=== PATIENT | male | born 1960 | race Caucasian/White ===

== ENCOUNTER → 2017-12-09 | Outpatient (CLI) | payer OTHER ==
--- NOTE | 2017-12-10 00:30 | MR ---
EXAMINATION TYPE: MR brain wo/w con DATE OF EXAM: 12/09/2017 COMPARISON: HISTORY: Hx lung Cancer, Headache TECHNIQUE: Multiplanar, multisequence images of the brain and brainstem is performed without and with IV contras t, utilizing 6.5 mL intravenous Gadavist . FINDINGS: Ventricles of normal size. There is no mass effect nor midline shift. There is no sign of intracrania l hemorrhage. Quintanilla-white matter structures have fairly normal signal pattern. There is no evidence of cerebral edema. There is a 3 mm focus of increased signal at the quintanilla-white matter junction right pa rietal lobe. There is no evidence of cortical infarct. Brainstem appears intact. Corpus callosum appe ars normal. Sella turcica appears normal. I see no pathologic enhancement. IMPRESSION: Isolated small focus of increased signal in the white matter right parietal lobe of doubt ful significance. Otherwise negative exam. No evidence of metastatic disease.
== END ==
LOC: RADMRIMAIN 16:22
PROVIDERS: ATTEND Internal Medicine Hematology & Oncology
DX: R51 Headache (principal); C34.11 Malignant neoplasm of upper lobe, right bronchus or lung
CPT/HCPCS: 70553; A9585

== ENCOUNTER → 2017-12-11 | Outpatient (CLI) | payer OTHER ==
--- NOTE | 2017-12-12 22:30 | PE ---
EXAMINATION TYPE: PET CT fusion skull to thigh DATE OF EXAM: 12/11/2017 CLINICAL HISTORY: 57-year-old male initial staging right lung cancer diagnosed in October 2017. TECHNIQUE: Following the intravenous administration of 11.8 mCi of F-18 FDG, whole body images are performed from the skull base to the midthigh. Images are reviewed on the computer in the coronal, a xial, and sagittal planes. Reconstructed rotating images are created on independent workstation and reviewed on the computer. A localization and attenuation correction CT is performed in conjunction with the PET scan. Glucose level: 85 mg/dL CTDI: 2.56 mGy DLP: 257.96 mGy-cm Injection site: Right antecubital fossa. COMPARISON: Correlation radiograph 12/01/2017 FINDINGS: PET: Numerous nonenlarged right supraclavicular and right axillary lymph node show mild FDG uptake, max LÓPEZ V 2.8. This could be secondary to ipsilateral FDG injection and reactive changes. No obvious enlarged lymph nodes are identified in these regions. In the mediastinum, there is mild uptake: Right paratracheal lymph node, max SUV 2.2, left tracheobronchial angle lymph node, max SUV 2.8, subcarinal lymph node, max SUV 3.2. The largest of these measure 1.3 cm. A surgical clip in the anterior right apex with a staple line from prior surgery but with extensive b ulky, heterogeneous soft tissue located throughout the right hemithorax spanning up to 22.5 cm cranio caudal and 10.1 cm wide. The hypermetabolism is very heterogeneous with variable intense uptake rangi ng from 5.1 to 8.3. Moderate to large underlying effusion particularly relegated to the right base. Background of bullous emphysema. There are scattered pulmonary nodules on the left. Approximately 8 p ulmonary nodules are present, many of which measure 4 or 5 mm but the largest at the base measuring f rom 7 mm up to 10 mm. Max SUV 0.8; nodules are likely too small for adequate PET characterization. Thickening of the right adrenal gland with asymmetric mild increased uptake, max SUV 2.1. This may re late to adrenal hyperplasia but should be reassessed at follow-up. Redundant sigmoid colon but with long segment patchy moderate and borderline intense uptake, max SUV 5.1 spanning 17 cm involving the mid to distal sigmoid colon. ATTENUATION CORRECTION CT: Visualized paranasal sinuses and mastoid air cells appear clear. Slight leftward nasal septal deviati on. Heart normal size without pericardial effusion. Aorta normal caliber with conventional arch also bran bhavya anatomy. Extensive pulmonary findings described above. There is cut off of all of the right-beverly ed lobar bronchi. Approximately five 4 mm and smaller nonobstructive calculi in the right kidney. Gallbladder is hydrop ic at 4.9 cm wide without surrounding inflammation, likely due to fasting state. There is a Ford- type ventral abdominal wall hernia along the midline involving transverse colon. No mesenteric or re troperitoneal lymphadenopathy identified. No dilated small bowel, free fluid, or free air. Circumferential bladder wall thickening. Prostate gland is enlarged measuring 4.7 cm wide with centra l calcifications. Lobulated mass from the prostate gland impressing on the posterior bladder base, li carlos BPH. Mild pelvic free fluid. Bones: Degenerative changes of the hips, right SI joint, lower lumbar spine, and cervical spondylosis . IMPRESSION: 1. Some surgical material at the right apex but with extensive heterogeneous, hypermetabolic mass inv olving the right lung spanning up to 22.5 cm craniocaudal and 10.1 cm wide extending from the apex to the base. There is an underlying moderate effusion at the right base. The mass cuts off all of the r ight-sided lobar bronchi. 2. Mildly enlarged mediastinal lymph nodes measuring up to 1.3 cm show only mild or borderline modera te uptake, max SUV 3.2. These may be reactive rather than metastatic. 3. Additionally, numerous small right supraclavicular and right axillary lymph nodes show mild uptake , max SUV 2.8. Again, these may be reactive especially given the ipsilateral, right sided FDG injecti on. 4. Approximately 8 left-sided pulmonary nodules measuring up to 1 cm show no significant FDG uptake. Many are too small for adequate PET characterization. These are nonspecific but metastatic disease i s not excluded at this time. 5. Asymmetric thickening and mild hypermetabolism of the right adrenal gland, max SUV 2.1. This may r elate to adrenal hyperplasia. All of these above-mentioned questionable findings should be reassessed at follow-up. 5. Patchy long segment moderate and intense uptake involving the mid to distal sigmoid colon spanning 17 cm. Given the long segment involvement, colon cancer is considered less likely. Colitis is possib le. Correlate with patient's symptoms and direct visualization when possible. 6. Incidental: Bullous emphysema, hydropic gallbladder likely due to fasting state, and BPH. Circumfe rential bladder wall thickening could represent cystitis or bladder wall hypertrophy.
== END | disposition home or self-care (01) ==
LOC: RADPETMAIN 10:07
PROVIDERS: ATTEND Internal Medicine Critical Care Medicine
DX: J43.9 Emphysema, unspecified (principal); E27.8 Other specified disorders of adrenal gland; C34.11 Malignant neoplasm of upper lobe, right bronchus or lung
CPT/HCPCS: 78815; A9552

== ENCOUNTER → 2018-01-03 | Outpatient (CLI) | payer OTHER ==
--- NOTE | 2018-01-03 18:01 | US ---
EXAMINATION TYPE: US venous doppler duplex LE DATE OF EXAM: 01/03/2018 5:09 PM COMPARISON: NONE CLINICAL HISTORY: M79.661, M79.662, R22.41, R22.42. No redness or leg swelling. Bilateral leg pain. Bilateral feet swelling. No hx of blood clots. No blood thinners. On Chemo- lung ca. SIDE PERFORMED: Bilateral TECHNIQUE: The lower extremity deep venous system is examined utilizing real time linear array sonog geovanna with graded compression, doppler sonography and color-flow sonography. VESSELS IMAGED: External Iliac Vein (EIV) Common Femoral Vein Deep Femoral Vein Greater Saphenous Vein * Femoral Vein Popliteal Vein Small Saphenous Vein * Proximal Calf Veins (* superficial vessels) There is normal flow, compressibility, vascular waveforms Right Leg: Negative for DVT. Prominent lymph nodes seen in groin. Left Leg: Negative for DVT. Prominent lymph nodes seen in groin. IMPRESSION: No evident deep venous thrombosis at or above the knees bilaterally.
== END | disposition home or self-care (01) ==
LOC: RADUSWWP 16:34
PROVIDERS: ATTEND Internal Medicine Hematology & Oncology
DX: M79.662 Pain in left lower leg (principal); M79.661 Pain in right lower leg; R22.42 Localized swelling, mass and lump, left lower limb; R22.41 Localized swelling, mass and lump, right lower limb; R06.4 Hyperventilation
CPT/HCPCS: 93970

== ENCOUNTER 2018-01-13 10:46 | Emergency (ER) | payer OTHER ==
--- NOTE | 2018-01-13 11:56 | ED ---
Extremity Problem HPI - General Chief complaint: Extremity Problem,Nontraumatic Stated complaint: BOTH ANKLES SWELLING Time Seen by Provider: 01/13/18 11:25 Source: patient, RN notes reviewed, old records reviewed Mode of arrival: wheelchair Limitations: no limitations - History of Present Illness Initial comments: This is a 57-year-old male the ER for evaluation patient presents today for evaluation regards to bilateral lower extremity edema. History of lung cancer, patient is had increasing lower extremity swelling for quite some time progressively worsening with increasing pain. Patient's legs are so painful it hurts even walk. Patient has no medication he takes for swelling, denies shortness of breath worse than normal MD Complaint: extremity pain, extremity swelling -: week(s) Location: left, right, lower extremity, bilateral lower extremity History of Same: Yes -: Yes myalgia, Yes arthralgia Radiation: none Severity scale (1-10): 8 Quality: aching Consistency: constant Improves with: nothing Worsens with: nothing Associated Symptoms: denies other symptoms - Related Data Home Medications Medication Instructions Recorded Confirmed Folic Acid 1 mg PO DAILY 01/05/18 01/13/18 Prochlorperazine [Compazine] 10 mg PO DAILY PRN 01/05/18 01/13/18 Ipratropium-Albuterol Nebulize 3 ml INHALATION RT-Q6H 01/13/18 01/13/18 [Duoneb 0.5 mg-3 mg/3 ml Soln] oxyCODONE ER [OxyCONTIN] 15 mg PO Q12HR PRN 01/13/18 01/13/18 oxyCODONE HCL 15 mg PO Q8H PRN 01/13/18 01/13/18 Allergies Allergy/AdvReac Type Severity Reaction Status Date / Time ibuprofen [From Motrin] AdvReac Unknown Verified 01/13/18 12:02 Review of Systems ROS Statement: Those systems with pertinent positive or pertinent negative responses have been documented in the HPI. ROS Other: All systems not noted in ROS Statement are negative. Past Medical History Past Medical History: Cancer, COPD Additional Past Medical History / Comment(s): SMALL CELL LUNG CANCER. HOME OXYGEN 3LNC. History of Any Multi-Drug Resistant Organisms: None Reported Additional Past Surgical History / Comment(s): 5 COLLAPSED LUNG PROBLEMS-BLEBS. LUNG SURGERIES. STOMACH SURGERY D/T [facility].-"PATCH ON STOMACH". Past Anesthesia/Blood Transfusion Reactions: No Reported Reaction Past Psychological History: No Psychological Hx Reported Smoking Status: Former smoker Past Alcohol Use History: None Reported Past Drug Use History: None Reported General Exam Limitations: no limitations General appearance: alert, in no apparent distress Head exam: Present: atraumatic, normocephalic, normal inspection Eye exam: Present: normal appearance, PERRL, EOMI. Absent: scleral icterus, conjunctival injection, periorbital swelling ENT exam: Present: normal exam, mucous membranes moist Neck exam: Present: normal inspection. Absent: tenderness, meningismus, lymphadenopathy Respiratory exam: Present: normal lung sounds bilaterally. Absent: respiratory distress, wheezes, rales, rhonchi, stridor Cardiovascular Exam: Present: regular rate, normal rhythm, normal heart sounds. Absent: systolic murmur, diastolic murmur, rubs, gallop, clicks GI/Abdominal exam: Present: soft, normal bowel sounds. Absent: distended, tenderness, guarding, rebound, rigid Extremities exam: Present: normal inspection, full ROM, normal capillary refill , other (Bilateral lower extremity edema). Absent: tenderness, pedal edema, joint swelling, calf tenderness Back exam: Present: normal inspection Neurological exam: Present: alert, oriented X3, CN II-XII intact Psychiatric exam: Present: normal affect, normal mood Skin exam: Present: warm, dry, intact, normal color. Absent: rash Course Vital Signs 01/13/18 01/13/18 01/13/18 11:08 11:39 12:00 Temperature 98.7 F Pulse Rate 102 H Respiratory 20 Rate Blood Pressure 93/58 O2 Sat by Pulse 95 95 97 Oximetry 01/13/18 13:00 Temperature Pulse Rate 86 Respiratory 20 Rate Blood Pressure 99/61 O2 Sat by Pulse 95 Oximetry - Reevaluation(s) Reevaluation #1: 01/13/18 13:34 Medical record is reviewed Reevaluation #2: 01/13/18 13:34 Patient given medication here in the ER Medical Decision Making - Lab Data Result diagrams: 01/13/18 12:54 Lab Results 01/13/18 01/13/18 Range/Units 12:54 12:54 Sodium 134 L (137-145) mmol/L Potassium 3.9 (3.5-5.1) mmol/L Chloride 99 (98-107) mmol/L Carbon Dioxide 28 (22-30) mmol/L Anion Gap 7 mmol/L BUN 13 (9-20) mg/dL Creatinine 0.49 L (0.66-1.25) mg/dL Est GFR (CKD-EPI)AfAm >90 (>60 ml/min/1.73 sqM) Est GFR (CKD-EPI)NonAf >90 (>60 ml/min/1.73 sqM) Glucose 94 (74-99) mg/dL Calcium 8.1 L (8.4-10.2) mg/dL Phosphorus 3.5 (2.5-4.5) mg/dL Magnesium 1.5 L (1.6-2.3) mg/dL Total Bilirubin 0.3 (0.2-1.3) mg/dL AST 36 (17-59) U/L ALT 32 (21-72) U/L Alkaline Phosphatase 91 (38-126) U/L Total Creatine Kinase <20 L (55-170) U/L Total Protein 5.4 L (6.3-8.2) g/dL Albumin 2.3 L (3.5-5.0) g/dL - EKG Data -: EKG Interpreted by Me (EKG shows sinus rhythm rate of 90, KS 128, QRS 88, QTc 452) Disposition Clinical Impression: Bilateral lower extremity edema Disposition: HOME SELF-CARE Condition: Good Instructions: Leg Edema (ED) Is patient prescribed a controlled substance at d/c from ED?: No Referrals: Bryce Basilio MD [Primary Care Provider] - 1-2 days
[2018-01-13] MEDS ORDERED: FUROSEMIDE 10 MG/ML 4 ML VIAL IV STA (12:28)
[2018-01-13 13:12] LABS: Basophils % (A) 0 %; Eosinophils % (A) 1 %; HCT 27.1 % (39.0-53.0); HGB 8.5 gm/dL (13.0-17.5); Hypochromasia Slight; Lymphocytes # (A) 0.7 k/uL (1.0-4.8); Lymphocytes % (A) 19 %; MCH 29.7 pg (25.0-35.0); MCHC 31.2 g/dL (31.0-37.0); MCV 95.1 fL (80.0-100.0); Mean Platelet Volume 7.3; Monocytes # (A) 0.6 k/uL (0-1.0); Monocytes % (A) 15 %; Neutrophils # (A) 2.4 k/uL (1.3-7.7); Neutrophils % (A) 61 %; Platelet Count 581 k/uL (150-450); RBC 2.85 m/uL (4.30-5.90); RDW 15.7 % (11.5-15.5)
[2018-01-13 13:21] LABS: ALT 32 U/L (21-72); AST 36 U/L (17-59); Albumin 2.3 g/dL (3.5-5.0); Alkaline Phosphatase 91 U/L (38-126); Anion Gap 7 mmol/L; Blood Urea Nitrogen 13 mg/dL (9-20); Calcium 8.1 mg/dL (8.4-10.2); Carbon Dioxide 28 mmol/L (22-30); Chloride 99 mmol/L (98-107); Glucose 94 mg/dL (74-99); Magnesium 1.5 mg/dL (1.6-2.3); Phosphorus 3.5 mg/dL (2.5-4.5); Potassium 3.9 mmol/L (3.5-5.1); Sodium 134 mmol/L (137-145); Total Bilirubin 0.3 mg/dL (0.2-1.3); Total Protein 5.4 g/dL (6.3-8.2)
[2018-01-13 13:23] LABS: Creatine Kinase <20 U/L (55-170)
--- NOTE | 2018-01-13 13:29 | XR ---
EXAMINATION TYPE: XR chest 2V DATE OF EXAM: 01/13/2018 COMPARISON: PET/CT December 11, 2017. 2 view chest x-ray December 01, 2017. HISTORY: History of lung cancer presents with weakness. TECHNIQUE: Frontal and lateral views of the chest are obtained. FINDINGS: There is redemonstration of completely opacified right lung with suprahilar clip correspon ds to diffuse right lung malignancy on recent PET/CT. There is background chronic emphysematous yee e without suspicious new focal airspace opacity in the left lung. Right-sided volume loss with medias tinal shift is redemonstrated. Scattered nodules left lung on PET CT are less well seen on x-ray. The right side cardiac silhouette is silhouetted similar to prior. The osseous structures are intact. IMPRESSION: Diffuse right lung malignancy redemonstrated. Background chronic emphysematous change wit hout new acute infiltrate in the left lung. No significant change from recent studies.
[2018-01-13 13:36] LABS: Creatine Kinase MB 0.6 ng/mL (0.0-2.4); Troponin I <0.012 ng/mL (0.000-0.034)
[2018-01-13 14:05] LABS: Polychromasia Present
[2018-01-13 14:32] VITALS: BP 109/62; PULSE 75; RESP 16; TEMP 98.2
== END 2018-01-13 14:30 | disposition home or self-care (01) ==
LOC: EC 10:46
DX: R60.0 Localized edema (principal); J44.9 Chronic obstructive pulmonary disease, unspecified; Z85.118 Personal history of other malignant neoplasm of bronchus and lung; Z87.891 Personal history of nicotine dependence; Z79.899 Other long term (current) drug therapy; Z88.6 Allergy status to analgesic agent
CPT/HCPCS: 36415; 93005; 83880; 80053; 82550; 82553; 83735; 84100; 84484; 85025; 71046; 99284; 96374; J1940

== ENCOUNTER → 2018-02-17 | Outpatient (CLI) | payer OTHER ==
[2018-02-17 12:10] LABS: Blood Urea Nitrogen 11 mg/dL (9-20)
--- NOTE | 2018-02-17 14:39 | CT ---
EXAMINATION TYPE: CT chest w con DATE OF EXAM: 02/17/2018 COMPARISON: PET/CT 12/11/2017 HISTORY: 57-year-old male follow-up lung cancer TECHNIQUE: Contiguous axial scanning of the chest after the administration of 100 mL of Isovue M300. Coronal/sagittal reconstructions performed. CT DLP: 201.80mGycm. Automatic exposure control utilized for a dose reduction. FINDINGS: Heart normal size without pericardial effusion. Rightward cardia mediastinal shift suggests volume lo ss in the right hemithorax. Aorta normal caliber with conventional arch vessel branching anatomy. Scattered mediastinal lymph nodes are present measuring up to 6 mm. These lymph nodes are not enlarge d by size criteria and are smaller as compared to 12/11/2017 where they measured up to 1.3 cm. Surgical staple lines in the right apex and right upper lobe. There has been dramatic improvement in the right hemithorax but with persistent multifocal areas of consolidation and masslike opacities alma ecially in the right suprahilar region extending up to the apex. This area is poorly delineated and c annot be adequately measured. Masslike consolidation at the peripheral right base measuring up to 6.4 x 5.2 cm. Persistent moderate right basilar pleural effusion. Bullous emphysema. 6 mm peripheral left upper lobe nodule, axial image 24 is unchanged. Couple residual 3 mm pulmonary nodules peripheral left upper lobe, axial image 12 and 17 are smaller. 4 additional pulmonary nodules previously seen in the right lower lobe measuring up to 1 cm have enti rely resolved. Previously seen thickening of the right adrenal gland showing still have shown some partial improveme nt. Punctate a couple punctate 3 to 4 mm right renal calculi. Moderate to large stool burden partiall y seen. There seems to be rectus diastases. Bones: Crowding of the right-sided ribs suggesting volume loss. No osseous destructive process seen. IMPRESSION: 1. Dramatic improvement of the disease burden in the right hemithorax but with persistent opacities. Consolidation persists in the right suprahilar region extending up to the apex. Ongoing follow-up is recommended to distinguish residual disease from postinflammatory consolidation, scarring, and atelec tasis. 2. Masslike area of consolidation at the right base measures 6.4 x 5.2 cm and likely represents a sit e of neoplasm with partial/evolving treatment response. 3. Residual moderate right basilar pleural effusion. 4. Most of the left-sided pulmonary nodules have improved, the larger nodules measuring up to 1 cm at the left base have entirely resolved. 5. Some improvement in the previously seen right adrenal gland thickening.
== END | disposition home or self-care (01) ==
LOC: RADCTMAIN 11:24
PROVIDERS: ATTEND Internal Medicine Hematology & Oncology
DX: J90 Pleural effusion, not elsewhere classified (principal); R91.8 Other nonspecific abnormal finding of lung field; C34.11 Malignant neoplasm of upper lobe, right bronchus or lung
CPT/HCPCS: 82565; 84520; 71260; 36415; Q9967

== ENCOUNTER → 2018-05-04 | Outpatient (CLI) | payer OTHER ==
--- NOTE | 2018-05-04 13:03 | MR ---
EXAMINATION TYPE: MR brain wo/w con DATE OF EXAM: 05/04/2018 COMPARISON: 12/09/2017 HISTORY: Lung ca TECHNIQUE: Multiplanar, multisequence images of the brain and brainstem is performed without and with IV contras t, utilizing 6 mL intravenous Gadavist . FINDINGS: Diffusion weighted images demonstrate no evidence of a recent infarct or other diffusion ab normality. There is scattered areas of abnormal signal the white matter. No enhancement. Findings most likely in the basis of focal area of remote White microvascular ischemia. Trace amount of fluid signal surrounding the optic nerves bilaterally is nonspecific. No orbital flat tening. Craniocervical junction maintained. There is a partially empty sella turcica. Findings stable . IMPRESSION: 1. Mild generalized degenerative change with nonspecific white matter changes most likely in the basi s of remote microvascular ischemia. Hypertension, migraine headaches or demyelinating process not ent irely excluded. No enhancement. No intracranial enhancing mass or findings suggestive of metastases.
== END | disposition home or self-care (01) ==
LOC: RADMRIMAIN 11:33
PROVIDERS: ATTEND Internal Medicine Hematology & Oncology
DX: R90.89 Other abnormal findings on diagnostic imaging of central nervous system (principal); R55 Syncope and collapse; C34.11 Malignant neoplasm of upper lobe, right bronchus or lung
CPT/HCPCS: 70553; A9585

== ENCOUNTER → 2018-06-07 | Outpatient (CLI) | payer OTHER ==
[2018-06-07 11:04] LABS: Blood Urea Nitrogen 13 mg/dL (9-20)
--- NOTE | 2018-06-07 14:49 | CT ---
EXAMINATION TYPE: CT ChestAbdPelvis w con DATE OF EXAM: 06/07/2018 COMPARISON: 02/17/2018 CT chest and PET/CT dated 12/11/2017 HISTORY: Lung cancer CT DLP: 549.4 mGycm. Automated Exposure Control for Dose Reduction was Utilized. CONTRAST: CT scan of the thorax, abdomen and pelvis is performed with IV Contrast, patient injected with 100 mL of Isovue 300. FINDINGS: LUNGS: The previously seen left upper lobe nodule appears decreased in size and elongated. This now h as appearance of a scar on series 4 image 22 and 21. There is marked improvement in size of a right l ower lobe mass previously measuring 5.2 x 6.4 cm and currently measuring 3.8 x 4.4 cm. There are mult iple other smaller right-sided pulmonary nodules such as on series 4 image 32 and 23. On image 23 thi s nodule previously measured 1.5 cm and currently measures 8 mm. There is marked improvement in degre e of consolidation of the right middle lobe and right upper lobe. Some traction bronchiectasis remain s in the right upper lobe with surgical sutures noted in right hemithorax volume loss. Rightward medi astinal shift is seen as a result. Extensive underlying emphysematous changes are noted. No new pulmo nary nodule or mass. MEDIASTINUM: The previously seen right paratracheal lymph node measuring 6 mm in short axis on the pr ior now measures 4 mm in short axis. Right perihilar peribronchial soft tissue swelling is present. N o new discrete adenopathy. Few coronary calcifications are seen. No pericardial effusion. LIVER/GB: There is marked extrahepatic biliary ductal dilatation progressed from the prior of 018 now measuring up to 2.0 cm. This appears to smoothly taper near the ampulla of Vater. The gallbla dder is hydropic measuring 10.1 cm. Minimal intrahepatic biliary ductal dilatation has developed. The liver is enlarged extending past the right iliac crest. PANCREAS: No significant abnormality is seen. SPLEEN: No significant abnormality is seen. ADRENALS: Again there is very slight right adrenal gland thickening without discrete nodularity. Left adrenal gland is unremarkable. KIDNEYS: Multiple punctate nonobstructing right renal calculi are seen. No hydronephrosis or left-beverly ed nephrolithiasis. Kidneys enhance symmetrically. BOWEL: There is a large degree of fecal stasis throughout the entirety of the colon limiting evaluati on. There is marked gastrectasis and a ventral wide necked hernia defect. Gastrectasis impresses upon the pancreas. GENITAL ORGANS: Prostate gland is enlarged and heterogenous containing central zone calcifications an d impressing upon the urinary bladder. LYMPH NODES: No greater than 1cm abdominal or pelvic lymph nodes are appreciated. OSSEOUS STRUCTURES: Grade 1 anterolisthesis of L4 on L5 due to facet arthropathy and hypertrophy. No new suspicious osseous lesion is identified.. OTHER: There is diffuse mild anasarca. IMPRESSION: 1. Continued response to treatment. The primary mass has decreased from the largest dimension of 6.4 cm to a largest dimension of 4.5 cm in comparison to the prior of 02/17/2018. All of the metastatic p ulmonary nodules appear to have decreased in size. 2. Development of marked extrahepatic biliary ductal dilatation, hydropic size of the gallbladder, an d mild intrahepatic biliary ductal dilatation. Considerations are for distal biliary stricture, nonra diopaque choledocholithiasis, choledochal cyst, or less likely periampullary mass. No discrete pancre atic ductal dilatation. 3. Large burden of fecal stasis, small bowel prominence indicating ileus and gastrectasis. Overall in creased transit time of the bowel. 4. Resolving right pleural effusion, now small.
== END | disposition home or self-care (01) ==
LOC: RADCTMAIN 10:19
PROVIDERS: ATTEND Internal Medicine Hematology & Oncology
DX: Z03.89 Encounter for observation for other suspected diseases and conditions ruled out (principal); C78.00 Secondary malignant neoplasm of unspecified lung; K83.8 Other specified diseases of biliary tract; R19.5 Other fecal abnormalities; J90 Pleural effusion, not elsewhere classified; C34.11 Malignant neoplasm of upper lobe, right bronchus or lung
CPT/HCPCS: 82565; 84520; 71260; 74177; 36415; Q9967

== ENCOUNTER → 2018-06-15 | Outpatient (CLI) | payer OTHER ==
--- NOTE | 2018-06-15 16:54 | MR ---
EXAMINATION TYPE: MR MRCP DATE OF EXAM: 06/15/2018 COMPARISON: CT scan 06/07/2018 HISTORY: Dilated bile ducts. Lung cancer. Standard multiplanar, multisequence MRI departmental protocol Multiplanar, multisequence images of the abdomen were acquired. FINDINGS: Liver shows no focal defect. There is moderate dilation of the common bile duct that measur es up to 2.4 cm. There is mild dilation of intrahepatic bile ducts. There are small filling defects i n the gallbladder. Gallbladder is not significantly dilated. Gallbladder measures 2.4 cm in diameter. Kidneys have fairly normal size and contour. There is no hydronephrosis. The stomach appears normal. Spleen appears normal. There is no evidence of a pancreatic mass. Pancreatic duct appears normal. There are small multiple filling defects in the distal common bile duct. This is seen on the axial T2 images. There is right pleural effusion. There is no ascites. IMPRESSION: Moderate dilation of the biliary tree. There is multiple small filling defects in the distal common b ile duct consistent with choledocholithiasis. There is probably a stone obstructing the distal common bile duct at the sphincter. There is cholelithiasis with multiple similar sized stones in the dependent gallbladder. No significa nt dilation of the gallbladder. Normal pancreas. Small right pleural effusion.
== END | disposition home or self-care (01) ==
LOC: RADMRIMAIN 15:48
PROVIDERS: ATTEND Internal Medicine Gastroenterology
DX: K80.20 Calculus of gallbladder without cholecystitis without obstruction (principal); R74.8 Abnormal levels of other serum enzymes
CPT/HCPCS: 74181

== ENCOUNTER 2018-07-28 15:41 | Inpatient (IN) | payer OTHER ==
--- NOTE | 2018-07-28 16:31 | ED ---
General Adult HPI - General Chief complaint: Abdominal Pain Stated complaint: Acute Cholecystitis, stones in Bio duct Time Seen by Provider: 07/28/18 16:18 Source: patient, RN notes reviewed, old records reviewed (Reviewed labs and ultrasound from earlier this morning) Mode of arrival: wheelchair Limitations: no limitations - History of Present Illness Initial comments: Patient is a pleasant 58-year-old male presenting to the emergency department with concerns for gallbladder problems. has had some gallbladder issues over the past several months. Patient did have MRI with concern for stones. Patient has had worsening symptoms or past couple of days. Patient was sent for ultrasound and was advised to come to the emergency department by Dr. Monae. Patient does have known history of age for lung cancer. Patient is on maintenance chemotherapy at this time. Patient does have an appointment to see Dr. Dubon next week. Discomfort is mild at this time. Patient has some associated nausea. No fevers. - Related Data Home Medications Medication Instructions Recorded Confirmed Folic Acid 1 mg PO DAILY 01/05/18 01/13/18 Prochlorperazine [Compazine] 10 mg PO DAILY PRN 01/05/18 01/13/18 Ipratropium-Albuterol Nebulize 3 ml INHALATION RT-Q6H 01/13/18 01/13/18 [Duoneb 0.5 mg-3 mg/3 ml Soln] oxyCODONE ER [OxyCONTIN] 15 mg PO Q12HR PRN 01/13/18 01/13/18 oxyCODONE HCL [oxyCODONE HCL (IR)] 15 mg PO Q8H PRN 01/13/18 01/13/18 Previous Rx's Medication Instructions Recorded Furosemide [Lasix] 40 mg PO BID #10 tablet 01/13/18 Allergies Allergy/AdvReac Type Severity Reaction Status Date / Time ibuprofen [From Motrin] AdvReac Unknown Verified 07/28/18 15:48 Review of Systems ROS Statement: Those systems with pertinent positive or pertinent negative responses have been documented in the HPI. ROS Other: All systems not noted in ROS Statement are negative. Constitutional: Denies: fever Eyes: Denies: eye pain ENT: Denies: ear pain Respiratory: Denies: cough, dyspnea Cardiovascular: Denies: chest pain Endocrine: Denies: fatigue Gastrointestinal: Reports: abdominal pain, nausea Genitourinary: Denies: urgency Musculoskeletal: Denies: back pain Skin: Denies: rash Neurological: Denies: weakness Past Medical History Past Medical History: Cancer, COPD Additional Past Medical History / Comment(s): SMALL CELL LUNG CANCER. HOME OXYGEN 3LNC. History of Any Multi-Drug Resistant Organisms: None Reported Additional Past Surgical History / Comment(s): 5 COLLAPSED LUNG PROBLEMS-BLEBS. LUNG SURGERIES. STOMACH SURGERY D/T [facility].-"PATCH ON STOMACH". Past Anesthesia/Blood Transfusion Reactions: No Reported Reaction Past Psychological History: No Psychological Hx Reported Smoking Status: Current every day smoker Past Alcohol Use History: None Reported Past Drug Use History: None Reported General Exam Limitations: no limitations General appearance: alert, in no apparent distress Head exam: Present: atraumatic Eye exam: Present: normal appearance, PERRL, EOMI. Absent: scleral icterus ENT exam: Present: normal oropharynx Neck exam: Present: normal inspection Respiratory exam: Present: normal lung sounds bilaterally Cardiovascular Exam: Present: regular rate, normal rhythm Expanded Peripheral pulses: 2+: Radial (R), Radial (L), Posterior Tibialis (R), Posterior Tibialis (L), Dorsalis Pedis (R), Dorsalis Pedis (L) GI/Abdominal exam: Present: soft, tenderness (Mild tenderness right upper quadrant), hernia (Large ventral hernia that is soft and easily reducible with minimal tenderness. Patient states chronic). Absent: guarding, rebound, rigid Extremities exam: Present: normal inspection Neurological exam: Present: alert Psychiatric exam: Present: normal affect, normal mood Skin exam: Present: normal color Course Vital Signs 07/28/18 15:45 Temperature 98.0 F Pulse Rate 95 Respiratory 18 Rate Blood Pressure 101/69 O2 Sat by Pulse 96 Oximetry - Reevaluation(s) Reevaluation #1: 07/28/18 16:32 Case was discussed in detail with Dr. Smith, who will consult. He recommends medical admission with GI and oncology consult and IV antibiotics. Family was updated. 07/28/18 16:54 Case was also discussed with Dr. arellano, who will admit covering for Dr. Basilio. Patient and family again updated. EKG Findings - EKG Comments: EKG Findings:: Normal sinus rhythm 88. MI 118. QRS 100. QT 360. QTC 435. Left axis. Normal QRS. No acute ST change. Medical Decision Making - Lab Data Result diagrams: 07/28/18 16:20 07/28/18 16:20 Lab Results 07/28/18 07/28/18 07/28/18 Range/Units 16:20 16:20 16:20 WBC 5.3 (3.8-10.6) k/uL RBC 3.30 L (4.30-5.90) m/uL Hgb 10.9 L (13.0-17.5) gm/dL Hct 34.3 L (39.0-53.0) % MCV 103.8 H (80.0-100.0) fL MCH 32.9 (25.0-35.0) pg MCHC 31.7 (31.0-37.0) g/dL RDW 14.5 (11.5-15.5) % Plt Count 235 (150-450) k/uL Neutrophils % 56 % Lymphocytes % 32 % Monocytes % 8 % Eosinophils % 1 % Basophils % 0 % Neutrophils # 3.0 (1.3-7.7) k/uL Lymphocytes # 1.7 (1.0-4.8) k/uL Monocytes # 0.4 (0-1.0) k/uL Eosinophils # 0.1 (0-0.7) k/uL Basophils # 0.0 (0-0.2) k/uL Macrocytosis Slight PT (9.0-12.0) sec INR (<1.2) APTT (22.0-30.0) sec Sodium 139 (137-145) mmol/L Potassium 3.7 (3.5-5.1) mmol/L Chloride 101 (98-107) mmol/L Carbon Dioxide 32 H (22-30) mmol/L Anion Gap 6 mmol/L BUN 11 (9-20) mg/dL Creatinine 0.52 L (0.66-1.25) mg/dL Est GFR (CKD-EPI)AfAm >90 (>60 ml/min/1.73 sqM) Est GFR (CKD-EPI)NonAf >90 (>60 ml/min/1.73 sqM) Glucose 86 (74-99) mg/dL Plasma Lactic Acid Arron 0.9 (0.7-2.0) mmol/L Calcium 8.9 (8.4-10.2) mg/dL Total Bilirubin 0.5 (0.2-1.3) mg/dL AST 135 H (17-59) U/L ALT 264 H (21-72) U/L Alkaline Phosphatase 608 H (38-126) U/L Total Protein 6.4 (6.3-8.2) g/dL Albumin 3.2 L (3.5-5.0) g/dL 07/28/18 Range/Units 16:20 WBC (3.8-10.6) k/uL RBC (4.30-5.90) m/uL Hgb (13.0-17.5) gm/dL Hct (39.0-53.0) % MCV (80.0-100.0) fL MCH (25.0-35.0) pg MCHC (31.0-37.0) g/dL RDW (11.5-15.5) % Plt Count (150-450) k/uL Neutrophils % % Lymphocytes % % Monocytes % % Eosinophils % % Basophils % % Neutrophils # (1.3-7.7) k/uL Lymphocytes # (1.0-4.8) k/uL Monocytes # (0-1.0) k/uL Eosinophils # (0-0.7) k/uL Basophils # (0-0.2) k/uL Macrocytosis PT 9.6 (9.0-12.0) sec INR 0.9 (<1.2) APTT 23.5 (22.0-30.0) sec Sodium (137-145) mmol/L Potassium (3.5-5.1) mmol/L Chloride (98-107) mmol/L Carbon Dioxide (22-30) mmol/L Anion Gap mmol/L BUN (9-20) mg/dL Creatinine (0.66-1.25) mg/dL Est GFR (CKD-EPI)AfAm (>60 ml/min/1.73 sqM) Est GFR (CKD-EPI)NonAf (>60 ml/min/1.73 sqM) Glucose (74-99) mg/dL Plasma Lactic Acid Arron (0.7-2.0) mmol/L Calcium (8.4-10.2) mg/dL Total Bilirubin (0.2-1.3) mg/dL AST (17-59) U/L ALT (21-72) U/L Alkaline Phosphatase (38-126) U/L Total Protein (6.3-8.2) g/dL Albumin (3.5-5.0) g/dL - Radiology Data Radiology results: report reviewed Critical Care Time Critical Care Time: Yes Total Critical Care Time: 33 Disposition Clinical Impression: Cholecystitis, Choledocholithiasis Disposition: ADMITTED IP TO THIS HOSP Is patient prescribed a controlled substance at d/c from ED?: No Referrals: Bryce Basilio MD [Primary Care Provider] - 1-2 days Decision Time: 16:55
[2018-07-28] MEDS ORDERED: PIPERACILLIN-TAZOBACTAM 3.375 GM in SODIUM CHLORIDE 0.9% 100 ML IVPB STA (16:33)
[2018-07-28] MEDS ORDERED: SODIUM CHLORIDE 0.9% 500 ML 500 ML IV SCH (16:45)
[2018-07-28 16:47] LABS: Basophils % (A) 0 %; Eosinophils # (A) 0.1 k/uL (0-0.7); Eosinophils % (A) 1 %; HCT 34.3 % (39.0-53.0); HGB 10.9 gm/dL (13.0-17.5); Lymphocytes # (A) 1.7 k/uL (1.0-4.8); Lymphocytes % (A) 32 %; MCH 32.9 pg (25.0-35.0); MCHC 31.7 g/dL (31.0-37.0); MCV 103.8 fL (80.0-100.0); Macrocytosis Slight; Mean Platelet Volume 7.2; Monocytes # (A) 0.4 k/uL (0-1.0); Monocytes % (A) 8 %; Neutrophils % (A) 56 %; Platelet Count 235 k/uL (150-450); RDW 14.5 % (11.5-15.5); WBC 5.3 k/uL (3.8-10.6)
[2018-07-28 16:51] LABS: INR 0.9 (<1.2); Prothrombin Time 9.6 sec (9.0-12.0)
[2018-07-28 16:52] LABS: ALT 264 U/L (21-72); AST 135 U/L (17-59); African American GFR (CKD) >90 (>60 ml/min/1.73 sqM); Albumin 3.2 g/dL (3.5-5.0); Alkaline Phosphatase 608 U/L (38-126); Anion Gap 6 mmol/L; Blood Urea Nitrogen 11 mg/dL (9-20); Calcium 8.9 mg/dL (8.4-10.2); Carbon Dioxide 32 mmol/L (22-30); Chloride 101 mmol/L (98-107); Glucose 86 mg/dL (74-99); Partial Thromboplastin Time 23.5 sec (22.0-30.0); Potassium 3.7 mmol/L (3.5-5.1); Sodium 139 mmol/L (137-145); Total Bilirubin 0.5 mg/dL (0.2-1.3); Total Protein 6.4 g/dL (6.3-8.2)
[2018-07-28] MEDS ORDERED: NALOXONE 0.4 MG/ML 1 ML VIAL IV PRN (16:55)
[2018-07-28] MEDS ORDERED: HYDROmorphone 0.5 MG/0.5 ML SYRINGE IVP PRN (16:55)
[2018-07-28] MEDS ORDERED: ONDANSETRON 4 MG/2 ML VIAL IVP PRN (16:55)
[2018-07-28] MEDS: SODIUM CHLORIDE 0.9% 1,000 ML IV SCH (17:14)
[2018-07-28 17:20] LABS: Amylase 63 U/L (30-110); Lipase 96 U/L (23-300)
[2018-07-28] MEDS: HYDROmorphone 1 MG/ML 1 ML SYRINGE IVP PRN ×2 (18:16→23:09)
[2018-07-28] MEDS ORDERED: LACTULOSE 20 GM/30 ML CUP PO PRN (20:17)
[2018-07-28] MEDS ORDERED: PROCHLORPERAZINE 10 MG TAB PO PRN (20:17)
[2018-07-28] MEDS ORDERED: DICYCLOMINE 20 MG TAB PO PRN (20:17)
[2018-07-28] MEDS ORDERED: HYDROcodone/APAP 10-325MG 1 EACH TAB PO PRN (20:17)
[2018-07-28] MEDS ORDERED: ENOXAPARIN 40 MG/0.4 ML SYRINGE SQ SCH (20:30)
[2018-07-28] MEDS: MORPHINE SULFATE ER 60 MG TABLET PO SCH (22:09)
[2018-07-28] MEDS: SENNOSIDES-DOCUSATE SODIUM 1 EACH TAB PO SCH (22:10)
[2018-07-28] MEDS: PIPERACILLIN-TAZOBACTAM 3.375 GM in SODIUM CHLORIDE 0.9% 100 ML IVPB SCH (23:34)
[2018-07-29] MEDS: HYDROmorphone 1 MG/ML 1 ML SYRINGE IVP PRN ×6 (02:22→21:47)
[2018-07-29] MEDS: SODIUM CHLORIDE 0.9% 1,000 ML IV SCH ×2 (02:25→13:20)
[2018-07-29] MEDS: MEGESTROL 400 MG/10 ML CUP PO SCH (08:37)
[2018-07-29] MEDS: PIPERACILLIN-TAZOBACTAM 3.375 GM in SODIUM CHLORIDE 0.9% 100 ML IVPB SCH ×2 (08:37→16:34)
[2018-07-29] MEDS: FOLIC ACID 1 MG TAB PO SCH (08:38)
[2018-07-29] MEDS: MORPHINE SULFATE ER 30 MG TABLET PO SCH (08:38)
[2018-07-29] MEDS: SENNOSIDES-DOCUSATE SODIUM 1 EACH TAB PO SCH ×2 (08:38→20:00)
[2018-07-29] MEDS ORDERED: PANTOPRAZOLE 40 MG/10 ML VIAL IV SCH (09:00)
[2018-07-29] MEDS ORDERED: predniSONE 10 MG TAB PO SCH (09:00)
[2018-07-29 09:40] LABS: ALT 239 U/L (21-72); AST 126 U/L (17-59); African American GFR (CKD) >90 (>60 ml/min/1.73 sqM); Albumin 2.7 g/dL (3.5-5.0); Alkaline Phosphatase 536 U/L (38-126); Anion Gap 3 mmol/L; Blood Urea Nitrogen 9 mg/dL (9-20); Calcium 8.4 mg/dL (8.4-10.2); Carbon Dioxide 31 mmol/L (22-30); Chloride 105 mmol/L (98-107); Glucose 68 mg/dL (74-99); Sodium 139 mmol/L (137-145); Total Bilirubin 0.8 mg/dL (0.2-1.3); Total Protein 5.6 g/dL (6.3-8.2)
[2018-07-29 09:55] LABS: HCT 30.7 % (39.0-53.0); HGB 9.8 gm/dL (13.0-17.5); Hypochromasia Slight; MCH 33.4 pg (25.0-35.0); MCHC 31.8 g/dL (31.0-37.0); Macrocytosis Slight; Mean Platelet Volume 7.7; Platelet Count 204 k/uL (150-450); RBC 2.92 m/uL (4.30-5.90); RDW 14.1 % (11.5-15.5); WBC 3.4 k/uL (3.8-10.6)
--- NOTE | 2018-07-29 11:18 | P.GSCN ---
<Claudette Londono - Last Filed: 07/29/18 11:18> History of Present Illness Consult date: 07/29/18 Reason for Consult: Choledocholithiasis Requesting physician: Christofer Baker History of present illness: CHIEF COMPLAINT: Choledocholithiasis HISTORY OF PRESENT ILLNESS: 58-year-old male who presented to the hospital after having an outpatient ultrasound revealing large amount of biliary sludge with gallbladder wall thickening. Common bile duct is markedly dilated containing at least 2 mobile calculi. Findings are concerning for acute cholecystitis with choledocholithiasis. Patient reports history of right upper quadrant pain. Reports nausea. No emesis. PAST MEDICAL HISTORY: See list. PAST SURGICAL HISTORY: See list. SOCIAL HISTORY: No illicit drug use. REVIEW OF SYSTEMS: CONSTITUTIONAL: Denies fever or chills. HEENT: Denies blurred vision, vision changes, or eye pain. Denies hemoptysis CARDIOVASCULAR: Denies chest pain or pressure. RESPIRATORY: No shortness of breath. On Home oxygen therapy. GASTROINTESTINAL: Refer to HPI for pertinent findings HEMATOLOGIC: Denies bleeding disorders. GENITOURINARY: Denies any blood in urine. SKIN: Denies pruitis. Denies rash. PHYSICAL EXAM: VITAL SIGNS: Reviewed. GENERAL: Well-developed in no acute distress. HEENT: No sclera icterus. Extraocular movements grossly intact. Moist buccal mucosa. Head is atraumatic, normocephalic. ABDOMEN: Soft. Nondistended. Tenderness to right upper quadrant. NEUROLOGIC: Alert and oriented. Cranial nerves II through XII grossly intact. ASSESSMENT: 1. Abdominal pain 2. Acute cholecystitis with choledocholithiasis PLAN: GI services has been consulted and patient is scheduled for ERCP today. Patient will require laparoscopic cholecystectomy. Timing to be determined by patient clinical course, ERCP, and lab results. Repeat labs in AM. Nurse practitioner note has been reviewed by physician. Signing provider agrees with the documented findings, assessment, and plan of care. Past Medical History Past Medical History: Cancer, COPD Additional Past Medical History / Comment(s): SMALL CELL LUNG CANCER. HOME OXYGEN 3LNC., hernia History of Any Multi-Drug Resistant Organisms: None Reported Additional Past Surgical History / Comment(s): 5 COLLAPSED LUNG PROBLEMS-BLEBS. LUNG SURGERIES. STOMACH SURGERY D/T [facility].-"PATCH ON STOMACH". Past Anesthesia/Blood Transfusion Reactions: No Reported Reaction Past Psychological History: No Psychological Hx Reported Smoking Status: Current every day smoker Past Alcohol Use History: None Reported Additional Past Alcohol Use History / Comment(s): QUIT DECEMBER 2017. Past Drug Use History: None Reported - Past Family History Mother Family Medical History: COPD Medications and Allergies Home Medications Medication Instructions Recorded Confirmed Type Folic Acid 1 mg PO DAILY 01/05/18 07/28/18 History Prochlorperazine [Compazine] 10 mg PO DAILY PRN 01/05/18 07/28/18 History Dicyclomine HCl 20 mg PO QID PRN 07/28/18 07/28/18 History HYDROcodone/APAP 10-325MG [[place] 1 tab PO Q6HR PRN 07/28/18 07/28/18 History 10-325] Lactulose [Constulose] 20 gm PO Q12HR PRN 07/28/18 07/28/18 History Megestrol [Megace] 800 mg PO DAILY 07/28/18 07/28/18 History Morphine Sulfate [Morphine Sulfate 10 - 20 mg PO Q6H PRN 07/28/18 07/28/18 History Oral Soln Conc (20 MG/ML)] Morphine Sulfate [Ms Contin] 30 mg PO QAM 07/28/18 07/28/18 History Morphine Sulfate [Ms Contin] 60 mg PO HS 07/28/18 07/28/18 History Nystatin 100,000 Unit/ml Susp 5 ml PO QID 07/28/18 07/28/18 History [Mycostatin Oral Susp] Sennosides/Docusate Sodium [Dok 2 tab PO BID 07/28/18 07/28/18 History Plus Tablet] predniSONE 10 mg PO DAILY 07/28/18 07/28/18 History Allergies Allergy/AdvReac Type Severity Reaction Status Date / Time ibuprofen [From Motrin] AdvReac Unknown Verified 07/28/18 17:12 Surgical - Exam Vital Signs Temp Pulse Resp BP Pulse Ox 98.0 F 95 18 101/69 96 07/28/18 15:45 07/28/18 15:45 07/28/18 15:45 07/28/18 15:45 07/28/18 15:45 Results - Labs 07/29/18 08:29 07/29/18 08:29 Abnormal Lab Results - Last 24 Hours (Table) 07/28/18 07/28/18 07/29/18 Range/Units 16:20 16:20 08:29 WBC 3.4 L (3.8-10.6) k/uL RBC 3.30 L 2.92 L (4.30-5.90) m/uL Hgb 10.9 L 9.8 L (13.0-17.5) gm/dL Hct 34.3 L 30.7 L (39.0-53.0) % MCV 103.8 H 105.0 H (80.0-100.0) fL Carbon Dioxide 32 H (22-30) mmol/L Creatinine 0.52 L (0.66-1.25) mg/dL Glucose (74-99) mg/dL AST 135 H (17-59) U/L ALT 264 H (21-72) U/L Alkaline Phosphatase 608 H (38-126) U/L Total Protein (6.3-8.2) g/dL Albumin 3.2 L (3.5-5.0) g/dL 07/29/18 Range/Units 08:29 WBC (3.8-10.6) k/uL RBC (4.30-5.90) m/uL Hgb (13.0-17.5) gm/dL Hct (39.0-53.0) % MCV (80.0-100.0) fL Carbon Dioxide 31 H (22-30) mmol/L Creatinine (0.66-1.25) mg/dL Glucose 68 L (74-99) mg/dL AST 126 H (17-59) U/L ALT 239 H (21-72) U/L Alkaline Phosphatase 536 H (38-126) U/L Total Protein 5.6 L (6.3-8.2) g/dL Albumin 2.7 L (3.5-5.0) g/dL Diabetes panel 07/28/18 07/29/18 Range/Units 16:20 08:29 Sodium 139 139 (137-145) mmol/L Potassium 3.7 4.0 (3.5-5.1) mmol/L Chloride 101 105 (98-107) mmol/L Carbon Dioxide 32 H 31 H (22-30) mmol/L BUN 11 9 (9-20) mg/dL Creatinine 0.52 L 0.69 (0.66-1.25) mg/dL Glucose 86 68 L (74-99) mg/dL Calcium 8.9 8.4 (8.4-10.2) mg/dL AST 135 H 126 H (17-59) U/L ALT 264 H 239 H (21-72) U/L Alkaline Phosphatase 608 H 536 H (38-126) U/L Total Protein 6.4 5.6 L (6.3-8.2) g/dL Albumin 3.2 L 2.7 L (3.5-5.0) g/dL Calcium panel 07/28/18 07/29/18 Range/Units 16:20 08:29 Calcium 8.9 8.4 (8.4-10.2) mg/dL Albumin 3.2 L 2.7 L (3.5-5.0) g/dL Pituitary panel 07/28/18 07/29/18 Range/Units 16:20 08:29 Sodium 139 139 (137-145) mmol/L Potassium 3.7 4.0 (3.5-5.1) mmol/L Chloride 101 105 (98-107) mmol/L Carbon Dioxide 32 H 31 H (22-30) mmol/L BUN 11 9 (9-20) mg/dL Creatinine 0.52 L 0.69 (0.66-1.25) mg/dL Glucose 86 68 L (74-99) mg/dL Calcium 8.9 8.4 (8.4-10.2) mg/dL Adrenal panel 07/28/18 07/29/18 Range/Units 16:20 08:29 Sodium 139 139 (137-145) mmol/L Potassium 3.7 4.0 (3.5-5.1) mmol/L Chloride 101 105 (98-107) mmol/L Carbon Dioxide 32 H 31 H (22-30) mmol/L BUN 11 9 (9-20) mg/dL Creatinine 0.52 L 0.69 (0.66-1.25) mg/dL Glucose 86 68 L (74-99) mg/dL Calcium 8.9 8.4 (8.4-10.2) mg/dL Total Bilirubin 0.5 0.8 (0.2-1.3) mg/dL AST 135 H 126 H (17-59) U/L ALT 264 H 239 H (21-72) U/L Alkaline Phosphatase 608 H 536 H (38-126) U/L Total Protein 6.4 5.6 L (6.3-8.2) g/dL Albumin 3.2 L 2.7 L (3.5-5.0) g/dL <Michael Smith - Last Filed: 07/30/18 10:28> Surgical - Exam Vital Signs Temp Pulse Resp BP Pulse Ox 98.0 F 95 18 101/69 96 07/28/18 15:45 07/28/18 15:45 07/28/18 15:45 07/28/18 15:45 07/28/18 15:45 - Abdomen Patient has a large incisional hernia. Results - Labs 07/30/18 06:50 07/30/18 06:50 Abnormal Lab Results - Last 24 Hours (Table) 07/29/18 07/30/18 07/30/18 Range/Units 08:29 06:50 06:50 WBC 3.4 L (3.8-10.6) k/uL RBC 2.96 L (4.30-5.90) m/uL Hgb 9.7 L (13.0-17.5) gm/dL Hct 30.5 L (39.0-53.0) % MCV 103.0 H (80.0-100.0) fL Neutrophils # (Manual) 1.05 L (1.3-7.7) k/uL Lymphocytes # 0.8 L (1.0-4.8) k/uL Metamyelocytes # (Man) 0.03 H (0) k/uL Myelocytes # (Manual) 0.03 H (0) k/uL Creatinine 0.58 L (0.66-1.25) mg/dL Glucose 188 H (74-99) mg/dL ALT 176 H (21-72) U/L Alkaline Phosphatase 534 H (38-126) U/L Total Protein 5.8 L (6.3-8.2) g/dL Albumin 2.9 L (3.5-5.0) g/dL Microbiology - Last 24 Hours (Table) 07/28/18 16:51 Blood Culture - Preliminary Blood No Growth after 24 hours Diabetes panel 07/30/18 Range/Units 06:50 Sodium 137 (137-145) mmol/L Potassium 4.1 (3.5-5.1) mmol/L Chloride 105 (98-107) mmol/L Carbon Dioxide 26 (22-30) mmol/L BUN 14 (9-20) mg/dL Creatinine 0.58 L (0.66-1.25) mg/dL Glucose 188 H (74-99) mg/dL Calcium 8.4 (8.4-10.2) mg/dL AST 56 (17-59) U/L ALT 176 H (21-72) U/L Alkaline Phosphatase 534 H (38-126) U/L Total Protein 5.8 L (6.3-8.2) g/dL Albumin 2.9 L (3.5-5.0) g/dL Calcium panel 07/30/18 Range/Units 06:50 Calcium 8.4 (8.4-10.2) mg/dL Albumin 2.9 L (3.5-5.0) g/dL Pituitary panel 07/30/18 Range/Units 06:50 Sodium 137 (137-145) mmol/L Potassium 4.1 (3.5-5.1) mmol/L Chloride 105 (98-107) mmol/L Carbon Dioxide 26 (22-30) mmol/L BUN 14 (9-20) mg/dL Creatinine 0.58 L (0.66-1.25) mg/dL Glucose 188 H (74-99) mg/dL Calcium 8.4 (8.4-10.2) mg/dL Adrenal panel 07/30/18 Range/Units 06:50 Sodium 137 (137-145) mmol/L Potassium 4.1 (3.5-5.1) mmol/L Chloride 105 (98-107) mmol/L Carbon Dioxide 26 (22-30) mmol/L BUN 14 (9-20) mg/dL Creatinine 0.58 L (0.66-1.25) mg/dL Glucose 188 H (74-99) mg/dL Calcium 8.4 (8.4-10.2) mg/dL Total Bilirubin 0.3 (0.2-1.3) mg/dL AST 56 (17-59) U/L ALT 176 H (21-72) U/L Alkaline Phosphatase 534 H (38-126) U/L Total Protein 5.8 L (6.3-8.2) g/dL Albumin 2.9 L (3.5-5.0) g/dL
--- NOTE | 2018-07-29 11:28 | XR ---
EXAMINATION TYPE: XR chest 2V DATE OF EXAM: 07/29/2018 COMPARISON: 01/13/2018 x-ray and chest CT dated 06/07/2018 HISTORY: Procedure clearance TECHNIQUE: Frontal and lateral views of the chest are obtained. FINDINGS: There is improved aeration of the right hemithorax in comparison to the prior x-ray of with right apical and mediastinal sutures from prior right upper lobectomy and right hemithor ax subsequent volume loss with pleural scarring. Post treatment change and/or residual tumor are note d of the right suprahilar region. There is a small right pleural effusion and/or chronic pleural reac tion and right basilar atelectasis. There is compensatory hyperinflation of the left lung with flatte cristal of the diaphragm. Slight mediastinal shift towards the right is secondary to right hemithorax lo ss. No enlargement of the mediastinal contour. The known left upper lobe pulmonary nodule is not seen radiographically and better evaluated with CT IMPRESSION: Posttreatment change of the right upper lobe with small loculated right pleural effusion and scattered areas of atelectasis.
[2018-07-29] MEDS ORDERED: IPRATROPIUM-ALBUTEROL 3 ML NEB INHALATION PRN (11:43)
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
[2018-07-29 12:42] VITALS: BMI 17.1
--- NOTE | 2018-07-29 13:08 | P.CONS ---
History of Present Illness - Reason for Consult Consult date: 07/29/18 Elevated liver enzymes choledocholithiasis Requesting physician: Zev Kelley - Chief Complaint Elevated liver enzymes abdominal pain - History of Present Illness 58-year-old gentleman diagnosed with poorly differentiated metastatic adenocarcinoma lung November 2017 receiving chemotherapy Keytruda; last dose one week ago, severe chronic COPD stage III O2 dependent 3 L, cholelithiasis, active chronic nicotine cigarette dependency, perforated gastric ulcer with Navdeep pa tch 10 years ago, and chronic incisional ventral hernia. Patient has been experiencing abdominal pain intermittently in the upper abdomen with elevated liver enzymes since May 2017. He was seen in outpatient consultation 2 months ago for elevated liver enzymes with recommendation for MRCP. MRCP reported cholelithiasis and moderate dilatation of the biliary tree with multiple small filling defects in the distal common bile duct consistent with choledocholithiasis as well as a probable stone obstructing the distal common bile duct at the sphincter. He followed up in the outpatient setting with his MRCP findings and was told he was an increased risk for ERCP secondary to his underlying COPD disease O2 dependency and lung malignancy. Tertiary care referral was discussed. However patient is still experiencing persistent upper abdominal pain and recent transaminases still elevated and was advised by his oncology office to seek hospital evaluation. Denies changes in the color of his urine or stool. No documented fevers. LFTs in February 2018 were normal. LFTs in May 2018 total bilirubin 0.3. AST 155. ALT 231. AP 496. Presently total bilirubin is 0.8. AST 126. ALT 239. AP 536. Lipase 96. Amylase 63. Hemoglobin 9.8. White count 3.4. MCV 105. Platelet 204. INR 0.9. Admission ultrasound abdomen large amount of biliary sludge with gallbladder wall thickening. CBD dilated to 0.6 cm containing at least 2 mobile calculi consistent with choledocholithiasis. Mild intrahepatic biliary ductal dilatation likely on the basis of a marked extrahepatic biliary ductal dilatation obstruction. Underlying hepatic steatosis. Review of Systems Constitutional: Denies fever, chills, sweats, reports weight loss presently cachectic. HEENT: Negative for migraines, blurred vision or loss, earaches, drainage, tinnitus, oral mucosal lesions, dysphagia, or odynophagia. Cardiac: Negative for chest pain, arrhythmias, or palpitation. Respiratory: Chronic shortness of breath COPD O2 dependent Gastrointestinal: See HPI for pertinent findings. Genitourinary: Negative for hematuria, urgency, frequency, polyuria, dysuria, or penile discharge. Musculoskeletal: Negative for muscle aches, swelling, arthritis, and arthralgias. Neurologic: Negative for stroke or TIA. Endocrine: Negative for thyroid problems. Skin: Negative for rash or itching. Psychiatric: Negative history for depression and anxiety Past Medical History Past Medical History: Cancer, COPD Additional Past Medical History / Comment(s): Poorly differentiated adenocarcinoma of the lung with metastasis. HOME OXYGEN 3LNC., Incisional hernia, following gastric surgery for repair of perforated gastric ulcer History of Any Multi-Drug Resistant Organisms: None Reported Additional Past Surgical History / Comment(s): Previous history of right pn eumothorax status post apical bleb resection at age 16. Perforated gastric ulcer, status post surgical repair, and subsequent development of incisional hernia Past Anesthesia/Blood Transfusion Reactions: No Reported Reaction Past Psychological History: No Psychological Hx Reported Smoking Status: Current every day smoker Past Alcohol Use History: None Reported Additional Past Alcohol Use History / Comment(s): QUIT DECEMBER 2017. Past Drug Use History: None Reported - Past Family History Mother Family Medical History: COPD Medications and Allergies Home Medications Medication Instructions Recorded Confirmed Type Folic Acid 1 mg PO DAILY 01/05/18 07/28/18 History Prochlorperazine [Compazine] 10 mg PO DAILY PRN 01/05/18 07/28/18 History Dicyclomine HCl 20 mg PO QID PRN 07/28/18 07/28/18 History HYDROcodone/APAP 10-325MG [[place] 1 tab PO Q6HR PRN 07/28/18 07/28/18 History 10-325] Lactulose [Constulose] 20 gm PO Q12HR PRN 07/28/18 07/28/18 History Megestrol [Megace] 800 mg PO DAILY 07/28/18 07/28/18 History Morphine Sulfate [Morphine Sulfate 10 - 20 mg PO Q6H PRN 07/28/18 07/28/18 History Oral Soln Conc (20 MG/ML)] Morphine Sulfate [Ms Contin] 30 mg PO QAM 07/28/18 07/28/18 History Morphine Sulfate [Ms Contin] 60 mg PO HS 07/28/18 07/28/18 History Nystatin 100,000 Unit/ml Susp 5 ml PO QID 07/28/18 07/28/18 History [Mycostatin Oral Susp] Sennosides/Docusate Sodium [Dok 2 tab PO BID 07/28/18 07/28/18 History Plus Tablet] predniSONE 10 mg PO DAILY 07/28/18 07/28/18 History Allergies Allergy/AdvReac Type Severity Reaction Status Date / Time ibuprofen [From Motrin] AdvReac Unknown Verified 07/28/18 17:12 Physical Exam Vitals: Vital Signs Temp Pulse Pulse Pulse Resp BP BP 07/29/18 12:22 98.2 F 75 18 96/51 07/29/18 05:00 97.5 F L 77 18 101/65 07/28/18 21:18 98.1 F 99 20 109/74 07/28/18 17:41 98 F 87 16 113/76 07/28/18 17:20 98.6 F 84 16 111/77 07/28/18 15:45 98.0 F 95 18 101/69 Pulse Ox 07/29/18 12:22 98 07/29/18 05:00 99 07/28/18 21:18 97 07/28/18 17:41 99 07/28/18 17:20 99 07/28/18 15:45 96 Intake and Output 07/28/18 07/29/18 07/29/18 22:59 06:59 14:59 Intake Total 480 1060 Balance 480 1060 Intake: Intake, IV Titration 480 1060 Amount Piperacillin-Tazobactam 3 100 .375 gm In Sodium Chloride 0.9% 100 ml @ 25 mls/hr IVPB Q8HR [facility] Rx# :[id number] Sodium Chloride 0.9% 1, 480 960 000 ml @ 120 mls/hr IV . Q8H20M [facility] Rx#:[id number] Other: Voiding Method Toilet Toilet # Voids 3 3 Weight 58.967 kg 58.967 kg General appearance: The patient is alert, oriented, in no acute distress. Cachectic. HET: Head is normocephalic and atraumatic. Pupils are equal and reactive. Oropharynx is clear without lesions. Neck: Supple without lymphadenopathy. Trachea midline. Heart: S1 S2. Regular rate and rhythm. Lungs: Diminished bilaterally he says only. Abdomen: Reducible soft ventral hernia tenderness to the midepigastrium, nondistended with bowel sounds. No peritoneal signs. No palpable organomegaly or masses. Extremities: Normal skin color and turgor. No cyanosis, rash, ulceration, clubbing, or edema. Radial and pedal pulses are 2/4 bilaterally. Neurological: No focal deficits. Strength and sensation are grossly intact. Results CBC & Chem 7: 07/29/18 08:29 07/29/18 08:29 Labs: Abnormal Lab Results - Last 24 Hours (Table) 07/28/18 07/28/18 07/29/18 Range/Units 16:20 16:20 08:29 WBC 3.4 L (3.8-10.6) k/uL RBC 3.30 L 2.92 L (4.30-5.90) m/uL Hgb 10.9 L 9.8 L (13.0-17.5) gm/dL Hct 34.3 L 30.7 L (39.0-53.0) % MCV 103.8 H 105.0 H (80.0-100.0) fL Carbon Dioxide 32 H (22-30) mmol/L Creatinine 0.52 L (0.66-1.25) mg/dL Glucose (74-99) mg/dL AST 135 H (17-59) U/L ALT 264 H (21-72) U/L Alkaline Phosphatase 608 H (38-126) U/L Total Protein (6.3-8.2) g/dL Albumin 3.2 L (3.5-5.0) g/dL 07/29/18 Range/Units 08:29 WBC (3.8-10.6) k/uL RBC (4.30-5.90) m/uL Hgb (13.0-17.5) gm/dL Hct (39.0-53.0) % MCV (80.0-100.0) fL Carbon Dioxide 31 H (22-30) mmol/L Creatinine (0.66-1.25) mg/dL Glucose 68 L (74-99) mg/dL AST 126 H (17-59) U/L ALT 239 H (21-72) U/L Alkaline Phosphatase 536 H (38-126) U/L Total Protein 5.6 L (6.3-8.2) g/dL Albumin 2.7 L (3.5-5.0) g/dL US - abdomen: report reviewed (Dr. Mcallister) MRI - abdomen: report reviewed (Dr. Mcallister) Assessment and Plan (1) Abdominal pain Narrative/Plan: 58-year-old gentleman with metastatic lung cancer underlying stage III COPD O2 dependent admitted with abdominal pain persistent elevation of transaminases 2 months with multiple radiographic imaging consistent with choledocholithiasis possible underlying cholecystitis. Current Visit: Yes Status: Acute Code(s): R10.9 - UNSPECIFIED ABDOMINAL PAIN SNOMED Code(s): 40213421 (2) Choledocholithiasis Current Visit: Yes Status: Acute Code(s): K80.50 - CALCULUS OF BILE DUCT W/O CHOLANGITIS OR CHOLECYST W/O OBST SNOMED Code(s): 904641738 (3) Cholelithiasis Current Visit: Yes Status: Acute Code(s): K80.20 - CALCULUS OF GALLBLADDER W/O CHOLECYSTITIS W/O OBSTRUCTION SNOMED Code(s): 345449968 (4) Metastatic malignant neoplasm to lung Current Visit: Yes Status: Acute Code(s): C78.00 - SECONDARY MALIGNANT NEOPLASM OF UNSPECIFIED LUNG SNOMED Code(s): 79956535 (5) Stage 3 severe COPD by GOLD classification Current Visit: Yes Status: Acute Code(s): J44.9 - CHRONIC OBSTRUCTIVE PULMONARY DISEASE, UNSPECIFIED SNOMED Code(s): 082882690 (6) O2 dependent Current Visit: Yes Status: Acute Code(s): Z99.81 - DEPENDENCE ON SUPPLEMENTAL OXYGEN SNOMED Code(s): 582810642357 (7) Elevated liver enzymes Current Visit: Yes Status: Acute Code(s): R74.8 - ABNORMAL LEVELS OF OTHER SERUM ENZYMES SNOMED Code(s): 299504848 Plan: 1. Increased risk for ERCP anesthesia secondary to underlying COPD disease O2 dependency and lung malignancy. Pulmonology has cleared patient for ERCP recommendations appreciated. Patient understands sees an increased risk and wishes to proceed with ERCP today. If ERCP is unsuccessful patient will need to be referred to tertiary care center for further evaluation. General surgical consult. Nothing by mouth except medications. Continue with IV antibiotics. Preoperative indomethacin held secondary to ALLERGY to ibuprofen. CBC CMP daily monitoring. All questions were answered to patient and family's satisfaction at bedside. The supervisor motor vehicle assembly has discussed the risks, benefits and alternative therapies for the above-mentioned procedure and for both sedation/analgesia as well as necessary blood product administration, if indicated, as they pertain to this patient. The patient has indicated understanding and acceptance of the risks and procedures discussed. Thank you for this kind referral and the opportunity to participate in the care of your patient. This consultation was discussed with Dr. Mcallister. The impression and plan of care have been directed as dictated.
[2018-07-29] MEDS: methylPREDNISolone SOD SUCCI 125 MG/2 ML VIAL IV SCH ×2 (13:20→18:06)
[2018-07-29 14:28] LABS: Eosinophils # (M) 0.03 k/uL (0-0.7); Metamyelocytes # (M) 0.03 k/uL (0); Metamyelocytes % 1 %; Monocytes # (M) 0.58 k/uL (0-1.0); Myelocytes # (M) 0.03 k/uL (0); Myelocytes % 1 %; Neutrophils # (M) 1.05 k/uL (1.3-7.7); Neutrophils % (M) 31 %; Nucleated Red Blood Cells 0 /100 WBC (0-0); Total Cells Counted 200
[2018-07-29 14:29] LABS: Anisocytosis (M) Present; Poikilocytosis (M) Present; Stomatocytes Present
--- NOTE | 2018-07-29 14:51 | P.CONS ---
History of Present Illness - Reason for Consult Consult date: 07/29/18 Oncology care Requesting physician: Christofer Baker - Chief Complaint abd pain, choleycystitis - History of Present Illness Mr. Bonilla is a very pleasant male pt of Dr. Monae who presented with worsening cough and dyspnea, over 2-3 months period, suspicious CXR, CT chest 11/08/17 which revealed dense mass like consolidation in RUL, consolidation in RML, 3.9cm subcarinal node, small nodules in periphery of LLL, measured 2-5mm, enlarged right axillary nodes. 11/11/17 he underwent bronchoscopy, found to have extrinsic compression of RUL, transbronchial biopsy positive for non small cell lung carcinoma, IHC favoring adenocarcinoma. Molecular studies and PDL-1 could not be performed on tissue biopsy due to insufficient cells. 12/27/17 he started carboplatin/alimta/keytruda. 02/17/[address] chest revealed significant improvement in his disease. Completed 6 cycles of carboplatin/alimta/keytruda on 04/12/18. He is s/p 4 cycles of maintenance alimta and keytruda, last dose 07/22/18. There were concerns for choley process due to elevated LFTs, he had progressive symptoms of abd pain, had imaging showing dilated ducts, sent to ER. Admitted for ERCP, may need choleycystectomy. He is pending procedure, no pain, fever, nausea, he is handling his treatment very well-he looks so much better! 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 HOME OXYGEN 3LNC., Incisional hernia, following gastric surgery for repair of perforated gastric ulcer History of Any Multi-Drug Resistant Organisms: None Reported Additional Past Surgical History / Comment(s): Previous history of right pneumothorax status post apical bleb resection at age 16. Perforated gastric ulcer, status post surgical repair, and subsequent development of incisional hernia Past Anesthesia/Blood Transfusion Reactions: No Reported Reaction Past Psychological History: No Psychological Hx Reported Smoking Status: Current every day smoker Past Alcohol Use History: None Reported Additional Past Alcohol Use History / Comment(s): QUIT DECEMBER 2017. Past Drug Use History: None Reported - Past Family History Mother Family Medical History: COPD Medications and Allergies Home Medications Medication Instructions Recorded Confirmed Type Folic Acid 1 mg PO DAILY 01/05/18 07/28/18 History Prochlorperazine [Compazine] 10 mg PO DAILY PRN 01/05/18 07/28/18 History Dicyclomine HCl 20 mg PO QID PRN 07/28/18 07/28/18 History HYDROcodone/APAP 10-325MG [[place] 1 tab PO Q6HR PRN 07/28/18 07/28/18 History 10-325] Lactulose [Constulose] 20 gm PO Q12HR PRN 07/28/18 07/28/18 History Megestrol [Megace] 800 mg PO DAILY 07/28/18 07/28/18 History Morphine Sulfate [Morphine Sulfate 10 - 20 mg PO Q6H PRN 07/28/18 07/28/18 History Oral Soln Conc (20 MG/ML)] Morphine Sulfate [Ms Contin] 30 mg PO QAM 07/28/18 07/28/18 History Morphine Sulfate [Ms Contin] 60 mg PO HS 07/28/18 07/28/18 History Nystatin 100,000 Unit/ml Susp 5 ml PO QID 07/28/18 07/28/18 History [Mycostatin Oral Susp] Sennosides/Docusate Sodium [Dok 2 tab PO BID 07/28/18 07/28/18 History Plus Tablet] predniSONE 10 mg PO DAILY 07/28/18 07/28/18 History Allergies Allergy/AdvReac Type Severity Reaction Status Date / Time ibuprofen [From Motrin] AdvReac Unknown Verified 07/28/18 17:12 Physical Exam Vitals: Vital Signs Temp Pulse Pulse Pulse Resp BP BP 07/29/18 12:22 98.2 F 75 18 96/51 07/29/18 05:00 97.5 F L 77 18 101/65 07/28/18 21:18 98.1 F 99 20 109/74 07/28/18 17:41 98 F 87 16 113/76 07/28/18 17:20 98.6 F 84 16 111/77 07/28/18 15:45 98.0 F 95 18 101/69 Pulse Ox 07/29/18 12:22 98 07/29/18 05:00 99 07/28/18 21:18 97 06/06/19 17:41 99 07/28/18 17:20 99 07/28/18 15:45 96 Intake and Output 07/28/18 07/29/18 07/29/18 22:59 06:59 14:59 Intake Total 480 1060 Balance 480 1060 Intake: Intake, IV Titration 480 1060 Amount Piperacillin-Tazobactam 3 100 .375 gm In Sodium Chloride 0.9% 100 ml @ 25 mls/hr IVPB Q8HR [facility] Rx# :[id number] Sodium Chloride 0.9% 1, 480 960 000 ml @ 120 mls/hr IV . Q8H20M [facility] Rx#:[id number] Other: Voiding Method Toilet Toilet # Voids 3 3 Weight 58.967 kg 58.967 kg - Constitutional General appearance: cooperative, no acute distress, thin - EENT Eyes: anicteric sclerae, EOMI, poor dentition ENT: hearing grossly normal, normal oropharynx - Neck Neck: no lymphadenopathy - Respiratory Respiratory: bilateral: wheezing - Cardiovascular Rhythm: regular Heart sounds: normal: S1, S2 Abnormal Heart Sounds: no systolic murmur, no diastolic murmur, no rub, no S3 Gallop, no S4 Gallop, no click, no other leg Peripheral Edema: bilateral: None - Gastrointestinal General gastrointestinal: no absent bowel sounds, no decreased bowel sounds, no distended, no hepatomegaly, no hyperactive bowel sounds, normal bowel sounds, no organomegaly, no rigid, no scaphoid, soft, no splenomegaly, tenderness, no umbilical hernia, no ventral hernia - Neurologic Neurologic: CNII-XII intact - Musculoskeletal Musculoskeletal: strength equal bilaterally - Psychiatric Psychiatric: A&O x's 3, appropriate affect, intact judgment & insight Results CBC & Chem 7: 07/29/18 08:29 07/29/18 08:29 Labs: Abnormal Lab Results - Last 24 Hours (Table) 07/28/18 07/28/18 07/29/18 Range/Units 16:20 16:20 08:29 WBC 3.4 L (3.8-10.6) k/uL RBC 3.30 L 2.92 L (4.30-5.90) m/uL Hgb 10.9 L 9.8 L (13.0-17.5) gm/dL Hct 34.3 L 30.7 L (39.0-53.0) % MCV 103.8 H 105.0 H (80.0-100.0) fL Carbon Dioxide 32 H (22-30) mmol/L Creatinine 0.52 L (0.66-1.25) mg/dL Glucose (74-99) mg/dL AST 135 H (17-59) U/L ALT 264 H (21-72) U/L Alkaline Phosphatase 608 H (38-126) U/L Total Protein (6.3-8.2) g/dL Albumin 3.2 L (3.5-5.0) g/dL 07/29/18 Range/Units 08:29 WBC (3.8-10.6) k/uL RBC (4.30-5.90) m/uL Hgb (13.0-17.5) gm/dL Hct (39.0-53.0) % MCV (80.0-100.0) fL Carbon Dioxide 31 H (22-30) mmol/L Creatinine (0.66-1.25) mg/dL Glucose 68 L (74-99) mg/dL AST 126 H (17-59) U/L ALT 239 H (21-72) U/L Alkaline Phosphatase 536 H (38-126) U/L Total Protein 5.6 L (6.3-8.2) g/dL Albumin 2.7 L (3.5-5.0) g/dL Assessment and Plan (1) Cholecystitis Narrative/Plan: Defer to GI and Surgery. Pt had chemo 8 days ago, he is just at [facility]. His CBC is adequate at this time if needing procedure. Current Visit: Yes Status: Acute Priority: High Code(s): K81.9 - CHOLECYSTITIS, UNSPECIFIED SNOMED Code(s): 11922240 (2) Metastatic malignant neoplasm to lung Narrative/Plan: Pt disease is controlled on current regimen, he is tolerating well. Pt is experiencing a good QOL! He will cont on treatment as prescribed-not due for several weeks, will have f/u prior to resuming chemo to see what procedures/how healing going. Current Visit: Yes Status: Chronic Priority: Medium Code(s): C78.00 - SECONDARY MALIGNANT NEOPLASM OF UNSPECIFIED LUNG SNOMED Code(s): 02302428
[2018-07-29] MEDS: IPRATROPIUM-ALBUTEROL 3 ML NEB INHALATION SCH ×3 (16:10→22:05)
[2018-07-29] MEDS ORDERED: IV FLUID CONTINUATION 1,000 ML IV ONE (16:13)
[2018-07-29] MEDS ORDERED: GLYCOPYRROLATE 0.2 MG/ML 2 ML VIAL ONE (16:13)
[2018-07-29] MEDS ORDERED: PROPOFOL 10 MG/ML 20 ML VIAL IV ONE (16:13)
[2018-07-29] MEDS ORDERED: LIDOCAINE 1% INJ 10MG/ML (20 ML MDV) ONE (16:13)
[2018-07-29] MEDS ORDERED: IOPAMIDOL-300 50ML BTL INJ ONE (16:19)
--- NOTE | 2018-07-29 17:00 | HP ---
HISTORY AND PHYSICAL DATE OF ADMISSION: July 28, 2018 DATE OF SERVICE: July 29, 2018. PRESENT COMPLAINT: Weak and tired. HISTORY OF PRESENTING COMPLAINT: This is a 58-year-old patient who does follow with Dr. Bryce Basilio as his family doctor and Dr. Monae as his oncologist. The patient's chronic stable medical conditions include COPD, on home oxygen 3 L, incisional hernia. The patient has metastatic adenocarcinoma of the lung with a prior history of pneumothorax with right apical bleb resection at age of 16. The patient has also had surgery for peptic ulcer disease with resultant incisional hernia. The patient initially had a CT scan and found a mass in the right upper lobe. The patient subsequently had a bronchoscopy and found a endobronchial tumor. Biopsy showed adenocarcinoma of the lung, poorly differentiated with lymphatic and vascular invasion. Subsequently had a PET scan that showed a mass in the right lung and a moderate right-sided pleural effusion. The patient initially was given combination of carboplatin and Alimta and is currently on Keytruda. Subsequent CT scan did show some improvement. Also the patient has had a thermal injury from smoking and while on oxygen, injury to his nose and throat. Recent CT scan on June 07 showed the decrease in size to 4.5 from 6.4 cm. The decrease in metastatic pulmonary nodules. CT of the abdomen showed development of marked extrahepatic biliary duct dilatation, hydropic gallbladder. The patient has been having gallbladder problems for last few months and had MRCP on June 15, 2018, which showed multiple small filling defects in the distal common bile duct compatible with gallstones and also probably obstructing stone in the distal common bile duct in the sphincter. No surgical intervention was done. The patient now presented with worsening abdominal pain over the last few days. Ultrasound ordered by Dr. Monae showed large amount of biliary sludge, gallbladder wall thickening, common bile duct markedly dilated. At least two more bile calculi. There has been no fever and chills. The patient continues to lose weight. The patient remains quite a bit short of breath with wheezing, occasional cough. Plan is for patient to have a ERCP. REVIEW OF SYSTEMS: CONSTITUTIONAL: Tired, weight loss. HEENT: None. RESPIRATORY: As above. CARDIOVASCULAR: None. GASTROINTESTINAL: The patient has a bowel movement every about 4 days. GENITOURINARY: None. MUSCULOSKELETAL: Some pain in the joints. DERMATOLOGICAL, HEMATOLOGIC, LYMPHATIC: None. PSYCHIATRY: Anxious. NEUROLOGICAL none. PAST MEDICAL HISTORY: Advanced COPD, metastatic adenocarcinoma of the lungs, home oxygen on 3 L, incisional hernia following gastric surgery for repair of perforated gastric ulcer. PAST SURGICAL HISTORY: Right pneumothorax with apical bleb resection at age of 16, perforated gastric ulcer, status post surgical repair. SOCIAL HISTORY: Smoking for many years, down to half a pack a day. Lives with his son. No alcohol. Use to work with [employer]. FAMILY HISTORY: COPD. HOME MEDICATIONS: 1. Prednisone 10 mg a day. 2. Lactulose 20 grams p.o. q.12h p.r.n. 3. Morphine 10-20 mg q.6h p.r.n. 4. [place] 10 1 tablet q.6 p.r.n. 5. Compazine 10 mg daily p.r.n. 6. Mycostatin 5 mL p.o. q.i.d. 7. MS Contin 60 mg q.h.s. 8. MS Contin 30 mg p.o. daily. 9. Megace 800 mg p.o. daily. 10.Senna tablets 2 tablets b.i.d. 11.Folic acid 1 mg p.o. daily. 12.Bentyl 20 mg q.i.d. p.r.n. ALLERGIES: IBUPROFEN. PHYSICAL EXAMINATION: VITAL SIGNS: Vital signs on presentation: Temperature 98, pulse 95, respiratory 18, blood pressure 101/69, pulse 96% on 3 L. GENERAL APPEARANCE: Thin built, loss of muscle mass. BMI 17.2. Sitting up, tired. EYES: Pupils equal. Conjunctivae pale. HEENT: External appearance of nose and ears normal. Oral cavity normal. NECK: JVD not raised. Mass not palpable. RESPIRATORY: Effort increased. LUNGS: Diminished breath sounds. Prolonged expiration and wheezing. CARDIOVASCULAR: First and second sounds normal. No edema. ABDOMEN: Soft with incisional hernia. Bowels can be seen. No guarding or rigidity. Some right upper quadrant tenderness. Liver and spleen not palpable. PSYCHIATRY: Alert and oriented times three. Mood and affect a bit anxious-appearing. NEUROLOGICAL: Pupils equal. Cranial nerves grossly intact. Power and sensation grossly intact. INVESTIGATIONS: White count 3.4, hemoglobin 9.8, potassium 4.0, BUN 9, creatinine 0.69, AST 239, ALT 536, albumin 2.7. Amylase and lipase normal. Chest x-ray film, personally reviewed by me shows loss of volume on the right side of the underlying prominent pulmonary artery. Some scarring on the right side. Ultrasound of the gallbladder, large amount of biliary sludge with gallbladder wall thickening; common bile duct is markedly dilated. Containing at least 2 more bile calculi, nonobstructing renal calculi. ASSESSMENT: 1. Acute cholecystitis along with gallstones with dilated common bile duct with large amount of biliary sludge. 2. Nonobstructing right renal calculi. 3. Moderate protein-calorie malnutrition with decreased oral intake. 4. Metastatic adenocarcinoma of the lung and getting immunotherapy. 5. Normocytic anemia secondary to underlying malignancy. 6. Advanced chronic obstructive pulmonary disease from chronic smoking. 7. Chronic nicotine dependence. Patient is a cigarette smoker. 8. Incisional hernia, chronic with no obstruction. PLAN: Consultations made to General surgery, Dr. Galindo from Oncology, Dr. Lofton from Pulmonary. The patient is currently on DuoNeb, inhaled steroids, Bentyl, Perforomist, and an inhaler, IV Dilaudid, IV Solu-Medrol, home pain medications, IV Zosyn. Patient is will be going for an ERCP this afternoon. We will give patient a nicotine patch. Copy to Dr. Bryce Basilio. MMODL / IJN: [id number] /
--- NOTE | 2018-07-29 17:16 | P.PCN ---
Date of Procedure: 07/29/18 Procedure(s) Performed: Procedure: Attempted ERCP. Preoperative diagnosis: Abdominal pain and abnormal liver enzymes and abnormal MRI with possible common bile duct stones. Postoperative diagnosis: Exam could not be accomplished, as I was not able to pass the endoscope through the pylorus into the duodenum. The distal esophagus and stomach, otherwise, did not show any obvious abnormalities. Preparation and sedation: Was provided by anesthesia. Brief clinical history: The patient is a 58-year-old male who was diagnosed with poorly differentiated metastatic adenocarcinoma of the lung November 2017 receiving chemotherapy with last dose of keytruda one week prior, severe chronic COPD stage III O2 dependent 3 L, cholelithiasis, active chronic nicotine cigarette dependency, perforated gastric ulcer with Navdeep patch 10 years ago, and chronic incisional ventral hernia. Patient has been experiencing abdominal pain intermittently in the upper abdomen with elevated liver enzymes since May 2017. He was seen in outpatient consultation 2 months prior for elevated liver enzymes with recommendation for MRCP. MRCP reported cholelithiasis and moderate dilatation of the biliary tree with multiple small filling defects in the distal common bile duct consistent with choledocholithiasis as well as a probable stone obstructing the distal common bile duct at the sphincter. He followed up in the outpatient setting with his MRCP findings and was told he was an increased risk for ERCP secondary to his underlying COPD, O2 dependency and lung malignancy. Tertiary care referral was discussed. However patient is still experiencing persistent upper abdominal pain and recent transaminases still elevated and was advised by his oncology office to seek hospital evaluation. Denies changes in the color of his urine or stool. No documented fevers. LFTs in February 2018 were normal. LFTs in May 2018 showed total bilirubin 0.3, AST 155, ALT 231 and AP 496. Presently, total bilirubin is 0.8, AST 126, ALT 239 and AP 536. Lipase 96. Amylase 63. Hemoglobin 9.8. White count 3.4. MCV 105. Platelet 204. INR 0.9. Admission ultrasound abdomen large amount of biliary sludge with gallbladder wall thickening. CBD dilated to 0.6 cm containing at least 2 mobile calculi consistent with choledocholithiasis. Mild intrahepatic biliary ductal dilatation likely on the basis of a marked extrahepatic biliary ductal dilatation obstruction. Underlying hepatic steatosis. Other details are summarized in the history and physical and dictated consultation and progress notes. Procedure: With the patient on the supine position, and after informed consent and adequate sedation, I passed the Olympus video duodenoscope down the esophagus into the stomach. I spent a significant amount of time attempting to pass the endoscope into the duodenum. There was no obvious mechanical obstruction, however, despite various maneuvers, I was not able to pass the endoscope through the pylorus to bring the papilla into view. It was examined, there was no obvious abnormalities. Of his leak, no cholangiography or pancreatography was performed. The patient tolerated the procedure well. Plan: I summarize the findings to the patient and his family. Will allow regular diet as tolerated. Consider tertiary referral as outpatient depending on his course. Certainly, he can be transferred as inpatient if he manifests evidence of obstruction or cholangitis. We will continue to follow with interest.
[2018-07-29] MEDS: MORPHINE SULFATE ER 60 MG TABLET PO SCH (19:59)
[2018-07-29] MEDS: BUDESONIDE 1 MG/2 ML NEBU INHALATION SCH (22:04)
[2018-07-29] MEDS: FORMOTEROL FUMARATE 20 MCG/2 ML NEBU INHALATION SCH (22:05)
[2018-07-30] MEDS: PIPERACILLIN-TAZOBACTAM 3.375 GM in SODIUM CHLORIDE 0.9% 100 ML IVPB SCH ×2 (00:11→08:37)
[2018-07-30] MEDS: methylPREDNISolone SOD SUCCI 125 MG/2 ML VIAL IV SCH ×3 (00:12→14:33)
[2018-07-30] MEDS: HYDROmorphone 1 MG/ML 1 ML SYRINGE IVP PRN ×2 (00:42→03:46)
[2018-07-30] MEDS: SODIUM CHLORIDE 0.9% 1,000 ML IV SCH ×3 (01:43→14:33)
[2018-07-30 07:40] LABS: Basophils % (A) 0 %; Eosinophils % (A) 1 %; HCT 30.5 % (39.0-53.0); HGB 9.7 gm/dL (13.0-17.5); Lymphocytes # (A) 0.8 k/uL (1.0-4.8); Lymphocytes % (A) 22 %; MCH 32.8 pg (25.0-35.0); MCHC 31.8 g/dL (31.0-37.0); Macrocytosis Slight; Mean Platelet Volume 7.6; Monocytes # (A) 0.6 k/uL (0-1.0); Monocytes % (A) 16 %; Neutrophils % (A) 58 %; Platelet Count 220 k/uL (150-450); RBC 2.96 m/uL (4.30-5.90); RDW 14.5 % (11.5-15.5); WBC 3.4 k/uL (3.8-10.6)
[2018-07-30 07:50] LABS: ALT 176 U/L (21-72); AST 56 U/L (17-59); African American GFR (CKD) >90 (>60 ml/min/1.73 sqM); Albumin 2.9 g/dL (3.5-5.0); Alkaline Phosphatase 534 U/L (38-126); Anion Gap 6 mmol/L; Blood Urea Nitrogen 14 mg/dL (9-20); Calcium 8.4 mg/dL (8.4-10.2); Carbon Dioxide 26 mmol/L (22-30); Chloride 105 mmol/L (98-107); Glucose 188 mg/dL (74-99); Potassium 4.1 mmol/L (3.5-5.1); Sodium 137 mmol/L (137-145); Total Bilirubin 0.3 mg/dL (0.2-1.3); Total Protein 5.8 g/dL (6.3-8.2)
[2018-07-30] MEDS: BUDESONIDE 1 MG/2 ML NEBU INHALATION SCH (07:54)
[2018-07-30] MEDS: IPRATROPIUM-ALBUTEROL 3 ML NEB INHALATION SCH ×3 (07:55→15:53)
[2018-07-30] MEDS: FORMOTEROL FUMARATE 20 MCG/2 ML NEBU INHALATION SCH (07:55)
[2018-07-30] MEDS: SENNOSIDES-DOCUSATE SODIUM 1 EACH TAB PO SCH (08:36)
[2018-07-30] MEDS: MORPHINE SULFATE ER 30 MG TABLET PO SCH (08:36)
[2018-07-30] MEDS: FOLIC ACID 1 MG TAB PO SCH (08:37)
[2018-07-30] MEDS: MEGESTROL 400 MG/10 ML CUP PO SCH (08:37)
--- NOTE | 2018-07-30 08:48 | PN ---
PROGRESS NOTE DATE OF SERVICE: 07/30/2018 HISTORY: This is a patient who was initially seen for abdominal pain and acute cholecystitis with choledocholithiasis. The patient does have a history of COPD with mild exasperation and poorly differentiated metastatic adenocarcinoma of the lung, status post chemotherapy with carboplatin and Alimta and on immunotherapy with Keytruda. The patient has a history of chronic nicotine dependence. Cachexia, hernia and pneumothorax at age 16 secondary to apical bleb and subsequent apical bleb resection. His COPD is quite severe. His FEV1 is 35% of predicted, this puts him in Gold Stage 3/4 disease. He was not admitted for his COPD, though. The patient was seen by myself and my nurse practitioner yesterday. He seems to be resting comfortably. He is sleeping. He is on his right side. Nasal O2 in place. No particular complaints. Not demonstrating any respiratory distress whatsoever. PHYSICAL EXAMINATION: VITAL SIGNS: Current vital signs are reviewed. Temperature 98, heart rate 84, respiratory rate 22, blood pressure 101/57 mean 71 and 3 L saturation 98%. GENERAL: Appears in no acute distress. HEENT examination is grossly unremarkable. Nasal O2 in place. NECK: Supple. Full range of motion. No adenopathy or thyromegaly. CARDIOVASCULAR examination reveals regular rhythm and rate. S1, S2 normal. No S3, S4, or murmur. LUNGS: Diminished breath sounds throughout. A few scattered mild rhonchi. Some scattered wheezes noted. Breath sounds are not too bad today. No crackles. Breath sounds are equal bilaterally. ABDOMINAL examination is unremarkable. No masses or tenderness. EXTREMITIES are intact. No cyanosis, clubbing, or edema. SKIN without rash. NEUROLOGIC examination is brief but nonfocal. LABS: Reviewed. No labs from today as yet. From yesterday, white count 3.4, hemoglobin 9.8, hematocrit 30.7, platelet count normal. Sodium, potassium, chloride normal. CO2 31 anion gap 3. BUN and creatinine were 9 and 0.69. His AST was 126, ALT 239, his alkaline phosphatase is 536. Amylase and lipase were both normal. Microbiologic studies including blood cultures are negative. Medications are reviewed. ASSESSMENT: 1. Acute abdominal pain, related to acute cholecystitis and acute choledocholithiasis. 2. Chronic obstructive pulmonary disease, quite severe, with an FEV1 of 35% of predicted, mildly active. 3. Poorly differentiated metastatic adenocarcinoma of the lung, status post chemotherapy with carboplatin and Alimta and currently on immunotherapy with Keytruda. 4. Severe chronic obstructive pulmonary disease, stage III, FEV1 35% of predicted. 5. Chronic hypoxemic respiratory failure, requiring 24 hour a day oxygen. 6. Chronic and ongoing nicotine dependence and tobacco use. 7. Anorexia/cachexia syndrome. 8. Hernia of the abdominal wall. 9. History of pneumothorax at age 16, status post right apical bleb resection. 10.Medical noncompliance. PLAN: From pulmonary standpoint, the patient is doing reasonably well. He is on DuoNeb 4 times a day and p.r.n. He is also getting Pulmicort and Perforomist. In addition, he is getting Solu-Medrol 60 mg q.6 hours. Additional recommendations and suggestions are forthcoming. Gastroenterology is currently seeing the patient. No additional recommendations are made. We will continue to follow. Prognosis is guarded. MMODL / IJN: [id number] /
[2018-07-30] MEDS ORDERED: PANTOPRAZOLE 40 MG TABLET PO SCH (09:00)
--- NOTE | 2018-07-30 10:27 | P.PN ---
Progress Note - Text Progress Note Date: 07/30/18 The patient states he feels better today. He has had some minimal improvement in his liver function tests. He denies any significant abdominal pain. His ERCP was unsuccessful yesterday. On exam his vital signs are stable. His abdomen soft. Patient has a large ventral hernia. I discussed with patient that we may be able to perform a open cholecystectomy and common bile duct exploration and repair his incisional hernia. The patient will most likely be discharged home today. He'll follow-up the office next week.
[2018-07-30 11:39] VITALS: BP 105/64; PULSE 81; RESP 16; TEMP 97.5
--- NOTE | 2018-07-30 12:31 | P.PN ---
Subjective Progress Note Date: 07/30/18 Principal diagnosis: Abdominal pain, choledocholithiasis Patient seen lying in bed, denying any abdominal pain. He has tolerated his diet. Objective - Vital Signs Vital signs: Vital Signs Temp 97.5 F L 07/30/18 11:20 Pulse 81 07/30/18 11:20 Resp 16 07/30/18 11:20 BP 105/64 07/30/18 11:20 Pulse Ox 97 07/30/18 11:20 Intake & Output 07/29/18 07/30/18 07/30/18 18:59 06:59 18:59 Intake Total 1560 Balance 1560 Weight 58.967 kg Intake: IV 600 Intake, IV Titration 960 Amount Sodium Chloride 0.9% 1, 960 000 ml @ 120 mls/hr IV . Q8H20M [facility] Rx#:[id number] Other: Voiding Method Toilet Toilet # Voids 2 - Exam On physical examination, patient appears comfortable in no apparent distress. HEAD: Normocephalic, atraumatic. EYES: No scleral icterus. No conjunctival injection. MOUTH: No lesions, tongue midline. NECK: Trachea midline, no gross abnormalities. CHEST: Decreased air entry bilaterally. HEART: Regular rate and rhythm. ABDOMEN: Soft, large palpable ventral hernia, no pain with palpation. Bowel sounds are positive. No organomegaly. No guarding or rigidity. EXTREMITIES: No pedal edema. SKIN: No rashes, no jaundice. NEUROLOGIC: Alert and oriented x3. No focal deficits. - Labs CBC & Chem 7: 07/30/18 06:50 07/30/18 06:50 Labs: Abnormal Lab Results - Last 24 Hours (Table) 07/29/18 07/30/18 07/30/18 Range/Units 08:29 06:50 06:50 WBC 3.4 L (3.8-10.6) k/uL RBC 2.96 L (4.30-5.90) m/uL Hgb 9.7 L (13.0-17.5) gm/dL Hct 30.5 L (39.0-53.0) % MCV 103.0 H (80.0-100.0) fL Neutrophils # (Manual) 1.05 L (1.3-7.7) k/uL Lymphocytes # 0.8 L (1.0-4.8) k/uL Metamyelocytes # (Man) 0.03 H (0) k/uL Myelocytes # (Manual) 0.03 H (0) k/uL Creatinine 0.58 L (0.66-1.25) mg/dL Glucose 188 H (74-99) mg/dL ALT 176 H (21-72) U/L Alkaline Phosphatase 534 H (38-126) U/L Total Protein 5.8 L (6.3-8.2) g/dL Albumin 2.9 L (3.5-5.0) g/dL Microbiology - Last 24 Hours (Table) 07/28/18 16:51 Blood Culture - Preliminary Blood No Growth after 24 hours Assessment and Plan (1) Abdominal pain Narrative/Plan: 58-year-old male with metastatic lung cancer, stage III COPD with oxygen dependence who was admitted for abdominal pain and persistent elevation of his liver enzymes. Symptoms and abnormal labs have been present for approximately 2 months with multiple imaging modalities consistent with choledocholithiasis and possible underlying cholecystitis. The patient was brought for ERCP yesterday which was technically unsuccessful due to failure to intubate the duodenum. Currently patient is reporting improvement in his symptoms. Current Visit: Yes Status: Acute Code(s): R10.9 - UNSPECIFIED ABDOMINAL PAIN SNOMED Code(s): 34034163 (2) Choledocholithiasis Current Visit: Yes Status: Acute Code(s): K80.50 - CALCULUS OF BILE DUCT W/O CHOLANGITIS OR CHOLECYST W/O OBST SNOMED Code(s): 652629161 (3) Cholelithiasis Current Visit: Yes Status: Acute Code(s): K80.20 - CALCULUS OF GALLBLADDER W/O CHOLECYSTITIS W/O OBSTRUCTION SNOMED Code(s): 552165315 Plan: Okay for diet Continue to monitor symptoms and CBC CMP Patient will need to follow-up with tertiary referral center such as [facility] in the outpatient setting for scheduling of ERCP with the advanced endoscopy team Okay for discharge from gastroenterology standpoint Patient understands if any signs or symptoms of septicemia occur he should presented back to the hospital for further evaluation Thank you for allowing us to participate in the care of the patient, the GI service will stand by, please call us back with any questions or concerns
== END 2018-07-30 16:25 | disposition home or self-care (01) | DRG 445 ==
LOC: EC 15:41 → 3NMEDONC 16:55
PROVIDERS: ADMIT Hospitalist; ATTEND Hospitalist
PROC: 0DJ08ZZ Inspection of Upper Intestinal Tract, Via Natural or Artificial Opening Endoscopic (ICD-10-PCS; principal; 2018-07-29 07:30)
DX: K80.51 Calculus of bile duct without cholangitis or cholecystitis with obstruction (principal); E44.0 Moderate protein-calorie malnutrition; R64 Cachexia; C34.11 Malignant neoplasm of upper lobe, right bronchus or lung; Z68.1 Body mass index [BMI] 19.9 or less, adult; K82.1 Hydrops of gallbladder; C78.00 Secondary malignant neoplasm of unspecified lung; C77.3 Secondary and unspecified malignant neoplasm of axilla and upper limb lymph nodes; C77.0 Secondary and unspecified malignant neoplasm of lymph nodes of head, face and neck; C79.71 Secondary malignant neoplasm of right adrenal gland; J96.11 Chronic respiratory failure with hypoxia; J98.11 Atelectasis; J90 Pleural effusion, not elsewhere classified; J43.9 Emphysema, unspecified; K76.0 Fatty (change of) liver, not elsewhere classified; D63.0 Anemia in neoplastic disease; K43.2 Incisional hernia without obstruction or gangrene; N20.0 Calculus of kidney; F17.210 Nicotine dependence, cigarettes, uncomplicated; Z99.81 Dependence on supplemental oxygen; Z91.19 Patient's noncompliance with other medical treatment and regimen; Z79.818 Long term (current) use of other agents affecting estrogen receptors and estrogen levels; Z79.891 Long term (current) use of opiate analgesic; Z79.899 Other long term (current) drug therapy; Z92.21 Personal history of antineoplastic chemotherapy; Z87.11 Personal history of peptic ulcer disease; Z98.890 Other specified postprocedural states; Z88.8 Allergy status to other drugs, medicaments and biological substances; Z82.5 Family history of asthma and other chronic lower respiratory diseases
CPT/HCPCS: 36415; 43235; 71046; 80053; 82150; 83605; 83690; 85025; 85610; 85730; 87040; 93005; 94640; 99291

== ENCOUNTER → 2018-07-28 | Outpatient (CLI) | payer OTHER ==
--- NOTE | 2018-07-28 13:11 | US ---
EXAMINATION TYPE: US gallbladder DATE OF EXAM: 07/28/2018 COMPARISON: NONE CLINICAL HISTORY: R94.5 abnormal liver function. Patient has periods of RUQ pain and horrible nausea that last from several hours to 5 days he reports . EXAM MEASUREMENTS: Liver Length: 18.7 cm Gallbladder Wall: 0.5 cm CBD: * 2.6* cm Right Kidney: 11.8 x 4.2 x 5.1 cm Patient has large hernia expanding through his entire midline abdomen. Unable to scan midline. Patien t on oxygen. Pancreas: Obscured by bowel gas Liver: heterogeneous, enlarged, ductal dilation Gallbladder: thickened wall, sludge, stone Evidence for sonographic Scruggs's sign: no CBD: grossly dilated, at least 2 stones visualized within Right Kidney: inferior stone measuring 0.7 x 0.4 x 0.7cm IMPRESSION: 1. Large amount of biliary sludge with gallbladder wall thickening. Common bile duct is markedly dila cisco containing at least 2 mobile calculi. Findings are concerning for acute cholecystitis with choled ocholithiasis. Findings were relayed to Dr. Letha Shelley's certified medical biller, at 1308 on 07/28/[address] Henriquez. 2. Nonobstructing renal calculi. 3. Mild intrahepatic biliary ductal dilatation is likely on the basis of a marked extrahepatic biliar y ductal dilatation and obstruction. 4. Heterogenous hepatic echotexture most commonly related to underlying hepatic steatosis. Correlate with liver function tests.
== END | disposition home or self-care (01) ==
LOC: RADUSWWP 09:21
PROVIDERS: ATTEND Internal Medicine Hematology & Oncology
DX: K80.50 Calculus of bile duct without cholangitis or cholecystitis without obstruction (principal); R93.2 Abnormal findings on diagnostic imaging of liver and biliary tract; N20.0 Calculus of kidney; K83.8 Other specified diseases of biliary tract
CPT/HCPCS: 76705

== ENCOUNTER → 2018-10-31 | Outpatient (CLI) | payer OTHER ==
--- NOTE | 2018-10-31 13:17 | CT ---
EXAMINATION TYPE: CT ChestAbdPelvis w con DATE OF EXAM: 10/31/2018 COMPARISON: 06/07/2018 HISTORY: Follow up lung cancer per patient CT DLP: 548.6 mGycm CONTRAST: CT scan of the chest, abdomen and pelvis is performed with Oral Contrast and with IV Contrast, patien t injected with 100 mL of Isovue 300. CT Chest: LUNGS: Partial right-sided pneumonectomy change. Right upper lobe opacification persists with superim posed on moderate emphysematous change. Right basilar mass density persists and measures 4.4 x 1.8 cm versus 4.4 x 3.8 cm previously. Adjacent loculated effusion noted. Previously noted nodular density in the right lung remain unchanged including right upper lobe pleural-based measuring 9.8 mm image 28 as well as nodular density right upper lobe posteriorly measuring 8.5 mm image 24. Hyperinflation of the left lung with emphysematous changes noted as well. No left-sided lung masses or nodules seen. M ild traction bronchiectasis noted. MEDIASTINUM: Thoracic aorta is of normal caliber. The heart is not enlarged. No evidence for media stinal mass or adenopathy. Subcentimeter lymph nodes are redemonstrated. HILAR STRUCTURES: No evidence for mass. No hilar adenopathy is appreciated. OTHER: No significant abnormality. CONTRAST CT ABDOMEN AND PELVIS FINDINGS: LIVER/GB: No calcified gallstones. No space occupying hepatic lesion. Extrahepatic biliary ductal dilatation persists with catheter noted intraluminally. PANCREAS: No inflammation. No distinct mass. SPLEEN: No splenic enlargement. No lesion seen. ADRENALS: No nodule. No thickening. KIDNEYS/BLADDER: No hydronephrosis. Right-sided nephrolithiasis noted. No distinct renal mass. BOWEL: Normal appendix. Normal bowel caliber. No inflammation. GENITAL ORGANS: No gross abnormality. LYMPH NODES: No greater than 1cm abdominal or pelvic lymph nodes are appreciated. AORTA: No significant abnormality. OSSEOUS STRUCTURES: No significant abnormality is seen. OTHER: No significant additional abnormality is seen. IMPRESSION: 1. Prior mass at the right lung base that remains essentially unchanged in size relative to the prior study. Scattered pulmonary nodules are also stable. 2. Postoperative changes right lung with upper lobe emphysematous change and traction bronchiectasis. Hyperinflation left lung. 3. Persistent extrahepatic biliary duct dilatation with catheter noted to be in place.
== END | disposition home or self-care (01) ==
LOC: RADCTMAIN 10:53
PROVIDERS: ATTEND Internal Medicine Hematology & Oncology
DX: Z03.89 Encounter for observation for other suspected diseases and conditions ruled out (principal); R91.8 Other nonspecific abnormal finding of lung field; J43.9 Emphysema, unspecified; J47.9 Bronchiectasis, uncomplicated; K83.8 Other specified diseases of biliary tract; C34.11 Malignant neoplasm of upper lobe, right bronchus or lung
CPT/HCPCS: 71260; 74177; Q9967

== ENCOUNTER → 2019-01-17 | Outpatient (CLI) | payer OTHER ==
--- NOTE | 2019-01-17 10:23 | CT ---
EXAMINATION TYPE: CT ChestAbdPelvis w con DATE OF EXAM: 01/17/2019 COMPARISON: 10/31/2018 and 06/07/2018. 12/11/2017 HISTORY: 58-year-old male Lung cancer, obs for mets TECHNIQUE: Contiguous axial scanning of the chest, abdomen, and pelvis performed with IV Contrast, pa tient injected with 100 ml mL of Isovue 300. Delayed images through the kidneys were obtained. [place]ina l/sagittal reconstructions performed. CT DLP: 649.30 mGycm Automated exposure control for dose reduction was used. FINDINGS: CHEST: Heart normal size without pericardial effusion. There is rightward shift secondary to volume loss in the right thorax. Aorta normal caliber with conventional branching anatomy. Stable prominent but nonenlarged 9 mm left apical lymph node. No progressive lymphadenopathy as shawanda red to prior exam. Small right basilar pleural effusion shows further decrease in size from 11/10/2018. Adjacent irregula r spiculated band also shows decreasing size. Focal density in the right hilar region measures 2.7 x 1.4 cm versus 4.3 x 1.5 cm, previously. Irregular band of opacity extends from the hilum to the periphery of the right upper lobe were extens faith pleural-parenchymal thickening remains measuring up to 3.3 cm thick, relatively unchanged. Irregular bandlike opacity may be minimally increased, for example, axial image 24 measuring 2.2 x 1. 7 cm versus 1.8 x 1.2 cm, previously. Additionally, there is new focal airspace opacity posterior rig ht upper lobe, axial image 21. Subpleural nodule posterior right mid lung axial image 31 stable 9 mm. Background of moderate to advanced centrilobular emphysema. Left lung and pleural space remain clear. ABDOMEN: No focal liver lesion. Bile duct dilated at 1.3 cm versus 1.5 cm on 10/31/2018 and 1.8 cm on 06/07/2018. The previous biliary stent has been normal. No focal liver lesion seen. Gallbladder, adrenal glands, left kidney, spleen, atrophic pancreas show no gross abnormal body. 6 mm and 4 mm nonobstructive right renal calculi are noted. Rhys rectus diastases with anterior bulging laxity of the linea alba. Diastases measures up to 10.8 cm wide and 15.1 cm cranial caudal. Associated fat and colon containing umbilical hernia measures 6.3 cm wide, relatively similar to prior. There is large stool burden. No pericolonic inflammatory changes. No dilated small bowel, free fluid, or free air. No mesenteric or retroperitoneal lymphadenopathy. Moderate to severe atherosclerotic calcifications within the iliac arteries and mild within the abdom inal aorta. Pelvis: Bladder urine distended. Prostate gland measures 4.7 cm wide with central calcifications. Pelvic phle boliths. Median lobe hypertrophy impressing on to the bladder base a prominent left external iliac ch ain lymph node is stable at 9 mm there are no abnormal fluid collection in the pelvis. BONES: Degenerative changes at the hips and right SI joint. Facet arthropathy lower lumbar spine. No osseous destructive process. Grade 1, nearly grade 2 anterolisthesis at L4-L5 secondary to hypertrophic facet arthropathy. IMPRESSION: 1. RESIDUAL SMALL RIGHT EFFUSION CONTINUES TO DECREASE IN SIZE. THE ADJACENT SPICULATED BAND OF DENSI TY ALSO SHOWS FURTHER DECREASE IN SIZE. 2. RIGHT HILAR SOFT TISSUE DENSITY IS SMALLER (2.7 X 1.4 CM VERSUS 4.3 X 1.5 CM, PREVIOUSLY) . 3. EXTENSIVE PLEURAL PARENCHYMAL THICKENING PERIPHERY OF THE RIGHT UPPER LOBE IS SIMILAR AT 3.3 CM TH ICK. 4. A COUPLE AREAS OF INCREASING OPACITY IN THE RIGHT UPPER LOBE, AXIAL IMAGE 21 AND 24 SUSPECTED TO B E INFECTIOUS/INFLAMMATORY RATHER THAN NEOPLASTIC. QUERY ANY SYMPTOMS OF PNEUMONIA. CONTINUED FOLLOW-U P RECOMMENDED. 5. COPD WITH MODERATE TO ADVANCED EMPHYSEMA. 6. BILIARY STENT HAS BEEN REMOVED IN THE INTERVAL. THE BILE DUCT REMAINS DILATED AT 1.3 CM BUT IS GRA DUALLY DECREASING IN SIZE (1.5 CM AND 1.8 CM ON THE PATIENT'S PRIOR 2 EXAMS, RESPECTIVELY). 7. LARGE STOOL BURDEN. CORRELATE FOR CONSTIPATION. 8. RECTUS DIASTASES SPANNING 10.8 CM WIDE AND 15.1 CM CRANIOCAUDAL WITH ANTERIOR BULGING OF INTRA-ABD OMINAL CONTENTS.
== END | disposition home or self-care (01) ==
LOC: RADCTMAIN 07:39
PROVIDERS: ATTEND Internal Medicine Hematology & Oncology
DX: Z03.89 Encounter for observation for other suspected diseases and conditions ruled out (principal); C34.11 Malignant neoplasm of upper lobe, right bronchus or lung; J90 Pleural effusion, not elsewhere classified; J92.9 Pleural plaque without asbestos; J43.9 Emphysema, unspecified; K83.8 Other specified diseases of biliary tract; M62.08 Separation of muscle (nontraumatic), other site; K62.89 Other specified diseases of anus and rectum; M79.89 Other specified soft tissue disorders; Z96.89 Presence of other specified functional implants
CPT/HCPCS: 71260; 74177; Q9967

== ENCOUNTER 2019-04-04 07:40 | Inpatient (IN) | payer OTHER ==
[2019-04-04] MEDS ORDERED: IPRATROPIUM-ALBUTEROL 3 ML NEB INHALATION STA ×2 (07:53→10:21)
[2019-04-04] MEDS ORDERED: methylPREDNISolone SOD SUCCI 125 MG/2 ML VIAL IV STA (07:53)
[2019-04-04] MEDS ORDERED: ACETAMINOPHEN TAB 500 MG TAB PO STA (07:57)
--- NOTE | 2019-04-04 07:57 | ED ---
General Adult HPI - General Chief complaint: Shortness of Breath Stated complaint: Sob Time Seen by Provider: 04/04/19 07:41 Source: patient, EMS, RN notes reviewed Mode of arrival: EMS Limitations: no limitations - History of Present Illness Initial comments: Patient is a pleasant 58-year-old male presenting to the emergency Department with complaints of difficulty in breathing. Onset of symptoms was a couple of days ago, symptoms were much worse this morning. Patient has known history of lung cancer is currently on chemotherapy. Patient does have cough with occasional yellow sputum. No fevers. Patient does have some mild leg swelling however this is fairly chronic for him. No calf pain. Dyspnea is similar to previous COPD. Minimal rhinorrhea. No chest pain. - Related Data Home Medications Medication Instructions Recorded Confirmed Folic Acid 1 mg PO DAILY 01/05/18 04/04/19 Prochlorperazine [Compazine] 10 mg PO Q6H PRN 01/05/18 04/04/19 Dicyclomine HCl 20 mg PO QID PRN 07/28/18 04/04/19 HYDROcodone/APAP 10-325MG [[place] 1 tab PO Q4HR PRN 07/28/18 04/04/19 10-325] Lactulose [Constulose] 20 gm PO Q12HR PRN 07/28/18 04/04/19 Morphine Sulfate [Morphine Sulfate 10 - 20 mg PO Q6H PRN 07/28/18 04/04/19 Oral Soln Conc (20 MG/ML)] Morphine Sulfate [Ms Contin] 30 mg PO QAM 07/28/18 04/04/19 Morphine Sulfate [Ms Contin] 60 mg PO HS 07/28/18 04/04/19 Sennosides/Docusate Sodium [Dok 2 tab PO BID 07/28/18 04/04/19 Plus Tablet] predniSONE 10 mg PO DAILY 07/28/18 04/04/19 Ipratropium [place] [Atrovent Hfa] 2 puff INHALATION RT-QID 04/04/19 04/04/19 Ipratropium-Albuterol Nebulize 3 ml INHALATION RT-Q6H 04/04/19 04/04/19 [Duoneb 0.5 mg-3 mg/3 ml Soln] Previous Rx's Medication Instructions Recorded Albuterol Inhaler [Ventolin Hfa 1 - 2 puff INHALATION RT-Q6H PRN 07/30/18 Inhaler] #1 inhaler Allergies Allergy/AdvReac Type Severity Reaction Status Date / Time amoxicillin [From Augmentin] AdvReac Diarrhea Verified 04/04/19 09:34 clavulanic acid AdvReac Diarrhea Verified 04/04/19 09:34 [From Augmentin] ibuprofen [From Motrin] AdvReac Unknown Verified 04/04/19 09:34 Review of Systems ROS Statement: Those systems with pertinent positive or pertinent negative responses have been documented in the HPI. ROS Other: All systems not noted in ROS Statement are negative. 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 HOME OXYGEN 3LNC., Incisional hernia, following gastric surgery for repair of perforated gastric ulcer History of Any Multi-Drug Resistant Organisms: None Reported Additional Past Surgical History / Comment(s): Previous history of right p neumothorax status post apical bleb resection at age 16. Perforated gastric ulcer, status post surgical repair, and subsequent development of incisional hernia Past Anesthesia/Blood Transfusion Reactions: No Reported Reaction Past Psychological History: No Psychological Hx Reported Smoking Status: Current some day smoker Past Alcohol Use History: None Reported Past Drug Use History: None Reported - Past Family History Mother Family Medical History: COPD General Exam Limitations: no limitations General appearance: alert Head exam: Present: normocephalic Eye exam: Present: normal appearance, PERRL ENT exam: Present: normal oropharynx Neck exam: Present: normal inspection Respiratory exam: Present: respiratory distress, wheezes, decreased breath sounds Cardiovascular Exam: Present: tachycardia GI/Abdominal exam: Present: soft. Absent: tenderness Extremities exam: Present: pedal edema (+1 bilateral). Absent: calf tenderness Neurological exam: Present: alert Psychiatric exam: Present: normal affect, normal mood Skin exam: Present: normal color Course Vital Signs 04/04/19 04/04/19 04/04/19 07:45 08:11 08:21 Temperature 99.3 F Pulse Rate 123 H 112 H 116 H Respiratory 24 Rate Blood Pressure 115/73 O2 Sat by Pulse 99 Oximetry 04/04/19 04/04/19 08:55 09:09 Temperature Pulse Rate 100 Respiratory 24 24 Rate Blood Pressure 106/75 O2 Sat by Pulse 98 Oximetry - Reevaluation(s) Reevaluation #1: 04/04/19 10:23 Abnormal vital signs are attributed to COPD and patient does not meet sepsis criteria at this time. EKG Findings - EKG Comments: EKG Findings:: Sinus tachycardia 106. WI 122. QRS 90. QT 354. QTC 470. Superior axis. Incomplete right bundle-branch block. No acute ST change. Medical Decision Making - Medical Decision Making Case was discussed in detail with Dr. Kelley, who will admit covering for Dr. Basilio. Dr. Monae has been paged. Patient reevaluated and somewhat improved. Patient states he still feels short of breath. Lung sounds with slightly increased air exchange and decreased wheezing. Patient will be ordered repeat nebulization treatment. Pulse ox 95% on 3 L. - Lab Data Result diagrams: 04/04/19 08:10 04/04/19 08:10 Lab Results 04/04/19 04/04/19 04/04/19 Range/Units 08:10 08:10 08:10 WBC 8.9 (3.8-10.6) k/uL RBC 3.89 L (4.30-5.90) m/uL Hgb 12.5 L (13.0-17.5) gm/dL Hct 39.2 (39.0-53.0) % MCV 100.8 H (80.0-100.0) fL MCH 32.2 (25.0-35.0) pg MCHC 32.0 (31.0-37.0) g/dL RDW 12.7 (11.5-15.5) % Plt Count 215 (150-450) k/uL Neutrophils % 62 % Lymphocytes % 19 % Monocytes % 7 % Eosinophils % 9 % Basophils % 1 % Neutrophils # 5.5 (1.3-7.7) k/uL Lymphocytes # 1.7 (1.0-4.8) k/uL Monocytes # 0.7 (0-1.0) k/uL Eosinophils # 0.8 H (0-0.7) k/uL Basophils # 0.1 (0-0.2) k/uL PT (9.0-12.0) sec INR (<1.2) APTT (22.0-30.0) sec Sodium 139 (137-145) mmol/L Potassium 3.6 (3.5-5.1) mmol/L Chloride 106 (98-107) mmol/L Carbon Dioxide 27 (22-30) mmol/L Anion Gap 6 mmol/L BUN 10 (9-20) mg/dL Creatinine 0.55 L (0.66-1.25) mg/dL Est GFR (CKD-EPI)AfAm >90 (>60 ml/min/1.73 sqM) Est GFR (CKD-EPI)NonAf >90 (>60 ml/min/1.73 sqM) Glucose 110 H (74-99) mg/dL Plasma Lactic Acid Arron (0.7-2.0) mmol/L Calcium 8.7 (8.4-10.2) mg/dL Total Bilirubin 0.5 (0.2-1.3) mg/dL AST 20 (17-59) U/L ALT 13 (4-49) U/L Alkaline Phosphatase 87 (38-126) U/L NT-Pro-B Natriuret Pep pg/mL Total Protein 7.1 (6.3-8.2) g/dL Albumin 3.8 (3.5-5.0) g/dL Influenza Type A RNA Not Detected (Not Detectd) Influenza Type B (PCR) Not Detected (Not Detectd) 04/04/19 04/04/19 04/04/19 Range/Units 08:10 08:10 08:10 WBC (3.8-10.6) k/uL RBC (4.30-5.90) m/uL Hgb (13.0-17.5) gm/dL Hct (39.0-53.0) % MCV (80.0-100.0) fL MCH (25.0-35.0) pg MCHC (31.0-37.0) g/dL RDW (11.5-15.5) % Plt Count (150-450) k/uL Neutrophils % % Lymphocytes % % Monocytes % % Eosinophils % % Basophils % % Neutrophils # (1.3-7.7) k/uL Lymphocytes # (1.0-4.8) k/uL Monocytes # (0-1.0) k/uL Eosinophils # (0-0.7) k/uL Basophils # (0-0.2) k/uL PT 9.5 (9.0-12.0) sec INR 0.9 (<1.2) APTT 23.6 (22.0-30.0) sec Sodium (137-145) mmol/L Potassium (3.5-5.1) mmol/L Chloride (98-107) mmol/L Carbon Dioxide (22-30) mmol/L Anion Gap mmol/L BUN (9-20) mg/dL Creatinine (0.66-1.25) mg/dL Est GFR (CKD-EPI)AfAm (>60 ml/min/1.73 sqM) Est GFR (CKD-EPI)NonAf (>60 ml/min/1.73 sqM) Glucose (74-99) mg/dL Plasma Lactic Acid Arron 1.1 (0.7-2.0) mmol/L Calcium (8.4-10.2) mg/dL Total Bilirubin (0.2-1.3) mg/dL AST (17-59) U/L ALT (4-49) U/L Alkaline Phosphatase (38-126) U/L NT-Pro-B Natriuret Pep 45 pg/mL Total Protein (6.3-8.2) g/dL Albumin (3.5-5.0) g/dL Influenza Type A RNA (Not Detectd) Influenza Type B (PCR) (Not Detectd) - Radiology Data Radiology results: image reviewed (Chest x-ray does not reveal acute abnormality. Right apical pleural capping and postoperative changes.) Disposition Clinical Impression: Acute exacerbation of chronic obstructive pulmonary disease Disposition: ADMITTED IP TO THIS HOSP Is patient prescribed a controlled substance at d/c from ED?: No Referrals: Bryce Basilio MD [Primary Care Provider] - 1-2 days Decision Time: 10:15
[2019-04-04 08:23] LABS: Basophils # (A) 0.1 k/uL (0-0.2); Basophils % (A) 1 %; Eosinophils # (A) 0.8 k/uL (0-0.7); Eosinophils % (A) 9 %; HCT 39.2 % (39.0-53.0); HGB 12.5 gm/dL (13.0-17.5); Lymphocytes # (A) 1.7 k/uL (1.0-4.8); Lymphocytes % (A) 19 %; MCH 32.2 pg (25.0-35.0); MCV 100.8 fL (80.0-100.0); Mean Platelet Volume 7.6; Monocytes # (A) 0.7 k/uL (0-1.0); Monocytes % (A) 7 %; Neutrophils # (A) 5.5 k/uL (1.3-7.7); Neutrophils % (A) 62 %; Platelet Count 215 k/uL (150-450); RBC 3.89 m/uL (4.30-5.90); RDW 12.7 % (11.5-15.5); WBC 8.9 k/uL (3.8-10.6)
[2019-04-04 08:40] LABS: ALT 13 U/L (4-49); AST 20 U/L (17-59); African American GFR (CKD) >90 (>60 ml/min/1.73 sqM); Albumin 3.8 g/dL (3.5-5.0); Alkaline Phosphatase 87 U/L (38-126); Anion Gap 6 mmol/L; Blood Urea Nitrogen 10 mg/dL (9-20); Calcium 8.7 mg/dL (8.4-10.2); Carbon Dioxide 27 mmol/L (22-30); Chloride 106 mmol/L (98-107); Glucose 110 mg/dL (74-99); Non-African American GFR(CKD) >90 (>60 ml/min/1.73 sqM); Potassium 3.6 mmol/L (3.5-5.1); Sodium 139 mmol/L (137-145); Total Bilirubin 0.5 mg/dL (0.2-1.3); Total Protein 7.1 g/dL (6.3-8.2)
[2019-04-04 08:44] LABS: INR 0.9 (<1.2); Partial Thromboplastin Time 23.6 sec (22.0-30.0); Prothrombin Time 9.5 sec (9.0-12.0)
[2019-04-04] MEDS ORDERED: MORPHINE SULFATE 4 MG/ML SYRINGE IVP STA (09:07)
--- NOTE | 2019-04-04 09:14 | XR ---
EXAMINATION TYPE: XR chest 2V DATE OF EXAM: 04/04/2019 COMPARISON: 07/29/2018 HISTORY: Shortness of breath TECHNIQUE: Frontal and lateral views of the chest are obtained. FINDINGS: Scattered senescent parenchymal changes noted. Hyperinflation compatible with COPD. Right apical pleural capping with postoperative change noted. Retraction of the right hilum. Tenting of the right hemidiaphragm all unchanged. Heart size is stable. Mediastinal structures are stable and grossly unremarkable. No evidence for hilar prominence. Degenerative changes dorsal spine. IMPRESSION: 1. No evidence for acute pulmonary disease.
[2019-04-04] MEDS ORDERED: IPRATROPIUM-ALBUTEROL 3 ML NEB INHALATION PRN (10:21)
[2019-04-04] MEDS ORDERED: MORPHINE SULFATE 4 MG/ML SYRINGE IV STA (10:24)
--- NOTE | 2019-04-04 11:08 | CT ---
EXAMINATION TYPE: CT angio chest DATE OF EXAM: 04/04/2019 COMPARISON: CT chest, abdomen, and pelvis dated 01/13/2019 HISTORY: SOB CT DLP: 350.1 mGycm. Automated Exposure Control for Dose Reduction was Utilized. CONTRAST: CTA scan of the thorax is performed with IV Contrast, patient injected with 79 mL of Isovue 370, pulm onary embolism protocol. MIP Images are created on CT scanner and reviewed. FINDINGS: LUNGS: There is a stable loculated pleural effusion and soft tissue density along the right hilum and mediastinal border with surgical sutures also seen along the right hilum. There is narrowing of the right upper lobe subsegmental pulmonary arteries with downstream stenosis. Extensive background centrilobular and paraseptal emphysematous changes the lung. Left upper lobe damian id pulmonary nodule in image 21 measures 6 mm. Spiculated pleural-based nodule of the superior segmen t of the right lower lobe posteriorly on series 401 image 66 measures 1.0 x 0.9 cm. Cylindrical bronc hiectasis is seen on the right. Bandlike scarring at the right lung base contiguous with the pleural surface. Right hemithorax volume loss is similar to the prior with subsequent rightward mediastinal s hift. MEDIASTINUM: There is suboptimal enhancement of the pulmonary artery and its branches, there is no gr oss CT evidence for pulmonary embolism. There are no greater than 1 cm hilar or mediastinal lymph no [place]. No cardiomegaly or pericardial effusion is seen. There is circumferential narrowing of the bra chiocephalic artery and finally calcific atheromatous plaquing with estimated stenosis of approximate ly 50%. OTHER: Ventral diastases recti is again seen entering multiple loops of large bowel. Severe colonic f ecal stasis. There are stable posterior right upper and deformities, likely postthoracotomy change. M ild degenerative disc disease of the thoracic spine. Stable extrahepatic biliary ductal dilatation. P rior biliary stent. IMPRESSION: 1. No evidence of pulmonary bolus. Stenosis of the subsegmental right upper lobe distal pulmonary art eries from surrounding fibrosis and consolidation. 2. Similar evaluation of the right hemithorax with loculated pleural effusion, right perihilar circum ferential soft tissue density, extensive parenchymal thickening of the right upper lobe, cylindrical bronchiectasis that likely is posttreatment change, right hemithorax volume loss, and bilateral pulmo nary nodules that are stable from the recent exam of 01/17/2019.
[2019-04-04] MEDS ORDERED: HYDROcodone/APAP 10-325MG 1 EACH TAB PO PRN (12:05)
[2019-04-04] MEDS: IPRATROPIUM-ALBUTEROL 3 ML NEB INHALATION SCH ×3 (12:38→17:57)
[2019-04-04] MEDS: methylPREDNISolone SOD SUCCI 125 MG/2 ML VIAL IV SCH ×3 (15:29→23:08)
[2019-04-04] MEDS: HYDROcodone/APAP 10-325MG 1 EACH TAB PO PRN (15:40)
[2019-04-04] MEDS ORDERED: LACTULOSE 200 GM/300 ML (FROM 1/2 GAL JUG) PO PRN (16:06)
[2019-04-04] MEDS ORDERED: DICYCLOMINE 20 MG TAB PO PRN (16:06)
[2019-04-04] MEDS ORDERED: PROCHLORPERAZINE 10 MG TAB PO PRN (16:06)
[2019-04-04] MEDS: LEVOFLOXACIN 500 MG TAB PO SCH (16:11)
[2019-04-04] MEDS: NICOTINE 21MG/24HR PATCH TRANSDERM SCH (16:12)
--- NOTE | 2019-04-04 16:12 | P.CONS ---
History of Present Illness - Reason for Consult Consult date: 04/04/19 NSCLC Requesting physician: Christofer Baker - Chief Complaint DAVID - History of Present Illness Mr. Bonilla is very pleasant 58-year-old male patient to presented in October 2017 with a progressive cough, dyspnea, over previous 3 months, suspicious chest x-ray led to CT chest on 11/08/17 which revealed mass like consolidation in the right upper lobe, right middle lobe, 3.9 cm subcarinal node, small nodules in the periphery of the left lower lobe, enlarged right ax illary nodes. He had a bronchoscopy on 11/11/17, extrinsic compression of the right upper lobe, transbronchial biopsy positive for non-small cell lung carcinoma, IHC favoring adenocarcinoma. December 2017 he was started on carboplatin, Alimta, keytruda. Patient had treatment follow-up scans in Jan, showing significant improvement in his disease, he completed 6 cycles in March 2018. He went on maintenance Alimta/keytruda in April 2018. His treatment was delayed while he dealt with cholelithiasis, conservative management. Resumed treatment in June with 2 additional cycles, his LFTs i ncreased again, abdominal ultrasound revealed significant biliary sludge and cholecystitis, at [facility] he had ERCP and extraction of stones, placement of biliary stent, biopsies were negative for malignancy. Patient has not had treatment since that time. Follow-up scans in October and December 2018 showed no disease progression, He is due for follow-up scans 04/10, f/u Dr. Monae 04/17 at 1115. Patient states coming to the emergency Department due to progressive difficulty in breathing, severe cough, generalized weakness. He is not sure he had a fever, no current nausea, vomiting, abdominal pain or cramping, diarrhea, constipation, urinary symptoms, he complains of increased and generalized pain from coughing.When I saw patient in the ER he states that his breathing is bet ter since admission Review of Systems 14 point review of systems is negative except as stated in HPI Past Medical History Past Medical History: Cancer, COPD, Pneumonia Additional Past Medical History / Comment(s): 2018 R sided lung cancer tx with chemo/keytruda with last treatment about 6 months ago, home oxygen at 3L/[place] ATC, bilateral lower extremity/pedal edema, chronic chest pain, low back pain, incis ional hernia, bronchitis, 5 R sided pneumothorax when 16 yrs old d/t bleb-had surgery, past ruptured gastric ulcer with surgery. History of Any Multi-Drug Resistant Organisms: None Reported Additional Past Surgical History / Comment(s): Bronchoscopy, R apical bleb/resection, EGD, perforated gastric ulcer with surgical repair/patch. Past Anesthesia/Blood Transfusion Reactions: No Reported Reaction Smoking Status: Current some day smoker - Past Family History Mother Family Medical History: COPD Additional Family Medical History / Comment(s): Mother is Father Family Medical History: Eye Disorder Additional Family Medical History / Comment(s): Father was blind. He is . Medications and Allergies Home Medications Medication Instructions Recorded Confirmed Type Folic Acid 1 mg PO DAILY 01/05/18 04/04/19 History Prochlorperazine [Compazine] 10 mg PO Q6H PRN 01/05/18 04/04/19 History Dicyclomine HCl 20 mg PO QID PRN 07/28/18 04/04/19 History HYDROcodone/APAP 10-325MG [[place] 1 tab PO Q4HR PRN 07/28/18 04/04/19 History 10-325] Lactulose [Constulose] 20 gm PO Q12HR PRN 07/28/18 04/04/19 History Morphine Sulfate [Morphine Sulfate 10 - 20 mg PO Q6H PRN 07/28/18 04/04/19 Histo ry Oral Soln Conc (20 MG/ML)] Morphine Sulfate [Ms Contin] 30 mg PO QAM 07/28/18 04/04/19 History Morphine Sulfate [Ms Contin] 60 mg PO HS 07/28/18 04/04/19 History Sennosides/Docusate Sodium [Dok 2 tab PO BID 07/28/18 04/04/19 History Plus Tablet] predniSONE 10 mg PO DAILY 07/28/18 04/04/19 History Albuterol Inhaler [Ventolin Hfa 1 - 2 puff INHALATION RT-Q6H PRN 07/30/1804/04 Rx Inhaler] #1 inhaler Ipratropium [place] [Atrovent Hfa] 2 puff INHALATION RT-QID 04/04/19 04/04/19 History Ipratropium-Albuterol Nebulize 3 ml INHALATION RT-Q6H 04/04/19 04/04/19 History [Duoneb 0.5 mg-3 mg/3 ml Soln] Allergies Allergy/AdvReac Type Severity Reaction Status Date / Time amoxicillin [From Augmentin] AdvReac Diarrhea Verified 04/04/19 09:34 clavulanic acid AdvReac Diarrhea Verified 04/04/19 09:34 [From Augmentin] ibuprofen [From Motrin] AdvReac Unknown Verified 04/04/19 09:34 Physical Exam Vitals: Vital Signs Temp Pulse Pulse Resp BP BP Pulse Ox 04/04/19 14:31 98.0 F 97 20 107/58 97 04/04/19 13:09 98.6 F 91 20 95/60 98 04/04/19 12:46 108 H 04/04/19 12:36 95 04/04/19 11:46 92 22 98/67 97 04/04/19 10:29 106 H 24 104/66 98 04/04/19 09:09 100 24 106/75 98 04/04/19 08:55 24 04/04/19 08:21 116 H 04/04/19 08:11 112 H 04/04/19 07:45 99.3 F 123 H 24 115/73 99 Intake and Output 04/04/19 04/04/19 04/04/19 06:59 14:59 22:59 Intake Total 240 Balance 240 Intake: Oral 240 Other: # Voids 3 Weight 77.111 kg - Constitutional General appearance: average body habitus, cooperative, mild distress - EENT Eyes: anicteric sclerae, EOMI ENT: hearing grossly normal, normal oropharynx - Neck Neck: no lymphadenopathy - Respiratory Respiratory: bilateral: rales (L>R), rhonchi (L>R), wheezing (L>R) - Cardiovascular Rhythm: regular Heart sounds: normal: S1, S2 Abnormal Heart Sounds: no systolic murmur, no diastolic murmur, no rub, no S3 Gallop, no S4 Gallop, no click, no other - Gastrointestinal General gastrointestinal: no absent bowel sounds, no decreased bowel sounds, no distended, no hepatomegaly, no hyperactive bowel sounds, normal bowel sounds, no organomegaly, no rigid, no scaphoid, soft, no splenomegaly, no tenderness, no umbilical hernia, no ventral hernia - Neurologic Neurologic: CNII-XII intact - Musculoskeletal Musculoskeletal: strength equal bilaterally - Psychiatric Psychiatric: A&O x's 3, appropriate affect, intact judgment & insight Results CBC & Chem 7: 04/04/19 08:10 04/04/19 08:10 Labs: Abnormal Lab Results - Last 24 Hours (Table) 04/04/19 04/04/19 Range/Units 08:10 08:10 RBC 3.89 L (4.30-5.90) m/uL Hgb 12.5 L (13.0-17.5) gm/dL MCV 100.8 H (80.0-100.0) fL Eosinophils # 0.8 H (0-0.7) k/uL Creatinine 0.55 L (0.66-1.25) mg/dL Glucose 110 H (74-99) mg/dL Chest x-ray: report reviewed CT scan - chest: report reviewed Assessment and Plan (1) Acute exacerbation of chronic obstructive pulmonary disease Narrative/Plan: Patient is being treated for COPD exacerbation. Pulmonary consulted. Chest x-ray CTA reports reviewed. No pulmonary embolism, CT looks similar to the one in December, no evidence to suggest disease progression at this time. Current Visit: Yes Status: Acute Priority: High Code(s): J44.1 - CHRONIC OBSTRUCTIVE PULMONARY DISEASE W (ACUTE) EXACERBATION SNOMED Code(s): 630345574 (2) O2 dependent Current Visit: Yes Status: Chronic Priority: Medium Code(s): Z99.81 - DEPENDENCE ON SUPPLEMENTAL OXYGEN SNOMED Code(s): 628510857104 (3) Metastatic malignant neoplasm to lung Narrative/Plan: Patient is due for treatment follow-up imaging, scans are scheduled for the with follow-up with Dr. Monae. Will keep these appointments at this time. Current Visit: No Status: Chronic Priority: Medium Code(s): C78.00 - SECONDARY MALIGNANT NEOPLASM OF UNSPECIFIED LUNG SNOMED Code(s): 11071129
[2019-04-04 17:11] LABS: Glucose,Whole Blood 184 mg/dL (75-99)
[2019-04-04] MEDS: INSULIN ASPART (NovoLOG) 100 UNIT/ML VIAL SQ SCH ×2 (17:22→21:28)
[2019-04-04] MEDS: MORPHINE CONC SOLN 10mg/0.5mL ORAL SYRG PO PRN (17:27)
[2019-04-04] MEDS: BUDESONIDE 1 MG/2 ML NEBU INHALATION SCH (17:57)
[2019-04-04] MEDS: FORMOTEROL FUMARATE 20 MCG/2 ML NEBU INHALATION SCH (17:57)
[2019-04-04 20:03] LABS: Glucose,Whole Blood 136 mg/dL (75-99)
--- NOTE | 2019-04-04 20:30 | CONS ---
CONSULTATION PULMONARY/CRITICAL CARE CONSULTATION: DATE OF SERVICE: April 04, 2019. REASON FOR CONSULTATION: Shortness of breath. HISTORY OF PRESENT ILLNESS: This is a 58-year-old gentleman who apparently sees Dr. Bryce ball in [place]. He comes in with complaints of increasing and progressive shortness of breath. Apparently his symptoms have been present for a couple days and getting progressively more severe. In addition, the patient has a history of cough, wheezing, chest tightness, and phlegm production. He does have yellow phlegm. No fever or chills. No chest pain or chest discomfort. The patient states that he has had a diagnosis of lung cancer and has received chemotherapy, but is not getting any treatment at this time. He denies any nausea, vomiting, diarrhea. Denies any genitourinary complaints. No headache or head discomfort. No trauma. Again, no chest pain or chest discomfort. The patient is down in the emergency room in the hallway #4. The patient does look much older than his stated age. HOME MEDICATIONS: Include folic acid, Compazine, dicyclomine, [place], lactulose, morphine sulfate, MS Contin, Senna, prednisone albuterol and Atrovent updrafts, and albuterol inhaler. ALLERGIES: INCLUDE AMOXICILLIN, CLAVULANIC ACID, AND IBUPROFEN. . MEDICAL HISTORY: Reviewed. He apparently has a history of COPD from ongoing tobacco use and also carries with him a diagnosis of lung cancer. 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 He does require home oxygen and therefore has chronic hypoxemic respiratory failure. He also has a previous history of incisional hernia and repair of perforated gastric ulcer. Other history includes a right pneumothorax status post apical bleb resection at age 16, as I mentioned, perforated gastric ulcer with repair and development of a subsequent incisional hernia. SOCIAL HISTORY: Positive for ongoing tobacco use. Denies any alcohol or illicit or illicit drug use. FAMILY HISTORY: Positive for mother with COPD. REVIEW OF SYSTEMS: CONSTITUTIONAL weakness. NEUROLOGIC negative. HEENT negative. CARDIOVASCULAR negative. PULMONARY: Shortness of breath, chest tightness, wheezing, cough and yellow phlegm production. GI negative. negative. RHEUMATOLOGIC negative. IMMUNOLOGIC negative. ENDOCRINOLOGIC negative. DERMATOLOGIC negative. PHYSICAL EXAMINATION: Vital signs are reviewed. Temperature is 98.6. Heart rate 91, respiratory rate 20, blood pressure 95/60. Mean 71, 15 L non-rebreather mask saturations 98%. He appears much older than his stated age. He is tachypneic and dyspneic. HEENT: Examination is grossly unremarkable. Nasal O2 currently in place. NECK: Supple. Full range of motion. No adenopathy or thyromegaly. Neck veins are flat. CARDIOVASCULAR: Examination reveals regular rhythm and rate. Heart rate about 180 beats per minute. S1, S2 normal. No S3, S4. Heart sounds are distant. LUNGS: Reveal severely diminished breath sounds. He has significant inspiratory and expiratory wheezes and rhonchi. There is prolongation on forced maneuver. No crackles. Breath sounds equal bilaterally. ABDOMEN: Soft, bowel sounds are heard. EXTREMITIES are intact. No cyanosis, or clubbing. There is edema. SKIN: Without rash. NEUROLOGIC: Examination is brief but nonfocal. The patient had a chest x-ray which showed no evidence of acute pulmonary disease. There is some right apical pleural capping with postoperative changes noted. There is retraction of the right hilum and tenting of the right hemidiaphragm all unchanged. A CT angiogram of the chest shows no evidence of PE. There is subsegmental right upper lobe distal pulmonary artery stenosis. There is a loculated right-sided pleural effusion. Right perihilar circumferential soft tissue density. Extensive parenchymal thickening of the right upper lobe, cylindrical bronchiectasis and right hemithorax volume loss. There are also bilateral nodules that are stable from a CAT scan done December 2018. LABORATORY DATA: Includes a white count 8.9, hemoglobin 12.5, hematocrit 39.2, platelet count 215,000. PT/INR and PTT all normal. Sodium 139, potassium 3.6, chloride 106. CO2 27, anion gap is 6. BUN and creatinine were 10 and 0.55. Influenza studies are negative. 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 I also mentioned in my dictation at that time, the patient has an FEV1 that is 35% of predicted. Suggesting stage III almost stage IV COPD. Medications are reviewed. Currently he is on [place], updrafts with albuterol, both scheduled and p.r.n., Solu- Medrol 60 q.6h, morphine sulfate, prednisone and Senokot. ASSESSMENT: 1. Chronic obstructive pulmonary disease exacerbation in a patient with severe stage III/stage IV chronic obstructive pulmonary disease (FEV1 35% of predicted), complicated by purulent tracheobronchitis and without venkata pneumonia. 2. Chronic hypoxemic respiratory failure secondary to chronic obstructive pulmonary disease. 3. Poorly differentiated metastatic adenocarcinoma of the lung, status post carboplatin and Alimta and more recently immunotherapy with Keytruda. 4. Chronic and ongoing nicotine dependence. 5. Previous history of pneumothorax at age 16, status post apical bleb resection, right side. 6. Medical noncompliance. 7. Ongoing tobacco use with nicotine addiction. 8. Previous episode of acute cholecystitis and acute choledocholithiasis. 9. Lower extremity edema, may relate to underlying cor pulmonale and pulmonary hypertension. 10.Status post perforated gastric ulcer with surgical repair and subsequent incisional hernia. PLAN: The patient will be admitted to the hospital. We will make sure they that he is on short-acting beta agonist, short-acting muscarinic antagonist, long-acting beta agonist, inhaled corticosteroids, systemic corticosteroids and antibiotics orally and oxygen therapy. Additional recommendations and suggestions are forthcoming. Overall prognosis remains very guarded. We will continue to follow him closely. MMODL / IJN: [id number] /
[2019-04-04] MEDS: MORPHINE SULFATE ER 60 MG TABLET PO SCH (21:27)
[2019-04-04] MEDS: SENNOSIDES-DOCUSATE SODIUM 1 EACH TAB PO SCH (21:27)
--- NOTE | 2019-04-04 22:24 | P.HPIM ---
History of Present Illness H&P Date: 04/04/19 Chief Complaint: Short of breath History of presenting complaint: This is a very pleasant 58-year-old patient of Dr. Bryce Basilio. Chronic stable medical conditions include right kidney stones, incisional abdominal hernia, home oxygen 3 L, and adenocarcinoma of the right lung. Patient has received chemotherapy and immunotherapy the past. Being followed by Dr. England. Patient now presents with worsening short of breath at least for 2 days of cough with yellow phlegm. Some fever and chills. Patient hadn't had a bowel movement for close to 10 days and a large BMs yesterday. Appetite had gone down. Review of systems: GEN.: Tired EYES: None HEENT: None NECK: None RESPIRATORY: As above CARDIOVASCULAR: None GASTROINTESTINAL: None GENITOURINARY: None MUSCULOSKELETAL: Some joint pains LYMPHATICS: None HEMATOLOGICAL: None PSYCHIATRY: None NEUROLOGICAL: None Past medical history to include: Right kidney stones, adenocarcinoma of the lung undergoing chemoimmunotherapy, COPD, incisional abdominal hernia, home oxygen 3 L, ruptured gastric ulcer, pneumothoracic with removal lobe collapse, low back pain Social history: Drinks alcohol rarely, smoking about half a pack a day for over 40 years, Physical examination: VITAL SIGNS: 96.1, 99, 24, 155/91, 95% on 4 L GENERAL: [BMI 22.4, sitting up, tired. EYES: Pupils equal. Conjunctiva normal. HEENT: External appearance of nose and ears normal, oral cavity grossly normal. NECK: JVD not raised; masses not palpable. HEART: First and second heart sounds are normal; no edema. LUNGS: Respiratory rate increased, diminished breath sounds prolonged expiration, expiratory crackles. ABDOMEN: Soft, nontender, liver spleen not palpable, no masses palpable. PSYCH: Alert and oriented x3; mood and affect anxiousl. NEUROLOGICAL: Cranial nerves grossly intact; no facial asymmetry, power and sensation grossly intact. LYMPHATICS: No lymph nodes palpable in the axilla and neck INVESTIGATIONS, reviewed in the clinical context: White count 8.9 hemoglobin 12.5 platelets 215 potassium 3.6 creatinine 0.55 Chest x-ray film personally reviewed by me-right upper lobe infiltrates for consultation with elevation of the right diaphragm, EKG tracing personally reviewed by me-normal sinus rhythm Assessment: -Acute severe COPD exacerbation in a current smoker -Possible pneumonia suspect gram-negative organism -Right lung adenocarcinoma status post chemotherapy and immunotherapy -Chronic hypoxic respiratory failure on home oxygen 3 L -Incisional abdominal hernia -Right kidney stones -Chronic nicotine dependence patient cigarette smoker Plan: Patient be started on nebulized bronchodilators every 4 hours, long-acting beta agonist and Pulmicort inhalers twice a day, IV Solu-Medrol, Mucinex 1200 mg twice a day, oxygen support. Home medications resumed. Lovenox for DVT prophylaxis. Care was discussed with the patient question were answered. Smoke cessation counseling: This was done with the patient. Nicotine patch is being given. More than 3 minutes was spent for this Past Medical History Past Medical History: Cancer, COPD, Pneumonia Additional Past Medical History / Comment(s): 2018 R sided lung cancer tx with chemo/keytruda with last treatment about 6 months ago, home oxygen at 3L/[place] ATC, bilateral lower extremity/pedal edema, chronic chest pain, low back pain, incisional hernia, bronchitis, 5 R sided pneumothorax when 16 yrs old d/t bleb- had surgery, past ruptured gastric ulcer with surgery. History of Any Multi-Drug Resistant Organisms: None Reported Additional Past Surgical History / Comment(s): Bronchoscopy, R apical bleb/resection, EGD, perforated gastric ulcer with surgical repair/patch. Past Anesthesia/Blood Transfusion Reactions: No Reported Reaction Smoking Status: Current some day smoker - Past Family History Mother Family Medical History: COPD Additional Family Medical History / Comment(s): Mother is Father Family Medical History: Eye Disorder Additional Family Medical History / Comment(s): Father was blind. He is . Medications and Allergies Home Medications Medication Instructions Recorded Confirmed Type Folic Acid 1 mg PO DAILY 01/05/18 04/04/19 History Prochlorperazine [Compazine] 10 mg PO Q6H PRN 01/05/18 04/04/19 History Dicyclomine HCl 20 mg PO QID PRN 07/28/18 04/04/19 History HYDROcodone/APAP 10-325MG [[place] 1 tab PO Q4HR PRN 07/28/18 04/04/19 History 10-325] Lactulose [Constulose] 20 gm PO Q12HR PRN 07/28/18 04/04/19 History Morphine Sulfate [Morphine Sulfate 10 - 20 mg PO Q6H PRN 07/28/18 04/04/19 History Oral Soln Conc (20 MG/ML)] Morphine Sulfate [Ms Contin] 30 mg PO QAM 07/28/18 04/04/19 History Morphine Sulfate [Ms Contin] 60 mg PO HS 07/28/18 04/04/19 History Sennosides/Docusate Sodium [[place]ok 2 tab PO BID 07/28/18 04/04/19 History Plus Tablet] predniSONE 10 mg PO DAILY 07/28/18 04/04/19 History Albuterol Inhaler [Ventolin Hfa 1 - 2 puff INHALATION RT-Q6H PRN 07/30/18 04/04/19 Rx Inhaler] #1 inhaler Ipratropium [place] [Atrovent Hfa] 2 puff INHALATION RT-QID 04/04/19 04/04/19 History Ipratropium-Albuterol Nebulize 3 ml INHALATION RT-Q6H 04/04/19 04/04/19 History [Duoneb 0.5 mg-3 mg/3 ml Soln] Allergies Allergy/AdvReac Type Severity Reaction Status Date / Time amoxicillin [From Augmentin] AdvReac Diarrhea Verified 04/04/19 09:34 clavulanic acid AdvReac Diarrhea Verified 04/04/19 09:34 [From Augmentin] ibuprofen [From Motrin] AdvReac Unknown Verified 04/04/19 09:34 Physical Exam Vitals: Vital Signs Temp Pulse Pulse Resp BP BP Pulse Ox 04/04/19 21:00 96.1 F L 99 24 155/91 95 04/04/19 18:10 82 20 04/04/19 18:09 82 20 04/04/19 17:57 78 20 04/04/19 15:52 80 18 04/04/19 15:43 77 18 04/04/19 15:04 97 20 04/04/19 14:31 98.0 F 97 20 107/58 97 04/04/19 13:09 98.6 F 91 20 95/60 98 04/04/19 12:46 108 H 04/04/19 12:36 95 04/04/19 11:46 92 22 98/67 97 04/04/19 10:29 106 H 24 104/66 98 04/04/19 09:09 100 24 106/75 98 04/04/19 08:55 24 04/04/19 08:21 116 H 04/04/19 08:11 112 H 04/04/19 07:45 99.3 F 123 H 24 115/73 99 Intake and Output 04/04/19 04/04/19 04/04/19 06:59 14:59 22:59 Intake Total 240 Balance 240 Intake: Oral 240 Other: # Voids 3 Weight 77.111 kg Results CBC & Chem 7: 04/04/19 08:10 04/04/19 08:10 Labs: Abnormal Lab Results - Last 24 Hours (Table) 04/04/19 04/04/19 04/04/19 Range/Units 08:10 08:10 17:09 RBC 3.89 L (4.30-5.90) m/uL Hgb 12.5 L (13.0-17.5) gm/dL MCV 100.8 H (80.0-100.0) fL Eosinophils # 0.8 H (0-0.7) k/uL Creatinine 0.55 L (0.66-1.25) mg/dL Glucose 110 H (74-99) mg/dL POC Glucose (mg/dL) 184 H (75-99) mg/dL 04/04/19 Range/Units 20:01 RBC (4.30-5.90) m/uL Hgb (13.0-17.5) gm/dL MCV (80.0-100.0) fL Eosinophils # (0-0.7) k/uL Creatinine (0.66-1.25) mg/dL Glucose (74-99) mg/dL POC Glucose (mg/dL) 136 H (75-99) mg/dL Thrombosis Risk Factor Assmnt - Choose All That Apply Any of the Below Risk Factors Present?: Yes Each Factor Represents 1 point: Abnormal pulmonary function (COPD), Age 41-60 years, Swollen legs (current) Other Risk Factors: Yes Each Risk Factor Represents 2 Points: Malignancy Other congenital or acquired thrombophilia - If yes, enter type in comment: No Thrombosis Risk Factor Assessment Total Risk Factor Score: 5 Thrombosis Risk Factor Assessment Level: High Risk
[2019-04-04] MEDS: guaiFENesin 600 MG TABLET.ER PO SCH (23:08)
[2019-04-04] MEDS: ENOXAPARIN 40 MG/0.4 ML SYRINGE SQ SCH (23:08)
[2019-04-05] MEDS: IPRATROPIUM-ALBUTEROL 3 ML NEB INHALATION SCH ×7 (00:50→20:14)
[2019-04-05] MEDS: HYDROcodone/APAP 10-325MG 1 EACH TAB PO PRN ×5 (01:28→21:14)
[2019-04-05] MEDS: MORPHINE CONC SOLN 10mg/0.5mL ORAL SYRG PO PRN ×3 (05:13→14:52)
[2019-04-05] MEDS: methylPREDNISolone SOD SUCCI 125 MG/2 ML VIAL IV SCH ×3 (05:15→17:03)
[2019-04-05 07:07] LABS: Glucose,Whole Blood 179 mg/dL (75-99)
[2019-04-05] MEDS: INSULIN ASPART (NovoLOG) 100 UNIT/ML VIAL SQ SCH ×4 (07:52→21:14)
[2019-04-05] MEDS: guaiFENesin 600 MG TABLET.ER PO SCH ×2 (07:53→21:13)
[2019-04-05] MEDS: FOLIC ACID 1 MG TAB PO SCH (07:53)
[2019-04-05] MEDS: MORPHINE SULFATE ER 30 MG TABLET PO SCH (07:53)
[2019-04-05] MEDS: SENNOSIDES-DOCUSATE SODIUM 1 EACH TAB PO SCH ×2 (07:54→21:13)
[2019-04-05] MEDS: ENOXAPARIN 40 MG/0.4 ML SYRINGE SQ SCH (07:54)
[2019-04-05] MEDS: NICOTINE 21MG/24HR PATCH TRANSDERM SCH (07:54)
[2019-04-05] MEDS ORDERED: predniSONE 10 MG TAB PO SCH (09:00)
[2019-04-05] MEDS: BUDESONIDE 1 MG/2 ML NEBU INHALATION SCH ×2 (09:03→20:14)
[2019-04-05] MEDS: FORMOTEROL FUMARATE 20 MCG/2 ML NEBU INHALATION SCH ×2 (09:03→20:14)
[2019-04-05 11:04] LABS: Glucose,Whole Blood 153 mg/dL (75-99)
[2019-04-05] MEDS: LEVOFLOXACIN 500 MG TAB PO SCH (14:51)
--- NOTE | 2019-04-05 15:36 | P.PN ---
Subjective Progress Note Date: 04/05/19 Principal diagnosis: Shortness of breath, cough On 04/05/2019 patient seen in follow-up on general oncology floor. He is resting comfortably in bed, in no acute distress, states his breathing is sedated better, still dyspneic on bronchospastic, but improving. Pulse ox is 96% on 4 L, afebrile, hemodynamically patient is stable influenza screen was negative, no leukocytosis, no fever or chills. Blood cultures so far show no growth, he is on Levaquin for empiric antibiotic coverage, Objective - Vital Signs Vital signs: Vital Signs Temp 97.6 F 04/05/19 11:59 Pulse 95 04/05/19 12:33 Resp 20 04/05/19 12:33 BP 121/62 04/05/19 11:59 Pulse Ox 96 04/05/19 11:59 Intake & Output 04/04/19 04/05/19 04/05/19 18:59 06:59 18:59 Intake Total 240 590 Balance 240 590 Weight 77.111 kg Intake: Oral 240 590 Other: Voiding Method Toilet Toilet # Voids 3 2 3 - Exam GENERAL EXAM: Alert, very pleasant, 58-year-old white male on 4 L of oxygen with pulse ox of 96% comfortable in no apparent distress. HEAD: Normocephalic/atraumatic. EYES: Normal reaction of pupils, equal size. Conjunctiva pink, sclera white. NOSE: Clear with pink turbinates. THROAT: No erythema or exudates. NECK: No masses, no JVD, no thyroid enlargement, no adenopathy. CHEST: No chest wall deformity. Symmetrical expansion. LUNGS: Equal air entry with diffuse wheezes and rhonchi CVS: Regular rate and rhythm, normal S1 and S2, no gallops, no murmurs, no rubs ABDOMEN: Soft, nontender. No hepatosplenomegaly, normal bowel sounds, no guarding or rigidity. EXTREMITIES: No clubbing, no edema, no cyanosis, 2+ pulses and upper and lower extremities. MUSCULOSKELETAL: Muscle strength and tone normal. SPINE: No scoliosis or deformity SKIN: No rashes CENTRAL NERVOUS SYSTEM: Alert and oriented -3. No focal deficits, tone is normal in all 4 extremities. PSYCHIATRIC: Alert and oriented -3. Appropriate affect. Intact judgment and insight. - Labs CBC & Chem 7: 04/04/19 08:10 04/04/19 08:10 Labs: Abnormal Lab Results - Last 24 Hours (Table) 04/04/19 04/04/19 04/05/19 Range/Units 17:09 20:01 07:06 POC Glucose (mg/dL) 184 H 136 H 179 H (75-99) mg/dL 04/05/19 Range/Units 10:59 POC Glucose (mg/dL) 153 H (75-99) mg/dL Microbiology - Last 24 Hours (Table) 04/04/19 08:10 Blood Culture - Preliminary Blood No Growth after 24 hours Assessment and Plan Plan: Assessment: #1. Acute exacerbation of chronic obstructive pulmonary disease complicated by purulent tracheal bronchitis without evidence of venkata pneumonia #2. Stage 3/stage IV COPD with baseline FEV1 of 35% of predicted #3. 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 Chronic and ongoing nicotine dependence #5. Previous history of pneumothorax at age 16, status post apical bleb resection, and the right side #6. Medical noncompliance #7. Previous episode of acute cholecystitis and acute choledocholithiasis #8. Lower extremity edema, could relate to underlying cor pulmonale and pulmo nary hypertension #9. Status post perforated gastric ulcer with surgical repair and subsequent incisional hernia Plan: Continue IV steroids, continue same antibiotics, send a sputum culture, continue IV steroids, and inhaled corticosteroids, patient is improving, not quite back to baseline, we'll continue to follow I performed a history & physical examination of the patient and discussed their management with my nurse practitioner, Candy Sethi. I reviewed the nurse practitioner's note and agree with the documented findings and plan of care. Lung sounds are positive for diffuse wheezes. The findings and the impression was discussed with the patient. I attest to the documentation by the nurse practitioner. Time with Patient: Less than 30
[2019-04-05 16:50] LABS: Glucose,Whole Blood 133 mg/dL (75-99)
[2019-04-05 19:12] LABS: Hemoglobin A1C 5.3 % (4.0-6.0)
[2019-04-05] MEDS: MORPHINE SULFATE ER 60 MG TABLET PO SCH (20:02)
[2019-04-05 20:16] LABS: Glucose,Whole Blood 145 mg/dL (75-99)
--- NOTE | 2019-04-05 23:36 | P.PN ---
Progress Note - Text Progress Note Date: 04/05/19 Chief Complaint: Short of breath History of presenting complaint: This is a very pleasant 58-year-old patient of Dr. Bryce Basilio. Chronic stable medical conditions include right kidney stones, incisional abdominal hernia, home oxygen 3 L, and adenocarcinoma of the right lung. Patient has received chemotherapy and immunotherapy the past. Being followed by Dr. England. Patient now presents with worsening short of breath at least for 2 days of cough with yellow phlegm. Some fever and chills. Patient hadn't had a bowel movement for close to 10 days and a large BMs yesterday. Appetite had gone down. Admitted with-severe COPD exacerbation, pneumonia, Today-. Remains quite a bit short of breath, wheezing a bit anxious. Slight cough. Review of systems: Was done for constitutional, cardiovascular, GI, pulmonary. relevant finding as above Active Medications Hydrocodone Bitart/Acetaminophen ([place] 10) 1 each PO Q4H PRN PRN Reason: Pain Last Admin: 04/05/19 21:14 Dose: 1 each Documented by: Albuterol/Ipratropium (Duoneb 0.5 Mg-3 Mg/3 Ml Soln) 3 ml INHALATION RT-Q4H PRN PRN Reason: Shortness Of Breath Or Wheezing Albuterol/Ipratropium (Duoneb 0.5 Mg-3 Mg/3 Ml Soln) 3 ml INHALATION RT-Q4H [facility] Last Admin: 04/05/19 20:14 Dose: 3 ml Documented by: Budesonide (Pulmicort) 1 mg INHALATION RT-BID [facility] Last Admin: 04/05/19 20:14 Dose: 1 mg Documented by: Dicyclomine HCl (Bentyl) 20 mg PO QID PRN PRN Reason: ABDOMINAL CRAMPING Enoxaparin Sodium (Lovenox) 40 mg SQ DAILY [facility] Last Admin: 04/05/19 07:54 Dose: 40 mg Documented by: Folic Acid (Folic Acid) 1 mg PO DAILY [facility] Last Admin: 04/05/19 07:53 Dose: 1 mg Documented by: Formoterol Fumarate (Perforomist) 20 mcg INHALATION RT-BID [facility] Last Admin: 04/05/19 20:14 Dose: 20 mcg Documented by: Guaifenesin (Mucinex) 1,200 mg PO Q12HR [facility] Last Admin: 04/05/19 21:13 Dose: 1,200 mg Documented by: Insulin Aspart (Novolog) 0 unit SQ [facility]; Protocol Last Admin: 04/05/19 21:14 Dose: 2 unit Documented by: Lactulose (Cephulac) 20 gm PO Q12HR PRN PRN Reason: Constipation Levofloxacin (Levaquin) 500 mg PO Q24H [facility] Last Admin: 04/05/19 14:51 Dose: 500 mg Documented by: Methylprednisolone Sodium Succinate (Solu-Medrol) 60 mg IV Q6HR [facility] Last Admin: 04/05/19 17:03 Dose: 60 mg Documented by: Morphine Sulfate (Ms Contin) 60 mg PO HS [facility] Last Admin: 04/05/19 20:02 Dose: 60 mg Documented by: Morphine Sulfate (Ms Contin) 30 mg PO QAM [facility] Last Admin: 04/05/19 07:53 Dose: 30 mg Documented by: Morphine Sulfate (Roxanol Oral Soln Conc 10mg/0.5ml) 10 mg PO Q6H PRN PRN Reason: Mild to Moderate Pain Last Admin: 04/05/19 09:48 Dose: 10 mg Documented by: Morphine Sulfate (Roxanol Oral Soln Conc 10mg/0.5ml) 20 mg PO Q6H PRN PRN Reason: Severe Pain Last Admin: 04/05/19 14:52 Dose: 20 mg Documented by: Nicotine (Habitrol 21mg/24hr Patch) 1 patch TRANSDERM DAILY [facility] Last Admin: 04/05/19 07:54 Dose: 1 patch Documented by: Prochlorperazine Maleate (Compazine) 10 mg PO Q6H PRN PRN Reason: Nausea Senna/Docusate Sodium (Senokot-S) 2 each PO BID [facility] Last Admin: 04/05/19 21:13 Dose: 2 each Documented by: Physical examination: VITAL SIGNS: 97.3-523-38-121/62-96% on 4 L GENERAL: Propped up in bed, short of breath at rest EYES: Pupils equal. Conjunctiva normal. HEENT: External appearance of nose and ears normal, oral cavity grossly normal. NECK: JVD not raised; masses not palpable. HEART: First and second heart sounds are normal; no edema. LUNGS: Respiratory rate increased, accessory muscles a working, not able to speak in full sentences, prolonged expiration and wheezing. ABDOMEN: Soft, nontender, liver spleen not palpable, no masses palpable. Large Abdominal wall hernia PSYCH: Alert and oriented x3; mood and affect anxiousl. INVESTIGATIONS, reviewed in the clinical context: White count 8.9 hemoglobin 12.5 platelets 215 potassium 3.6 creatinine 0.55 Chest x-ray film personally reviewed by me-right upper lobe infiltrates for consultation with elevation of the right diaphragm, EKG tracing personally reviewed by me-normal sinus rhythm Assessment: -Acute severe COPD exacerbation in a current smoker, not improving -Possible pneumonia suspect gram-negative organism -Right lung adenocarcinoma status post chemotherapy and immunotherapy -Chronic hypoxic respiratory failure on home oxygen 3 L -Incisional abdominal hernia -Right kidney stones -Chronic nicotine dependence patient cigarette smoker Plan: Continue with nebulized bronchodilators, inhaled and IV steroids. Other medications to continue. Care is discussed with the patient. Reassured. Follow with pulmonary. Expect patient to the hospital at least for 2 or 3 days more.
[2019-04-06] MEDS: methylPREDNISolone SOD SUCCI 125 MG/2 ML VIAL IV SCH ×5 (00:11→23:36)
[2019-04-06] MEDS: MORPHINE CONC SOLN 10mg/0.5mL ORAL SYRG PO PRN ×5 (00:12→22:43)
[2019-04-06] MEDS: IPRATROPIUM-ALBUTEROL 3 ML NEB INHALATION SCH ×7 (01:08→23:39)
[2019-04-06] MEDS: HYDROcodone/APAP 10-325MG 1 EACH TAB PO PRN ×5 (01:31→19:11)
[2019-04-06 07:21] LABS: Glucose,Whole Blood 149 mg/dL (75-99)
[2019-04-06] MEDS: SENNOSIDES-DOCUSATE SODIUM 1 EACH TAB PO SCH ×2 (07:42→20:49)
[2019-04-06] MEDS: ENOXAPARIN 40 MG/0.4 ML SYRINGE SQ SCH (07:43)
[2019-04-06] MEDS: NICOTINE 21MG/24HR PATCH TRANSDERM SCH (07:43)
[2019-04-06] MEDS: FOLIC ACID 1 MG TAB PO SCH (07:43)
[2019-04-06] MEDS: INSULIN ASPART (NovoLOG) 100 UNIT/ML VIAL SQ SCH ×4 (07:43→20:50)
[2019-04-06] MEDS: MORPHINE SULFATE ER 30 MG TABLET PO SCH (07:43)
[2019-04-06] MEDS: guaiFENesin 600 MG TABLET.ER PO SCH ×2 (07:43→20:49)
[2019-04-06] MEDS: BUDESONIDE 1 MG/2 ML NEBU INHALATION SCH ×2 (08:03→20:01)
[2019-04-06] MEDS: FORMOTEROL FUMARATE 20 MCG/2 ML NEBU INHALATION SCH ×2 (08:03→20:01)
[2019-04-06 11:37] LABS: Glucose,Whole Blood 133 mg/dL (75-99)
--- NOTE | 2019-04-06 14:23 | P.PN ---
Subjective Progress Note Date: 04/06/19 Principal diagnosis: Shortness of breath, cough On 04/05/2019 patient seen in follow-up on general oncology floor. He is resting comfortably in bed, in no acute distress, states his breathing is sedated better, still dyspneic on bronchospastic, but improving. Pulse ox is 96% on 4 L, afebrile, hemodynamically patient is stable influenza screen was negative, no leukocytosis, no fever or chills. Blood cultures so far show no growth, he is on Levaquin for empiric antibiotic coverage, On 04/06/2019 patient seen in follow-up on medical oncology floor. Doing much better today, breathing easier, still has some scattered wheezes, still mildly bronchospastic but overall doing much better, he is up in a chair today, tolerating activity very well. On 4 L of oxygen with a pulse ox of 98%, no fever or chills. He's been treated with antibiotics, IV steroids, and nebulized bronchodilators, doing well, anticipate further improvement and possible discharge home in the morning. Objective - Vital Signs Vital signs: Vital Signs Temp 98.3 F 04/06/19 13:00 Pulse 86 04/06/19 13:00 Resp 22 04/06/19 13:00 BP 104/65 04/06/19 13:00 Pulse Ox 98 04/06/19 13:00 Intake & Output 04/05/19 04/06/19 04/06/19 18:59 06:59 18:59 Intake Total 480 Output Total 525 Balance -45 Intake: Oral 480 Output: Urine 525 Other: Voiding Method Toilet Toilet Toilet # Voids 3 - Exam GENERAL EXAM: Alert, very pleasant, 58-year-old white male on 4 L of oxygen with pulse ox of 96% comfortable in no apparent distress. HEAD: Normocephalic/atraumatic. EYES: Normal reaction of pupils, equal size. Conjunctiva pink, sclera white. NOSE: Clear with pink turbinates. THROAT: No erythema or exudates. NECK: No masses, no JVD, no thyroid enlargement, no adenopathy. CHEST: No chest wall deformity. Symmetrical expansion. LUNGS: Equal air entry with diffuse wheezes and rhonchi CVS: Regular rate and rhythm, normal S1 and S2, no gallops, no murmurs, no rubs ABDOMEN: Soft, nontender. No hepatosplenomegaly, normal bowel sounds, no guarding or rigidity. EXTREMITIES: No clubbing, no edema, no cyanosis, 2+ pulses and upper and lower extremities. MUSCULOSKELETAL: Muscle strength and tone normal. SPINE: No scoliosis or deformity SKIN: No rashes CENTRAL NERVOUS SYSTEM: Alert and oriented -3. No focal deficits, tone is normal in all 4 extremities. PSYCHIATRIC: Alert and oriented -3. Appropriate affect. Intact judgment and insight. - Labs CBC & Chem 7: 04/04/19 08:10 04/04/19 08:10 Labs: Abnormal Lab Results - Last 24 Hours (Table) 04/05/19 04/05/19 04/06/19 Range/Units 16:50 20:14 07:19 POC Glucose (mg/dL) 133 H 145 H 149 H (75-99) mg/dL 04/06/19 Range/Units 11:33 POC Glucose (mg/dL) 133 H (75-99) mg/dL Microbiology - Last 24 Hours (Table) 04/04/19 08:10 Blood Culture - Preliminary Blood No Growth after 48 hours Assessment and Plan Plan: Assessment: #1. Acute exacerbation of chronic obstructive pulmonary disease complicated by purulent tracheal bronchitis without evidence of venkata pneumonia #2. Stage 3/stage IV COPD with baseline FEV1 of 35% of predicted #3. 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 Chronic and ongoing nicotine dependence #5. Previous history of pneumothorax at age 16, status post apical bleb resection, and the right side #6. Medical noncompliance #7. Previous episode of acute cholecystitis and acute choledocholithiasis #8. Lower extremity edema, could relate to underlying cor pulmonale and pulmonary hypertension #9. Status post perforated gastric ulcer with surgical repair and subsequent incisional hernia Plan: Patient is improving, breathing easier, vital signs are stable, continue with same medical treatment, IV steroids, nebulized bronchodilators and antibiotics, if continues to improve we anticipite discharge home in the next 24 hours. I performed a history & physical examination of the patient and discussed their management with my nurse practitioner, Candy Sethi. I reviewed the nurse practitioner's note and agree with the documented findings and plan of care. Lung sounds are positive for diffuse wheezes. The findings and the impression was discussed with the patient. I attest to the documentation by the nurse practitioner. Time with Patient: Less than 30
[2019-04-06] MEDS: LEVOFLOXACIN 500 MG TAB PO SCH (14:35)
--- NOTE | 2019-04-06 15:50 | P.PN ---
Subjective Progress Note Date: 04/06/19 Principal diagnosis: This is a 58-year-old male who was recently admitted with worsening shortness of breath, COPD exacerbation, pneumonia along with the cough and phlegm production and is being closely monitored. Patient continues to have shortness of breath with some improvement patient continues to have wheezing with rhonchi noted. Patient is maintained on IV steroids, bronchodilators, and oral antibiotics in the form of Levaquin and will continue at this time. No reports of chest pain or palpitations. Patient is afebrile. No reports of nausea or vomiting and patient is tolerating diet. Objective - Vital Signs Vital signs: Vital Signs Temp 98.3 F 04/06/19 13:00 Pulse 86 04/06/19 13:00 Resp 22 04/06/19 13:00 BP 104/65 04/06/19 13:00 Pulse Ox 98 04/06/19 13:00 Intake & Output 04/05/19 04/06/19 04/06/19 18:59 06:59 18:59 Intake Total 480 Output Total 525 Balance -45 Intake: Oral 480 Output: Urine 525 Other: Voiding Method Toilet Toilet Toilet # Voids 3 - Exam VITAL SIGNS: Temp is 98.3, pulse is 86, respirations are 22, blood pressure is 104/65, oxygen saturation is 98% on 4 L nasal cannula GENERAL: Sitting up in the chair, well nourished, well-developed, alert and oriented 3 EYES: Pupils equal. Conjunctiva normal. HEENT: External appearance of nose and ears normal, oral cavity grossly normal. NECK: JVD not raised; masses not palpable. HEART: S1, S2 are muffled LUNGS: Diminished breath sounds at the bases with some rhonchi noted as well as expiratory wheezing on exam ABDOMEN: Soft, nontender, no masses palpable. Large Abdominal wall hernia PSYCH: Alert and oriented x3 - Labs CBC & Chem 7: 04/04/19 08:10 04/04/19 08:10 Labs: Abnormal Lab Results - Last 24 Hours (Table) 04/05/19 04/05/19 04/06/19 Range/Units 16:50 20:14 07:19 POC Glucose (mg/dL) 133 H 145 H 149 H (75-99) mg/dL 04/06/19 Range/Units 11:33 POC Glucose (mg/dL) 133 H (75-99) mg/dL Microbiology - Last 24 Hours (Table) 04/04/19 08:10 Blood Culture - Preliminary Blood No Growth after 48 hours Assessment and Plan Assessment: -Acute severe COPD exacerbation in a current smoker -Possible pneumonia suspect gram-negative organism -Right lung adenocarcinoma status post chemotherapy and immunotherapy -Chronic hypoxic respiratory failure on home oxygen 3 L -Incisional abdominal hernia -Right kidney stones -Chronic nicotine dependence patient cigarette smoker Recommendations and discussion: Recommend to continue current medications, management, and symptomatic treatment. Will continue to monitor closely. Pulmonary is following. Patient will remain on IV steroids along with bronchodilators and oral antibiotics in the form of Levaquin. Due to multiple complex medical issues prognosis is guarded. Discussed with the patient about increasing activity as tolerated. Also discussed with the patient at length about refraining from any tobacco use or exposure to. Further recommendations to follow. Possible discharge in 24-48 hours.
[2019-04-06 17:00] LABS: Glucose,Whole Blood 143 mg/dL (75-99)
[2019-04-06 20:03] LABS: Glucose,Whole Blood 133 mg/dL (75-99)
[2019-04-06] MEDS: CALCIUM CARBONATE 500 MG CHEWABLE PO PRN (20:50)
[2019-04-06] MEDS: MORPHINE SULFATE ER 60 MG TABLET PO SCH (20:50)
[2019-04-07] MEDS: HYDROcodone/APAP 10-325MG 1 EACH TAB PO PRN ×4 (02:01→19:26)
[2019-04-07] MEDS: IPRATROPIUM-ALBUTEROL 3 ML NEB INHALATION SCH ×6 (03:06→23:16)
[2019-04-07] MEDS: MORPHINE CONC SOLN 10mg/0.5mL ORAL SYRG PO PRN ×4 (05:09→22:32)
[2019-04-07] MEDS: methylPREDNISolone SOD SUCCI 125 MG/2 ML VIAL IV SCH ×3 (05:09→18:13)
[2019-04-07 07:06] LABS: Glucose,Whole Blood 138 mg/dL (75-99)
[2019-04-07] MEDS: BUDESONIDE 1 MG/2 ML NEBU INHALATION SCH ×2 (07:18→20:10)
[2019-04-07] MEDS: FORMOTEROL FUMARATE 20 MCG/2 ML NEBU INHALATION SCH ×2 (07:18→20:10)
[2019-04-07] MEDS: NICOTINE 21MG/24HR PATCH TRANSDERM SCH (09:28)
[2019-04-07] MEDS: ENOXAPARIN 40 MG/0.4 ML SYRINGE SQ SCH (09:28)
[2019-04-07] MEDS: MORPHINE SULFATE ER 30 MG TABLET PO SCH (09:29)
[2019-04-07] MEDS: FOLIC ACID 1 MG TAB PO SCH (09:29)
[2019-04-07] MEDS: guaiFENesin 600 MG TABLET.ER PO SCH ×2 (09:29→20:59)
[2019-04-07] MEDS: SENNOSIDES-DOCUSATE SODIUM 1 EACH TAB PO SCH ×2 (09:29→20:59)
[2019-04-07] MEDS: INSULIN ASPART (NovoLOG) 100 UNIT/ML VIAL SQ SCH ×4 (09:30→20:58)
[2019-04-07 11:15] LABS: Glucose,Whole Blood 165 mg/dL (75-99)
[2019-04-07] MEDS: LEVOFLOXACIN 500 MG TAB PO SCH (12:27)
--- NOTE | 2019-04-07 13:52 | P.PN ---
Subjective Progress Note Date: 04/07/19 Principal diagnosis: Shortness of breath, cough On 04/05/2019 patient seen in follow-up on general oncology floor. He is resting comfortably in bed, in no acute distress, states his breathing is sedated better, still dyspneic on bronchospastic, but improving. Pulse ox is 96% on 4 L, afebrile, hemodynamically patient is stable influenza screen was negative, no leukocytosis, no fever or chills. Blood cultures so far show no growth, he is on Levaquin for empiric antibiotic coverage, On 04/06/2019 patient seen in follow-up on medical oncology floor. Doing much better today, breathing easier, still has some scattered wheezes, still mildly bronchospastic but overall doing much better, he is up in a chair today, tolerating activity very well. On 4 L of oxygen with a pulse ox of 98%, no fever or chills. He's been treated with antibiotics, IV steroids, and nebulized bronchodilators, doing well, anticipate further improvement and possible discharge home in the morning. On 04/07/2019 patient seen in follow-up on medical oncology floor, awake and alert, he states he still quite dyspneic with any exertion, patient apparently had episode of respiratory distress early in the morning at 3:00 when she tried to ambulate to the bathroom. Currently on 4 L of oxygen with a pulse ox of 97%, slightly tachycardic with a rate of 113 BPM, no fever or chills, hemodynamically stable, lung sounds reveal diminished breath sounds with scattered wheezes. Remains on IV steroids, antibiotics, and breathing treatments Objective - Vital Signs Vital signs: Vital Signs Temp 97.9 F 04/07/19 11:31 Pulse 113 H 04/07/19 11:31 Resp 20 04/07/19 11:31 BP 140/95 04/07/19 11:31 Pulse Ox 97 04/07/19 11:31 Intake & Output 04/06/19 04/07/19 04/07/19 18:59 06:59 18:59 Intake Total 600 1080 900 Balance 600 1080 900 Intake: Oral 600 1080 900 Other: Voiding Method Toilet Toilet Toilet # Voids 3 3 3 # Bowel Movements 1 - Exam GENERAL EXAM: Alert, very pleasant, 58-year-old white male on 4 L of oxygen with pulse ox of 97% comfortable in no apparent distress. HEAD: Normocephalic/atraumatic. EYES: Normal reaction of pupils, equal size. Conjunctiva pink, sclera white. NOSE: Clear with pink turbinates. THROAT: No erythema or exudates. NECK: No masses, no JVD, no thyroid enlargement, no adenopathy. CHEST: No chest wall deformity. Symmetrical expansion. LUNGS: Equal air entry with diffuse wheezes and rhonchi CVS: Regular rate and rhythm, normal S1 and S2, no gallops, no murmurs, no rubs ABDOMEN: Soft, nontender. No hepatosplenomegaly, normal bowel sounds, no guarding or rigidity. EXTREMITIES: No clubbing, no edema, no cyanosis, 2+ pulses and upper and lower extremities. MUSCULOSKELETAL: Muscle strength and tone normal. SPINE: No scoliosis or deformity SKIN: No rashes CENTRAL NERVOUS SYSTEM: Alert and oriented -3. No focal deficits, tone is normal in all 4 extremities. PSYCHIATRIC: Alert and oriented -3. Appropriate affect. Intact judgment and insight. - Labs CBC & Chem 7: 04/04/19 08:10 04/04/19 08:10 Labs: Abnormal Lab Results - Last 24 Hours (Table) 04/06/19 04/06/19 04/07/19 Range/Units 16:59 20:02 07:03 POC Glucose (mg/dL) 143 H 133 H 138 H (75-99) mg/dL 04/07/19 Range/Units 11:12 POC Glucose (mg/dL) 165 H (75-99) mg/dL Microbiology - Last 24 Hours (Table) 04/04/19 08:10 Blood Culture - Preliminary Blood No Growth after 72 hours Assessment and Plan Plan: Assessment: #1. Acute exacerbation of chronic obstructive pulmonary disease complicated by purulent tracheal bronchitis without evidence of venkata pneumonia #2. Stage 3/stage IV COPD with baseline FEV1 of 35% of predicted #3. 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 Chronic and ongoing nicotine dependence #5. Previous history of pneumothorax at age 16, status post apical bleb resection, and the right side #6. Medical noncompliance #7. Previous episode of acute cholecystitis and acute choledocholithiasis #8. Lower extremity edema, could relate to underlying cor pulmonale and pulmonary hypertension #9. Status post perforated gastric ulcer with surgical repair and subsequent incisional hernia Plan: Continue current medical treatment, symptoms IV steroids, antibiotics, and nebulized bronchodilators. Not quite back to baseline, still has quite significant exertional dyspnea, and limitation of activity. We'll continue current treatment. We'll continue to follow I performed a history & physical examination of the patient and discussed their management with my nurse practitioner, Candy Sethi. I reviewed the nurse practitioner's note and agree with the documented findings and plan of care. Lung sounds are positive for diffuse wheezes. The findings and the impression was discussed with the patient. I attest to the documentation by the nurse practitioner. Time with Patient: Less than 30
[2019-04-07] MEDS: ALPRAZolam 0.25 MG TAB PO PRN ×2 (15:22→22:32)
--- NOTE | 2019-04-07 15:51 | P.PN ---
Subjective Progress Note Date: 04/07/19 Principal diagnosis: This is a 58-year-old male who was recently admitted with worsening shortness of breath, COPD exacerbation, pneumonia along with the cough and phlegm production and is being closely monitored. Patient continues to have shortness of breath with some improvement patient continues to have wheezing with rhonchi noted. Patient is maintained on IV steroids, bronchodilators, and oral antibiotics in the form of Levaquin and will continue at this time. No reports of chest pain or palpitations. Patient is afebrile. No reports of nausea or vomiting and patient is tolerating diet. 04/07/2019 Patient is seen in follow-up today appears quite dyspneic and continues to be short of breath with any form of exertion. Patient states that he had an episode of hypoxia and extreme shortness of breath overnight when attempting to walk to the bathroom. Patient was placed on a nonrebreather briefly and is currently maintained on 4 L of oxygen via nasal cannula. Patient is quite anxious and short of breath when talking today. Pulmonary is following. Patient is maintained on IV steroids and bronchodilators and will continue at this time. Patient currently on oral antibiotics in the form of Levaquin and will continue at this time. Will continue to monitor closely. No reports of chest pain or palpitations. Patient is afebrile. Objective - Vital Signs Vital signs: Vital Signs Temp 97.9 F 04/07/19 11:31 Pulse 99 04/07/19 15:38 Resp 20 04/07/19 11:31 BP 140/95 04/07/19 11:31 Pulse Ox 97 04/07/19 11:31 Intake & Output 04/06/19 04/07/19 04/07/19 18:59 06:59 18:59 Intake Total 600 1080 900 Output Total 300 Balance 600 1080 600 Intake: Oral 600 1080 900 Output: Urine 300 Other: Voiding Method Toilet Toilet Toilet # Voids 3 3 3 # Bowel Movements 1 - Exam VITAL SIGNS: Temp is 97.9, pulse is 113, respirations are 20, blood pressure is 140/95, oxygen saturation is 97% on 4 L nasal cannula GENERAL: Sitting up in the bed, tachycardic, dyspneic, well nourished, well-developed, alert and oriented 3 EYES: Pupils equal. Conjunctiva normal. HEENT: External appearance of nose and ears normal, oral cavity grossly normal. NECK: JVD not raised; masses not palpable. HEART: S1, S2 are muffled LUNGS: Diminished breath sounds at the bases with some rhonchi noted as well as expiratory wheezing on exam ABDOMEN: Soft, nontender, no masses palpable. Large Abdominal wall hernia PSYCH: Alert and oriented x3 - Labs CBC & Chem 7: 04/04/19 08:10 04/04/19 08:10 Labs: Abnormal Lab Results - Last 24 Hours (Table) 04/06/19 04/06/19 04/07/19 Range/Units 16:59 20:02 07:03 POC Glucose (mg/dL) 143 H 133 H 138 H (75-99) mg/dL 04/07/19 Range/Units 11:12 POC Glucose (mg/dL) 165 H (75-99) mg/dL Microbiology - Last 24 Hours (Table) 04/04/19 08:10 Blood Culture - Preliminary Blood No Growth after 72 hours Assessment and Plan Assessment: -Acute severe COPD exacerbation in a current smoker -Possible pneumonia suspect gram-negative organism -Right lung adenocarcinoma status post chemotherapy and immunotherapy -Chronic hypoxic respiratory failure on home oxygen 3 L -Incisional abdominal hernia -Right kidney stones -Chronic nicotine dependence patient cigarette smoker Recommendations and discussion: Recommend to continue current medications, management, and symptomatic treatment. Will continue to monitor closely. Pulmonary is following. Patient will remain on IV steroids along with bronchodilators and oral antibiotics in the form of Levaquin. Due to multiple complex medical issues prognosis is guarded. Patient continues to be quite anxious and hypoxic upon exertion. Instructed the patient increase activity as tolerated. Further recommendations to follow. Possible discharge in 24-48 hours.
[2019-04-07 17:03] LABS: Glucose,Whole Blood 207 mg/dL (75-99)
[2019-04-07 20:01] LABS: Glucose,Whole Blood 121 mg/dL (75-99)
[2019-04-07] MEDS: MORPHINE SULFATE ER 60 MG TABLET PO SCH (20:59)
[2019-04-08] MEDS: HYDROcodone/APAP 10-325MG 1 EACH TAB PO PRN ×4 (03:13→19:07)
[2019-04-08] MEDS: IPRATROPIUM-ALBUTEROL 3 ML NEB INHALATION SCH ×5 (04:02→20:54)
[2019-04-08] MEDS: MORPHINE CONC SOLN 10mg/0.5mL ORAL SYRG PO PRN ×4 (04:04→22:29)
[2019-04-08] MEDS: methylPREDNISolone SOD SUCCI 125 MG/2 ML VIAL IV SCH ×4 (06:07→17:38)
[2019-04-08 07:07] LABS: Glucose,Whole Blood 140 mg/dL (75-99)
[2019-04-08] MEDS: SENNOSIDES-DOCUSATE SODIUM 1 EACH TAB PO SCH ×2 (08:17→20:38)
[2019-04-08] MEDS: MORPHINE SULFATE ER 30 MG TABLET PO SCH (08:17)
[2019-04-08] MEDS: NICOTINE 21MG/24HR PATCH TRANSDERM SCH (08:17)
[2019-04-08] MEDS: ENOXAPARIN 40 MG/0.4 ML SYRINGE SQ SCH (08:18)
[2019-04-08] MEDS: FOLIC ACID 1 MG TAB PO SCH (08:18)
[2019-04-08] MEDS: guaiFENesin 600 MG TABLET.ER PO SCH ×2 (08:18→20:38)
[2019-04-08] MEDS: INSULIN ASPART (NovoLOG) 100 UNIT/ML VIAL SQ SCH ×4 (08:23→20:38)
[2019-04-08] MEDS: BUDESONIDE 1 MG/2 ML NEBU INHALATION SCH ×2 (08:45→20:54)
[2019-04-08] MEDS: FORMOTEROL FUMARATE 20 MCG/2 ML NEBU INHALATION SCH ×2 (08:45→20:54)
[2019-04-08 12:07] LABS: Glucose,Whole Blood 107 mg/dL (75-99)
--- NOTE | 2019-04-08 13:35 | PN ---
PROGRESS NOTE PULMONARY/CRITICAL CARE PROGRESS NOTE: DATE OF SERVICE: 04/08/2019 This is a 58-year-old male admitted with a COPD exacerbation. Yesterday, he was not feeling so well. Today, he is feeling a bit better. His COPD exacerbation is complicated by purulent tracheobronchitis, without evidence of venkata pneumonia. He has stage III disease. FEV1 is 35% of predicted. 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 He does have a history of chronic and ongoing tobacco dependence, prior history of pneumothorax at age 16, status post apical bleb resection, medical noncompliance, history of cholecystitis and acute choledocholithiasis, lower extremity edema, and previous perforated gastric ulcer with surgical repair. Subsequent to that, he developed a large incisional hernia. Again from the pulmonary standpoint, today he is doing better. He is still wheezing, short of breath. He is mostly short of breath when he exerts himself. Current vital signs include a temperature of 97.5, heart rate 86, respiratory rate 18, blood pressure 127/72, room air saturation 96%. Appears in no acute distress. HEENT: Examination is grossly unremarkable. Mucous membranes are moist. No oral lesions. NECK: Supple. Full range of motion. No adenopathy or thyromegaly. Neck veins are flat. CARDIOVASCULAR: Examination reveals regular rhythm and rate. S1, S2 normal. Heart rate 86. Heart sounds are distant. LUNGS: Still reveals some evidence of inspiratory and expiratory wheezes and rhonchi. Breath sounds are improved. Breath sounds equal bilaterally but diminished throughout. No crackles. ABDOMEN: Soft, bowel sounds are heard. EXTREMITIES: Intact. No cyanosis, clubbing, or edema. SKIN: Without rash. NEUROLOGIC: Examination is brief but nonfocal. LABS: Reviewed. Nothing new from today. No recent x-ray to report. Microbiologic studies are negative. Medications are reviewed. ASSESSMENT: 1. Acute exacerbation of chronic obstructive pulmonary disease complicated by purulent tracheobronchitis, without evidence of venkata pneumonia. 2. GOLD stage III chronic obstructive pulmonary disease, with an FEV1 that is 35% of predicted. 3. Poorly differentiated metastatic adenocarcinoma of the lung, status post carboplatin/Alimta, and more recently immunotherapy with Keytruda. 4. Chronic and ongoing nicotine dependence. 5. Prior history of pneumothorax at age 16, status post apical bleb resection on the right side. 6. Medical noncompliance. 7. Prior episode of acute cholecystitis and acute choledocholithiasis. 8. Lower extremity edema, which could relate to underlying cor pulmonale and pulmonary hypertension. 9. Status post perforated gastric ulcer with surgical repair. 10.Incisional hernia. PLAN: The patient's medications are reviewed. Everything seemed to be appropriate. He is on short-acting beta agonist, short-acting muscarinic antagonist, long-acting beta agonist, inhaled corticosteroids, systemic corticosteroids. He is also getting oral antibiotic. Will continue to follow. He might be a good candidate for discharge to rehab facility when he is ready to go. MMODL / IJN: [id number] /
[2019-04-08] MEDS: LEVOFLOXACIN 500 MG TAB PO SCH (13:44)
[2019-04-08 16:52] LABS: Glucose,Whole Blood 116 mg/dL (75-99)
[2019-04-08 20:10] LABS: Glucose,Whole Blood 200 mg/dL (75-99)
[2019-04-08] MEDS: MORPHINE SULFATE ER 60 MG TABLET PO SCH (20:38)
[2019-04-08] MEDS: ALPRAZolam 0.25 MG TAB PO PRN (20:42)
--- NOTE | 2019-04-08 22:28 | PN ---
PROGRESS NOTE DATE OF SERVICE: 04/08/2019 This 58-year-old gentleman was admitted with COPD acute exacerbation, is also complaining of significant pain. The patient also had possible acute pneumonia. The patient also had right lung adenocarcinoma, chemotherapy and immunotherapy is in progress at this time. The patient is being closely monitored. PAST MEDICAL HISTORY: Reviewed. REVIEW OF SYSTEMS: CARDIOVASCULAR SYSTEM: As mentioned earlier. RESPIRATORY: As mentioned earlier. GI: As mentioned earlier. : No dysuria. NERVOUS SYSTEMS: No numbness or weakness. CURRENT MEDICATIONS: 1. [place] 10 mg q.4 p.r.n. 2. DuoNeb q.i.d. and p.r.n. 3. Xanax 0.5 t.i.d. 4. Pulmicort 1 mg b.i.d. 5. TUMS. 6. Bentyl 20 mg q.i.d. p.r.n. 7. Lovenox 40 mg subcu daily. 8. Folic acid. 9. Perforomist. 10.Mucinex. 11.NovoLog scale. 12.Levaquin 500 mg IV daily. 13.Solu-Medrol 60 IV q.6. 14.MS Contin 60 mg q.h.s. 15.Habitrol 14 daily. PHYSICAL EXAM: Patient is alert, oriented x3. Pulse is 98, blood pressure is 127/72, respiration 18, temperature 97.4, pulse ox 98% on room air. HEENT: Conjunctivae normal. Oral mucosa moist. NECK: No jugular venous distention. No lymph node enlargement. CARDIOVASCULAR: S1, S2. RESPIRATORY: Diminished breath sounds at the bases. Scattered rhonchi and crackles. ABDOMEN: Soft, nontender. LEGS: No edema, no swelling. NERVOUS SYSTEM: No focal deficits. LABS: Accu-Cheks are 116. Other labs are WBC 8.2, hemoglobin 12.5. Influenza negative. ASSESSMENT: 1. Acute severe chronic obstructive pulmonary disease exacerbation with acute exacerbation. 2. Possible acute pneumonia, gram-negative. 3. Right lung adenocarcinoma, status post chemotherapy and immunotherapy. 4. History of nicotine dependence. 5. Chronic hypoxic respiratory failure on home oxygen 3 L. 6. Incisional abdominal hernia. 7. Right nephrolithiasis. 8. Right apical bleb resection. RECOMMENDATIONS AND DISCUSSION: In this patient, I will continue to monitor, continue current medication and bronchodilators, antibiotics, pain medications, DVT prophylaxis. Patient is still on high-dose IV steroids. Monitor blood sugars closely. Guarded prognosis. Further recommendations to follow. The patient is on Lovenox 40 mg subcu daily. Discussed with the patient who understands and agrees. MMJERRYL / IJN: [id number] /
[2019-04-09] MEDS: methylPREDNISolone SOD SUCCI 125 MG/2 ML VIAL IV SCH ×5 (00:03→23:30)
[2019-04-09] MEDS: IPRATROPIUM-ALBUTEROL 3 ML NEB INHALATION SCH ×6 (00:25→20:27)
[2019-04-09] MEDS: HYDROcodone/APAP 10-325MG 1 EACH TAB PO PRN ×4 (01:30→19:14)
[2019-04-09 07:18] LABS: Glucose,Whole Blood 121 mg/dL (75-99)
[2019-04-09 08:07] LABS: Basophils # (A) 0.2 k/uL (0-0.2); Basophils % (A) 2 %; Eosinophils # (A) 0.1 k/uL (0-0.7); Eosinophils % (A) 1 %; HCT 44.3 % (39.0-53.0); Lymphocytes # (A) 1.4 k/uL (1.0-4.8); Lymphocytes % (A) 13 %; MCH 31.8 pg (25.0-35.0); MCHC 31.6 g/dL (31.0-37.0); MCV 100.5 fL (80.0-100.0); Mean Platelet Volume 8.1; Monocytes # (A) 0.8 k/uL (0-1.0); Monocytes % (A) 7 %; Neutrophils # (A) 8.1 k/uL (1.3-7.7); Neutrophils % (A) 76 %; Platelet Count 243 k/uL (150-450); RBC 4.41 m/uL (4.30-5.90); RDW 12.7 % (11.5-15.5); WBC 10.7 k/uL (3.8-10.6)
[2019-04-09 08:22] LABS: ALT 108 U/L (4-49); AST 46 U/L (17-59); African American GFR (CKD) >90 (>60 ml/min/1.73 sqM); Albumin 3.5 g/dL (3.5-5.0); Alkaline Phosphatase 72 U/L (38-126); Anion Gap 5 mmol/L; Blood Urea Nitrogen 22 mg/dL (9-20); Calcium 9.2 mg/dL (8.4-10.2); Carbon Dioxide 32 mmol/L (22-30); Chloride 100 mmol/L (98-107); Glucose 103 mg/dL (74-99); Non-African American GFR(CKD) >90 (>60 ml/min/1.73 sqM); Potassium 4.6 mmol/L (3.5-5.1); Sodium 137 mmol/L (137-145); Total Bilirubin 0.4 mg/dL (0.2-1.3); Total Protein 6.3 g/dL (6.3-8.2)
[2019-04-09] MEDS: BUDESONIDE 1 MG/2 ML NEBU INHALATION SCH ×2 (08:35→20:25)
[2019-04-09] MEDS: FORMOTEROL FUMARATE 20 MCG/2 ML NEBU INHALATION SCH ×2 (08:35→20:25)
[2019-04-09] MEDS: MORPHINE SULFATE ER 30 MG TABLET PO SCH (09:14)
[2019-04-09] MEDS: ENOXAPARIN 40 MG/0.4 ML SYRINGE SQ SCH (09:14)
[2019-04-09] MEDS: NICOTINE 21MG/24HR PATCH TRANSDERM SCH (09:14)
[2019-04-09] MEDS: guaiFENesin 600 MG TABLET.ER PO SCH ×2 (09:15→20:58)
[2019-04-09] MEDS: INSULIN ASPART (NovoLOG) 100 UNIT/ML VIAL SQ SCH ×4 (09:15→20:52)
[2019-04-09] MEDS: ALPRAZolam 0.25 MG TAB PO PRN (09:15)
[2019-04-09] MEDS: FOLIC ACID 1 MG TAB PO SCH (09:15)
[2019-04-09] MEDS: SENNOSIDES-DOCUSATE SODIUM 1 EACH TAB PO SCH ×2 (09:15→20:58)
[2019-04-09 11:59] LABS: Glucose,Whole Blood 85 mg/dL (75-99)
[2019-04-09] MEDS: MORPHINE CONC SOLN 10mg/0.5mL ORAL SYRG PO PRN ×3 (12:05→22:34)
--- NOTE | 2019-04-09 12:50 | P.PN ---
Subjective Progress Note Date: 04/09/19 Principal diagnosis: Acute exacerbation of chronic obstructive pulmonary disease The patient is seen today 04/09/2019 in follow-up on the regular medical floor. He is awake and alert in no acute distress. Breathing a bit easier today compared to yesterday. Still dyspneic with exertion. Still requiring 4 L/m per nasal cannula to maintain O2 saturations in the low 90s. He's been afebrile. Hemodynamically stable. Blood culture reveals no growth. White count 10.7. Hemoglobin 14.0. Sodium 137. Creatinine 4.6. Creatinine 0.66. He is continued on DuoNeb inhalations, Pulmicort and Perforomist inhalations, IV Solu- Medrol. Antibiotics in the form of Levaquin. NicoDerm patch is in place. Objective - Vital Signs Vital signs: Vital Signs Temp 97.6 F 04/09/19 05:00 Pulse 89 04/09/19 11:58 Resp 20 04/09/19 07:05 BP 120/78 04/09/19 05:00 Pulse Ox 94 L 04/09/19 05:00 Intake & Output 04/08/19 04/09/19 04/09/19 18:59 06:59 18:59 Intake Total 950 1200 Output Total 900 Balance 950 300 Intake: Oral 950 1200 Output: Urine 900 Other: Voiding Method Urinal Urinal Urinal # Voids 4 - Exam GENERAL EXAM: Alert, active, pleasant 58-year-old gentleman, on 4 L nasal cannula, comfortable in no apparent distress. HEAD: Normocephalic. EYES: Normal reaction of pupils, equal size. NOSE: Clear with pink turbinates. THROAT: No erythema or exudates. NECK: No masses, no JVD. CHEST: No chest wall deformity. LUNGS: Equal air entry with bilateral end expiratory wheeze, diminished CVS: S1 and S2 normal with no audible murmur, regular rhythm. ABDOMEN: No hepatosplenomegaly, normal bowel sounds, no guarding or rigidity. SPINE: No scoliosis or deformity SKIN: No rashes CENTRAL NERVOUS SYSTEM: No focal deficits, tone is normal in all 4 extremities. EXTREMITIES: There is no peripheral edema. No clubbing, no cyanosis. Peripheral pulses are intact. - Labs CBC & Chem 7: 04/09/19 06:59 04/09/19 06:59 Labs: Abnormal Lab Results - Last 24 Hours (Table) 04/08/19 04/08/19 04/09/19 Range/Units 16:50 20:07 06:59 WBC 10.7 H (3.8-10.6) k/uL MCV 100.5 H (80.0-100.0) fL Neutrophils # 8.1 H (1.3-7.7) k/uL Carbon Dioxide (22-30) mmol/L BUN (9-20) mg/dL Glucose (74-99) mg/dL POC Glucose (mg/dL) 116 H 200 H (75-99) mg/dL ALT (4-49) U/L 04/09/19 04/09/19 Range/Units 06:59 07:17 WBC (3.8-10.6) k/uL MCV (80.0-100.0) fL Neutrophils # (1.3-7.7) k/uL Carbon Dioxide 32 H (22-30) mmol/L BUN 22 H (9-20) mg/dL Glucose 103 H (74-99) mg/dL POC Glucose (mg/dL) 121 H (75-99) mg/dL ALT 108 H (4-49) U/L Microbiology - Last 24 Hours (Table) 04/04/19 08:10 Blood Culture - Preliminary Blood No Growth after 120 hours Assessment and Plan Assessment: #1. Acute exacerbation of chronic obstructive pulmonary disease complicated by purulent tracheal bronchitis without evidence of venkata pneumonia #2. Stage 3/stage IV COPD with baseline FEV1 of 35% of predicted #3. 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 Chronic and ongoing nicotine dependence #5. Previous history of pneumothorax at age 16, status post apical bleb resection, and the right side #6. Medical noncompliance #7. Previous episode of acute cholecystitis and acute choledocholithiasis #8. Lower extremity edema, could relate to underlying cor pulmonale and pulmonary hypertension #9. Status post perforated gastric ulcer with surgical repair and subsequent incisional hernia Plan: The patient was seen and evaluated by Dr. Lofton. He is improved but not quite back to his baseline. We'll continue with the current treatment plan. Increase his activity as tolerated. Titrate down the FiO2 as tolerated. He is again educated regarding the importance of complete smoking cessation. NicoDerm patch in place. We'll continue to follow. Probable discharge in the a.m. I, the cosigning physician, performed a history & physical examination of the patient. Lungs sounds with bilateral end expiratory wheeze but diminished. Maintaining good O2 saturations in the 90s on 4 L/m per nasal cannula. I discussed the assessment and plan of care with my nurse practitioner, Madeleine Green. I attest to the above note as dictated by her.
[2019-04-09] MEDS ORDERED: SIMETHICONE 80 MG CHEWABLE PO PRN (13:01)
[2019-04-09] MEDS: SIMETHICONE 40 MG/0.6 ML DROPS 2,000 MG/30 ML BOTTLE PO PRN (13:22)
[2019-04-09] MEDS: LEVOFLOXACIN 500 MG TAB PO SCH (13:26)
[2019-04-09 17:17] LABS: Glucose,Whole Blood 193 mg/dL (75-99)
[2019-04-09 20:01] LABS: Glucose,Whole Blood 120 mg/dL (75-99)
--- NOTE | 2019-04-09 20:31 | PN ---
PROGRESS NOTE DATE OF SERVICE: 04/09/2019 This 58-year-old gentleman who was admitted with COPD acute exacerbation also had acute purulent tracheobronchitis and possible acute pneumonia, is being closely monitored. Patient still has significant shortness of breath. The patient unable to clear the sputum at this time. Multiple consultants are following the patient closely. PAST MEDICAL HISTORY: Reviewed. REVIEW OF SYSTEMS: Cardiovascular system: No angina or palpitations. RESPIRATORY: As mentioned earlier. GI no nausea or vomiting. no dysuria. NERVOUS SYSTEM: No numbness or weakness. CURRENT MEDICATIONS: Current medications are reviewed and include: 1. [place] 10 mg q.4 p.r.n. 2. DuoNeb q.i.d. and p.r.n. 3. Xanax 0.5 t.i.d. 4. Pulmicort 1 mg b.i.d. 5. TUMS. 6. Bentyl 20 mg b.i.d. 7. Lovenox. 8. Folic acid. 9. Perforomist. 10.Mucinex. 11.Cephulac. 12.Levaquin. 13.Solu-Medrol. 14.Roxanol. 15.MS Contin. 16.Habitrol. 17.Compazine. 18.Senokot. 19.Mylicon. PHYSICAL EXAM: Patient is alert, oriented x3. The pulse is 63. Blood pressure 115/70, respirations 17, temperature 97.6, pulse ox 98% on 2 L. HEENT: Conjunctivae normal. NECK: No JVD. CARDIOVASCULAR: S1, S2 muffled. RESPIRATIONS: Breath sounds diminished in the bases. Bilateral scattered rhonchi and crackles. Expiratory wheezing also present. ABDOMEN: Soft, nontender. LEGS are no edema. No swelling. Nervous system: No focal deficits. LAB STUDIES: WBC 10.7, hemoglobin 14, sodium 137, potassium 4.6, ALT is 108. ASSESSMENT: 1. Chronic obstructive pulmonary disease acute exacerbation with possible acute purulent tracheobronchitis or possible acute pneumonia gram-negative. 2. Right lung adenocarcinoma, status post chemotherapy and immunotherapy. 3. History of nicotine dependence. 4. Acute on chronic hypoxic respiratory failure on home O2. 5. Incision abdominal wall hernia. 6. Right nephrolithiasis. 7. Right apical bleb resection. 8. History of nicotine dependence. 9. History of noncompliance. 10.History of pneumothorax on the right side. 11.History of degenerative joint disease. 12.History of ruptured gastric ulcer and surgery. RECOMMENDATIONS AND DISCUSSION: This 58-year-old gentleman who presented with multiple complex medical issues, we will monitor the patient closely. Continue the current medications. Optimize the bronchodilator treatment. Otherwise, we will continue to monitor and closely follow with Pulmonary. The patient is on high-dose IV steroids. Guarded prognosis because of multiple complex medical issues. Further recommendations to follow. MMODL / IJN: [id number] /
[2019-04-09] MEDS: MORPHINE SULFATE ER 60 MG TABLET PO SCH (20:57)
[2019-04-09] MEDS: THEOPHYLLINE 24 HOUR 200 MG CAP.ER.24H PO SCH (20:59)
[2019-04-10] MEDS: IPRATROPIUM-ALBUTEROL 3 ML NEB INHALATION SCH ×6 (00:31→21:02)
[2019-04-10] MEDS: HYDROcodone/APAP 10-325MG 1 EACH TAB PO PRN ×5 (00:57→22:29)
[2019-04-10] MEDS: MORPHINE CONC SOLN 10mg/0.5mL ORAL SYRG PO PRN ×2 (03:47→14:10)
[2019-04-10] MEDS: methylPREDNISolone SOD SUCCI 125 MG/2 ML VIAL IV SCH ×4 (04:58→23:02)
[2019-04-10 07:15] LABS: Glucose,Whole Blood 118 mg/dL (75-99)
[2019-04-10] MEDS: INSULIN ASPART (NovoLOG) 100 UNIT/ML VIAL SQ SCH ×4 (07:29→20:14)
[2019-04-10] MEDS: ENOXAPARIN 40 MG/0.4 ML SYRINGE SQ SCH (08:22)
[2019-04-10] MEDS: SENNOSIDES-DOCUSATE SODIUM 1 EACH TAB PO SCH ×2 (08:23→20:13)
[2019-04-10] MEDS: THEOPHYLLINE 24 HOUR 200 MG CAP.ER.24H PO SCH (08:23)
[2019-04-10] MEDS: MORPHINE SULFATE ER 30 MG TABLET PO SCH (08:23)
[2019-04-10] MEDS: guaiFENesin 600 MG TABLET.ER PO SCH ×2 (08:23→20:13)
[2019-04-10] MEDS: ALPRAZolam 0.25 MG TAB PO PRN ×3 (08:30→22:30)
[2019-04-10] MEDS: NICOTINE 21MG/24HR PATCH TRANSDERM SCH (08:31)
[2019-04-10] MEDS: BUDESONIDE 1 MG/2 ML NEBU INHALATION SCH ×2 (09:14→21:02)
[2019-04-10] MEDS: FORMOTEROL FUMARATE 20 MCG/2 ML NEBU INHALATION SCH ×2 (09:14→21:02)
[2019-04-10] MEDS: FOLIC ACID 1 MG TAB PO SCH (10:07)
[2019-04-10 11:06] LABS: Glucose,Whole Blood 84 mg/dL (75-99)
--- NOTE | 2019-04-10 12:18 | P.PN ---
Subjective Progress Note Date: 04/10/19 Principal diagnosis: COPD exacerbation In follow-up today patient states that his respiratory status still is not much improved, he is still short of breath just walking from the bed to the sink. He states he was out of bed twice yesterday. He denies any nausea, vomiting, feve rs, chills, chest pain or hemoptysis. He is stating moderate anxiety. Pain is controlled at this time. Objective - Vital Signs Vital signs: Vital Signs Temp 97.9 F 04/10/19 05:00 Pulse 82 04/10/19 09:42 Resp 16 04/10/19 05:00 BP 109/62 04/10/19 05:00 Pulse Ox 96 04/10/19 05:00 Intake & Output 04/09/19 04/10/19 04/10/19 18:59 06:59 18:59 Intake Total 1300 1180 Output Total 600 Balance 1300 580 Intake: Oral 1300 1180 Output: Urine 600 Other: Voiding Method Urinal Urinal # Voids 3 - Constitutional General appearance: Present: average body habitus, cooperative, mild distress - EENT Eyes: Present: anicteric sclerae, EOMI - Respiratory Respiratory: bilateral: diminished - Cardiovascular Heart sounds: normal: S1, S2 - Peripheral edema leg Peripheral Edema: bilateral: None - Gastrointestinal General gastrointestinal: Present: normal bowel sounds, soft - Musculoskeletal Musculoskeletal: Present: generalized weakness - Psychiatric Psychiatric: Present: A&O x's 3, appropriate affect, intact judgment & insight - Labs CBC & Chem 7: 04/09/19 06:59 04/09/19 06:59 Labs: Abnormal Lab Results - Last 24 Hours (Table) 04/09/19 04/09/19 04/10/19 Range/Units 17:15 19:59 07:14 POC Glucose (mg/dL) 193 H 120 H 118 H (75-99) mg/dL Microbiology - Last 24 Hours (Table) 04/04/19 08:10 Blood Culture - Final Blood No Growth after 144 hours Assessment and Plan (1) Acute exacerbation of chronic obstructive pulmonary disease Narrative/Plan: Patient is being treated for COPD exacerbation. Pulmonary consulted. No pulmonary embolism, CT looks similar to the one in December, no evidence to suggest disease progression at this time. Current Visit: Yes Status: Acute Priority: High Code(s): J44.1 - CHRONIC OBSTRUCTIVE PULMONARY DISEASE W (ACUTE) EXACERBATION SNOMED Code(s): 325752244 (2) O2 dependent Narrative/Plan: Increased O2 needs at this time. Current Visit: Yes Status: Chronic Priority: Medium Code(s): Z99.81 - DEPENDENCE ON SUPPLEMENTAL OXYGEN SNOMED Code(s): 933931416083 (3) Metastatic malignant neoplasm to lung Narrative/Plan: Patient has not been on any treatment since July 2018. Currently he is due for treatment follow-up imaging today but, I discussed with him that he needs to have resolution of his COPD exacerbation and order from those images to be as accurate as possible. I told him that we would reschedule the scans and follow- up appointment with Dr. Monae. Patient asked me about his COPD, I told him to please discuss his condition, in that respect with Pulmonary. I did encourage him to follow up regularly with Pulmonary and follow their instructions regarding prevention of COPD exacerbation and treat as instructed. I explained to pt he has moderate to severe lung compromise due to history of surgery, cancer and COPD. All questions were answered to the best of my ability. Case was discussed with Attending as well as [employer]. Did encourage patient to consider rehabilitation, either inpatient or outpatient. Current Visit: No Status: Chronic Priority: Medium Code(s): C78.00 - SECONDARY MALIGNANT NEOPLASM OF UNSPECIFIED LUNG SNOMED Code(s): 72868669
--- NOTE | 2019-04-10 13:25 | P.PN ---
Subjective Progress Note Date: 04/10/19 Principal diagnosis: Shortness of breath, cough On 04/05/2019 patient seen in follow-up on general oncology floor. He is resting comfortably in bed, in no acute distress, states his breathing is sedated better, still dyspneic on bronchospastic, but improving. Pulse ox is 96% on 4 L, afebrile, hemodynamically patient is stable influenza screen was negative, no leukocytosis, no fever or chills. Blood cultures so far show no growth, he is on Levaquin for empiric antibiotic coverage, On 04/06/2019 patient seen in follow-up on medical oncology floor. Doing much better today, breathing easier, still has some scattered wheezes, still mildly bronchospastic but overall doing much better, he is up in a chair today, tolerating activity very well. On 4 L of oxygen with a pulse ox of 98%, no fever or chills. He's been treated with antibiotics, IV steroids, and nebulized bronchodilators, doing well, anticipate further improvement and possible discharge home in the morning. On 04/07/2019 patient seen in follow-up on medical oncology floor, awake and alert, he states he still quite dyspneic with any exertion, patient apparently had episode of respiratory distress early in the morning at 3:00 when she tried to ambulate to the bathroom. Currently on 4 L of oxygen with a pulse ox of 97%, slightly tachycardic with a rate of 113 BPM, no fever or chills, hemodynamically stable, lung sounds reveal diminished breath sounds with scattered wheezes. Remains on IV steroids, antibiotics, and breathing treatments On 04/10/2019 patient seen in follow-up on general medical oncology floor. He states he is feeling a little better, his breathing is improving although he still has exertional dyspnea, he is currently on 4 L of oxygen with pulse ox of 94%, hemodynamically patient is stable, his been afebrile, blood cultures have been negative, patient remains on Levaquin for antibiotic coverage, IV Solu- Medrol, theophylline and nebulized bronchodilators, still has chest congestion, nonproductive cough, today's labs have been reviewed, showing white blood cell, 10.7, hemoglobin of 14.0, sodium is 137, potassium is 4.6, chloride is 100, CO2 is 32, BUN is 22 and creatinine 0.66. Objective - Vital Signs Vital signs: Vital Signs Temp 97.9 F 04/10/19 12:03 Pulse 82 04/10/19 12:42 Resp 17 04/10/19 12:03 BP 128/77 04/10/19 12:03 Pulse Ox 94 L 04/10/19 12:03 Intake & Output 04/09/19 04/10/19 04/10/19 18:59 06:59 18:59 Intake Total 1300 1180 Output Total 600 900 Balance 1300 580 -900 Intake: Oral 1300 1180 Output: Urine 600 900 Other: Voiding Method Urinal Urinal # Voids 3 5 - Exam GENERAL EXAM: Alert, very pleasant, 58-year-old white male on 4 L of oxygen with pulse ox of 97% comfortable in no apparent distress. HEAD: Normocephalic/atraumatic. EYES: Normal reaction of pupils, equal size. Conjunctiva pink, sclera white. NOSE: Clear with pink turbinates. THROAT: No erythema or exudates. NECK: No masses, no JVD, no thyroid enlargement, no adenopathy. CHEST: No chest wall deformity. Symmetrical expansion. LUNGS: Equal air entry with rhonchi, and minimal wheezing CVS: Regular rate and rhythm, normal S1 and S2, no gallops, no murmurs, no rubs ABDOMEN: Soft, nontender. No hepatosplenomegaly, normal bowel sounds, no guarding or rigidity. EXTREMITIES: No clubbing, no edema, no cyanosis, 2+ pulses and upper and lower extremities. MUSCULOSKELETAL: Muscle strength and tone normal. SPINE: No scoliosis or deformity SKIN: No rashes CENTRAL NERVOUS SYSTEM: Alert and oriented -3. No focal deficits, tone is normal in all 4 extremities. PSYCHIATRIC: Alert and oriented -3. Appropriate affect. Intact judgment and insight. - Labs CBC & Chem 7: 04/09/19 06:59 04/09/19 06:59 Labs: Abnormal Lab Results - Last 24 Hours (Table) 04/09/19 04/09/19 04/10/19 Range/Units 17:15 19:59 07:14 POC Glucose (mg/dL) 193 H 120 H 118 H (75-99) mg/dL Microbiology - Last 24 Hours (Table) 04/04/19 08:10 Blood Culture - Final Blood No Growth after 144 hours Assessment and Plan Plan: Assessment: #1. Acute exacerbation of chronic obstructive pulmonary disease complicated by purulent tracheal bronchitis without evidence of venkata pneumonia #2. Stage 3/stage IV COPD with baseline FEV1 of 35% of predicted #3. 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 Chronic and ongoing nicotine dependence #5. Previous history of pneumothorax at age 16, status post apical bleb resection, and the right side #6. Medical noncompliance #7. Previous episode of acute cholecystitis and acute choledocholithiasis #8. Lower extremity edema, could relate to underlying cor pulmonale and pulmonary hypertension #9. Status post perforated gastric ulcer with surgical repair and subsequent incisional hernia Plan: Continue current treatment, same antibiotics, IV steroids and nebulized bronchodilators, no fever or chills, patient is less bronchospastic on today's exam, still has exertional dyspnea but no acute distress, increase activity as tolerated, discharge planning is in progress for possible placement to subacute rehabilitation center, possibly [facility] or [facility] the [place]. I performed a history & physical examination of the patient and discussed their management with my nurse practitioner, Candy Sethi. I reviewed the nurse practitioner's note and agree with the documented findings and plan of care. Lung sounds are positive for diffuse wheezes. The findings and the impression was discussed with the patient. I attest to the documentation by the nurse practitioner. Time with Patient: Less than 30
[2019-04-10] MEDS: SIMETHICONE 40 MG/0.6 ML DROPS 2,000 MG/30 ML BOTTLE PO PRN (14:12)
[2019-04-10] MEDS: CALCIUM CARBONATE 500 MG CHEWABLE PO PRN (14:18)
[2019-04-10] MEDS: LEVOFLOXACIN 500 MG TAB PO SCH (16:36)
[2019-04-10 16:52] LABS: Glucose,Whole Blood 114 mg/dL (75-99)
--- NOTE | 2019-04-10 17:00 | P.PN ---
Subjective Progress Note Date: 04/10/19 Principal diagnosis: This is a 58-year-old male who was recently admitted with worsening shortness of breath, COPD exacerbation, pneumonia along with the cough and phlegm production and is being closely monitored. Patient continues to have shortness of breath with some improvement patient continues to have wheezing with rhonchi noted. Patient is maintained on IV steroids, bronchodilators, and oral antibiotics in the form of Levaquin and will continue at this time. No reports of chest pain or palpitations. Patient is afebrile. No reports of nausea or vomiting and patient is tolerating diet. 04/07/2019 Patient is seen in follow-up today appears quite dyspneic and continues to be short of breath with any form of exertion. Patient states that he had an episode of hypoxia and extreme shortness of breath overnight when attempting to walk to the bathroom. Patient was placed on a nonrebreather briefly and is currently maintained on 4 L of oxygen via nasal cannula. Patient is quite anxious and short of breath when talking today. Pulmonary is following. Patient is maintained on IV steroids and bronchodilators and will continue at this time. Patient currently on oral antibiotics in the form of Levaquin and will continue at this time. Will continue to monitor closely. No reports of chest pain or palpitations. Patient is afebrile. 04/10/2019 Patient is seen and evaluated in follow-up today and continues to have shortness of breath and cough states is not expectorating much phlegm production. Patient continues to be quite weak and exerts easily with any type of activity. Patient has been working with PT/OT. Pulmonary is following. Planning for bronchoscopy with BAL in the morning. Will continue to monitor closely. Patient will continue on IV steroids along with bronchodilators and antibiotics at this time. No reports of chest pain or palpitations. Patient is afebrile. No reports of nausea or vomiting and patient is tolerating diet. Patient will be nothing by mouth tonight after midnight for procedure tomorrow Objective - Vital Signs Vital signs: Vital Signs Temp 97.9 F 04/10/19 12:03 Pulse 84 04/10/19 16:54 Resp 17 04/10/19 12:03 BP 128/77 04/10/19 12:03 Pulse Ox 94 L 04/10/19 12:03 Intake & Output 04/09/19 04/10/19 04/10/19 18:59 06:59 18:59 Intake Total 1300 1180 600 Output Total 600 1250 Balance 1300 580 -650 Intake: Oral 1300 1180 600 Output: Urine 600 1250 Other: Voiding Method Urinal Urinal # Voids 3 1 - Exam VITAL SIGNS: Temp is 97.9, pulse is 84, respirations are 17, blood pressure is 120/77, oxygen saturation is 94% on 4 L nasal cannula GENERAL: Sitting up in the bed, awake, well nourished, well-developed, alert and oriented 3 EYES: Pupils equal. Conjunctiva normal. HEENT: External appearance of nose and ears normal, oral cavity grossly normal. NECK: JVD not raised; masses not palpable. HEART: S1, S2 are muffled LUNGS: Diminished breath sounds at the bases with some rhonchi noted as well as expiratory wheezing on exam ABDOMEN: Soft, nontender, no masses palpable. Large Abdominal wall hernia PSYCH: Alert and oriented x3 - Labs CBC & Chem 7: 04/09/19 06:59 04/09/19 06:59 Labs: Abnormal Lab Results - Last 24 Hours (Table) 04/09/19 04/09/19 04/10/19 Range/Units 17:15 19:59 07:14 POC Glucose (mg/dL) 193 H 120 H 118 H (75-99) mg/dL 04/10/19 Range/Units 16:50 POC Glucose (mg/dL) 114 H (75-99) mg/dL Microbiology - Last 24 Hours (Table) 04/04/19 08:10 Blood Culture - Final Blood No Growth after 144 hours Assessment and Plan Assessment: -Chronic obstructive pulmonary disease acute exacerbation with possible acute Angela isn't tracheobronchitis or possible acute pneumonia gram-negative -Possible pneumonia suspect gram-negative organism -Right lung adenocarcinoma status post chemotherapy and immunotherapy -Chronic hypoxic respiratory failure on home oxygen 3 L -Incisional abdominal hernia -Right nephrolithiasis -Right apical bleb resection -History of noncompliance -History of pneumothorax on the right side -History of degenerative joint disease -History of ruptured gastric ulcer and surgery -Chronic nicotine dependence patient cigarette smoker Recommendations and discussion: Recommend to continue current medications, management, and symptomatic treatment. Will continue to monitor closely. Pulmonary is following. Patient will remain on IV steroids along with bronchodilators and oral antibiotics in the form of Levaquin. Patient is scheduled to undergo bronchoscopy with BAL tomorrow and will be nothing by mouth after midnight. Due to multiple complex medical issues prognosis is guarded. Further recommendations to follow. Possible discharge in 24-48 hours.
[2019-04-10] MEDS: MORPHINE SULFATE ER 60 MG TABLET PO SCH (20:13)
[2019-04-10 20:27] LABS: Glucose,Whole Blood 195 mg/dL (75-99)
[2019-04-11] MEDS: IPRATROPIUM-ALBUTEROL 3 ML NEB INHALATION SCH ×6 (00:56→20:18)
[2019-04-11] MEDS: HYDROcodone/APAP 10-325MG 1 EACH TAB PO PRN ×3 (04:26→21:58)
[2019-04-11] MEDS: methylPREDNISolone SOD SUCCI 125 MG/2 ML VIAL IV SCH ×4 (05:38→23:24)
[2019-04-11 07:16] LABS: Glucose,Whole Blood 128 mg/dL (75-99)
[2019-04-11] MEDS: BUDESONIDE 1 MG/2 ML NEBU INHALATION SCH ×2 (07:27→20:18)
[2019-04-11] MEDS: FORMOTEROL FUMARATE 20 MCG/2 ML NEBU INHALATION SCH ×2 (07:27→20:18)
[2019-04-11] MEDS: INSULIN ASPART (NovoLOG) 100 UNIT/ML VIAL SQ SCH ×4 (08:09→20:16)
[2019-04-11] MEDS: NICOTINE 21MG/24HR PATCH TRANSDERM SCH (08:09)
[2019-04-11] MEDS: ENOXAPARIN 40 MG/0.4 ML SYRINGE SQ SCH ×2 (08:10→08:14)
[2019-04-11] MEDS: MORPHINE SULFATE ER 30 MG TABLET PO SCH (08:10)
[2019-04-11 10:01] VITALS: BMI 22.4
--- NOTE | 2019-04-11 10:20 | P.PN ---
Subjective Progress Note Date: 04/11/19 On today's evaluation of 04/11/2019 the patient is being seen for a follow-up. The patient is currently nothing by mouth for possible bronchoscopy. Patient has significant improvement in his bronchospasm and wheezing. Nevertheless he continues to have significant amount of mucus that he is unable to cough out. He still short of breath. The plan is to proceed with a bronchoscopy today. He is on bronchodilators. Is on steroids which are being tapered. No major swelling lower extremities. No chest pain. He is nothing by mouth for now. Objective - Vital Signs Vital signs: Vital Signs Temp 97.7 F 04/11/19 05:00 Pulse 86 04/11/19 07:53 Resp 20 04/11/19 05:00 BP 95/60 04/11/19 05:00 Pulse Ox 98 04/11/19 07:29 Intake & Output 04/10/19 04/11/19 04/11/19 18:59 06:59 18:59 Intake Total 600 Output Total 1600 1025 Balance -1000 -1025 Weight 77.111 kg Intake: Oral 600 Output: Urine 1600 1025 Other: Voiding Method Urinal # Voids 1 - Exam GENERAL EXAM: Alert, very pleasant, 58-year-old white male on 4 L of oxygen with pulse ox of 97% comfortable in no apparent distress. HEAD: Normocephalic/atraumatic. EYES: Normal reaction of pupils, equal size. Conjunctiva pink, sclera white. NOSE: Clear with pink turbinates. THROAT: No erythema or exudates. NECK: No masses, no JVD, no thyroid enlargement, no adenopathy. CHEST: No chest wall deformity. Symmetrical expansion. LUNGS: Equal air entry with rhonchi, and minimal wheezing CVS: Regular rate and rhythm, normal S1 and S2, no gallops, no murmurs, no rubs ABDOMEN: Soft, nontender. No hepatosplenomegaly, normal bowel sounds, no gua rding or rigidity. EXTREMITIES: No clubbing, no edema, no cyanosis, 2+ pulses and upper and lower extremities. MUSCULOSKELETAL: Muscle strength and tone normal. SPINE: No scoliosis or deformity SKIN: No rashes CENTRAL NERVOUS SYSTEM: Alert and oriented -3. No focal deficits, tone is normal in all 4 extremities. PSYCHIATRIC: Alert and oriented -3. Appropriate affect. Intact judgment and insight. - Labs CBC & Chem 7: 04/09/19 06:59 04/09/19 06:59 Labs: Abnormal Lab Results - Last 24 Hours (Table) 04/10/19 04/10/19 04/11/19 Range/Units 16:50 20:06 07:15 POC Glucose (mg/dL) 114 H 195 H 128 H (75-99) mg/dL Microbiology - Last 24 Hours (Table) 04/04/19 08:10 Blood Culture - Final Blood No Growth after 144 hours Assessment and Plan Plan: #1. Acute exacerbation of chronic obstructive pulmonary disease complicated by purulent tracheal bronchitis without evidence of venkata pneumonia #2. Stage 3/stage IV COPD with baseline FEV1 of 35% of predicted #3. 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 Chronic and ongoing nicotine dependence #5. Previous history of pneumothorax at age 16, status post apical bleb res ection, and the right side #6. Medical noncompliance #7. Previous episode of acute cholecystitis and acute choledocholithiasis #8. Lower extremity edema, could relate to underlying cor pulmonale and pulmonary hypertension #9. Status post perforated gastric ulcer with surgical repair and subsequent incisional hernia Plan Keep the patient nothing by mouth for today. Bronchoscopy for therapeutic airway suctioning and lavage and reevaluation for non-small cell lung cancer the patient had poorly differentiated metastatic adenocarcinoma and is done extremely well with a combination of systemic chemotherapy /immunotherapy.
[2019-04-11] MEDS: MORPHINE CONC SOLN 10mg/0.5mL ORAL SYRG PO PRN ×2 (10:48→18:51)
[2019-04-11] MEDS: ALPRAZolam 0.25 MG TAB PO PRN (10:48)
[2019-04-11 11:19] LABS: Glucose,Whole Blood 132 mg/dL (75-99)
[2019-04-11] MEDS ORDERED: LIDOCAINE 1% INJ 10MG/ML (20 ML MDV) ONE (11:40)
[2019-04-11] MEDS ORDERED: PROPOFOL 10 MG/ML 20 ML VIAL IV ONE (11:40)
[2019-04-11] MEDS ORDERED: SODIUM CHLORIDE 0.9% 500 ML IV ONE (11:41)
[2019-04-11] MEDS ORDERED: LIDOCAINE 2% INJ 20 MG/ML INTRATRACH ONE (11:56)
--- NOTE | 2019-04-11 12:07 | P.PCN ---
Date of Procedure: 04/11/19 Preoperative Diagnosis: COPD exacerbation, pneumonia, history of lung cancer Postoperative Diagnosis: Same Procedure(s) Performed: Flexible bronchoscopy and bronchial aspiration of the secretions Anesthesia: MAC Surgeon: Bibi Lyn Waste Chopper #1: Madeleine Green Pathology: other Condition: stable Disposition: floor Operative Findings: This procedure was done under conscious sedation. Anesthetic agents was administered by anesthesia the bedside. After achieving adequate sedation, the flexible bronchoscope was used into the right nostril. The upper airway structures were all identified. The bronchoscope was advanced through the posterior oropharynx, larynx, and following that the arytenoids and the vocal cords were identified. Epiglottis was sharp and it was in the midline. Vallecula was inspected. There was some retained secretions that were suctioned out. Vocal cord mobility and function was within normal limits. A total of 2 mL of 1% lidocaine was applied to the vocal cords and following that the bronchoscope was advanced into the upper trachea. Examination of the tracheal bronchial tree was done. There was copious amount of foamy creamy looseness for secretions with a throughout the patient's airways. This secretions are all over involving the trachea, bilateral mainstem bronchi, upper lobes and lower lobes bilaterally. Therapeutic airway suctioning was done. Airway inspection was completed. Bilateral mainstem bronchi were within normal limits. Right upper lobe bronchus apical segment was extensively compressed and atelectatic. The rest of the second is patent. Bronchus intermedius and right middle lobe and right lower lobe were all patent and within normal limits. Examination of the left side involving the left upper lobe bronchus, lingular segment of the left lower lobe bronchus a long-standing segments. There was suctioning was done. The bronchial aspirate was sent for microbial analysis. By the completion of the procedure, the airways were free of any respiratory secretions. No endobronchial tumors or lesions are identified. The patient tolerated the procedure well. No complications. No desaturation. He remains hemodynamically stable.
[2019-04-11] MEDS: FOLIC ACID 1 MG TAB PO SCH (13:06)
[2019-04-11] MEDS: SENNOSIDES-DOCUSATE SODIUM 1 EACH TAB PO SCH ×2 (13:06→20:13)
[2019-04-11] MEDS: guaiFENesin 600 MG TABLET.ER PO SCH ×2 (13:06→20:13)
[2019-04-11] MEDS: THEOPHYLLINE 24 HOUR 200 MG CAP.ER.24H PO SCH (13:06)
[2019-04-11] MEDS: LEVOFLOXACIN 500 MG TAB PO SCH (15:25)
--- NOTE | 2019-04-11 16:22 | P.PN ---
Subjective Progress Note Date: 04/11/19 Principal diagnosis: This is a 58-year-old male who was recently admitted with worsening shortness of breath, COPD exacerbation, pneumonia along with the cough and phlegm production and is being closely monitored. Patient continues to have shortness of breath with some improvement patient continues to have wheezing with rhonchi noted. Patient is maintained on IV steroids, bronchodilators, and oral antibiotics in the form of Levaquin and will continue at this time. No reports of chest pain or palpitations. Patient is afebrile. No reports of nausea or vomiting and patient is tolerating diet. 04/07/2019 Patient is seen in follow-up today appears quite dyspneic and continues to be short of breath with any form of exertion. Patient states that he had an episode of hypoxia and extreme shortness of breath overnight when attempting to walk to the bathroom. Patient was placed on a nonrebreather briefly and is currently maintained on 4 L of oxygen via nasal cannula. Patient is quite anxious and short of breath when talking today. Pulmonary is following. Patient is maintained on IV steroids and bronchodilators and will continue at this time. Patient currently on oral antibiotics in the form of Levaquin and will continue at this time. Will continue to monitor closely. No reports of chest pain or palpitations. Patient is afebrile. 04/10/2019 Patient is seen and evaluated in follow-up today and continues to have shortness of breath and cough states is not expectorating much phlegm production. Patient continues to be quite weak and exerts easily with any type of activity. Patient has been working with PT/OT. Pulmonary is following. Planning for bronchoscopy with BAL in the morning. Will continue to monitor closely. Patient will continue on IV steroids along with bronchodilators and antibiotics at this time. No reports of chest pain or palpitations. Patient is afebrile. No reports of nausea or vomiting and patient is tolerating diet. Patient will be nothing by mouth tonight after midnight for procedure tomorrow 04/11/2019 Patient is seen and evaluated in follow-up today and continues to have a cough and feels that he has phlegm production that he is unable to expectorate. Patient has been nothing by mouth this morning and awaiting a bronchoscopy with BAL with pulmonary. Patient states his breathing is somewhat back to baseline continues to be very weak and short of breath with exertion. Patient is maintained on 4 L of oxygen via nasal cannula. Patient will continue on bronchodilators along with IV steroids at this time. Will continue to monitor closely. No reports of chest pain or palpitations. Patient is afebrile. Patient is tolerating diet with no nausea or vomiting noted. Objective - Vital Signs Vital signs: Vital Signs Temp 98.3 F 04/11/19 15:46 Pulse 83 04/11/19 16:02 Resp 15 04/11/19 15:46 BP 110/69 04/11/19 15:46 Pulse Ox 100 04/11/19 15:51 Intake & Output 04/10/19 04/11/19 04/11/19 18:59 06:59 18:59 Intake Total 600 496 Output Total 1600 1025 Balance -1000 -1025 496 Weight 77.111 kg Intake: IV 200 Oral 600 296 Output: Urine 1600 1025 Other: Voiding Method Urinal Urinal # Voids 1 1 - Exam VITAL SIGNS: Temp is 97.7, pulse is 79, respirations are 18, blood pressure is 106/68, oxygen saturation is 96% on 4 L nasal cannula GENERAL: Sitting up in the bed, awake, well nourished, well-developed, alert and oriented 3 EYES: Pupils equal. Conjunctiva normal. HEENT: External appearance of nose and ears normal, oral cavity grossly normal. NECK: JVD not raised; masses not palpable. HEART: S1, S2 are muffled LUNGS: Diminished breath sounds at the bases with some rhonchi noted as well as expiratory wheezing on exam ABDOMEN: Soft, nontender, no masses palpable. Large Abdominal wall hernia PSYCH: Alert and oriented x3 - Labs CBC & Chem 7: 04/09/19 06:59 04/09/19 06:59 Labs: Abnormal Lab Results - Last 24 Hours (Table) 04/10/19 04/10/19 04/11/19 Range/Units 16:50 20:06 07:15 POC Glucose (mg/dL) 114 H 195 H 128 H (75-99) mg/dL 04/11/19 Range/Units 11:17 POC Glucose (mg/dL) 132 H (75-99) mg/dL Assessment and Plan Assessment: -Chronic obstructive pulmonary disease acute exacerbation with possible acute purulent tracheobronchitis or possible acute pneumonia gram-negative -Possible pneumonia suspect gram-negative organism -Right lung adenocarcinoma status post chemotherapy and immunotherapy -Chronic hypoxic respiratory failure on home oxygen 3 L -Incisional abdominal hernia -Right nephrolithiasis -Right apical bleb resection -History of noncompliance -History of pneumothorax on the right side -History of degenerative joint disease -History of ruptured gastric ulcer and surgery -Chronic nicotine dependence patient cigarette smoker Recommendations and discussion: Recommend to continue current medications, management, and symptomatic treatment. Will continue to monitor closely. Pulmonary is following. Patient will remain on IV steroids along with bronchodilators and oral antibiotics in the form of Levaquin. Patient underwent bronchoscopy with BAL. Due to multiple complex medical issues prognosis is guarded. Further recommendations to follow. Possible discharge in 24 hours.
[2019-04-11 16:55] LABS: Glucose,Whole Blood 171 mg/dL (75-99)
[2019-04-11 17:15] LABS: Appearance,BF Cloudy; Color,BF Colorless; Nucleated Cells, Body Fluid 700 /uL; RBC, Body Fluid 90 /uL
[2019-04-11 17:17] LABS: Mononuclear WBC,Body Fluid 40 %; Polynuclear WBC,Body Fluid 60 %; Total Cells Counted,Body Fluid 100
[2019-04-11 20:02] LABS: Glucose,Whole Blood 148 mg/dL (75-99)
[2019-04-11] MEDS: MORPHINE SULFATE ER 60 MG TABLET PO SCH (20:13)
[2019-04-12] MEDS: MORPHINE CONC SOLN 10mg/0.5mL ORAL SYRG PO PRN ×2 (01:14→14:59)
[2019-04-12] MEDS: IPRATROPIUM-ALBUTEROL 3 ML NEB INHALATION SCH ×7 (01:34→23:56)
[2019-04-12] MEDS: HYDROcodone/APAP 10-325MG 1 EACH TAB PO PRN ×3 (02:55→19:38)
[2019-04-12] MEDS: methylPREDNISolone SOD SUCCI 125 MG/2 ML VIAL IV SCH (05:31)
[2019-04-12] MEDS: ALPRAZolam 0.25 MG TAB PO PRN ×2 (05:35→14:45)
[2019-04-12 07:05] LABS: Glucose,Whole Blood 116 mg/dL (75-99)
[2019-04-12] MEDS: INSULIN ASPART (NovoLOG) 100 UNIT/ML VIAL SQ SCH ×4 (07:51→20:25)
[2019-04-12] MEDS: FOLIC ACID 1 MG TAB PO SCH (08:00)
[2019-04-12] MEDS: guaiFENesin 600 MG TABLET.ER PO SCH ×2 (08:01→20:25)
[2019-04-12] MEDS: THEOPHYLLINE 24 HOUR 200 MG CAP.ER.24H PO SCH (08:01)
[2019-04-12] MEDS: NICOTINE 21MG/24HR PATCH TRANSDERM SCH (08:01)
[2019-04-12] MEDS: MORPHINE SULFATE ER 30 MG TABLET PO SCH (08:01)
[2019-04-12] MEDS: ENOXAPARIN 40 MG/0.4 ML SYRINGE SQ SCH (08:01)
[2019-04-12] MEDS: SENNOSIDES-DOCUSATE SODIUM 1 EACH TAB PO SCH ×2 (08:06→20:24)
[2019-04-12] MEDS: FORMOTEROL FUMARATE 20 MCG/2 ML NEBU INHALATION SCH ×2 (09:12→19:25)
[2019-04-12] MEDS: BUDESONIDE 1 MG/2 ML NEBU INHALATION SCH ×2 (09:12→19:25)
[2019-04-12 11:14] LABS: Glucose,Whole Blood 114 mg/dL (75-99)
--- NOTE | 2019-04-12 13:16 | P.PN ---
Subjective Progress Note Date: 04/12/19 Principal diagnosis: Shortness of breath, cough On 04/05/2019 patient seen in follow-up on general oncology floor. He is resting comfortably in bed, in no acute distress, states his breathing is sedated better, still dyspneic on bronchospastic, but improving. Pulse ox is 96% on 4 L, afebrile, hemodynamically patient is stable influenza screen was negative, no leukocytosis, no fever or chills. Blood cultures so far show no growth, he is on Levaquin for empiric antibiotic coverage, On 04/06/2019 patient seen in follow-up on medical oncology floor. Doing much better today, breathing easier, still has some scattered wheezes, still mildly bronchospastic but overall doing much better, he is up in a chair today, tolerating activity very well. On 4 L of oxygen with a pulse ox of 98%, no fever or chills. He's been treated with antibiotics, IV steroids, and nebulized bronchodilators, doing well, anticipate further improvement and possible discharge home in the morning. On 04/07/2019 patient seen in follow-up on medical oncology floor, awake and alert, he states he still quite dyspneic with any exertion, patient apparently had episode of respiratory distress early in the morning at 3:00 when she tried to ambulate to the bathroom. Currently on 4 L of oxygen with a pulse ox of 97%, slightly tachycardic with a rate of 113 BPM, no fever or chills, hemodynamically stable, lung sounds reveal diminished breath sounds with scattered wheezes. Remains on IV steroids, antibiotics, and breathing treatments On 04/10/2019 patient seen in follow-up on general medical oncology floor. He states he is feeling a little better, his breathing is improving although he still has exertional dyspnea, he is currently on 4 L of oxygen with pulse ox of 94%, hemodynamically patient is stable, his been afebrile, blood cultures have been negative, patient remains on Levaquin for antibiotic coverage, IV Solu- Medrol, theophylline and nebulized bronchodilators, still has chest congestion, nonproductive cough, today's labs have been reviewed, showing white blood cell, 10.7, hemoglobin of 14.0, sodium is 137, potassium is 4.6, chloride is 100, CO2 is 32, BUN is 22 and creatinine 0.66. On 04/12/2019 patient seen in follow-up on general medical oncology floor, he status post bronchoscopy with bronchoalveolar lavage on 04/11/2019 he states he is feeling better, less congested, though some residual scattered wheezes, but overall doing significantly better and breathing easier, his been up and ambulating around the room, less exertional dyspnea was noted by the patient. Remains on antibiotic coverage in the form of Levaquin, IV steroids and nebulized bronchodilators. No new labs today, no fever or chills, patient is improving, and the plan is for the patient to be discharged home tomorrow instead of subacute rehab Objective - Vital Signs Vital signs: Vital Signs Temp 98 F 04/12/19 11:37 Pulse 78 04/12/19 12:29 Resp 22 04/12/19 11:37 BP 118/78 04/12/19 11:37 Pulse Ox 97 04/12/19 11:37 Intake & Output 04/11/19 04/12/19 04/12/19 18:59 06:59 18:59 Intake Total 792 Output Total 1225 Balance 792 -1225 Weight 77.111 kg Intake: IV 200 Oral 592 Output: Urine 1225 Other: Voiding Method Urinal Urinal # Voids 1 - Exam GENERAL EXAM: Alert, very pleasant, 58-year-old white male on 4 L of oxygen with pulse ox of 97% comfortable in no apparent distress. HEAD: Normocephalic/atraumatic. EYES: Normal reaction of pupils, equal size. Conjunctiva pink, sclera white. NOSE: Clear with pink turbinates. THROAT: No erythema or exudates. NECK: No masses, no JVD, no thyroid enlargement, no adenopathy. CHEST: No chest wall deformity. Symmetrical expansion. LUNGS: Equal air entry with rhonchi, and minimal wheezing CVS: Regular rate and rhythm, normal S1 and S2, no gallops, no murmurs, no rubs ABDOMEN: Soft, nontender. No hepatosplenomegaly, normal bowel sounds, no guarding or rigidity. EXTREMITIES: No clubbing, no edema, no cyanosis, 2+ pulses and upper and lower extremities. MUSCULOSKELETAL: Muscle strength and tone normal. SPINE: No scoliosis or deformity SKIN: No rashes CENTRAL NERVOUS SYSTEM: Alert and oriented -3. No focal deficits, tone is normal in all 4 extremities. PSYCHIATRIC: Alert and oriented -3. Appropriate affect. Intact judgment and insight. - Labs CBC & Chem 7: 04/09/19 06:59 04/09/19 06:59 Labs: Abnormal Lab Results - Last 24 Hours (Table) 04/11/19 04/11/19 04/12/19 Range/Units 16:54 20:00 07:02 POC Glucose (mg/dL) 171 H 148 H 116 H (75-99) mg/dL 04/12/19 Range/Units 11:13 POC Glucose (mg/dL) 114 H (75-99) mg/dL Assessment and Plan Plan: Assessment: #1. Acute exacerbation of chronic obstructive pulmonary disease complicated by purulent tracheal bronchitis without evidence of venkata pneumonia, status post bronchoalveolar lavage on 04/11/2019 BAL cultures are pending, patient has been treated with Levaquin #2. Stage 3/stage IV COPD with baseline FEV1 of 35% of predicted #3. 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 Chronic and ongoing nicotine dependence #5. Previous history of pneumothorax at age 16, status post apical bleb resection, and the right side #6. Medical noncompliance #7. Previous episode of acute cholecystitis and acute choledocholithiasis #8. Lower extremity edema, could relate to underlying cor pulmonale and pulmonary hypertension #9. Status post perforated gastric ulcer with surgical repair and subsequent incisional hernia Plan: Continue current antibiotic coverage, await final cultures of the bronchoalveolar lavage, overall patient is improving, breathing easier, less congested, and less exertional dyspnea, increase activity as tolerated, the plan is for the patient to be discharged home in the next 24 hours. And he will need outpatient follow-up with Dr. Lyn in the office in 7-10 days. I performed a history & physical examination of the patient and discussed their management with my nurse practitioner, Candy Sethi. I reviewed the nurse practitioner's note and agree with the documented findings and plan of care. Lung sounds are positive for diffuse wheezes. The findings and the impression was discussed with the patient. I attest to the documentation by the nurse practitioner. Time with Patient: Less than 30
[2019-04-12] MEDS: LEVOFLOXACIN 500 MG TAB PO SCH (14:45)
[2019-04-12] MEDS: methylPREDNISolone SOD SUCCI 40 MG/ML 1 ML VIAL IV SCH ×2 (14:46→23:12)
[2019-04-12 17:25] LABS: Glucose,Whole Blood 114 mg/dL (75-99)
[2019-04-12] MEDS: SIMETHICONE 40 MG/0.6 ML DROPS 2,000 MG/30 ML BOTTLE PO PRN (17:26)
[2019-04-12 20:11] LABS: Glucose,Whole Blood 150 mg/dL (75-99)
[2019-04-12] MEDS: MORPHINE SULFATE ER 60 MG TABLET PO SCH (20:24)
--- NOTE | 2019-04-12 22:37 | P.PN ---
Progress Note - Text Progress Note Date: 04/12/19 Chief Complaint: Short of breath History of presenting complaint: This is a very pleasant 58-year-old patient of Dr. Bryce Basilio. Chronic stable medical conditions include right kidney stones, incisional abdominal hernia, home oxygen 3 L, and adenocarcinoma of the right lung. Patient has received chemotherapy and immunotherapy the past. Being followed by Dr. England. Patient now presents with worsening short of breath at least for 2 days of cough with yellow phlegm. Some fever and chills. Patient hadn't had a bowel movement for close to 10 days and a large BMs yesterday. Appetite had gone down. Admitted with-severe COPD exacerbation, pneumonia, status post bronchoscopy and lavage. Today-. Feeling better. Has been out of bed. Down to nasal cannula. Decreased expectoration. Review of systems: Was done for constitutional, cardiovascular, GI, pulmonary. relevant finding as above Active Medications Hydrocodone Bitart/Acetaminophen (Martinez 10) 1 each PO Q4H PRN PRN Reason: Pain Last Admin: 04/12/19 19:38 Dose: 1 each Documented by: Albuterol/Ipratropium (Duoneb 0.5 Mg-3 Mg/3 Ml Soln) 3 ml INHALATION RT-Q4H PRN PRN Reason: Shortness Of Breath Or Wheezing Last Admin: 04/07/19 15:20 Dose: 3 ml Documented by: Albuterol/Ipratropium (Duoneb 0.5 Mg-3 Mg/3 Ml Soln) 3 ml INHALATION RT-Q4H CAROLYN Last Admin: 04/12/19 19:25 Dose: 3 ml Documented by: Alprazolam (Xanax) 0.25 mg PO TID PRN PRN Reason: Anxiety Last Admin: 04/12/19 14:45 Dose: 0.25 mg Documented by: Budesonide (Pulmicort) 1 mg INHALATION RT-BID CAROLYN Last Admin: 04/12/19 19:25 Dose: 1 mg Documented by: Calcium Carbonate/Glycine (Tums) 1,000 mg PO TID PRN PRN Reason: Heartburn Last Admin: 04/10/19 14:18 Dose: 1,000 mg Documented by: Dicyclomine HCl (Bentyl) 20 mg PO QID PRN PRN Reason: ABDOMINAL CRAMPING Last Admin: 04/10/19 20:22 Dose: 20 mg Documented by: Enoxaparin Sodium (Lovenox) 40 mg SQ DAILY [facility] Last Admin: 04/12/19 08:01 Dose: 40 mg Documented by: Folic Acid (Folic Acid) 1 mg PO DAILY [facility] Last Admin: 04/12/19 08:00 Dose: 1 mg Documented by: Formoterol Fumarate (Perforomist) 20 mcg INHALATION RT-BID [facility] Last Admin: 04/12/19 19:25 Dose: 20 mcg Documented by: Guaifenesin (Mucinex) 1,200 mg PO Q12HR [facility] Last Admin: 04/12/19 20:25 Dose: 1,200 mg Documented by: Insulin Aspart (Novolog) 0 unit SQ [facility]; Protocol Last Admin: 04/12/19 20:25 Dose: 2 unit Documented by: Lactulose (Cephulac) 20 gm PO Q12HR PRN PRN Reason: Constipation Levofloxacin (Levaquin) 500 mg PO Q24H [facility] Last Admin: 04/12/19 14:45 Dose: 500 mg Documented by: Methylprednisolone Sodium Succinate (Solu-Medrol) 40 mg IV Q8HR [facility] Last Admin: 04/12/19 14:46 Dose: 40 mg Documented by: Morphine Sulfate (Ms Contin) 60 mg PO HS [facility] Last Admin: 04/12/19 20:24 Dose: 60 mg Documented by: Morphine Sulfate (Ms Contin) 30 mg PO QAM [facility] Last Admin: 04/12/19 08:01 Dose: 30 mg Documented by: Morphine Sulfate (Roxanol Oral Soln Conc 10mg/0.5ml) 10 mg PO Q6H PRN PRN Reason: Mild to Moderate Pain Last Admin: 04/12/19 14:59 Dose: 10 mg Documented by: Morphine Sulfate (Roxanol Oral Soln Conc 10mg/0.5ml) 20 mg PO Q6H PRN PRN Reason: Severe Pain Last Admin: 04/12/19 01:14 Dose: 20 mg Documented by: Nicotine (Habitrol 21mg/24hr Patch) 1 patch TRANSDERM DAILY [facility] Last Admin: 04/12/19 08:01 Dose: 1 patch Documented by: Prochlorperazine Maleate (Compazine) 10 mg PO Q6H PRN PRN Reason: Nausea Senna/Docusate Sodium (Senokot-S) 2 each PO BID [facility] Last Admin: 04/12/19 20:24 Dose: 2 each Documented by: Simethicone (Mylicon Drops) 80 mg PO QID PRN PRN Reason: Bloating Last Admin: 04/12/19 17:26 Dose: 80 mg Documented by: Theophylline (Ulisses-24) 200 mg PO DAILY [facility] Last Admin: 04/12/19 08:01 Dose: 200 mg Documented by: Physical examination: VITAL SIGNS: 98, 81, 22, 118/78, 97% on 4 L GENERAL: Propped up in bed, more comfortable EYES: Pupils equal. Conjunctiva normal. HEENT: External appearance of nose and ears normal, oral cavity grossly normal. NECK: JVD not raised; masses not palpable. HEART: First and second heart sounds are normal; no edema. LUNGS: Respiratory rate increased, decreased breath sounds. ABDOMEN: Soft, nontender, liver spleen not palpable, no masses palpable. Large Abdominal wall hernia PSYCH: Alert and oriented x3; mood and affect anxiousl. INVESTIGATIONS, reviewed in the clinical context: Accu-Cheks noted: Previous testing White count 8.9 hemoglobin 12.5 platelets 215 potassium 3.6 creatinine 0.55 Chest x-ray film personally reviewed by me-right upper lobe infiltrates for consultation with elevation of the right diaphragm, EKG tracing personally reviewed by me-normal sinus rhythm Assessment: -Acute severe COPD exacerbation in a current smoker, improving -Status post bronchoscopy with lavage -Possible pneumonia suspect gram-negative organism -Right lung adenocarcinoma status post chemotherapy and immunotherapy -Chronic hypoxic respiratory failure on home oxygen 3 L -Incisional abdominal hernia -Right kidney stones -Chronic nicotine dependence patient cigarette smoker Plan: Feeling much better. We'll cut back the dose of Solu-Medrol. Other medications to continue. Hopefully discharge in next 24 hours. Discussed with the patient.
[2019-04-13] MEDS: HYDROcodone/APAP 10-325MG 1 EACH TAB PO PRN ×3 (00:14→14:46)
[2019-04-13] MEDS: MORPHINE CONC SOLN 10mg/0.5mL ORAL SYRG PO PRN ×3 (00:19→10:32)
[2019-04-13] MEDS: IPRATROPIUM-ALBUTEROL 3 ML NEB INHALATION SCH ×3 (03:35→11:36)
[2019-04-13 05:26] VITALS: BP 117/76; RESP 20; TEMP 98.1
[2019-04-13 07:09] LABS: Glucose,Whole Blood 118 mg/dL (75-99)
[2019-04-13] MEDS: BUDESONIDE 1 MG/2 ML NEBU INHALATION SCH (07:21)
[2019-04-13] MEDS: FORMOTEROL FUMARATE 20 MCG/2 ML NEBU INHALATION SCH (07:21)
[2019-04-13] MEDS: ENOXAPARIN 40 MG/0.4 ML SYRINGE SQ SCH (07:44)
[2019-04-13] MEDS: INSULIN ASPART (NovoLOG) 100 UNIT/ML VIAL SQ SCH ×2 (07:44→12:09)
[2019-04-13] MEDS: SENNOSIDES-DOCUSATE SODIUM 1 EACH TAB PO SCH (07:45)
[2019-04-13] MEDS: NICOTINE 21MG/24HR PATCH TRANSDERM SCH (07:45)
[2019-04-13] MEDS: MORPHINE SULFATE ER 30 MG TABLET PO SCH (07:46)
[2019-04-13] MEDS: methylPREDNISolone SOD SUCCI 40 MG/ML 1 ML VIAL IV SCH (07:46)
[2019-04-13] MEDS: FOLIC ACID 1 MG TAB PO SCH (07:46)
[2019-04-13] MEDS: guaiFENesin 600 MG TABLET.ER PO SCH (07:46)
[2019-04-13] MEDS: THEOPHYLLINE 24 HOUR 200 MG CAP.ER.24H PO SCH (07:49)
[2019-04-13] MEDS: ALPRAZolam 0.25 MG TAB PO PRN (11:06)
[2019-04-13 11:29] LABS: Glucose,Whole Blood 118 mg/dL (75-99)
[2019-04-13 11:48] VITALS: PULSE 88
[2019-04-13] MEDS ORDERED: predniSONE 20 MG TAB PO STA (11:57)
--- NOTE | 2019-04-13 12:44 | P.PN ---
Subjective Progress Note Date: 04/13/19 On 04/13/2019 the patient's post bronchoscopy. The microbial cultures still pending. Nevertheless the patient is feeling well. His breathing is improved. Cough and congestion is also subsided. No nausea. No vomiting. No chest pain. No other complaints otherwise for now. The veins are being made to discharge this patient home today. Objective - Vital Signs Vital signs: Vital Signs Temp 98.1 F 04/13/19 05:00 Pulse 88 04/13/19 11:47 Resp 20 04/13/19 08:00 BP 117/76 04/13/19 05:00 Pulse Ox 96 04/13/19 07:21 Intake & Output 04/12/19 04/13/19 04/13/19 18:59 06:59 18:59 Intake Total 400 520 Balance 400 520 Intake: Oral 400 520 Other: Voiding Method Urinal Urinal Urinal # Voids 1 - Exam GENERAL EXAM: Alert, very pleasant, 58-year-old white male HEAD: Normocephalic/atraumatic. EYES: Normal reaction of pupils, equal size. Conjunctiva pink, sclera white. NOSE: Clear with pink turbinates. THROAT: No erythema or exudates. NECK: No masses, no JVD, no thyroid enlargement, no adenopathy. CHEST: No chest wall deformity. Symmetrical expansion. LUNGS: Equal air entry with rhonchi, and minimal wheezing CVS: Regular rate and rhythm, normal S1 and S2, no gallops, no murmurs, no rubs ABDOMEN: Soft, nontender. No hepatosplenomegaly, normal bowel sounds, no guarding or rigidity. EXTREMITIES: No clubbing, no edema, no cyanosis, 2+ pulses and upper and lower extremities. MUSCULOSKELETAL: Muscle strength and tone normal. SPINE: No scoliosis or deformity SKIN: No rashes CENTRAL NERVOUS SYSTEM: Alert and oriented -3. No focal deficits, tone is normal in all 4 extremities. PSYCHIATRIC: Alert and oriented -3. Appropriate affect. Intact judgment and insight. - Labs CBC & Chem 7: 04/09/19 06:59 04/09/19 06:59 Labs: Abnormal Lab Results - Last 24 Hours (Table) 04/12/19 04/12/19 04/13/19 Range/Units 17:23 20:10 07:08 POC Glucose (mg/dL) 114 H 150 H 118 H (75-99) mg/dL 04/13/19 Range/Units 11:28 POC Glucose (mg/dL) 118 H (75-99) mg/dL Assessment and Plan Plan: #1. Acute exacerbation of chronic obstructive pulmonary disease complicated by purulent tracheal bronchitis without evidence of venkata pneumonia. The patient's post bronchoscopy and therapeutic airway suctioning. The fluid cytology showed no evidence of any malignancy. Cultures still pending for now. #2. Stage IV COPD with baseline FEV1 of 35% of predicted #3. 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 #4. Chronic and ongoing nicotine dependence #5. Previous history of pneumothorax at age 16, status post apical bleb resection, and the right side #6. Medical noncompliance #7. Previous episode of acute cholecystitis and acute choledocholithiasis #8. Lower extremity edema, could relate to underlying cor pulmonale and pulmonary hypertension #9. Status post perforated gastric ulcer with surgical repair and subsequent incisional hernia Plan Discharged home on a course of Levaquin Continue DuoNeb nebulized treatments around the clock Theophylline 200 mg by mouth daily Follow-up in the office regarding his COPD and lung cancer. The bronchoscopy showed some segmental narrowing of the right upper lobe branches. Nevertheless, the CAT scan of the chest showed no major abnormalities. The patient had small loculated pleural effusion, right perihil ar soft tissue density and extensive parenchymal thickening of the right upper lobe with cylindric bronchiectasis consistent with post treatment changes. The pulmonary nodules seen bilaterally were stable compared to the previous CAT scan of the chest that was done on 01/17/2019. We'll follow on an outpatient basis. She has oxygen that he can utilize between 3 and 4 L per minute nasal cannula.
[2019-04-13] MEDS: LEVOFLOXACIN 500 MG TAB PO SCH (14:45)
--- NOTE | 2019-04-13 17:19 | P.DS ---
Providers Date of admission: 04/04/19 10:21 Expected date of discharge: 04/13/19 Attending physician: Zev Kelley Consults: 04/04/19 10:21 Consult Physician Routine Consulting Provider: Bibi Lyn Consult Reason/Comments: dyspnea Do you want consulting provider notified?: Yes Consult Physician Routine Consulting Provider: Mayco Monae Consult Reason/Comments: dyspnea Do you want consulting provider notified?: Yes Primary care physician: Bryce Basilio MD Hospital Course: Chief Complaint: Short of breath History of presenting complaint: This is a very pleasant 58-year-old patient of Dr. Bryce Basilio. Chronic stable medical conditions include right kidney stones, incisional abdominal hernia, home oxygen 3 L, and adenocarcinoma of the right lung. Patient has received chemotherapy and immunotherapy the past. Being followed by Dr. England. Patient now presents with worsening short of breath at least for 2 days of cough with yellow phlegm. Some fever and chills. Patient hadn't had a bowel movement for close to 10 days and a large BMs yesterday. Appetite had gone down. Admitted with-severe COPD exacerbation, pneumonia, status post bronchoscopy and lavage.treated with antibiotics, bronchodilators, steroids. Oxygen. Today-. improving. Has been up in the hallway. Care was discussed at length with the patient. Okay by pulmonary to be discharged. consultation: Dr. Lofton and colleagues from pulmonary Dr. Galindo from oncology . Physical examination: VITAL SIGNS: 98.1, 87, 20, [id number], 96% on 4 L GENERAL:sitting up, comfortable EYES: Pupils equal. Conjunctiva normal. HEENT: External appearance of nose and ears normal, oral cavity grossly normal. NECK: JVD not raised; masses not palpable. HEART: First and second heart sounds are normal; no edema. LUNGS: Respiratory rate increased, decreased breath sounds. ABDOMEN: Soft, nontender, liver spleen not palpable, no masses palpable. Large Abdominal wall hernia PSYCH: Alert and oriented x3; mood and affect anxiousl. INVESTIGATIONS, reviewed in the clinical context: Accu-Cheks noted: Previous testing White count 8.9 hemoglobin 12.5 platelets 215 potassium 3.6 creatinine 0.55 Chest x-ray film personally reviewed by me-right upper lobe infiltrates for consultation with elevation of the right diaphragm, EKG tracing personally reviewed by me-normal sinus rhythm pleural fluid cultures-pending Assessment: -Acute severe COPD exacerbation in a current smoker,POA -Status post bronchoscopy with lavage - pneumonia suspect gram-negative organism, POA -Right lung adenocarcinoma status post chemotherapy and immunotherapy -Chronic hypoxic respiratory failure on home oxygen 3 L -Incisional abdominal hernia -Right kidney stones -Chronic nicotine dependence patient cigarette smoker Plan: home Patient Condition at Discharge: Stable Plan - Discharge Summary Discharge Rx Participant: No New Discharge Prescriptions: New Nicotine 21Mg/24Hr Patch [Habitrol] 1 patch TRANSDERM DAILY #14 patch Levofloxacin [Levaquin] 500 mg PO Q24H #3 tab predniSONE 0 mg PO DIRECTED #100 tab Budesonide [Pulmicort] 1 mg INHALATION RT-BID #60 ml Theophylline 24 Hour [Ulisses-24] 200 mg PO DAILY #30 cap.er.24h Continue Prochlorperazine [Compazine] 10 mg PO Q6H PRN PRN Reason: Nausea Folic Acid 1 mg PO DAILY Morphine Sulfate [Ms Contin] 30 mg PO QAM Morphine Sulfate [Ms Contin] 60 mg PO HS HYDROcodone/APAP 10-325MG [[place] 10-325] 1 tab PO Q4HR PRN PRN Reason: Pain Morphine Sulfate [Morphine Sulfate Oral Soln Conc (20 MG/ML)] 10 - 20 mg PO Q6H PRN PRN Reason: BREAKTHROUGH SEVERE PAIN Sennosides/Docusate Sodium [Dok Plus Tablet] 2 tab PO BID Dicyclomine HCl 20 mg PO QID PRN PRN Reason: ABDOMINAL CRAMPING Lactulose [Constulose] 20 gm PO Q12HR PRN PRN Reason: Constipation predniSONE 10 mg PO DAILY Albuterol Inhaler [Ventolin Hfa Inhaler] 1 - 2 puff INHALATION RT-Q6H PRN #1 inhaler PRN Reason: Wheezing Ipratropium-Albuterol Nebulize [Duoneb 0.5 mg-3 mg/3 ml Soln] 3 ml INHALATION RT-Q6H #120 neb Discontinued Ipratropium [place] [Atrovent Hfa] 2 puff INHALATION RT-QID Discharge Medication List Folic Acid 1 mg PO DAILY 01/05/18 [History] Prochlorperazine [Compazine] 10 mg PO Q6H PRN 01/05/18 [History] Dicyclomine HCl 20 mg PO QID PRN 07/28/18 [History] HYDROcodone/APAP 10-325MG [[place] 10-325] 1 tab PO Q4HR PRN 07/28/18 [History] Lactulose [Constulose] 20 gm PO Q12HR PRN 07/28/18 [History] Morphine Sulfate [Morphine Sulfate Oral Soln Conc (20 MG/ML)] 10 - 20 mg PO Q6H PRN 07/28/18 [History] Morphine Sulfate [Ms Contin] 30 mg PO QAM 07/28/18 [History] Morphine Sulfate [Ms Contin] 60 mg PO HS 07/28/18 [History] Sennosides/Docusate Sodium [Dok Plus Tablet] 2 tab PO BID 07/28/18 [History] predniSONE 10 mg PO DAILY 07/28/18 [History] Albuterol Inhaler [Ventolin Hfa Inhaler] 1 - 2 puff INHALATION RT-Q6H PRN #1 inhaler 07/30/18 [Rx] Budesonide [Pulmicort] 1 mg INHALATION RT-BID #60 ml 04/13/19 [Rx] Ipratropium-Albuterol Nebulize [Duoneb 0.5 mg-3 mg/3 ml Soln] 3 ml INHALATION RT-Q6H #120 neb 04/13/19 [Rx] Levofloxacin [Levaquin] 500 mg PO Q24H #3 tab 04/13/19 [Rx] Nicotine 21Mg/24Hr Patch [Habitrol] 1 patch TRANSDERM DAILY #14 patch 04/13/19 [Rx] Theophylline 24 Hour [Ulisses-24] 200 mg PO DAILY #30 cap.er.24h 04/13/19 [Rx] predniSONE 0 mg PO DIRECTED #100 tab 04/13/19 [Rx] Follow up Appointment(s)/Referral(s): 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, [Other] - 1 Week Bryce Basilio MD [Primary Care Provider] - 1-2 days Bibi Lyn MD [STAFF PHYSICIAN] - 04/21/19 3:00 pm (You will be seeing Madeleine Green NP.) Mayco Monae MD [STAFF PHYSICIAN] - 04/17/19 11:15 am Patient Instructions/Handouts: Prednisone (By mouth), Theophylline (By mouth), Nicotine (Absorbed through the skin), Levofloxacin (By mouth), Budesonide (By breathing), Ipratropium/Albuterol (By breathing), Using Oxygen at Home (DC), COPD (Chronic Obstructive Pulmonary Disease) (DC) Activity/Diet/Wound Care/Special Instructions: *CT scan sched 04/10 *Medications {pulmacort and ulisses-24 } to be addressed at pulmonary appointment. per Dr. Lyn Discharge Disposition: HOME SELF-CARE
== END 2019-04-13 15:55 | disposition home or self-care (01) | DRG 178 ==
LOC: EC 07:40 → 5NMEDONC 10:21
PROVIDERS: ADMIT Hospitalist; ATTEND Hospitalist
PROC: 0B9C8ZX Drainage of Right Upper Lung Lobe, Via Natural or Artificial Opening Endoscopic, Diagnostic (ICD-10-PCS; 2019-04-11)
PROC: 0B9G8ZX Drainage of Left Upper Lung Lobe, Via Natural or Artificial Opening Endoscopic, Diagnostic (ICD-10-PCS; 2019-04-11)
PROC: 0B9F8ZX Drainage of Right Lower Lung Lobe, Via Natural or Artificial Opening Endoscopic, Diagnostic (ICD-10-PCS; 2019-04-11)
PROC: 0B9J8ZX Drainage of Left Lower Lung Lobe, Via Natural or Artificial Opening Endoscopic, Diagnostic (ICD-10-PCS; principal; 2019-04-11 11:15)
DX: J15.6 Pneumonia due to other Gram-negative bacteria (principal); J44.1 Chronic obstructive pulmonary disease with (acute) exacerbation; C78.02 Secondary malignant neoplasm of left lung; J96.11 Chronic respiratory failure with hypoxia; C34.11 Malignant neoplasm of upper lobe, right bronchus or lung; C77.1 Secondary and unspecified malignant neoplasm of intrathoracic lymph nodes; J44.0 Chronic obstructive pulmonary disease with (acute) lower respiratory infection; I27.81 Cor pulmonale (chronic); I27.29 Other secondary pulmonary hypertension; K43.2 Incisional hernia without obstruction or gangrene; F17.210 Nicotine dependence, cigarettes, uncomplicated; I45.10 Unspecified right bundle-branch block; N20.0 Calculus of kidney; G89.29 Other chronic pain; F41.9 Anxiety disorder, unspecified; M19.90 Unspecified osteoarthritis, unspecified site; Z71.3 Dietary counseling and surveillance; Z71.6 Tobacco abuse counseling; Z79.52 Long term (current) use of systemic steroids; Z79.899 Other long term (current) drug therapy; Z92.21 Personal history of antineoplastic chemotherapy; Z99.81 Dependence on supplemental oxygen; Z87.11 Personal history of peptic ulcer disease; Z98.890 Other specified postprocedural states; Z87.19 Personal history of other diseases of the digestive system; Z91.19 Patient's noncompliance with other medical treatment and regimen; Z87.09 Personal history of other diseases of the respiratory system; Z88.6 Allergy status to analgesic agent; Z88.0 Allergy status to penicillin; Z82.5 Family history of asthma and other chronic lower respiratory diseases; Z82.1 Family history of blindness and visual loss
CPT/HCPCS: 31624; 36415; 71046; 71275; 80053; 83036; 83605; 83880; 85025; 85610; 85730; 87040; 87070; 87077; 87102; 87116; 87186; 87205; 87206; 87252; 87496; 87498; 87502; 87529; 87634; 87798; 88108; 88305; 89050; 93005; 94640; 94760; 96374; 96375; 96376; 99285

== ENCOUNTER 2019-05-05 10:38 | Observation (INO) | payer OTHER ==
--- NOTE | 2019-05-05 10:53 | ED ---
General Adult HPI - General Chief complaint: Seizure Stated complaint: Seizure Time Seen by Provider: 05/05/19 10:42 Source: patient, EMS, RN notes reviewed Mode of arrival: EMS Limitations: no limitations - History of Present Illness Initial comments: Patient is a pleasant 58-year-old male presenting to the emergency department following shaking of his right arm. Onset of symptoms was around an hour ago. Symptoms lasted about 10 minutes and then resolved. Patient had shaking of his right arm that did extend up the arm and into his neck and slightly to the face. Following this patient did have weakness of the right arm and right hand. Patient states right arm weakness is near resolved however hand weakness remains. Patient states there is a mild odd sensation. No weakness or odd sensation of the face. No confusion. Patient did not lose consciousness. Patient did have a somewhat similar episode a couple of months ago and spoke with the doctor on the phone without further evaluation at that time. No leg involvement. No headache. Patient does have known stage IV lung cancer. Patient did finish chemotherapy close to 6 months ago and is currently just being observed. - Related Data Home Medications Medication Instructions Recorded Confirmed Folic Acid 1 mg PO DAILY 01/05/18 05/05/19 Prochlorperazine [Compazine] 10 mg PO Q6H PRN 01/05/18 05/05/19 Dicyclomine HCl 20 mg PO QID PRN 07/28/18 05/05/19 HYDROcodone/APAP 10-325MG [[place]l 1 tab PO Q4HR PRN 07/28/18 05/05/19 10-325] Lactulose [Constulose] 20 gm PO Q12HR PRN 07/28/18 05/05/19 Morphine Sulfate [Morphine Sulfate 10 - 20 mg PO Q6H PRN 07/28/18 05/05/19 Oral Soln Conc (20 MG/ML)] Morphine Sulfate [Ms Contin] 30 mg PO QAM 07/28/18 05/05/19 Morphine Sulfate [Ms Contin] 60 mg PO HS 07/28/18 05/05/19 Sennosides/Docusate Sodium [Dok 2 tab PO BID 07/28/18 05/05/19 Plus Tablet] predniSONE 10 mg PO DAILY 07/28/18 05/05/19 Ipratropium-Albuterol Nebulize 3 ml INHALATION RT-QID 05/05/19 05/05/19 [Duoneb 0.5 mg-3 mg/3 ml Soln] Previous Rx's Medication Instructions Recorded Albuterol Inhaler [Ventolin Hfa 1 - 2 puff INHALATION RT-Q6H PRN 07/30/18 Inhaler] #1 inhaler Budesonide [Pulmicort] 1 mg INHALATION RT-BID #60 ml 04/13/19 Nicotine 21Mg/24Hr Patch [Habitrol] 1 patch TRANSDERM DAILY #14 patch 04/13/19 Theophylline 24 Hour [Ulisses-24] 200 mg PO DAILY #30 cap.er.24h 04/13/19 Allergies Allergy/AdvReac Type Severity Reaction Status Date / Time amoxicillin [From Augmentin] AdvReac Diarrhea Verified 05/05/19 11:59 clavulanic acid AdvReac Diarrhea Verified 05/05/19 11:59 [From Augmentin] ibuprofen [From Motrin] AdvReac Unknown Verified 05/05/19 11:59 Review of Systems ROS Statement: Those systems with pertinent positive or pertinent negative responses have been documented in the HPI. ROS Other: All systems not noted in ROS Statement are negative. Constitutional: Denies: fever Eyes: Denies: eye pain ENT: Denies: ear pain Respiratory: Denies: cough Cardiovascular: Denies: chest pain Endocrine: Denies: fatigue Gastrointestinal: Denies: abdominal pain Genitourinary: Denies: dysuria Musculoskeletal: Denies: back pain Skin: Denies: rash Neurological: Reports: as per HPI, weakness, paresthesias. Denies: headache, numbness, confusion Past Medical History Past Medical History: Cancer, COPD, Pneumonia Additional Past Medical History / Comment(s): 2018 R sided lung cancer tx with chemo/keytruda with last treatment about 6 months ago, home oxygen at 3L/[place] ATC, bilateral lower extremity/pedal edema, chronic chest pain, low back pain, incisional hernia, bronchitis, 5 R sided pneumothorax when 16 yrs old d/t bleb- had surgery, past ruptured gastric ulcer with surgery. History of Any Multi-Drug Resistant Organisms: None Reported Additional Past Surgical History / Comment(s): Bronchoscopy, R apical bleb/resection, EGD, perforated gastric ulcer with surgical repair/patch. Past Anesthesia/Blood Transfusion Reactions: No Reported Reaction Past Psychological History: No Psychological Hx Reported Smoking Status: Former smoker Past Alcohol Use History: Rare Past Drug Use History: None Reported - Past Family History Mother Family Medical History: COPD Additional Family Medical History / Comment(s): Mother is Father Family Medical History: Eye Disorder Additional Family Medical History / Comment(s): Father was blind. He is . General Exam Limitations: no limitations General appearance: alert, in no apparent distress Head exam: Present: normocephalic Eye exam: Present: normal appearance, PERRL, EOMI. Absent: nystagmus ENT exam: Present: normal oropharynx Neck exam: Present: normal inspection Respiratory exam: Present: normal lung sounds bilaterally Cardiovascular Exam: Present: regular rate, normal rhythm GI/Abdominal exam: Present: soft. Absent: tenderness Extremities exam: Present: normal inspection Neurological exam: Present: alert, oriented X3, CN II-XII intact Expanded Neurological exam: Present: protecting the airway Patient oriented to: Present: person, place, time Speech: Present: fluid speech Cranial nerves: EOM's Intact: Normal, Facial Sensation: Normal Sensory exam: Upper Extremity Light Touch: Abnormal Right (Patient states right sided sensation is actually a little bit increased however does feel odd), Lower Extremity Light Touch: Normal Motor strength exam: RUE: 4, LUE: 5, RLE: 5, LLE: 5 Eye Response: (4) open spontaneously Motor Response: (6) obeys commands Verbal Response: (5) oriented Psychiatric exam: Present: normal affect, normal mood Skin exam: Present: normal color Course Vital Signs 05/05/19 05/05/19 10:40 11:53 Temperature 98.2 F 98.2 F Pulse Rate 86 80 Respiratory 20 20 Rate Blood Pressure 143/90 114/71 O2 Sat by Pulse 99 99 Oximetry - Reevaluation(s) Reevaluation #1: 05/05/19 10:59 Case was discussed in detail with elizabeth with oncology who states patient should not be considered a TPA candidate unless MRI with contrast is done prior to that. 05/05/19 11:02 Case also discussed with Dr. cagle who agrees patient is not a TPA candidate and agrees with MRI, not computed tomography scan. 05/05/19 11:41 Case also discussed with Dr. brennan WITH NEUROLOGY WHO IS AGREEMENT WITH PLAN. Dr. Falcon has been paged for admission covering for Dr. percussion, who covers for Dr. Thompson 05/05/19 12:23 Tiago was discussed with Dr. Mendoza, who will admit. EKG Findings - EKG Comments: EKG Findings:: Normal sinus rhythm at 85. MN 120. QRS 96. QT 372. QTC 442. Superior axis. Incomplete right bundle-branch block. Right ventricular hypertrophy. Nonspecific T waves. Medical Decision Making - Lab Data Result diagrams: 05/05/19 11:04 05/05/19 11:04 Lab Results 05/05/19 05/05/19 Range/Units 11:04 11:04 WBC 8.1 (3.8-10.6) k/uL RBC 4.15 L (4.30-5.90) m/uL Hgb 13.3 (13.0-17.5) gm/dL Hct 42.0 (39.0-53.0) % MCV 101.1 H (80.0-100.0) fL MCH 31.9 (25.0-35.0) pg MCHC 31.6 (31.0-37.0) g/dL RDW 13.2 (11.5-15.5) % Plt Count 397 (150-450) k/uL Neutrophils % 56 % Lymphocytes % 30 % Monocytes % 7 % Eosinophils % 4 % Basophils % 1 % Neutrophils # 4.5 (1.3-7.7) k/uL Lymphocytes # 2.5 (1.0-4.8) k/uL Monocytes # 0.6 (0-1.0) k/uL Eosinophils # 0.3 (0-0.7) k/uL Basophils # 0.1 (0-0.2) k/uL Sodium 140 (137-145) mmol/L Potassium 4.0 (3.5-5.1) mmol/L Chloride 102 (98-107) mmol/L Carbon Dioxide 31 H (22-30) mmol/L Anion Gap 7 mmol/L BUN 16 (9-20) mg/dL Creatinine 0.58 L (0.66-1.25) mg/dL Est GFR (CKD-EPI)AfAm >90 (>60 ml/min/1.73 sqM) Est GFR (CKD-EPI)NonAf >90 (>60 ml/min/1.73 sqM) Glucose 89 (74-99) mg/dL Calcium 9.5 (8.4-10.2) mg/dL Magnesium 2.0 (1.6-2.3) mg/dL Total Bilirubin 0.7 (0.2-1.3) mg/dL AST 23 (17-59) U/L ALT 18 (4-49) U/L Alkaline Phosphatase 110 (38-126) U/L Total Protein 7.1 (6.3-8.2) g/dL Albumin 4.0 (3.5-5.0) g/dL Disposition Clinical Impression: Partial seizure, Arm weakness Disposition: ADMITTED IP TO THIS [facility] Condition: Serious Is patient prescribed a controlled substance at d/c from ED?: No Decision Time: 11:42
[2019-05-05 11:23] LABS: Basophils # (A) 0.1 k/uL (0-0.2); Basophils % (A) 1 %; Eosinophils # (A) 0.3 k/uL (0-0.7); Eosinophils % (A) 4 %; HGB 13.3 gm/dL (13.0-17.5); Lymphocytes # (A) 2.5 k/uL (1.0-4.8); Lymphocytes % (A) 30 %; MCH 31.9 pg (25.0-35.0); MCHC 31.6 g/dL (31.0-37.0); MCV 101.1 fL (80.0-100.0); Mean Platelet Volume 7.5; Monocytes # (A) 0.6 k/uL (0-1.0); Monocytes % (A) 7 %; Neutrophils # (A) 4.5 k/uL (1.3-7.7); Neutrophils % (A) 56 %; Platelet Count 397 k/uL (150-450); RBC 4.15 m/uL (4.30-5.90); RDW 13.2 % (11.5-15.5); WBC 8.1 k/uL (3.8-10.6)
[2019-05-05 11:30] LABS: ALT 18 U/L (4-49); AST 23 U/L (17-59); African American GFR (CKD) >90 (>60 ml/min/1.73 sqM); Alkaline Phosphatase 110 U/L (38-126); Anion Gap 7 mmol/L; Blood Urea Nitrogen 16 mg/dL (9-20); Calcium 9.5 mg/dL (8.4-10.2); Carbon Dioxide 31 mmol/L (22-30); Chloride 102 mmol/L (98-107); Glucose 89 mg/dL (74-99); Non-African American GFR(CKD) >90 (>60 ml/min/1.73 sqM); Sodium 140 mmol/L (137-145); Total Bilirubin 0.7 mg/dL (0.2-1.3); Total Protein 7.1 g/dL (6.3-8.2)
[2019-05-05] MEDS ORDERED: MORPHINE SULFATE 4 MG/ML SYRINGE IVP STA (12:02)
--- NOTE | 2019-05-05 13:26 | US ---
EXAMINATION TYPE: US carotid duplex BILAT DATE OF EXAM: 05/05/2019 COMPARISON: NONE CLINICAL HISTORY: Stenosis. Seizure EXAM MEASUREMENTS: RIGHT: Peak Systolic Velocity (PSV) cm/sec ----- Right CCA: 76.9 ----- Right ICA: 53.7 ----- Right ECA: 76.8 ICA/CCA ratio: 0.7 RIGHT: End Diastole cm/sec ----- Right CCA: 26.0 ----- Right ICA: 26.0 ----- Right ECA: 9.8 LEFT: Peak Systolic Velocity (PSV) cm/sec ----- Left CCA: 75.8 ----- Left ICA: 91.9 ----- Left ECA: 118.0 ICA/CCA ratio: 1.2 LEFT: End Diastole cm/sec ----- Left CCA: 24.1 ----- Left ICA: 38.6 ----- Left ECA: 17.5 VERTEBRALS (direction of flow): Right Vertebral: Antegrade Left Vertebral: Antegrade Rhythm: Normal Mild amount of plaque visualized. No elevated velocities, no significant stenosis IMPRESSION: Mild degree of grayscale atheromatous plaquing with no sonographically evident hemodynam ically significant stenosis within either visualized carotid arterial system. Criteria for Assigning % of Stenosis / Diameter reduction (Estimation based on the indirect measurements of the internal carotid artery velocities (ICA PSV). 1. Normal (no stenosis)=ICA PSV < 125 cm/s: ratio < 2.0: ICA EDV<40 cm/s. 2. Less than 50% stenosis=ICA PSV < 125 cm/s: ratio < 2.0: ICA EDV<40 cm/s. 3. 50 to 69% stenosis=ICA PSV of 125 to 230 cm/s: ration 2.0 ? 4.0: ICA EDV 40-100 cm/s. 4. Greater than 70% stenosis to near occlusion= ICA PSV > 230 cm/s: ratio > 4.0: ICA EDV > 100 cm/s. 5. Near occlusion= ICA PSV velocities may be low or undetectable: variable ratio and ICA EDV. 6. Total occlusion=unable to detect flow.
[2019-05-05] MEDS ORDERED: SENNOSIDES-DOCUSATE SODIUM 1 EACH TAB PO STA (13:29)
[2019-05-05] MEDS ORDERED: HYDROcodone/APAP 10-325MG 1 EACH TAB PO PRN (13:31)
[2019-05-05] MEDS ORDERED: IPRATROPIUM-ALBUTEROL 3 ML NEB INHALATION STA ×2 (14:39→16:12)
[2019-05-05] MEDS ORDERED: MORPHINE SULFATE 4 MG/ML SYRINGE IVP PRN (15:02)
--- NOTE | 2019-05-05 15:45 | XR ---
EXAMINATION TYPE: XR chest 2V DATE OF EXAM: 05/05/2019 COMPARISON: 04/04/2019 HISTORY: Weakness TECHNIQUE: Frontal and lateral views of the chest are obtained. FINDINGS: There is pulmonary hyperinflation and flattening the diaphragms indicative of underlying C OPD. Surgical clip overlies the right upper lung. Persistent density in the right upper lobe relates to a loculated pleural effusion and soft tissue density with narrowing of the right upper lobe segmen kathy pulmonary bronchi and atelectasis. Findings on the basis of posttreatment change as surgical sutu res are seen along the right hilum. Right hemithorax volume loss is redemonstrated. Chronic interstit ial prominence is seen. Bandlike atelectasis at the left lung base. Cardiomediastinal silhouette is s table. Diffuse osseous demineralization. IMPRESSION: New bandlike atelectasis at the left lung base otherwise stable findings in comparison t he prior 04/04/2019
[2019-05-05] MEDS ORDERED: MORPHINE SULFATE ER 30 MG TABLET PO SCH (16:00)
[2019-05-05] MEDS ORDERED: LORazepam 2 MG/ML INJ IV STA (16:12)
[2019-05-05 16:56] VITALS: BP 110/77
--- NOTE | 2019-05-05 17:49 | MR ---
EXAMINATION TYPE: MR brain wo/w con DATE OF EXAM: 05/05/2019 COMPARISON: MRI brain 05/04/2018 HISTORY: Right arm weakness and partial seizure TECHNIQUE: Multiplanar, multisequence images of the brain and brainstem is performed without and with IV contras t, utilizing 7.5 mL intravenous Gadavist . FINDINGS: Diffusion weighted images demonstrate no evidence of a recent infarct or other diffusion ab normality. There is scattered areas of abnormal signal the white matter. No enhancement. Findings most likely in the basis of focal area of remote White microvascular ischemia. Midline structures demonstrate normal morphology. The craniocervical junction appears within normal limits. Partially empty sella turcica. There is an enhancing mass within the left parietal white matter measuring 2.2 x 2.6 x 2.4 cm with ad jacent vasogenic edema and mass effect upon the left frontal horn and left lateral ventricle. There a ppears to be 1 to 2 mm subfalcine herniation from left to right. Adjacent to the solid enhancing lesi on is a rim-enhancing lesion just inferior and lateral measuring 1.7 x 1.5 cm. Findings are also suspicious for a additional ring-enhancing lesion on axial image 47 within the post erior right parieto-occipital junction measuring 1 cm. Changes of chronic sinusitis noted. Orbital structures are symmetric. There are scattered areas of abnormal signal in the white matter most compatible with remote microvas cular ischemia. No abnormality and diffusion imaging to suggest acute ischemia. IMPRESSION: 1. There are two enhancing lesions in the left parietal white matter with significant vasogenic edema and slight subfalcine herniation from left to right measuring 1 to 2 mm. The larger lesion measures 2.6 cm and appears solid enhancing. The smaller lesion measures 1.7 cm and is ring-enhancing. Finding s are felt compatible with metastases. 2. There is an additional 1 cm ring-enhancing lesion at the posterior margin of the right parietal oc cipital junction on image 47 with no significant mass effect. 3. Nonspecific white matter changes most typical remote ischemia.
[2019-05-05] MEDS ORDERED: DEXAMETHASONE SOD PHOSPHATE 4 MG/ML 1 ML VIAL IV STA (18:27)
--- NOTE | 2019-05-05 18:40 | P.CNNES ---
History of Present Illness Consult date: 05/05/19 Requesting physician: Christofer Baker Reason for Consult: Arm weakness and partial seizure History of Present Illness: Patient is a 58-year-old male, who has a diagnosis of stage IV lung cancer in October 2017. He subsequently underwent chemotherapy, and has completed chemotherapy in June 2018. Patient came to the hospital because of focal seizure involving right arm. He states that he suddenly developed twitching, jerking of his right upper limb, that extended to the right facial region. It lasted for 10 minutes. Afterward she developed post ictal Slava's paralysis involving the right arm. Patient was not able to move his right arm at all, for half an hour before he could move his arm. His hand was still weak and he took another couple hours before he could move his hand. Denies any loss of consciousness, or any involvement of the leg. Patient came to the ER for further evaluation. He states he had similar but much smaller episodes about 3-4 in the past since March 2019. Chest x-ray showed new bandlike atelectasis at the left lung base otherwise stable findings in comparison to the prior study. Carotid Doppler showed mild degree of grayscale atheromatous plaquing with no sonographically evident hemodynamically significant stenosis within either visualized carotid artery system. EKG showed normal sinus rhythm with a right superior axis deviation. Incomplete right bundle branch block. MRI of the brain with and without contrast today showed there are 2 enhancing lesions in the left parietal white matter with significant vasogenic edema and slight subfalcine herniation from [id number]-xa-ptbde measuring 1-2 mm. The larger lesion measures 2.6 cm and appears solid enhancing. The smaller lesion measures 1.7 cm and is ring-enhancing. Findings are felt compatible with metastasis. There is an additional 1 cm ring- enhancing lesion at the posterior margin of the right parietal occipital junction on image 47 with no significant mass effect. Nonspecific white matter changes most typical remote ischemia. Patient has history of smoking 2 packs per day for 40 years, quit 2 months ago. Review of Systems As above in detail. Denies any headache, problem with vision, hoarseness or throat dysphagia. Patient does have some shortness of breath from his COPD. Denies abdominal pain nausea vomiting diarrhea. Past Medical History Past Medical History: Cancer, COPD, Pneumonia Additional Past Medical History / Comment(s): 2018 R sided lung cancer tx with chemo/keytruda with last treatment about 6 months ago, home oxygen at 3L/[place] ATC, bilateral lower extremity/pedal edema, chronic chest pain, low back pain, incisional hernia, bronchitis, 5 R sided pneumothorax when 16 yrs old d/t bleb- had surgery, past ruptured gastric ulcer with surgery. History of Any Multi-Drug Resistant Organisms: None Reported Additional Past Surgical History / Comment(s): Bronchoscopy, R apical bleb/resection, EGD, perforated gastric ulcer with surgical repair/patch. Past Anesthesia/Blood Transfusion Reactions: No Reported Reaction Past Psychological History: No Psychological Hx Reported Smoking Status: Former smoker Past Alcohol Use History: Rare Past Drug Use History: None Reported - Past Family History Mother Family Medical History: COPD Additional Family Medical History / Comment(s): Mother is Father Family Medical History: Eye Disorder Additional Family Medical History / Comment(s): Father was blind. He is . Medications and Allergies Home Medications Medication Instructions Recorded Confirmed Type Folic Acid 1 mg PO DAILY 01/05/18 05/05/19 History Prochlorperazine [Compazine] 10 mg PO Q6H PRN 01/05/18 05/05/19 History Dicyclomine HCl 20 mg PO QID PRN 07/28/18 05/05/19 History HYDROcodone/APAP 10-325MG [[place] 1 tab PO Q4HR PRN 07/28/18 05/05/19 History 10-325] Lactulose [Constulose] 20 gm PO Q12HR PRN 07/28/18 05/05/19 History Morphine Sulfate [Morphine Sulfate 10 - 20 mg PO Q6H PRN 07/28/18 05/05/19 History Oral Soln Conc (20 MG/ML)] Morphine Sulfate [Ms Contin] 30 mg PO QAM 07/28/18 05/05/19 History Morphine Sulfate [Ms Contin] 60 mg PO HS 07/28/18 05/05/19 History Sennosides/Docusate Sodium [Dok 2 tab PO BID 07/28/18 05/05/19 History Plus Tablet] predniSONE 10 mg PO DAILY 07/28/18 05/05/19 History Albuterol Inhaler [Ventolin Hfa 1 - 2 puff INHALATION RT-Q6H PRN 07/30/18 05/05/19 Rx Inhaler] #1 inhaler Budesonide [Pulmicort] 1 mg INHALATION RT-BID #60 ml 04/13/19 05/05/19 Rx Nicotine 21Mg/24Hr Patch [Habitrol] 1 patch TRANSDERM DAILY #14 patch 04/13/19 05/05/19 Rx Theophylline 24 Hour [Ulisses-24] 200 mg PO DAILY #30 cap.er.24h 04/13/19 05/05/19 Rx Ipratropium-Albuterol Nebulize 3 ml INHALATION RT-QID 05/05/19 05/05/19 History [Duoneb 0.5 mg-3 mg/3 ml Soln] Allergies Allergy/AdvReac Type Severity Reaction Status Date / Time amoxicillin [From Augmentin] AdvReac Diarrhea Verified 05/05/19 11:59 clavulanic acid AdvReac Diarrhea Verified 05/05/19 11:59 [From Augmentin] ibuprofen [From Motrin] AdvReac Unknown Verified 05/05/19 11:59 Physical Examination - Vital Signs Vital Signs: Vital Signs Temp Pulse Pulse Resp BP BP Pulse Ox 05/05/19 16:36 78 05/05/19 16:26 75 05/05/19 16:00 97.7 F 82 22 110/77 96 05/05/19 15:16 79 05/05/19 15:06 80 05/05/19 12:49 98.3 F 79 26 H 120/75 99 05/05/19 11:53 98.2 F 80 20 114/71 99 05/05/19 10:40 98.2 F 86 20 143/90 99 Intake and Output 05/05/19 05/05/19 05/05/19 06:59 14:59 22:59 Other: # Voids 1 Weight 79.379 kg On examination patient is a middle aged male, in no distress. He is alert and awake fully oriented to time tightness and person. Speech and language functions are normal. Attention and concentration fund of knowledge is adequate. On cranial nerve examination pupils are round and reactive to light, visual [place] are full, extraocular muscles are intact. Face is symmetric, tongue protrudes the midline. Palatal elevation and sensation normal. On muscle strength testing there is mild right upward drift and the strength is normal in arms and legs distally and proximally, including detailed testing of right upper limb. Deep tendon reflexes are 1+ and plantars downgoing. Sensory touch is equal. No ataxia for [id number] testing. Tone and bulk of muscles normal. 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 MRI of the brain revealed metastatic lesion in the left parietal region. There is mass effect and very mild subfalcine herniation. * Metastatic lung cancer, now to the brain. * X tobacco user. Plan: * Patient will be started on Keppra 500 mg twice a day for seizure prophylaxis. If he has any breakthrough seizure, the dose can be further increased. * Discussed with oncologist Dr. Galindo. Patient will be started on oral Decadron, and then follow-up with radiation oncologist as an outpatient. * Patient was informed of [place] state law of no driving unless seizure free for 6 months, climbing ladders, operating dangerous machinery or unsupervised swimming. * Neurologically clear for discharge.
[2019-05-05 19:06] VITALS: PULSE 80; RESP 24; TEMP 97.8
--- NOTE | 2019-05-05 19:59 | P.CONS ---
History of Present Illness - Reason for Consult Consult date: 05/05/19 Neurological symptoms, unilateral weakness Requesting physician: Christofer Baker - Chief Complaint Unilateral weakness, changes in MS - History of Present Illness This is a very nice patient who presented with worsening cough and dyspnea,over 2-3 months period,he had a suspicious CXR,the a CT scan of chest on 11/08/2017 which revealed dense mass like consolidation in RUL,consolidation in RML,3.9cm subcarinal node,small nodules in periphery of LLL,measured 2-5mm,enlarged right axillary nodes. On 11/11/2017,he underwent bronchoscopy,found to have extrinsic compression of R UL,transbronchial biopsy was positive for non small cell lung carcinoma,IHC favoring adenocarcinoma. His FEV1 was 35%. Molecular studies and PDL-1 could not be performed on tissue biopsy due to insuf ficient cells. On 12/27/2017,he started carboplatin/alimta/keytruda. On 02/17/2018,repeat CT scan of chest (after cycle#3) revealed significant improvement in his disease. He completed 6 cycles of carboplatin/alimta/keytruda on 04/12/2018. On 05/20/2018,he started treatment with Almta and Keytruda, he received one cycle although cycle two was held secondary to elevated LFTs and concern of cholelithiasis on the CT scan. On 06/07/2018,repeat CT scan of chest/abdomen/pelvis revealed continuing r esponse to therapy. He did have a follow-up with GI, had MRCPdone on 06/15/2018 which revealed mult iple filling defects in common bile duct consistent with choledolithiasis,it resolved with conservative management and his elevated LFT resolved. He resumed alimta/keyruda on 07/01/2018,had 2 additional cycles,his LFT went back up,treatment was held,repeat U/S of abdomen on 07/28/2018 revealed signi ficant biliary sludge and evidine of cholecyctitis and he was referred to [facility] and had ERCP and extraction of stone and placement of biliary stent,biopsies taken,no malignancy. On 10/31/2018,repeat CT scan of chest/abdomen/pelvis revealed no evidence of progression. On 01/17/2019,repeat CT scan of chest/abdomen/pelvis revealed no evidence of progression. He was admitted to [facility] in March/2019 with acute exacerbation of COPD,had a CT angiogram of chest on 04/04/2019,which was negative for PE and no evidence of progression of his lung cancer His dyspnea has significantly improved since he was discharged from the hospital,His abdominal cramp and pain in RUQ have resolved,he is eating well and gained weight,has his chronic exertional dyspnea,on home O2,his chest pain (from lung ca)is under control,he remains on prednisone which is helping his dyspnea,he has some constipation from narcotics,managed with miralax,he just stopped smoking On April 14 he called with complaints of abnormal jerking and movements of his right arm. He was advised to seek further evaluation in emergency but since recently being discharged he refused. An MRI as outpatient was ordered and set up for him the next day and again he refused. He now presets with increased disorientation and right arm weakness. Concern on arrival was stroke although with his history of stage 4 lung cancer an MRI of the brain is recommended first to rule out metastasis. This has been ordered. patient seen while awaiting bed in emergency, he had returned from his MRI brain. Results were reviewed and identified an enhancing mass in left parietal 2.2x2.6x2.4 with adjacent vasogenic edema mass effect on left frontal horn and left lateral ventricle. Adjacent to solid enhancing lesion is a rim-enhancing lesion just inferior and lateral measuring 1.7x1.5. These are consistent with progressive and metastatic lung cancer to brain. Patient has not been feeling well over the past week, and requiring more pain medication. He is ok to be discharged and will have his see radiation oncology on wednesday or wednesday to as sess for candidacy of stereotactiv radiation. He is alert and oriented on presentation and has regained his strength. Review of Systems A 14 point review of systems assessed and completed and all negative except hpi Past Medical History Past Medical History: Cancer, COPD, Pneumonia Additional Past Medical History / Comment(s): 2018 R sided lung cancer tx with chemo/keytruda with last treatment about 6 months ago, home oxygen at 3L/NC ATC, bilateral lower extremity/pedal edema, chronic chest pain, low back pain, incisional hernia, bronchitis, 5 R sided pneumothorax when 16 yrs old d/t bleb- had surgery, past ruptured gastric ulcer with surgery. History of Any Multi-Drug Resistant Organisms: None Reported Additional Past Surgical History / Comment(s): Bronchoscopy, R apical bleb/resection, EGD, perforated gastric ulcer with surgical repair/patch. Past Anesthesia/Blood Transfusion Reactions: No Reported Reaction Past Psychological History: No Psychological Hx Reported Smoking Status: Former smoker Past Alcohol Use History: Rare Past Drug Use History: None Reported - Past Family History Mother Family Medical History: COPD Additional Family Medical History / Comment(s): Mother is Father Family Medical History: Eye Disorder Additional Family Medical History / Comment(s): Father was blind. He is . Medications and Allergies Home Medications Medication Instructions Recorded Confirmed Type Folic Acid 1 mg PO DAILY 01/05/18 05/05/19 History Prochlorperazine [Compazine] 10 mg PO Q6H PRN 01/05/18 05/05/19 History Dicyclomine HCl 20 mg PO QID PRN 07/28/18 05/05/19 History HYDROcodone/APAP 10-325MG [[place] 1 tab PO Q4HR PRN 07/28/18 05/05/19 History 10-325] Lactulose [Constulose] 20 gm PO Q12HR PRN 07/28/18 05/05/19 History Morphine Sulfate [Morphine Sulfate 10 - 20 mg PO Q6H PRN 07/28/18 05/05/19 History Oral Soln Conc (20 MG/ML)] Morphine Sulfate [Ms Contin] 30 mg PO QAM 07/28/18 05/05/19 History Morphine Sulfate [Ms Contin] 60 mg PO HS 07/28/18 05/05/19 History Sennosides/Docusate Sodium [Dok 2 tab PO BID 07/28/18 05/05/19 History Plus Tablet] predniSONE 10 mg PO DAILY 07/28/18 05/05/19 History Albuterol Inhaler [Ventolin Hfa 1 - 2 puff INHALATION RT-Q6H PRN 07/30/18 05/05/19 Rx Inhaler] #1 inhaler Budesonide [Pulmicort] 1 mg INHALATION RT-BID #60 ml 04/13/19 05/05/19 Rx Nicotine 21Mg/24Hr Patch [Habitrol] 1 patch TRANSDERM DAILY #14 patch 04/13/19 05/05/19 Rx Theophylline 24 Hour [Ulisses-24] 200 mg PO DAILY #30 cap.er.24h 04/13/19 05/05/19 Rx Ipratropium-Albuterol Nebulize 3 ml INHALATION RT-QID 05/05/19 05/05/19 History [Duoneb 0.5 mg-3 mg/3 ml Soln] Allergies Allergy/AdvReac Type Severity Reaction Status Date / Time amoxicillin [From Augmentin] AdvReac Diarrhea Verified 05/05/19 11:59 clavulanic acid AdvReac Diarrhea Verified 05/05/19 11:59 [From Augmentin] ibuprofen [From Motrin] AdvReac Unknown Verified 05/05/19 11:59 Physical Exam Vitals: Vital Signs Temp Pulse Pulse Resp BP BP Pulse Ox 05/05/19 12:49 98.3 F 79 26 H 120/75 99 05/05/19 11:53 98.2 F 80 20 114/71 99 05/05/19 10:40 98.2 F 86 20 143/90 99 Intake and Output 05/04/19 05/05/19 05/05/19 22:59 06:59 14:59 Other: Weight 79.379 kg - Constitutional General appearance: cooperative, no acute distress - EENT Eyes: poor dentition, normal appearance ENT: NA/AT, normal oropharynx - Neck Neck: normal ROM - Respiratory Respiratory: bilateral: diminished (throughout, no increased effort) - Cardiovascular Rhythm: regular Heart sounds: normal: S1, S2 - Gastrointestinal Large midline abdominal hernia noted General gastrointestinal: normal bowel sounds, soft - Integumentary Integumentary: pale - Neurologic non focal on exam - Musculoskeletal Musculoskeletal: gait normal, strength equal bilaterally - Psychiatric Psychiatric: A&O x's 3, appropriate affect, intact judgment & insight Results CBC & Chem 7: 05/05/19 11:04 05/05/19 11:04 Labs: Abnormal Lab Results - Last 24 Hours (Table) 05/05/19 05/05/19 Range/Units 11:04 11:04 RBC 4.15 L (4.30-5.90) m/uL MCV 101.1 H (80.0-100.0) fL Carbon Dioxide 31 H (22-30) mmol/L Creatinine 0.58 L (0.66-1.25) mg/dL MRI - head: report reviewed Assessment and Plan Plan: Assessment and Recommendations: New Onset Mental Status/Neurological Changes Right arm unilateral weakness: - First occurrence on Apr 14 post recent hospital stay, patient was set up for MRI Brain on 04/15 and refused. Now presenting more severe symptoms, concern for CVA versus Metastatic Cancer Squamous Cell Carcinoma of the Lung: Stage IV - Most recent Diagnostics revealed no recurrent or new disease: 04/04/19 - Completd treatment with chemotherapy and immunotherapy in June 2018 Neoplastic Related Chronic Pain: - He continues on MS contin 30mg po TID, [place] 10/325 q4 hours and Morphine Liquid IR 20mg q3 prn at home - He is not opioid naive and has been maintained on this dose for quite some time, will continue while inpatient, with exception of IV morphine 4mg for breakthrough. Plan: Patient's MRI of the brain reviewed: Progressive Lung cancer with distant metastatic disease to brain, details in HPI. Start Dexamethasone 4mg po q8, with PPI. Will also refill his liquid morphine today. Patient is ok from oncology standpoint for discharge, although will need to be seen wednesday or wednesday by radiation oncology for possible SRS versus WBR. Physician Attest: I have completed the full history and physical and developed the above assessment and plan, I agree with dictation above by Moira Feldman NP dictated as a scribe.
[2019-05-05 20:00] LABS: Folate, Serum >24.0 ng/mL
--- NOTE | 2019-05-05 20:45 | HP ---
HISTORY AND PHYSICAL This is a combined history and physical and discharge summary. CHIEF COMPLAINT: Seizure disorder. HISTORY OF PRESENT ILLNESS: This 58-year-old gentleman with a past medical history of multiple medical problems, including right lung adenocarcinoma, history of COPD, history of pneumonia, history of chronic hypoxic respiratory failure, being followed by Dr. Thompson and Hematology/ Oncology in the outpatient setting, was complaining of shaking of the right arm at night that lasted about 10 minutes. Subsequently the patient had weakness that lasted for about 3 hours. The patient came to [facility]. Patient also had a previous episode similar to that. An MRI scan was done which showed evidence of enhancing lesions in the left parietal lobe with vasogenic edema, possibly indicating metastasis. The patient was admitted for further evaluation and treatment. Neurology evaluation was ordered. Neurology, Dr. Jung evaluated the patient and recommended Keppra as well as Decadron. Dr. Galindo has recommended that the patient be discharged and follow up in the outpatient setting. There is no history of any fever, rigors or chills at this time. PAST MEDICAL HISTORY: History of lung cancer, history of COPD, history of pneumonia, history of chronic hypoxic respiratory failure. HOME MEDICATIONS: 1. Prednisone 10 mg p.o. daily. 2. Theophylline 200 mg p.o. daily. 3. Dok 2 tablets p.o. daily. 4. Compazine 10 mg q.6 p.r.n. 5. Habitrol 14. 6. MS Contin 60 mg at bedtime and 30 mg each morning. 7. Morphine sulfate 10 to 20 mg q.6 p.r.n. 8. Lactulose 20 grams p.o. b.i.d. p.r.n. 9. DuoNeb q.i.d. and p.r.n. 10.[place] 10 mg q.4 p.r.n. 11.Folic acid 1 mg p.o. daily. 12.Dicyclomine 20 mg daily q.i.d. p.r.n. 13.Pulmicort 1 mg b.i.d. 14.Ventolin 1-2 puffs q.6 p.r.n. ALLERGIES: AMOXICILLIN, CLAVULANIC ACID, IBUPROFEN. FAMILY HISTORY: History of COPD. SOCIAL HISTORY: Previous history of smoking. No current smoking or alcohol intake. REVIEW OF SYSTEMS: ENT: No diminished hearing. No diminished vision. CARDIOVASCULAR SYSTEM: No angina, palpitations. RESPIRATORY SYSTEM: As mentioned earlier. GI: As mentioned earlier. : No dysuria or retention. NERVOUS SYSTEM: As mentioned earlier. ALLERGY/IMMUNOLOGY: No asthma, hayfever. MUSCULOSKELETAL: As mentioned earlier. HEMATOLOGY/ONCOLOGY: As mentioned earlier. ENDOCRINE: No history of diabetes, hypothyroidism. CONSTITUTIONAL: As mentioned earlier. DERMATOLOGY: Negative. RHEUMATOLOGY: Negative. PSYCHIATRY: As mentioned earlier. PHYSICAL EXAMINATION: Alert and oriented x3. Pulse is 80, blood pressure 110/77, respiration 24, temperature 97.8, pulse ox 98% on 3 L. HEENT: Conjunctivae normal. NECK: No jugular venous distention. CARDIOVASCULAR SYSTEM: S1, S2 muffled. RESPIRATORY SYSTEM: Breath sounds diminished at the bases. A few scattered rhonchi and crackles. ABDOMEN: Soft, non-tender. Significant abdominal hernia in the anterior upper part of the abdomen present, incisional. LEGS: No edema. No swelling. NERVOUS SYSTEM: Higher functions as mentioned earlier. Cranial nerves II through XII grossly intact. No focal motor or sensory deficit. No signs of cerebellar dysfunction. SKIN: No ulcer, rash, bleeding. JOINTS: No active deforming arthropathy. LYMPHATICS: No lymph node palpable in neck, axillae or groin. LAB INVESTIGATIONS: WBC 8.2, hemoglobin 13.3. Sodium 140, potassium 4. ASSESSMENT: 1. Focal motor seizures on the right side caused by left parietal enhancing lesions, possibly multiple metastases. 2. History of right lung adenocarcinoma, status post chemotherapy and immunotherapy. 3. Chronic obstructive pulmonary disease. 4. History of recent pneumonia. 5. Incisional abdominal hernia. 6. History of nephrolithiasis. 7. History of right apical bleb resection. 8. History of noncompliance. 9. History of pneumothorax. 10.History of degenerative joint disease. 11.History of ruptured gastric ulcer and surgery. 12.History of nicotine dependence. 13.Increased mean corpuscular volume. RECOMMENDATIONS AND DISCUSSION: In this 58-year-old gentleman who presented with multiple complex medical issues, at this time I recommend to continue current medications, continue with the monitoring, symptomatic treatment. As mentioned earlier, the MRI scan showed the findings as above. I recommend the patient be started on Keppra as well as Decadron. Closely follow with primary physician. Otherwise, see orders for further details. Further recommendations to follow. Prognosis guarded. MMODL / IJN: [id number] /
[2019-05-05] MEDS ORDERED: levETIRAcetam 500 MG TAB PO SCH (21:00)
--- NOTE | 2019-05-06 08:05 | ECHOF ---
Referral Reason:Thrombus MEASUREMENTS -------- HEIGHT: 185.4 cm WEIGHT: 79.4 kg BP: 120/60 RVIDd: 2.7 cm (< 3.3) IVSd: 1.2 cm (0.6 - 1.1) LVIDd: 3.8 cm (3.9 - 5.3) LVPWd: 1.2 cm (0.6 - 1.1) IVSs: 1.7 cm LVIDs: 3.0 cm LVPWs: 1.4 cm LA Diam: 3.3 cm (2.7 - 3.8) Ao Diam: 3.2 cm (2.0 - 3.7) MV EXCURSION: 14.317 mm (> 18.000) MV EF SLOPE: 66 mm/s (70 - 150) EPSS: 1.1 cm MV E Vlad: 0.72 m/s MV DecT: 298 ms MV A Vlad: 0.93 m/s MV E/A Ratio: 0.78 RAP: 5.00 mmHg RVSP: 27.32 mmHg FINDINGS -------- Sinus rhythm. This was a technically adequate study. The left ventricular size is normal. There is borderline concentric left ventricular hypertrophy. Overall left ventricular systolic function is normal with, an EF between 60 - 65 %. The right ventricle is normal in size. The left atrial size is normal. The right atrium is normal in size. Interatrial and interventricular septum intact. The aortic valve is trileaflet and appears structurally normal. The mitral valve is normal. Mild tricuspid regurgitation present. Right ventricular systolic pressure is normal at < 35 mmHg. The pulmonic valve was not well visualized. The aortic root size is normal. Normal inferior vena cava with normal inspiratory collapse consistent with estimated right atrial pre ssure of 5 mmHg. There is no pericardial effusion. CONCLUSIONS -------- 1. Sinus rhythm. 2. This was a technically adequate study. 3. The left ventricular size is normal. 4. There is borderline concentric left ventricular hypertrophy. 5. Overall left ventricular systolic function is normal with, an EF between 60 - 65 %. 6. The right ventricle is normal in size. 7. The left atrial size is normal. 8. The right atrium is normal in size. 9. Interatrial and interventricular septum intact. 10. The aortic valve is trileaflet and appears structurally normal. 11. The mitral valve is normal. 12. Mild tricuspid regurgitation present. 13. Right ventricular systolic pressure is normal at < 35 mmHg. 14. The pulmonic valve was not well visualized. 15. The aortic root size is normal. 16. Normal inferior vena cava with normal inspiratory collapse consistent with estimated right atrial pressure of 5 mmHg. 17. There is no pericardial effusion. GAS AND OIL CHECKER: Emperatriz Pepe RDCS
== END 2019-05-05 19:28 | disposition home or self-care (01) ==
LOC: EC 10:38 → 3SCARD 11:50
PROVIDERS: ADMIT Hospitalist; ATTEND Hospitalist
DX: G40.89 Other seizures (principal); C79.31 Secondary malignant neoplasm of brain; C34.90 Malignant neoplasm of unspecified part of unspecified bronchus or lung; G89.3 Neoplasm related pain (acute) (chronic); J96.11 Chronic respiratory failure with hypoxia; Z99.81 Dependence on supplemental oxygen; R60.0 Localized edema; R07.9 Chest pain, unspecified; M54.5 Low back pain; Z87.891 Personal history of nicotine dependence; I07.1 Rheumatic tricuspid insufficiency; Z92.25 Personal history of immunosuppression therapy; Z92.21 Personal history of antineoplastic chemotherapy; Z87.11 Personal history of peptic ulcer disease; Z79.899 Other long term (current) drug therapy; Z79.891 Long term (current) use of opiate analgesic; Z91.19 Patient's noncompliance with other medical treatment and regimen; Z79.52 Long term (current) use of systemic steroids; Z88.0 Allergy status to penicillin; Z88.1 Allergy status to other antibiotic agents; Z88.6 Allergy status to analgesic agent; Z82.5 Family history of asthma and other chronic lower respiratory diseases; Z82.1 Family history of blindness and visual loss
CPT/HCPCS: 96376; 96374; 96375; 99285; 36415; 93005; 93306; 80053; 82607; 82746; 83735; 85025; 71046; 93880; 70553; G0378; J2060; J2270; J1100; A9585

== ENCOUNTER → 2019-05-15 | Outpatient (CLI) | payer OTHER ==
--- NOTE | 2019-05-15 14:13 | CT ---
EXAMINATION TYPE: CT abdomen pelvis w con DATE OF EXAM: 05/15/2019 COMPARISON: 01/17/2019 CT CHEST ABDOMEN PELVIS and CT chest dated 04/04/2019 HISTORY: Lung cancer, observation for metastasis CT DLP: 904.8 mGycm Automated exposure control for dose reduction was used. TECHNIQUE: Helical acquisition of images was performed from the lung bases through the pelvis. CONTRAST: Performed with Oral Contrast and with IV Contrast, patient injected with 100 mL of Isovue 300. FINDINGS: LUNG BASES: Scarring is seen at the right lung base. There a trace pleural effusion is seen on the ri ght. Rightward deviation of the mediastinum secondary to volume loss of the right hemithorax. Backgro und centrilobular emphysema. LIVER/GB: There is hepatomegaly. Hepatic parenchyma is diffusely hypoattenuated in comparison to that of the spleen, most commonly seen in hepatic steatosis. This finding limits evaluation for hepatic m asses. No gross evidence of hepatic mass is seen. No intrahepatic biliary ductal dilatation. No miranda lithiasis on CT. Extrahepatic biliary ductal dilatation 1.3 cm is seen. PANCREAS: Main pancreatic duct is within normal limits although appears visually slightly prominent t his measures 2 mm in pancreatic body. SPLEEN: No significant abnormality is seen. ADRENALS: No new nodule or thickening. KIDNEYS: Nonobstructing 5 mm right lower pole renal calculus and 3 mm right midpole renal calculus ar e seen with suspected punctate left lower pole renal calculus measuring approximately 2 mm. No hydron ephrosis of either kidney. The kidneys enhance and excrete symmetrically other than punctate to small to accurately characterize left upper pole 4 mm hypoattenuated renal lesion marked on delayed series 5 image 30.. REPRODUCTIVE ORGANS: Prostate gland is heterogenous containing central zone calcifications. URINARY BLADDER: There are 3 calculi within the urinary bladder near the right ureterovesicular junc tion measuring up to 5 mm. ADENOPATHY: No greater than 1 cm short axis lymph node in the abdomen or pelvis. OSSEOUS STRUCTURES: Mild multilevel degenerative change of the spine. Grade 1 anterolisthesis of L4 on L5 secondary to hypertrophic facet change. New compression deformities are seen at L4, L1, and T12 . At L4 there is approximately 20% vertebral body height loss and no retropulsion seen. At L1 and T12 there is approximately 10% vertebral body height loss without retropulsion. BOWEL: The sigmoid colon is markedly redundant. There is severe degree colonic fecal stasis. Gaseous distention of the large bowel is seen without venkata dilatation. There is diastases recti and a ventr al abdominal hernia defect with a wide neck measuring greater than 5 cm. This hernia defect contains not only mesenteric fat but loops of small bowel and colon. OTHER: Moderate atherosclerosis of the abdominal aorta and its branches. Trace amount of free fluid i s seen in the pelvis. IMPRESSION: 1. NEW COMPRESSION DEFORMITIES AT T12, L1, AND L4 IN COMPARISON TO THE PRIOR CT OF 01/17/2019 AND 03/25. 2. NO NEW EVIDENCE OF METASTASIS IN THE ABDOMEN OR PELVIS. SMALL AMOUNT OF FREE FLUID IN THE PELVIS I S NEW, OF UNDETERMINED ETIOLOGY. 3. REDEMONSTRATION OF RECTUS DIASTASES AND A VENTRAL ABDOMINAL HERNIA CONTAINING BOTH LARGE AND SMALL BOWEL. ENSURE REDUCIBILITY CLINICALLY. 4. NONOBSTRUCTING BILATERAL RENAL CALCULI. 5. SIMILAR DILATATION OF THE COMMON BILE DUCT MEASURING 1.3 CM IN COMPARISON TO THE PRIOR.
== END | disposition home or self-care (01) ==
LOC: RADCTMAIN 11:18
PROVIDERS: ATTEND Internal Medicine Hematology & Oncology
DX: K43.9 Ventral hernia without obstruction or gangrene (principal); M62.08 Separation of muscle (nontraumatic), other site; N20.0 Calculus of kidney; K83.8 Other specified diseases of biliary tract; C34.11 Malignant neoplasm of upper lobe, right bronchus or lung
CPT/HCPCS: 74177; Q9967 ×2

== ENCOUNTER → 2019-05-17 | Outpatient (CLI) | payer OTHER ==
--- NOTE | 2019-05-17 12:24 | MR ---
EXAMINATION TYPE: MR lumbar spine wo/w con DATE OF EXAM: 05/17/2019 COMPARISON: CT dated 05/15/2019 HISTORY: Lung ca, back pain TECHNIQUE: Multiplanar, multisequence images of the lumbar spine were acquired utilizing [address] gadolinium contrast. FINDINGS: Compression deformities are redemonstrated at T12, L1, and L4 as seen on the recent CT abdo men pelvis of 05/15/2019. There is approximately 10% vertebral body height loss at L1-L2 and 20% at L4 . Superior endplates at these levels are T1 hypointense with very subtle linear T2 hyperintensity and minimal enhancement. Abnormal bone marrow signal however is limited to the endplates and does not in volve the entirety of the vertebral bodies. Grade 1 anterolisthesis of L4 on L5. Multilevel disc jony ccation. There is approximately 1 mm retropulsion of the superior endplate of T12 into the spinal can al without significant spinal canal stenosis. No significant retropulsion of L1 nor L4. L1-L2: Disc desiccation is seen without focal herniation. No neural foraminal narrowing or spinal can al stenosis. L2-L3: Broad-based disc bulge is seen with facet arthropathy and minimal ligamentum flavum buckling c ontributing to mild bilateral neural foraminal narrowing without spinal canal stenosis. L3-L4: There is ligamentum flavum buckling and a broad-based disc bulge as well as hypertrophic facet change contributing to mild to moderate spinal canal stenosis and mild bilateral neural foraminal na rrowing. L4-L5: There is a central annular tear, broad-based disc bulge, disc uncovering, facet arthropathy an d ligamentum flavum buckling creating moderate spinal canal stenosis and mild bilateral neural forami nal narrowing. L5-S1: There is a small left paracentral disc herniation and annular tear superimposed on a broad-bas ed disc bulge. Facet arthropathy is also seen contributing to mild bilateral neural foraminal narrowi ng. Mild overall spinal canal stenosis. IMPRESSION: 1. Compression deformities appear subacute of T12, L1, and L4 with only very minimal bone marrow leigh a the superior endplates and mild enhancement. Abnormal marrow changes are limited to the superior en dplates at each level and therefore are favored to represent magic or osteoporotic compression deform ities rather than metastasis. Remainder of the bone marrow signal throughout the lumbar spine is with in normal limits. 2. Grade 1 anterolisthesis of L4 on L5, likely from hypertrophic facet change. 3. Mild to moderate spinal canal stenosis at L3-L4, moderate spinal canal stenosis at L4-L5 and mild spinal canal stenosis at L5-S1 secondary to disc bulges, facet arthropathy and ligamentum flavum marmolejo ling. 4. Small left paracentral disc herniation at L5-S1. Central annular tear is also seen at L4-L5.
== END | disposition home or self-care (01) ==
LOC: RADMRIMAIN 10:32
PROVIDERS: ATTEND Internal Medicine Hematology & Oncology
DX: R60.9 Edema, unspecified (principal); M43.16 Spondylolisthesis, lumbar region; M48.061 Spinal stenosis, lumbar region without neurogenic claudication; M51.26 Other intervertebral disc displacement, lumbar region; C34.11 Malignant neoplasm of upper lobe, right bronchus or lung
CPT/HCPCS: 72158; A9585

== ENCOUNTER → 2019-06-27 | Outpatient (CLI) | payer OTHER ==
--- NOTE | 2019-06-27 15:38 | US ---
EXAMINATION TYPE: US venous doppler duplex LE RT DATE OF EXAM: 06/27/2019 3:08 PM COMPARISON: Bilateral lower extremity venous ultrasound January 03, 2018 CLINICAL HISTORY: R22.41 swelling of rt lower limb. Right leg swelling. No hx of DVT. SIDE PERFORMED: Right TECHNIQUE: The lower extremity deep venous system is examined utilizing real time linear array sonog geovanna with graded compression, doppler sonography and color-flow sonography. VESSELS IMAGED: External Iliac Vein (EIV) Common Femoral Vein Deep Femoral Vein Greater Saphenous Vein * Femoral Vein Popliteal Vein Small Saphenous Vein * Proximal Calf Veins (* superficial vessels) Right Leg: Negative for DVT Grayscale, color doppler, spectral doppler imaging performed of the deep veins of the right lower ext remity. There is normal flow, compressibility, vascular waveforms. IMPRESSION: No ultrasound evidence for acute DVT in the right lower extremity on current study.
== END | disposition home or self-care (01) ==
LOC: RADUSMAIN 14:35
PROVIDERS: ATTEND Internal Medicine Hematology & Oncology
DX: M79.661 Pain in right lower leg (principal)

== ENCOUNTER → 2019-07-18 | Outpatient (CLI) | payer OTHER ==
[2019-07-18 16:11] LABS: African American GFR (CKD) >90 (>60 ml/min/1.73 sqM); Blood Urea Nitrogen 9 mg/dL (9-20); Non-African American GFR(CKD) >90 (>60 ml/min/1.73 sqM)
--- NOTE | 2019-07-19 06:27 | CT ---
EXAMINATION TYPE: CT ChestAbdPelvis w con DATE OF EXAM: 07/18/2019 COMPARISON: CT abdomen and pelvis May 15, 2019. CTA chest April 04, 2019 and older studies. PET/ CT December 11, 2017 HISTORY: Follow up lung cancer. CT DLP: 1648.3 mGycm. Automated Exposure Control for Dose Reduction was Utilized. CONTRAST: CT scan of the thorax, abdomen and pelvis is performed with IV Contrast, patient injected with 100 mL of Isovue 300. FINDINGS: LUNGS: Background fairly moderate diffuse underlying some central calcifications emphysematous change s redemonstrated. Posttreatment change of the right upper lung with volume loss and suprahilar surgic al sutures and varghese is redemonstrated. There is pleural thickening and chronic masslike consolidat ion towards the right lung apex redemonstrated. There is additional mild to moderate bibasilar linear scarring and/or atelectasis. Tiny right pleural collection noted. No definitive new suspicious nodul es or masses. MEDIASTINUM: There are no new greater than 1 cm hilar or mediastinal lymph nodes. No cardiomegaly o r pericardial effusion is seen. OTHER: Small degree of bilateral subareolar gynecomastia is redemonstrated. LIVER/GB: Liver remains diffusely low in density suggesting possible mild diffuse fatty infiltration. Mild extrahepatic biliary dilatation up to 11 mm coronal image 39 not significantly changed from daniele or studies. PANCREAS: No significant abnormality is seen. SPLEEN: No significant abnormality is seen. ADRENALS: No significant abnormality is seen. KIDNEYS: Stable nonobstructing 5 mm calculus right kidney lower pole level coronal image 51. Stable s uspected 2 mm lower pole calculus left kidney coronal image 63. Redemonstration of small intraluminal calculi dependently right aspect of bladder. BOWEL: Oral contrast does not reach the level of terminal ileum making evaluation distal bowel slight ly suboptimal. No suspicious small or large bowel dilatation seen currently. GENITAL ORGANS: Some central calcifications seen in normal size prostate. LYMPH NODES: No greater than 1cm abdominal or pelvic lymph nodes are appreciated. OSSEOUS STRUCTURES: Osseous structures are demineralized. Grade 1 anterolisthesis of L4 on L5. Mild h eight loss along superior L4 endplate. New mild to moderate height loss with sclerosis along the supe rior L2 endplate. Mild height loss superior L1 endplate stable. Mild to moderate height loss superior T12 endplate more prominent from prior. Mild to moderate compression type fracture deformity involvi ng T9 vertebra. Slight scoliotic curvature upper thoracic spine redemonstrated. OTHER: Mild to moderate calcified plaque of the abdominal aorta extends into branch vessels. Redemons tration of rectus diastases containing nondilated small and large bowel loops similar to most recent prior CT. IMPRESSION: 1. No new suspicious mass or adenopathy to suggest neoplastic recurrence. 2. Demineralization with new but suspected chronic and subacute compression type fractures throughout the thoracolumbar spine as all visualized fractures have sclerotic appearance, some new from most re cent studies however.
== END | disposition home or self-care (01) ==
LOC: RADCTMAIN 14:43
PROVIDERS: ATTEND Internal Medicine Hematology & Oncology
DX: C34.11 Malignant neoplasm of upper lobe, right bronchus or lung (principal); Z03.89 Encounter for observation for other suspected diseases and conditions ruled out
CPT/HCPCS: 87798; 87529; 82565; 84520; 71260; 74177; 36415; Q9967; 87070; 87102; 87116; 87205; 87206; 87252; 87496; 87498; 87502; 87634; 89050

== ENCOUNTER 2019-07-28 17:11 | Inpatient (IN) | payer OTHER ==
[2019-07-28] MEDS ORDERED: ALBUTEROL NEB (CONC) 2.5 MG/0.5 ML INHALATION STA (17:29)
[2019-07-28] MEDS ORDERED: IPRATROPIUM-ALBUTEROL 3 ML NEB INHALATION STA (17:29)
[2019-07-28] MEDS ORDERED: methylPREDNISolone SOD SUCCI 125 MG/2 ML VIAL IV STA (17:29)
[2019-07-28] MEDS ORDERED: HYDROmorphone 1 MG/ML 1 ML SYRINGE IVP STA (17:30)
[2019-07-28] MEDS ORDERED: ONDANSETRON 4 MG/2 ML VIAL IVP STA (17:30)
[2019-07-28 17:52] LABS: Basophils # (A) 0.1 k/uL (0-0.2); Basophils % (A) 1 %; Eosinophils # (A) 0.3 k/uL (0-0.7); Eosinophils % (A) 4 %; HCT 40.4 % (39.0-53.0); HGB 12.3 gm/dL (13.0-17.5); Hypochromasia Slight; Lymphocytes # (A) 1.3 k/uL (1.0-4.8); Lymphocytes % (A) 16 %; MCH 30.7 pg (25.0-35.0); MCHC 30.5 g/dL (31.0-37.0); MCV 100.7 fL (80.0-100.0); Mean Platelet Volume 7.6; Monocytes # (A) 0.8 k/uL (0-1.0); Monocytes % (A) 10 %; Neutrophils # (A) 5.4 k/uL (1.3-7.7); Neutrophils % (A) 67 %; Platelet Count 287 k/uL (150-450); RBC 4.02 m/uL (4.30-5.90); RDW 13.4 % (11.5-15.5); WBC 8.1 k/uL (3.8-10.6)
--- NOTE | 2019-07-28 17:54 | ED ---
SOB HPI - General Chief Complaint: Shortness of Breath Stated Complaint: SOB Time Seen by Provider: 07/28/19 17:17 Source: EMS Mode of arrival: EMS Limitations: no limitations - History of Present Illness Initial Comments: 59-year-old male patient with past medical history significant for lung cancer with metastases to the brain, oxygen-dependent COPD, wears 2.5 L at home. He presents to the emergency department today for evaluation of lower extremity edema, shortness of breath, chest pain. Patient states that he has had increased swelling to the lower extremities for the last month. States he has been seeing his doctor, does take Lasix. States that today after eating lunch she developed increased shortness of breath. States he does have some chest pain but this is chronic for him and he has had no changes. Patient states he did do a breathing treatment prior to coming in which did seem to help his symptoms. Denies any cough or sputum production. Denies any weakness or dizziness. Patient denies any recent rash, abdominal pain, nausea, vomiting, diarrhea, constipation, back pain, hematuria, dysuria, urinary urgency, urinary frequency, headache, visual changes, or any other complaints. - Related Data Home Medications Medication Instructions Recorded Confirmed Folic Acid 1 mg PO DAILY 01/05/18 07/28/19 HYDROcodone/APAP 10-325MG [[place] 1 tab PO Q4HR PRN 07/28/18 07/28/19 10-325] Morphine Sulfate [Morphine Sulfate 10 - 20 mg PO Q6H PRN 07/28/18 07/28/19 Oral Soln Conc (20 MG/ML)] Ipratropium-Albuterol Nebulize 3 ml INHALATION RT-QID 05/05/19 07/28/19 [Duoneb 0.5 mg-3 mg/3 ml Soln] Albuterol Sulfate [Proair Hfa] 2 puff INHALATION RT-QID PRN 07/28/19 07/28/19 Ipratropium [place] [Atrovent Hfa] 2 puff INHALATION RT-QID 07/28/19 07/28/19 Morphine Sulfate ER [Ms Contin] 60 mg PO Q8H PRN 07/28/19 07/28/19 Previous Rx's Medication Instructions Recorded Nicotine 21Mg/24Hr Patch [Habitrol] 1 patch TRANSDERM DAILY #14 patch 04/13/19 Allergies Allergy/AdvReac Type Severity Reaction Status Date / Time amoxicillin [From Augmentin] AdvReac Diarrhea Verified 07/28/19 21:43 clavulanic acid AdvReac Diarrhea Verified 07/28/19 21:43 [From Augmentin] ibuprofen [From Motrin] AdvReac Unknown Verified 07/28/19 21:43 Review of Systems ROS Statement: Those systems with pertinent positive or pertinent negative responses have been documented in the HPI. ROS Other: All systems not noted in ROS Statement are negative. Past Medical History Past Medical History: Cancer, COPD, Pneumonia Additional Past Medical History / Comment(s): 2018 R sided lung cancer tx with chemo/keytruda with last treatment about 6 months ago, home oxygen at 3L/NC ATC, bilateral lower extremity/pedal edema, chronic chest pain, low back pain, incisional hernia, bronchitis, 5 R sided pneumothorax when 16 yrs old d/t bleb- had surgery, past ruptured gastric ulcer with surgery. History of Any Multi-Drug Resistant Organisms: None Reported Additional Past Surgical History / Comment(s): Bronchoscopy, R apical bleb/resection, EGD, perforated gastric ulcer with surgical repair/patch. Past Anesthesia/Blood Transfusion Reactions: No Reported Reaction Past Psychological History: No Psychological Hx Reported Smoking Status: Former smoker Past Alcohol Use History: None Reported Past Drug Use History: None Reported - Past Family History Mother Family Medical History: COPD Additional Family Medical History / Comment(s): Mother is Father Family Medical History: Eye Disorder Additional Family Medical History / Comment(s): Father was blind. He is . General Exam Limitations: no limitations General appearance: alert, in no apparent distress, other (This is a well- developed, well-nourished adult male patient in no acute distress. Vital signs upon presentation are temperature 99.7F, pulse 98, respirations 21, blood pressure 136/35, pulse ox 99% on room air.) Eye exam: Present: normal appearance, PERRL, EOMI. Absent: scleral icterus, conjunctival injection, periorbital swelling ENT exam: Present: normal exam, normal oropharynx, mucous membranes moist Respiratory exam: Present: wheezes (Expiratory wheezing noted in the posterior lung [place]). Absent: normal lung sounds bilaterally, respiratory distress, r ales, rhonchi, stridor Cardiovascular Exam: Present: regular rate, normal rhythm, normal heart sounds. Absent: systolic murmur, diastolic murmur, rubs, gallop, clicks GI/Abdominal exam: Present: soft, normal bowel sounds. Absent: distended, tenderness, guarding, rebound, rigid Neurological exam: Present: alert, oriented X3, CN II-XII intact Psychiatric exam: Present: normal affect, normal mood Skin exam: Present: warm, dry, intact, normal color. Absent: rash Course Vital Signs 07/28/19 07/28/19 07/28/19 17:15 17:20 17:30 Temperature 99.7 F H Pulse Rate 98 88 Respiratory 21 21 17 Rate Blood Pressure 136/35 121/82 Blood Pressure [Left Arm] O2 Sat by Pulse 99 100 Oximetry 07/28/19 07/28/19 07/28/19 18:00 18:04 18:14 Temperature Pulse Rate 90 96 91 Respiratory 18 18 18 Rate Blood Pressure 121/70 Blood Pressure [Left Arm] O2 Sat by Pulse 100 Oximetry 07/28/19 07/28/19 07/28/19 18:30 18:49 19:49 Temperature 98.1 F Pulse Rate 95 90 Respiratory 15 18 Rate Blood Pressure 117/72 Blood Pressure [Left Arm] O2 Sat by Pulse 100 98 Oximetry 07/28/19 20:23 Temperature Pulse Rate Respiratory 20 Rate Blood Pressure Blood Pressure 136/80 [Left Arm] O2 Sat by Pulse 96 Oximetry Medical Decision Making - Medical Decision Making 59-year-old male patient presents to the emergency department today for evaluation of increased lower extremity edema, shortness of breath. Physical examination did reveal edema to the bilateral lower extremities which is nonpitting. Labs reviewed and revealed normal white blood cell count. Negative BNP. Negative troponin. Chest x-ray showed mild infiltrate at the right costophrenic angle which is unchanged from x-ray in April. Patient does have a history of COPD and does wear oxygen at home. He is had increase his oxygen over the last couple of weeks. He'll be admitted to the hospital for COPD exacerbation. We will consult pulmonology. Patient is agreeable this plan. - Lab Data Result diagrams: 07/28/19 17:39 07/28/19 17:39 Lab Results 07/28/19 07/28/19 07/28/19 Range/Units 17:39 17:39 17:39 WBC 8.1 (3.8-10.6) k/uL RBC 4.02 L (4.30-5.90) m/uL Hgb 12.3 L (13.0-17.5) gm/dL Hct 40.4 (39.0-53.0) % MCV 100.7 H (80.0-100.0) fL MCH 30.7 (25.0-35.0) pg MCHC 30.5 L (31.0-37.0) g/dL RDW 13.4 (11.5-15.5) % Plt Count 287 (150-450) k/uL Neutrophils % 67 % Lymphocytes % 16 % Monocytes % 10 % Eosinophils % 4 % Basophils % 1 % Neutrophils # 5.4 (1.3-7.7) k/uL Lymphocytes # 1.3 (1.0-4.8) k/uL Monocytes # 0.8 (0-1.0) k/uL Eosinophils # 0.3 (0-0.7) k/uL Basophils # 0.1 (0-0.2) k/uL Hypochromasia Slight PT 10.1 (9.0-12.0) sec INR 1.0 (<1.2) APTT 23.8 (22.0-30.0) sec Sodium 136 L (137-145) mmol/L Potassium 4.1 (3.5-5.1) mmol/L Chloride 99 (98-107) mmol/L Carbon Dioxide 31 H (22-30) mmol/L Anion Gap 6 mmol/L BUN 9 (9-20) mg/dL Creatinine 0.39 L (0.66-1.25) mg/dL Est GFR (CKD-EPI)AfAm >90 (>60 ml/min/1.73 sqM) Est GFR (CKD-EPI)NonAf >90 (>60 ml/min/1.73 sqM) Glucose 78 (74-99) mg/dL Plasma Lactic Acid Arron (0.7-2.0) mmol/L Calcium 8.5 (8.4-10.2) mg/dL Magnesium 1.8 (1.6-2.3) mg/dL Total Bilirubin 0.8 (0.2-1.3) mg/dL AST 28 (17-59) U/L ALT 10 (4-49) U/L Alkaline Phosphatase 91 (38-126) U/L Troponin I (0.000-0.034) ng/mL NT-Pro-B Natriuret Pep pg/mL Total Protein 6.6 (6.3-8.2) g/dL Albumin 3.2 L (3.5-5.0) g/dL 07/28/19 07/28/19 07/28/19 Range/Units 17:39 17:39 17:39 WBC (3.8-10.6) k/uL RBC (4.30-5.90) m/uL Hgb (13.0-17.5) gm/dL Hct (39.0-53.0) % MCV (80.0-100.0) fL MCH (25.0-35.0) pg MCHC (31.0-37.0) g/dL RDW (11.5-15.5) % Plt Count (150-450) k/uL Neutrophils % % Lymphocytes % % Monocytes % % Eosinophils % % Basophils % % Neutrophils # (1.3-7.7) k/uL Lymphocytes # (1.0-4.8) k/uL Monocytes # (0-1.0) k/uL Eosinophils # (0-0.7) k/uL Basophils # (0-0.2) k/uL Hypochromasia PT (9.0-12.0) sec INR (<1.2) APTT (22.0-30.0) sec Sodium (137-145) mmol/L Potassium (3.5-5.1) mmol/L Chloride (98-107) mmol/L Carbon Dioxide (22-30) mmol/L Anion Gap mmol/L BUN (9-20) mg/dL Creatinine (0.66-1.25) mg/dL Est GFR (CKD-EPI)AfAm (>60 ml/min/1.73 sqM) Est GFR (CKD-EPI)NonAf (>60 ml/min/1.73 sqM) Glucose (74-99) mg/dL Plasma Lactic Acid Arron 1.1 (0.7-2.0) mmol/L Calcium (8.4-10.2) mg/dL Magnesium (1.6-2.3) mg/dL Total Bilirubin (0.2-1.3) mg/dL AST (17-59) U/L ALT (4-49) U/L Alkaline Phosphatase (38-126) U/L Troponin I <0.012 (0.000-0.034) ng/mL NT-Pro-B Natriuret Pep 34 pg/mL Total Protein (6.3-8.2) g/dL Albumin (3.5-5.0) g/dL - EKG Data -: EKG Interpreted by Me EKG Comments: EKG obtained at 1723 shows normal sinus rhythm with an incomplete right bundle branch block. Ventricular rate is 96, GA interval 126, QRS duration 98, QT 370, QTC 467. No evidence of ST elevation or depression. - Radiology Data Radiology results: report reviewed, image reviewed Two-view x-ray of the chest is obtained. Report was reviewed in its entirety. Impression by Dr. Garcia shows exam stable from 05/05/2019. No new changes. Similar findings are mild infiltrate at the right costophrenic angle. Disposition Clinical Impression: COPD exacerbation, Lower extremity edema Disposition: ADMITTED IP TO THIS [facility] Condition: Serious Decision to Admit Reason: Admit from EC Decision Date: 07/28/19 Decision Time: 19:27
[2019-07-28 18:15] LABS: ALT 10 U/L (4-49); AST 28 U/L (17-59); African American GFR (CKD) >90 (>60 ml/min/1.73 sqM); Albumin 3.2 g/dL (3.5-5.0); Alkaline Phosphatase 91 U/L (38-126); Anion Gap 6 mmol/L; Blood Urea Nitrogen 9 mg/dL (9-20); Calcium 8.5 mg/dL (8.4-10.2); Carbon Dioxide 31 mmol/L (22-30); Chloride 99 mmol/L (98-107); Glucose 78 mg/dL (74-99); Magnesium 1.8 mg/dL (1.6-2.3); Non-African American GFR(CKD) >90 (>60 ml/min/1.73 sqM); Potassium 4.1 mmol/L (3.5-5.1); Sodium 136 mmol/L (137-145); Total Bilirubin 0.8 mg/dL (0.2-1.3); Total Protein 6.6 g/dL (6.3-8.2)
[2019-07-28 18:18] LABS: Partial Thromboplastin Time 23.8 sec (22.0-30.0); Prothrombin Time 10.1 sec (9.0-12.0)
--- NOTE | 2019-07-28 18:33 | XR ---
EXAMINATION TYPE: XR chest 2V DATE OF EXAM: 07/28/2019 COMPARISON: 05/05/2019 INDICATION: Difficulty breathing TECHNIQUE: Frontal and lateral views of the chest are obtained. FINDINGS: The heart size is normal. The pulmonary vasculature is normal. There is thickening along the superior lateral right chest compatible with the patient's history of l ry cancer. Findings appear stable from May 12, 2019. Surgical clips at the right apex. Some mild i nfiltrate is at the right costophrenic angle. IMPRESSION: 1. Exam is stable from the 05/05/2019 exam. No new changes.
[2019-07-28] MEDS ORDERED: IPRATROPIUM-ALBUTEROL 3 ML NEB INHALATION PRN (19:22)
[2019-07-28] MEDS ORDERED: FUROSEMIDE 10 MG/ML 4 ML VIAL IV STA (19:26)
[2019-07-28] MEDS: IPRATROPIUM-ALBUTEROL 3 ML NEB INHALATION SCH (21:12)
[2019-07-28] MEDS ORDERED: HYDROmorphone 1 MG/ML 1 ML SYRINGE IVP PRN (21:48)
[2019-07-28 22:19] LABS: Appearance,Urine Clear (Clear); Bilirubin,Urine Negative (Negative); Blood,Urine Negative (Negative); Color,Urine Light Yellow; Glucose,Urine (UA) Negative (Negative); Ketones,Urine Trace (Negative); Leukocyte Esterase,Urine Negative (Negative); Nitrite,Urine Negative (Negative); PH, Urine 6.5 (5.0-8.0); Protein,Urine Negative (Negative); Specific Gravity,Urine 1.007 (1.001-1.035); Urobilinogen,Urine <2.0 mg/dL (<2.0)
[2019-07-28] MEDS ORDERED: MORPHINE SULFATE ER 60 MG TABLET PO PRN (22:51)
[2019-07-28] MEDS: methylPREDNISolone SOD SUCCI 125 MG/2 ML VIAL IV SCH (23:49)
[2019-07-28] MEDS: MORPHINE ORAL SOLN 10 MG/5 ML CUP PO PRN (23:57)
[2019-07-29] MEDS ORDERED: ALPRAZolam 0.25 MG TAB PO PRN (00:24)
[2019-07-29] MEDS ORDERED: HYDROmorphone 1 MG/ML 1 ML SYRINGE IVP PRN (00:25)
[2019-07-29] MEDS: HEPARIN SODIUM,PORCINE 5,000 UNIT/ML 1 ML VIAL SQ SCH ×3 (01:13→20:20)
[2019-07-29 06:04] LABS: Glucose,Whole Blood 236 mg/dL (75-99)
[2019-07-29] MEDS: methylPREDNISolone SOD SUCCI 125 MG/2 ML VIAL IV SCH ×4 (06:04→23:30)
[2019-07-29] MEDS: MORPHINE ORAL SOLN 10 MG/5 ML CUP PO PRN ×3 (06:08→18:09)
[2019-07-29] MEDS: BUDESONIDE 1 MG/2 ML NEBU INHALATION SCH ×2 (07:21→18:47)
[2019-07-29] MEDS: FORMOTEROL FUMARATE 20 MCG/2 ML NEBU INHALATION SCH ×2 (07:21→18:47)
[2019-07-29] MEDS: IPRATROPIUM-ALBUTEROL 3 ML NEB INHALATION SCH ×4 (07:21→18:47)
[2019-07-29] MEDS: FOLIC ACID 1 MG TAB PO SCH (07:52)
[2019-07-29] MEDS: PANTOPRAZOLE 40 MG TABLET PO SCH (07:52)
[2019-07-29] MEDS: NICOTINE 21MG/24HR PATCH TRANSDERM SCH (07:52)
[2019-07-29] MEDS: INSULIN ASPART (NovoLOG) 100 UNIT/ML VIAL SQ SCH ×4 (07:52→20:21)
[2019-07-29] MEDS: FUROSEMIDE 10 MG/ML 4 ML VIAL IV SCH ×2 (07:53→20:20)
[2019-07-29] MEDS: HYDROcodone/APAP 10-325MG 1 EACH TAB PO PRN ×5 (07:58→23:52)
--- NOTE | 2019-07-29 08:26 | HP ---
HISTORY AND PHYSICAL CHIEF COMPLAINT: Shortness of breath. HISTORY OF PRESENT ILLNESS: This 59-year-old gentleman with a past medical history of multiple medical problems including history of COPD, history of pneumonia, history of right-sided lung cancer with chemo, history of chronic hypoxic respiratory failure being followed by Dr. Alverto Basilio in the outpatient setting is complaining of shortness of breath for the past several weeks. The patient is getting about 2.5 L. Patient also had some vague chest pains and also bilateral leg swelling also. The patient is taking Lasix, also. Because of lack of improvement the patient came to [facility] and admitted for further evaluation and treatment. Evaluation showed a sodium is 136. NT proBNP is only 34. The chest x-ray which was personally reviewed by me showed chronic changes and no new changes. Patient admitted for further evaluation and treatment. Possibility of cor pulmonale is also considered. There is no history of fever, rigors. No history of headache, loss of consciousness or seizures at this time. COVID-19 testing is requested. PAST MEDICAL HISTORY: History of COPD, history of pneumonia, history of chronic hypoxic respiratory failure. MEDICATIONS PRIOR TO ADMISSION: 1. Lasix 40 mg p.o. daily. 2. Atrovent 2 puffs q.i.d. 3. MS Contin 60 mg q.8 p.r.n. 4. Morphine sulfate 10-20 mg q.6 p.r.n. 5. DuoNeb q.i.d. and p.r.n. 6. [place] 1 tab q.4h p.r.n. 7. Folic acid 1 mg. 8. ProAir 2 puffs q.i.d. p.r.n. 9. Habitrol 1 daily. ALLERGIES: AMOXICILLIN, CLARINEX AND IBUPROFEN. FAMILY HISTORY: History of chronic obstructive pulmonary disease. SOCIAL HISTORY: Previous history of smoking. No history of current smoking or alcohol intake. REVIEW OF SYSTEMS: ENT No history of diminished hearing or vision. CARDIOVASCULAR As mentioned earlier. RESPIRATORY As mentioned earlier. GI No nausea, vomiting, or diarrhea. No dysuria or hematuria. NERVOUS No numbness or weakness. ALLERGY/IMMUNOLOGY No asthma or hayfever. MUSCULOSKELETAL As mentioned earlier. HEMATOLOGY/ONCOLOGY Negative. ENDOCRINE No history of diabetes or hypothyroidism. CONSTITUTIONAL No history of fever or weight loss. DERMATOLOGY Negative. RHEUMATOLOGY Negative, PSYCHIATRY As mentioned earlier. PHYSICAL EXAMINATION: Alert and oriented x3. Pulse is90, blood pressure 133/80 respiration 18, temperature 98, pulse ox 98% on 6 L. HEENT: Conjunctivae normal. Oral mucosa moist. NECK: No jugular venous distention. No lymph node enlargement. CARDIOVASCULAR: S1, S2. RESPIRATORY: Diminished breath sounds at the bases. Bilateral scattered rhonchi and crackles. ABDOMEN: Soft, nontender. LEGS: Bilateral leg edema. NERVOUS SYSTEM: Higher functions mentioned earlier. Moves all four limbs. No focal deficits. LYMPHATICS: No lymph node in neck or axilla. SKIN: No rash. JOINTS: No active deforming arthropathy. LABS: WBC 8.2, hemoglobin 12.3, sodium 136. ASSESSMENT: 1. Chronic obstructive pulmonary disease exacerbation with acute purulent tracheobronchitis. 2. Bilateral leg edema, possible acute cor pulmonale. 3. Acute hypercarbic respiratory failure secondary to #1. 4. Hyponatremia. 5. Anemia, macrocytic. 6. History of pneumonia. 7. History of right lung cancer. 8. History of chronic hypoxic respiratory failure. 9. History of incisional hernia. 10.History of bronchoscopy. 11.Remote history of nicotine dependence. RECOMMENDATIONS AND DISCUSSION: In this 59-year-old gentleman who presented with multiple complex medical issues, we will monitor the patient closely, continue the current management and symptomatic treatment. Otherwise at this time, bronchodilators, pulmonary consultation with Dr. Lyn. I would also recommend Lasix, steroids. 2D echo with Doppler. Guarded prognosis because of multiple complex medical issues. Further recommendations to follow. MMODL / IJN: [id number] /
--- NOTE | 2019-07-29 10:49 | P.CNPUL ---
History of Present Illness Consult date: 07/29/19 Reason for consult: dyspnea, COPD History of present illness: A 59-year-old male patient was hospitalized yesterday because of some increased shortness of breath and lower extremity edema. The patient is known to me. The patient is known to have COPD stage IV with an FEV1 of 35% of predicted. 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 Noted recently, the patient underwent an MRI of the brain and the patient was found to have brain metastases and the patient was given radiation therapy by Dr. Jakob Salgado. Prior to that, the patient was treated for further differentiated metastatic adenocarcinoma of the lung and he received a combination of carboplatinum and Alimta and he was placed on immunotherapy following that. The patient has no history of any congestion heart failure. Previous echocardiogram is shown preserved LV function. He has some secondary pulmonary hypertension. His oxygen dependent at 2-1/2 L. He denies having any chest pain. Previous Dopplers of the lower extremities have shown no evidence of any DVTs. No altered mentation. He is not a smoker for now. His that was at 8.1. His blood work and electrolytes are all within normal limits. Troponins are negative, proBNP level is not elevated, UA is negative and the covid 19 analysis was also negative. The patient is given bronchodilators, IV Solu-Medrol and IV Lasix. Feeling better. Review of Systems Constitutional: Denies chills, Denies fever Eyes: denies blurred vision, denies pain Ears, nose, mouth and throat: Denies headache, Denies sore throat Cardiovascular: Reports dyspnea on exertion, Denies chest pain, Denies shortness of breath Respiratory: Reports cough with sputum, Reports dyspnea, Reports home oxygen, Reports respiratory infections, Reports wheezing, Denies cough Gastrointestinal: Reports abdominal pain, Denies diarrhea, Denies nausea, Denies vomiting Musculoskeletal: Denies myalgias Integumentary: Denies pruritus, Denies rash Neurological: Denies numbness, Denies weakness Psychiatric: Denies anxiety, Denies depression Endocrine: Denies fatigue, Denies weight change Past Medical History Past Medical History: Cancer, COPD, Pneumonia Additional Past Medical History / Comment(s): Metastatic adenocarcinoma of the lung diagnosed in 2018 R sided lung cancer tx with chemo/keytruda with last treatment about 6 months ago, home oxygen at 3L/NC ATC, COPD, chronic hypoxic respiratory failure, bilateral lower extremity/pedal edema, chronic chest pain, low back pain, incisional hernia, bronchitis, 5 R sided pneumothorax when 16 yrs old d/t bleb-had surgery, past ruptured gastric ulcer with surgery. History of Any Multi-Drug Resistant Organisms: None Reported Additional Past Surgical History / Comment(s): Bronchoscopy, R apical bleb/resection, EGD, perforated gastric ulcer with surgical repair/patch. Past Anesthesia/Blood Transfusion Reactions: No Reported Reaction Past Psychological History: No Psychological Hx Reported Smoking Status: Former smoker Past Alcohol Use History: None Reported Past Drug Use History: None Reported - Past Family History Mother Family Medical History: COPD Additional Family Medical History / Comment(s): Mother is Father Family Medical History: Eye Disorder Additional Family Medical History / Comment(s): Father was blind. He is . Medications and Allergies Home Medications Medication Instructions Recorded Confirmed Type Folic Acid 1 mg PO DAILY 01/05/18 07/28/19 History HYDROcodone/APAP 10-325MG [[place] 1 tab PO Q4HR PRN 07/28/18 07/28/19 History 10-325] Morphine Sulfate [Morphine Sulfate 10 - 20 mg PO Q6H PRN 07/28/18 07/28/19 History Oral Soln Conc (20 MG/ML)] Nicotine 21Mg/24Hr Patch [Habitrol] 1 patch TRANSDERM DAILY #14 patch 04/13/19 07/28/19 Rx Ipratropium-Albuterol Nebulize 3 ml INHALATION RT-QID 05/05/19 07/28/19 History [Duoneb 0.5 mg-3 mg/3 ml Soln] Albuterol Sulfate [Proair Hfa] 2 puff INHALATION RT-QID PRN 07/28/19 07/28/19 History Furosemide [Lasix] 40 mg PO DAILY 07/28/19 07/28/19 History Ipratropium [place] [Atrovent Hfa] 2 puff INHALATION RT-QID 07/28/19 07/28/19 History Morphine Sulfate ER [Ms Contin] 60 mg PO Q8H PRN 07/28/19 07/28/19 History Allergies Allergy/AdvReac Type Severity Reaction Status Date / Time amoxicillin [From Augmentin] AdvReac Diarrhea Verified 07/28/19 21:43 clavulanic acid AdvReac Diarrhea Verified 07/28/19 21:43 [From Augmentin] ibuprofen [From Motrin] AdvReac Unknown Verified 07/28/19 21:43 Physical Exam Vitals: Vital Signs Temp Pulse Pulse Resp BP BP Pulse Ox 07/29/19 08:00 98.7 F 88 16 110/63 95 07/29/19 07:45 92 07/29/19 07:36 92 07/29/19 07:35 88 07/29/19 07:21 88 07/29/19 03:23 97.8 F 20 136/71 98 07/28/19 23:04 98.2 F 20 105/55 95 07/28/19 21:24 90 18 07/28/19 21:12 88 18 07/28/19 20:23 20 136/80 96 07/28/19 19:49 98.1 F 07/28/19 18:49 90 18 117/72 98 07/28/19 18:30 95 15 100 07/28/19 18:14 91 18 07/28/19 18:04 96 18 07/28/19 18:00 90 18 121/70 100 07/28/19 17:30 88 17 121/82 100 07/28/19 17:20 21 07/28/19 17:15 99.7 F H 98 21 136/35 99 Intake and Output 07/28/19 07/29/19 07/29/19 22:59 06:59 14:59 Intake Total 500 118 Balance 500 118 Intake: Oral 500 118 Other: Voiding Method Urinal Urinal Weight 86.183 kg 80.087 kg GENERAL EXAM: Alert, pleasant, 58-year-old white male thin, on 6 L of oxygen with a pulse ox of 5 %, comfortable in no apparent distress. HEAD: Normocephalic/atraumatic. EYES: Normal reaction of pupils, equal size. Conjunctiva pink, sclera white. NOSE: Clear with pink turbinates. THROAT: No erythema or exudates. NECK: No masses, no JVD, no thyroid enlargement, no adenopathy. CHEST: No chest wall deformity. Symmetrical expansion. LUNGS: Equal air entry with scattered wheezes, good air entry noted bilaterally, occasional cough with production of clear sputum CVS: Regular rate and rhythm, normal S1 and S2, no gallops, no murmurs, no rubs ABDOMEN: Soft, nontender. No hepatosplenomegaly, normal bowel sounds, no guarding or rigidity. Midabdominal healed surgical incision, and there is a large ventral incisional hernia. There is no direct tenderness. There is no rebound tenderness. There is no guarding. The abdomen is soft. No ascites. EXTREMITIES: No clubbing, no edema, no cyanosis, 2+ pulses and upper and lower extremities. MUSCULOSKELETAL: Muscle strength and tone normal. SPINE: No scoliosis or deformity SKIN: No rashes CENTRAL NERVOUS SYSTEM: Alert and oriented -3. No focal deficits, tone is normal in all 4 extremities. PSYCHIATRIC: Alert and oriented -3. Appropriate affect. Intact judgment and insight. Results - Laboratory Findings CBC and BMP: 07/28/19 17:39 07/28/19 17:39 PT/INR, D-dimer PT 10.1 sec (9.0-12.0) 07/28/19 17:39 INR 1.0 (<1.2) 07/28/19 17:39 Abnormal lab findings: Abnormal Labs 07/28/19 07/28/19 07/28/19 17:39 17:39 22:00 RBC 4.02 L Hgb 12.3 L MCV 100.7 H MCHC 30.5 L Sodium 136 L Carbon Dioxide 31 H Creatinine 0.39 L POC Glucose (mg/dL) Albumin 3.2 L Urine Ketones Trace H 07/29/19 06:02 RBC Hgb MCV MCHC Sodium Carbon Dioxide Creatinine POC Glucose (mg/dL) 236 H Albumin Urine Ketones - Diagnostic Findings Chest x-ray: image reviewed Assessment and Plan Plan: 1 shortness of breath secondary to COPD exacerbation. There may be also some mild fluid overload without signs of any decompensated heart failure. The patient is currently being treated with a combination of bronchodilators and steroids and diuretics. 2 stage IV metastatic adenocarcinoma of the lung with TECHNICAL SERVICES MANAGER involvement post radiation therapy. The patient has received a combination of carboplatin and Alimta and immunotherapy and his last treatment was approximately 6 months ago. Most recent CAT scan of the chest that was done in June 2019 shows no evidence of any disease progression in the lung and the CAT scan showed diffuse emphysema with a right upper lobe/suprahilar post treatment changes with pleural thickening and masslike consolidation in the right apex which has not changed compared to the earlier CAT scan of the chest and PET scan from November 2017. The liver showed no evidence of any metastases and the rest of the CAT scan of the abdomen and pelvis was also within normal limits. Nevertheless, the patient developed brain metastases and the has received brain radiation therapy. 3 advanced COPD with an FEV1 of 35% of predicted 4 chronic hypoxic respiratory failure 5 history of pneumothorax at age of 16 related to an atypical pulmonary bleb requiring surgical intervention 6 chronic lower extremity edema, consider right-sided failure and cor pulmonale 7 history of perforated gastric ulcer requiring surgical intervention. 8 large incisional abdominal hernia without evidence of any incarceration or strength in aeration. No organomegaly. No ascites. 9 history of renal stones 10 history of smoking Plan Echocardiogram pending. Assess LV function and pulmonary potential Continued IV Lasix Continue bronchodilators Continue steroids and gradually tapered off to oral prednisone burst taper within next 24-48 hours Resume medication Long-term prognosis poor baseline above-mentioned comorbidities. We'll try to wean down the FiO2. We'll continue to follow
[2019-07-29 11:27] LABS: Glucose,Whole Blood 255 mg/dL (75-99)
--- NOTE | 2019-07-29 15:54 | ECHOF ---
Referral Reason:cor pulmonale MEASUREMENTS -------- HEIGHT: 185.4 cm WEIGHT: 86.2 kg BP: 136/71 IVSd: 1.2 cm (0.6 - 1.1) LVIDd: 4.6 cm (3.9 - 5.3) LVPWd: 1.1 cm (0.6 - 1.1) IVSs: 1.5 cm LVIDs: 3.3 cm LVPWs: 1.6 cm LA Diam: 3.7 cm (2.7 - 3.8) RVIDd: 3.2 cm (< 3.3) Ao Diam: 3.6 cm (2.0 - 3.7) AV Cusp: 1.6 cm (1.5 - 2.6) EPSS: 1.4 cm MV E Vlad: 0.74 m/s MV DecT: 228 ms MV A Vlad: 0.94 m/s MV E/A Ratio: 0.78 RAP: 5.00 mmHg RVSP: 42.36 mmHg MV EF SLOPE: 69.62 mm/s (70 - 150) MV EXCURSION: 16.59 mm (> 18.000) FINDINGS -------- Sinus rhythm. This was a technically adequate study. The left ventricular size is normal. There is borderline concentric left ventricular hypertrophy. Overall left ventricular systolic function is normal with, an EF between 60 - 65 %. The right ventricle is normal in size. The left atrial size is normal. The right atrium was not well visualized. 5.0mg of Lumason was utilized for enhancement of images The aortic valve is trileaflet and appears structurally normal. The mitral valve is normal. Mild tricuspid regurgitation present. There is mild pulmonary hypertension. The right ventricular systolic pressure, as measured by Doppler, is 42.36mmHg. The pulmonic valve was not well visualized. The aortic root size is normal. IVC Not well visulized. There is no pericardial effusion. CONCLUSIONS -------- 1. Sinus rhythm. 2. This was a technically adequate study. 3. The left ventricular size is normal. 4. There is borderline concentric left ventricular hypertrophy. 5. Overall left ventricular systolic function is normal with, an EF between 60 - 65 %. 6. The right ventricle is normal in size. 7. The left atrial size is normal. 8. The right atrium was not well visualized. 9. 5.0mg of Lumason was utilized for enhancement of images 10. The aortic valve is trileaflet and appears structurally normal. 11. The mitral valve is normal. 12. Mild tricuspid regurgitation present. 13. There is mild pulmonary hypertension. 14. The right ventricular systolic pressure, as measured by Doppler, is 42.36mmHg. 15. The pulmonic valve was not well visualized. 16. The aortic root size is normal. 17. IVC Not well visulized. 18. There is no pericardial effusion. DESTINATION SIGN REPAIRER: Emperatriz Pepe RDCS
[2019-07-29 16:23] LABS: Glucose,Whole Blood 176 mg/dL (75-99)
--- NOTE | 2019-07-29 19:23 | PN ---
PROGRESS NOTE DATE OF SERVICE: 07/29/2019 This 59-year-old gentleman admitted with shortness of breath also had some bilateral leg edema. The patient also had a 2D echo with Doppler which was evaluated by Cardiology today and the 2D echo with Doppler showed evidence of ejection fraction 60 to 65%. Mild valvular abnormalities are noted. The blood pressure was found to be 42 mmHg. Mild pulmonary hypertension was also noted. The patient started on IV diuretics. Patient also had significant pain issues also. Pulmonary is following the patient closely. PAST MEDICAL HISTORY: Past medical history reviewed. REVIEW OF SYSTEMS: CARDIOVASCULAR system as mentioned earlier. RESPIRATORY: As mentioned earlier. GI: No nausea or vomiting. no dysuria. Nervous system: No numbness or weakness. CURRENT MEDICATIONS: Reviewed and include: 1. [place]av[place] 10 mg. 2. DuoNeb q.i.d. and p.r.n. 3. Xanax 0.5 t.i.d. 4. Pulmicort. 5. Rocephin. 6. Folic acid. 7. Perforomist. 8. Lasix IV b.i.d. 9. Dilaudid. 10.Solu-Medrol. 11.Morphine. 12.Habitrol. 13.Protonix. PHYSICAL EXAM: Patient is alert, oriented x3. Pulse 93, blood pressure 124/69, respiration 20, temperature is normal. Pulse ox 94% on 6 L. HEENT: Conjunctivae normal. NECK: No JVD. CARDIOVASCULAR: S1, S2 muffled. RESPIRATORY: Breath sounds diminished in the bases. Bilateral scattered rhonchi and crackles. Expiratory wheezing also present. ABDOMEN: Soft, obese, nontender. LEGS: No edema. No swelling. Nervous System: No focal deficits. LABS: WBC 8.2, hemoglobin 12.3. Accu-Cheks noted. Coronavirus is negative. ASSESSMENT: 1. Chronic obstructive pulmonary disease acute exacerbation with acute purulent tracheobronchitis. 2. Bilateral leg edema, possibly acute cor pulmonale. 3. Acute hypercarbic hypoxic respiratory failure second to #1 present on admission. 4. Hyponatremia. 5. Anemia macrocytic. 6. History of pneumonia. 7. History of right lung cancer. 8. History of chronic hypoxic respiratory failure on home O2 3 L. 9. History of incisional hernia. 10.History of bronchoscopy. 11.Remote history of nicotine dependence. RECOMMENDATIONS AND DISCUSSION: This 59-year-old gentleman who presented with multiple complex medical issues, we will monitor the patient closely, continue the current management and symptomatic treatment. Continue the diuretics. Monitor fluid and electrolytes balance closely and fluid restriction about 1200 mL per 24 hours. No added salt diet. Otherwise, closely follow with Dr. Lyn. Short course of steroids. Intensive bronchodilator treatment. Prognosis guarded because of multiple complex medical issues. Further recommendations to follow. MMODL / IJN: [id number] / NANCY
[2019-07-29 20:14] LABS: Glucose,Whole Blood 186 mg/dL (75-99)
[2019-07-30] MEDS: MORPHINE ORAL SOLN 10 MG/5 ML CUP PO PRN ×3 (01:35→15:43)
[2019-07-30] MEDS: HYDROcodone/APAP 10-325MG 1 EACH TAB PO PRN ×4 (04:45→21:12)
[2019-07-30] MEDS: methylPREDNISolone SOD SUCCI 125 MG/2 ML VIAL IV SCH ×4 (05:53→23:20)
[2019-07-30 06:54] LABS: Glucose,Whole Blood 148 mg/dL (75-99)
[2019-07-30] MEDS: BUDESONIDE 1 MG/2 ML NEBU INHALATION SCH ×2 (07:40→18:37)
[2019-07-30] MEDS: IPRATROPIUM-ALBUTEROL 3 ML NEB INHALATION SCH ×4 (07:40→18:37)
[2019-07-30] MEDS: FORMOTEROL FUMARATE 20 MCG/2 ML NEBU INHALATION SCH ×2 (07:40→18:37)
[2019-07-30] MEDS: PANTOPRAZOLE 40 MG TABLET PO SCH (08:28)
[2019-07-30] MEDS: HEPARIN SODIUM,PORCINE 5,000 UNIT/ML 1 ML VIAL SQ SCH ×2 (08:28→21:08)
[2019-07-30] MEDS: FOLIC ACID 1 MG TAB PO SCH (08:28)
[2019-07-30] MEDS: ONDANSETRON 4 MG/2 ML VIAL IVP PRN ×2 (08:28→19:27)
[2019-07-30] MEDS: INSULIN ASPART (NovoLOG) 100 UNIT/ML VIAL SQ SCH ×4 (08:29→21:09)
[2019-07-30] MEDS: NICOTINE 21MG/24HR PATCH TRANSDERM SCH (08:29)
[2019-07-30 09:07] LABS: Basophils % (A) 0 %; Eosinophils # (A) 0.2 k/uL (0-0.7); Eosinophils % (A) 2 %; HCT 37.9 % (39.0-53.0); HGB 12.1 gm/dL (13.0-17.5); Hypochromasia Slight; Lymphocytes # (A) 0.6 k/uL (1.0-4.8); Lymphocytes % (A) 5 %; MCH 32.3 pg (25.0-35.0); MCV 101.2 fL (80.0-100.0); Macrocytosis Slight; Mean Platelet Volume 7.7; Monocytes # (A) 0.4 k/uL (0-1.0); Monocytes % (A) 4 %; Neutrophils # (A) 10.4 k/uL (1.3-7.7); Neutrophils % (A) 89 %; Platelet Count 289 k/uL (150-450); RBC 3.74 m/uL (4.30-5.90); RDW 13.3 % (11.5-15.5); WBC 11.7 k/uL (3.8-10.6)
[2019-07-30 09:21] LABS: African American GFR (CKD) >90 (>60 ml/min/1.73 sqM); Anion Gap 4 mmol/L; Blood Urea Nitrogen 13 mg/dL (9-20); Calcium 8.3 mg/dL (8.4-10.2); Carbon Dioxide 34 mmol/L (22-30); Chloride 100 mmol/L (98-107); Glucose 152 mg/dL (74-99); Non-African American GFR(CKD) >90 (>60 ml/min/1.73 sqM); Potassium 3.4 mmol/L (3.5-5.1); Sodium 138 mmol/L (137-145)
[2019-07-30] MEDS: FUROSEMIDE 10 MG/ML 4 ML VIAL IV SCH ×2 (09:41→21:08)
[2019-07-30 11:25] LABS: Glucose,Whole Blood 161 mg/dL (75-99)
[2019-07-30] MEDS ORDERED: Potassium Replacement Protocol 1 EACH MISC MISCELLANE PRN (11:49)
--- NOTE | 2019-07-30 12:04 | P.PN ---
Subjective Progress Note Date: 07/30/19 Principal diagnosis: COPD exacerbation A 59-year-old male patient was hospitalized yesterday because of some increased shortness of breath and lower extremity edema. The patient is known to me. The patient is known to have COPD stage IV with an FEV1 of 35% of predicted. The p atient also has history of non-small cell lung cancer, adenocarcinoma and the patient currently has metastatic disease with BATCH ATTENDANT metastases. Noted recently, the patient underwent an MRI of the brain and the patient was found to have brain metastases and the patient was given radiation therapy by Dr. Jakob Salgado. Prior to that, the patient was treated for further differentiated metastatic adenocarcinoma of the lung and he received a combination of carboplatinum and Alimta and he was placed on immunotherapy following that. The patient has no history of any congestion heart failure. Previous echocardiogram is shown preserved LV function. He has some secondary pulmonary hypertension. His oxygen dependent at 2-1/2 L. He denies having any chest pain. Previous Dopplers of the lower extremities have shown no evidence of any DVTs. No altered mentation. He is not a smoker for now. His that was at 8.1. His blood work and electrolytes are all within normal limits. Troponins are negative, proBNP level is not elevated, UA is negative and the covid 19 analysis was also negative. The patient is given bronchodilators, IV Solu-Medrol and IV Lasix. Feeling better. The patient is seen today 07/30/2019 in follow-up on the regular medical floor. He is currently sitting up at the bedside. Awake and alert in no acute distress. Breathing a bit easier today compared to yesterday. Not quite back to his baseline. Currently on oxygen at 4 L/m per nasal cannula and maintaining O2 saturations in the 90s. His been afebrile. Slightly tachycardic. Dyspneic with exertion. Blood culture reveals no growth to date. White count 11.7. Hemoglobin 12.1. Sodium 138. Potassium 3.4. Creatinine 0.43. He remains on DuoNeb and DuoNeb inhalations, Pulmicort and Perforomist inhalations, IV Solu- Medrol, IV diuretics, antibiotics in the form of ceftriaxone. Habitrol patch in place. Heparin for DVT prophylaxis. Objective - Vital Signs Vital signs: Vital Signs Temp 97.4 F L 07/30/19 08:00 Pulse 102 H 06/07/20 10:12 Resp 17 07/30/19 08:00 BP 162/88 07/30/19 08:00 Pulse Ox 96 07/30/19 08:00 Intake & Output 07/29/19 07/30/19 07/30/19 18:59 06:59 18:59 Output Total 400 800 450 Balance -400 -800 -450 Weight 81.3 kg Output: Urine 400 800 450 Other: Voiding Method Urinal Toilet Urinal # Voids 1 6 # Bowel Movements 1 - Exam GENERAL EXAM: Alert, pleasant, 58-year-old male patient, on 4 L of oxygen with a pulse ox of 96 %, comfortable in no apparent distress. HEAD: Normocephalic/atraumatic. EYES: Normal reaction of pupils, equal size. Conjunctiva pink, sclera white. NOSE: Clear with pink turbinates. THROAT: No erythema or exudates. NECK: No masses, no JVD, no thyroid enlargement, no adenopathy. CHEST: No chest wall deformity. Symmetrical expansion. LUNGS: Equal air entry with scattered wheezes, good air entry noted bilaterally, occasional cough with production of clear sputum CVS: Regular rate and rhythm, normal S1 and S2, no gallops, no murmurs, no rubs ABDOMEN: Soft, nontender. No hepatosplenomegaly, normal bowel sounds, no guarding or rigidity. Midabdominal healed surgical incision, and there is a large ventral incisional hernia. There is no direct tenderness. There is no rebound tenderness. There is no guarding. The abdomen is soft. No ascites. EXTREMITIES: No clubbing, no edema, no cyanosis, 2+ pulses and upper and lower extremities. MUSCULOSKELETAL: Muscle strength and tone normal. SPINE: No scoliosis or deformity SKIN: No rashes CENTRAL NERVOUS SYSTEM: No focal deficits, tone is normal in all 4 extremities. PSYCHIATRIC: Alert and oriented -3. Appropriate affect. Intact judgment and insight. - Labs CBC & Chem 7: 07/30/19 08:53 07/30/19 08:53 Labs: Abnormal Lab Results - Last 24 Hours (Table) 07/29/19 07/29/19 07/30/19 Range/Units 16:22 20:13 06:51 WBC (3.8-10.6) k/uL RBC (4.30-5.90) m/uL Hgb (13.0-17.5) gm/dL Hct (39.0-53.0) % MCV (80.0-100.0) fL Neutrophils # (1.3-7.7) k/uL Lymphocytes # (1.0-4.8) k/uL Potassium (3.5-5.1) mmol/L Carbon Dioxide (22-30) mmol/L Creatinine (0.66-1.25) mg/dL Glucose (74-99) mg/dL POC Glucose (mg/dL) 176 H 186 H 148 H (75-99) mg/dL Calcium (8.4-10.2) mg/dL 07/30/19 07/30/19 07/30/19 Range/Units 08:53 08:53 11:22 WBC 11.7 H (3.8-10.6) k/uL RBC 3.74 L (4.30-5.90) m/uL Hgb 12.1 L (13.0-17.5) gm/dL Hct 37.9 L (39.0-53.0) % MCV 101.2 H (80.0-100.0) fL Neutrophils # 10.4 H (1.3-7.7) k/uL Lymphocytes # 0.6 L (1.0-4.8) k/uL Potassium 3.4 L (3.5-5.1) mmol/L Carbon Dioxide 34 H (22-30) mmol/L Creatinine 0.43 L (0.66-1.25) mg/dL Glucose 152 H (74-99) mg/dL POC Glucose (mg/dL) 161 H (75-99) mg/dL Calcium 8.3 L (8.4-10.2) mg/dL Microbiology - Last 24 Hours (Table) 07/28/19 17:39 Blood Culture - Preliminary Blood No Growth after 24 hours Assessment and Plan Assessment: 1 acute on chronic hypoxic respiratory failure secondary to COPD exacerbation. The patient is currently being treated with a combination of bronchodilators and steroids and diuretics. 2 stage IV metastatic adenocarcinoma of the lung with BATCH ATTENDANT involvement post radiation therapy. The patient has received a combination of carboplatin and Alimta and immunotherapy and his last treatment was approximately 6 months ago. Most recent CAT scan of the chest that was done in June 2019 shows no evidence of any disease progression in the lung and the CAT scan showed diffuse emphysema with a right upper lobe/suprahilar post treatment changes with pleural thickening and masslike consolidation in the right apex which has not changed compared to the earlier CAT scan of the chest and PET scan from November 2017. The liver showed no evidence of any metastases and the rest of the CAT scan of the abdomen and pelvis was also within normal limits. Nevertheless, the patient developed brain metastases and the has received brain radiation therapy. 3 advanced COPD with an FEV1 of 35% of predicted 4 chronic hypoxic respiratory failure 5 history of pneumothorax at age of 16 related to an atypical pulmonary bleb requiring surgical intervention 6 chronic lower extremity edema, consider right-sided failure and cor pulmonale 7 history of perforated gastric ulcer requiring surgical intervention. 8 large incisional abdominal hernia without evidence of any incarceration or strength in aeration. No organomegaly. No ascites. 9 history of renal stones 10 history of smoking Plan The patient was seen and evaluated by Dr. Lyn Improved but not back to his baseline Continue current pulmonary medications Continue IV diuretics Titrate down the FiO2 as tolerated Again educated regarding the importance of complete smoking cessation NicoDerm patch in place We'll continue to follow I, the cosigning physician, performed a history & physical examination of the patient. Lungs sounds with bilateral end expiratory wheeze. Maintaining good O2 saturations in the 90s on 4 L/m per nasal cannula. I discussed the assessment and plan of care with my nurse practitioner, Madeleine Green. I attest to the above note as dictated by her.
[2019-07-30] MEDS ORDERED: POTASSIUM CHLORIDE ER 20 MEQ TAB.ER PO SCH ×2 (13:00)
[2019-07-30] MEDS ORDERED: POTASSIUM CHLORIDE ER 20 MEQ TAB.ER PO ONE (13:00)
[2019-07-30 16:36] LABS: Glucose,Whole Blood 130 mg/dL (75-99)
[2019-07-30 20:45] LABS: Glucose,Whole Blood 164 mg/dL (75-99)
[2019-07-31] MEDS: MORPHINE ORAL SOLN 10 MG/5 ML CUP PO PRN ×4 (00:20→23:53)
--- NOTE | 2019-07-31 01:29 | PN ---
PROGRESS NOTE DATE OF SERVICE: 07/30/2019 This 59-year-old gentleman who was admitted with COPD acute exacerbation also bilateral leg edema. No chest pain or palpitations. No fever. PHYSICAL EXAMINATION: On exam, alert and oriented x3. Pulse is 90, blood pressure 105/66, respiration 18, temperature 98 degrees, pulse ox 94% on 4.5 L. HEENT: Conjunctivae normal. NECK: No jugular venous distention. CARDIOVASCULAR: S1, S2 normal. RESPIRATORY: Breath sounds diminished at the bases. A few scattered rhonchi. ABDOMEN: Soft, nontender. LEGS: No edema. No swelling. NERVOUS SYSTEM: No focal deficits. LABS: WBC 11.7, hemoglobin 12.1. Sodium 138, potassium 3.4. ASSESSMENT: 1. Chronic obstructive pulmonary disease acute exacerbation with acute purulent tracheobronchitis. rt adenocarcinoma lung 2. Bilateral leg edema, possibly acute cor pulmonale. 3. Acute hypoxia, possibly acute on chronic cor pulmonale. 4. Acute hypoxic hypercarbic respiratory failure secondary to #1 present on admission. 5. Hyponatremia. 6. Anemia macrocytic. 7. History of pneumonia. 8. History of right lung cancer. 9. History of chronic hypoxic respiratory failure on 3 L oxygen nasal cannula. 10.History of incisional hernia. 11.History of bronchoscopy. 12.Remote history of nicotine dependence. RECOMMENDATIONS AND DISCUSSION: Recommend to continue current medications, continue symptomatic treatment. Continue with bronchodilators. Continue steroids. Continue with supplementation. Continue to monitor. Guarded prognosis because of multiple complex medical issues. Further recommendations to follow. MMODL / IJN: [id number] / NANCY
[2019-07-31] MEDS: HYDROcodone/APAP 10-325MG 1 EACH TAB PO PRN ×5 (01:47→19:06)
[2019-07-31] MEDS: methylPREDNISolone SOD SUCCI 125 MG/2 ML VIAL IV SCH (05:49)
[2019-07-31 06:46] LABS: Glucose,Whole Blood 172 mg/dL (75-99)
[2019-07-31 07:36] LABS: Basophils % (A) 0 %; Eosinophils # (A) 0.1 k/uL (0-0.7); Eosinophils % (A) 1 %; HCT 39.3 % (39.0-53.0); HGB 11.8 gm/dL (13.0-17.5); Hypochromasia Slight; Lymphocytes # (A) 0.5 k/uL (1.0-4.8); Lymphocytes % (A) 4 %; MCH 30.3 pg (25.0-35.0); MCHC 30.1 g/dL (31.0-37.0); MCV 100.9 fL (80.0-100.0); Macrocytosis Slight; Monocytes # (A) 0.7 k/uL (0-1.0); Monocytes % (A) 5 %; Neutrophils # (A) 11.2 k/uL (1.3-7.7); Neutrophils % (A) 89 %; Platelet Count 296 k/uL (150-450); RBC 3.89 m/uL (4.30-5.90); RDW 13.5 % (11.5-15.5); WBC 12.6 k/uL (3.8-10.6)
[2019-07-31 07:49] LABS: African American GFR (CKD) >90 (>60 ml/min/1.73 sqM); Anion Gap 4 mmol/L; Blood Urea Nitrogen 21 mg/dL (9-20); Calcium 8.1 mg/dL (8.4-10.2); Carbon Dioxide 36 mmol/L (22-30); Chloride 99 mmol/L (98-107); Glucose 160 mg/dL (74-99); Non-African American GFR(CKD) >90 (>60 ml/min/1.73 sqM); Potassium 3.8 mmol/L (3.5-5.1); Sodium 139 mmol/L (137-145)
[2019-07-31] MEDS: INSULIN ASPART (NovoLOG) 100 UNIT/ML VIAL SQ SCH ×4 (07:54→20:12)
[2019-07-31] MEDS: NICOTINE 21MG/24HR PATCH TRANSDERM SCH (07:58)
[2019-07-31] MEDS: FUROSEMIDE 10 MG/ML 4 ML VIAL IV SCH ×2 (07:58→20:11)
[2019-07-31] MEDS: HEPARIN SODIUM,PORCINE 5,000 UNIT/ML 1 ML VIAL SQ SCH ×2 (07:58→20:11)
[2019-07-31] MEDS: PANTOPRAZOLE 40 MG TABLET PO SCH (07:59)
[2019-07-31] MEDS: FOLIC ACID 1 MG TAB PO SCH (07:59)
[2019-07-31] MEDS: IPRATROPIUM-ALBUTEROL 3 ML NEB INHALATION SCH ×4 (09:25→20:33)
[2019-07-31] MEDS: FORMOTEROL FUMARATE 20 MCG/2 ML NEBU INHALATION SCH ×2 (09:25→20:33)
[2019-07-31] MEDS: BUDESONIDE 1 MG/2 ML NEBU INHALATION SCH ×2 (09:25→20:33)
[2019-07-31 11:36] LABS: Glucose,Whole Blood 144 mg/dL (75-99)
--- NOTE | 2019-07-31 13:31 | P.PN ---
Subjective Progress Note Date: 07/31/19 Principal diagnosis: acute exacerbation of COPD A 59-year-old male patient was hospitalized yesterday because of some increased shortness of breath and lower extremity edema. The patient is known to me. The patient is known to have COPD stage IV with an FEV1 of 35% of predicted. The patient also has history of non-small cell lung cancer, adenocarcinoma and the patient currently has metastatic disease with ZINC ETCHER metastases. Noted recently, the patient underwent an MRI of the brain and the patient was found to have brain metastases and the patient was given radiation therapy by Dr. Jakob Salgado. Prior to that, the patient was treated for further differentiated metastatic adenocarcinoma of the lung and he received a combination of carboplatinum and Alimta and he was placed on immunotherapy following that. The patient has no history of any congestion heart failure. Previous echocardiogram is shown preserved LV function. He has some secondary pulmonary hypertension. His oxygen dependent at 2-1/2 L. He denies having any chest pain. Previous Dopplers of the lower extremities have shown no evidence of any DVTs. No altered mentation. He is not a smoker for now. His that was at 8.1. His blood work and electrolytes are all within normal limits. Troponins are negative, proBNP level is not elevated, UA is negative and the covid 19 analysis was also negative. The patient is given bronchodilators, IV Solu-Medrol and IV Lasix. Feeling better. The patient is seen today 07/30/2019 in follow-up on the regular medical floor. He is currently sitting up at the bedside. Awake and alert in no acute distress. Breathing a bit easier today compared to yesterday. Not quite back to his baseline. Currently on oxygen at 4 L/m per nasal cannula and maintaining O2 saturations in the 90s. His been afebrile. Slightly tachycardic. Dyspneic with exertion. Blood culture reveals no growth to date. White count 11.7. Hemoglobin 12.1. Sodium 138. Potassium 3.4. Creatinine 0.43. He remains on DuoNeb and DuoNeb inhalations, Pulmicort and Perforomist inhalations, IV Solu- Medrol, IV diuretics, antibiotics in the form of ceftriaxone. Habitrol patch in place. Heparin for DVT prophylaxis. On 07/31/2019 patient seen in follow-up on the general medical floor. he is currently on 3 L of oxygen and the pulse ox of 95%, afebrile, hemodynamically patient is stable, no fever or chills, still has some cough, and he states he is very short of breath with any exertion. complaints of chest pain, he remains on Rocephin, nebulized bronchodilators, IV steroids, and IV Lasix. he is in -1.3 L over last 24 hours, weight is trending down. His COVID 19 testing was negative, urinalysis was negative. no significant cough or wheezing Objective - Vital Signs Vital signs: Vital Signs Temp 98.6 F 07/31/19 07:00 Pulse 88 07/31/19 13:10 Resp 16 07/31/19 07:00 BP 126/73 07/31/19 07:00 Pulse Ox 95 07/31/19 07:00 Intake & Output 07/30/19 07/31/19 07/31/19 18:59 06:59 18:59 Output Total 800 500 Balance -800 -500 Weight 78.1 kg Output: Urine 800 500 Other: Voiding Method Toilet Toilet Urinal Urinal # Voids 6 1 - Exam GENERAL EXAM: Alert, very pleasant, 59-year-old white male on 3 L of oxygen pulse ox of 95%, comfortable in no apparent distress. HEAD: Normocephalic/atraumatic. EYES: Normal reaction of pupils, equal size. Conjunctiva pink, sclera white. NOSE: Clear with pink turbinates. THROAT: No erythema or exudates. NECK: No masses, no JVD, no thyroid enlargement, no adenopathy. CHEST: No chest wall deformity. Symmetrical expansion. LUNGS: diminished air entry with no crackles, wheeze, rhonchi or dullness. CVS: Regular rate and rhythm, normal S1 and S2, no gallops, no murmurs, no rubs ABDOMEN: Soft, nontender. No hepatosplenomegaly, normal bowel sounds, no guarding or rigidity. EXTREMITIES: No clubbing, no edema, no cyanosis, 2+ pulses and upper and lower extremities. MUSCULOSKELETAL: Muscle strength and tone normal. SPINE: No scoliosis or deformity SKIN: No rashes CENTRAL NERVOUS SYSTEM: Alert and oriented -3. No focal deficits, tone is normal in all 4 extremities. PSYCHIATRIC: Alert and oriented -3. Appropriate affect. Intact judgment and insight. - Labs CBC & Chem 7: 07/31/19 07:04 07/31/19 07:04 Labs: Abnormal Lab Results - Last 24 Hours (Table) 07/30/19 07/30/19 07/31/19 Range/Units 16:33 20:44 06:45 WBC (3.8-10.6) k/uL RBC (4.30-5.90) m/uL Hgb (13.0-17.5) gm/dL MCV (80.0-100.0) fL MCHC (31.0-37.0) g/dL Neutrophils # (1.3-7.7) k/uL Lymphocytes # (1.0-4.8) k/uL Carbon Dioxide (22-30) mmol/L BUN (9-20) mg/dL Creatinine (0.66-1.25) mg/dL Glucose (74-99) mg/dL POC Glucose (mg/dL) 130 H 164 H 172 H (75-99) mg/dL Calcium (8.4-10.2) mg/dL 07/31/19 07/31/19 07/31/19 Range/Units 07:04 07:04 11:34 WBC 12.6 H (3.8-10.6) k/uL RBC 3.89 L (4.30-5.90) m/uL Hgb 11.8 L (13.0-17.5) gm/dL MCV 100.9 H (80.0-100.0) fL MCHC 30.1 L (31.0-37.0) g/dL Neutrophils # 11.2 H (1.3-7.7) k/uL Lymphocytes # 0.5 L (1.0-4.8) k/uL Carbon Dioxide 36 H (22-30) mmol/L BUN 21 H (9-20) mg/dL Creatinine 0.50 L (0.66-1.25) mg/dL Glucose 160 H (74-99) mg/dL POC Glucose (mg/dL) 144 H (75-99) mg/dL Calcium 8.1 L (8.4-10.2) mg/dL Microbiology - Last 24 Hours (Table) 07/28/19 17:39 Blood Culture - Preliminary Blood No Growth after 48 hours Assessment and Plan Plan: Assessment: 1 acute on chronic hypoxic respiratory failure secondary to COPD exacerbation. The patient is currently being treated with a combination of bronchodilators and steroids and diuretics. 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 The patient has received a combination of carboplatin and Alimta and immunotherapy and his last treatment was approximately 6 months ago. Most recent CAT scan of the chest that was done in June 2019 shows no evidence of any disease progression in the lung and the CAT scan showed diffuse emphysema with a right upper lobe/suprahilar post treatment changes with pleural thickening and masslike consolidation in the right apex which has not changed compared to the earlier CAT scan of the chest and PET scan from November 2017. The liver showed no evidence of any metastases and the rest of the CAT scan of the abdomen and pelvis was also within normal limits. Nevertheless, the patient developed brain metastases and the has received brain radiation therapy. 3 advanced COPD with an FEV1 of 35% of predicted 4 chronic hypoxic respiratory failure 5 history of pneumothorax at age of 16 related to an atypical pulmonary bleb requiring surgical intervention 6 chronic lower extremity edema, consider right-sided failure and cor pulmonale 7 history of perforated gastric ulcer requiring surgical intervention. 8 large incisional abdominal hernia without evidence of any incarceration or strength in aeration. No organomegaly. No ascites. 9 history of renal stones 10 history of smoking Plan: Continue with current medical treatment, continue IV steroids, diuretics, nebulized bronchodilators, patient is on empiric antibiotic coverage, his COVID 19 testing was negative. he is maintaining negative fluid balance, no significant wheezing or congestion. Does complain of severe exertional dyspnea. repeat chest x-ray in the morning, follow-up labs including electrolytes and renal profile.we'll continue to follow I performed a history & physical examination of the patient and discussed their management with my nurse practitioner, Candy Sethi. I reviewed the nurse practitioner's note and agree with the documented findings and plan of care. L ry sounds are positive for clear breath sounds. The findings and the impression was discussed with the patient. I attest to the documentation by the nurse practitioner. Time with Patient: Less than 30
--- NOTE | 2019-07-31 13:41 | XR ---
EXAMINATION TYPE: XR abdomen complete w decub DATE OF EXAM: 07/31/2019 COMPARISON: CT dated 07/18/2019 HISTORY: Abdominal distention TECHNIQUE: Supine, upright, and left side down lateral decubitus views of the abdomen are obtained. FINDINGS: Ventral abdominal hernia is seen on the CT of 07/18/2019 are not well visualized radiographically. [place] air-fluid levels are noted on the decubitus view and few scattered air-fluid levels within felipe wel on the upright view. No dilated large or small bowel. No pneumoperitoneum seen. No suspicious jorge cification in the abdomen or pelvis. Scarring at the right costophrenic angle seen with rightward armida ft of mediastinum from right hemithorax known volume loss. Advanced degenerative change of the bilateral hips and mild degree diffuse osseous demineralization s een. IMPRESSION: Few small bowel and large bowel air-fluid levels suggest ileus. No dilation to suggest obstruction. D iastases recti and small bowel containing abdominal hernia is noted on the CT of 07/18/2019 but not we ll visualized by x-ray.
--- NOTE | 2019-07-31 16:19 | P.GSCN ---
History of Present Illness Consult date: 07/31/19 Reason for Consult: Abdominal distention History of present illness: This a 59-year-old male who is admitted to the medical service. Patient is admitted for exacerbation of COPD. Patient is developed abdominal distention during his hospital patient. Patient has a known history of lung cancer. Patient also has a known incisional hernia. Patient states that his abdomen feels distended. His x-ray from today shows evidence of an ileus. Past Medical History Past Medical History: Cancer, COPD, Pneumonia Additional Past Medical History / Comment(s): Metastatic adenocarcinoma of the lung diagnosed in 2018 R sided lung cancer tx with chemo/keytruda with last treatment about 6 months ago, home oxygen at 3L/NC ATC, COPD, chronic hypoxic respiratory failure, bilateral lower extremity/pedal edema, chronic chest pain, low back pain, incisional hernia, bronchitis, 5 R sided pneumothorax when 16 yrs old d/t bleb-had surgery, past ruptured gastric ulcer with surgery. History of Any Multi-Drug Resistant Organisms: None Reported Additional Past Surgical History / Comment(s): Bronchoscopy, R apical bleb/resection, EGD, perforated gastric ulcer with surgical repair/patch. Past Anesthesia/Blood Transfusion Reactions: No Reported Reaction Past Psychological History: No Psychological Hx Reported Smoking Status: Former smoker Past Alcohol Use History: None Reported Past Drug Use History: None Reported - Past Family History Mother Family Medical History: COPD Additional Family Medical History / Comment(s): Mother is Father Family Medical History: Eye Disorder Additional Family Medical History / Comment(s): Father was blind. He is . Medications and Allergies Home Medications Medication Instructions Recorded Confirmed Type Folic Acid 1 mg PO DAILY 01/05/18 07/28/19 History HYDROcodone/APAP 10-325MG [[place] 1 tab PO Q4HR PRN 07/28/18 07/28/19 History 10-325] Morphine Sulfate [Morphine Sulfate 10 - 20 mg PO Q6H PRN 07/28/18 07/28/19 History Oral Soln Conc (20 MG/ML)] Nicotine 21Mg/24Hr Patch [Habitrol] 1 patch TRANSDERM DAILY #14 patch 04/13/19 07/28/19 Rx Ipratropium-Albuterol Nebulize 3 ml INHALATION RT-QID 05/05/19 07/28/19 History [Duoneb 0.5 mg-3 mg/3 ml Soln] Albuterol Sulfate [Proair Hfa] 2 puff INHALATION RT-QID PRN 07/28/19 07/28/19 History Furosemide [Lasix] 40 mg PO DAILY 07/28/19 07/28/19 History Ipratropium [place] [Atrovent Hfa] 2 puff INHALATION RT-QID 07/28/19 07/28/19 History Morphine Sulfate ER [Ms Contin] 60 mg PO Q8H PRN 07/28/19 07/28/19 History Allergies Allergy/AdvReac Type Severity Reaction Status Date / Time amoxicillin [From Augmentin] AdvReac Diarrhea Verified 07/28/19 21:43 clavulanic acid AdvReac Diarrhea Verified 07/28/19 21:43 [From Augmentin] ibuprofen [From Motrin] AdvReac Unknown Verified 07/28/19 21:43 Surgical - Exam Vital Signs Temp Pulse Resp BP Pulse Ox 99.7 F H 98 21 136/35 99 07/28/19 17:15 07/28/19 17:15 07/28/19 17:15 07/28/19 17:15 07/28/19 17:15 - General well developed, well nourished, no distress - Eyes PERRL - ENT normal pinna - Neck no masses - Respiratory normal expansion - Cardiovascular Rhythm: regular - Abdomen Abdomen soft. The abdomen is distended. There is a well formed incisional hernia in the upper midline area. The hernia soft. There is known to any peritoneal signs there's no rebound or guarding. Abdomen: soft Results - Labs 07/31/19 07:04 07/31/19 07:04 Abnormal Lab Results - Last 24 Hours (Table) 07/30/19 07/30/19 07/31/19 Range/Units 16:33 20:44 06:45 WBC (3.8-10.6) k/uL RBC (4.30-5.90) m/uL Hgb (13.0-17.5) gm/dL MCV (80.0-100.0) fL MCHC (31.0-37.0) g/dL Neutrophils # (1.3-7.7) k/uL Lymphocytes # (1.0-4.8) k/uL Carbon Dioxide (22-30) mmol/L BUN (9-20) mg/dL Creatinine (0.66-1.25) mg/dL Glucose (74-99) mg/dL POC Glucose (mg/dL) 130 H 164 H 172 H (75-99) mg/dL Calcium (8.4-10.2) mg/dL 07/31/19 07/31/19 07/31/19 Range/Units 07:04 07:04 11:34 WBC 12.6 H (3.8-10.6) k/uL RBC 3.89 L (4.30-5.90) m/uL Hgb 11.8 L (13.0-17.5) gm/dL MCV 100.9 H (80.0-100.0) fL MCHC 30.1 L (31.0-37.0) g/dL Neutrophils # 11.2 H (1.3-7.7) k/uL Lymphocytes # 0.5 L (1.0-4.8) k/uL Carbon Dioxide 36 H (22-30) mmol/L BUN 21 H (9-20) mg/dL Creatinine 0.50 L (0.66-1.25) mg/dL Glucose 160 H (74-99) mg/dL POC Glucose (mg/dL) 144 H (75-99) mg/dL Calcium 8.1 L (8.4-10.2) mg/dL Microbiology - Last 24 Hours (Table) 07/28/19 17:39 Blood Culture - Preliminary Blood No Growth after 48 hours Diabetes panel 07/31/19 Range/Units 07:04 Sodium 139 (137-145) mmol/L Potassium 3.8 (3.5-5.1) mmol/L Chloride 99 (98-107) mmol/L Carbon Dioxide 36 H (22-30) mmol/L BUN 21 H (9-20) mg/dL Creatinine 0.50 L (0.66-1.25) mg/dL Glucose 160 H (74-99) mg/dL Calcium 8.1 L (8.4-10.2) mg/dL Calcium panel 07/31/19 Range/Units 07:04 Calcium 8.1 L (8.4-10.2) mg/dL Pituitary panel 07/31/19 Range/Units 07:04 Sodium 139 (137-145) mmol/L Potassium 3.8 (3.5-5.1) mmol/L Chloride 99 (98-107) mmol/L Carbon Dioxide 36 H (22-30) mmol/L BUN 21 H (9-20) mg/dL Creatinine 0.50 L (0.66-1.25) mg/dL Glucose 160 H (74-99) mg/dL Calcium 8.1 L (8.4-10.2) mg/dL Adrenal panel 07/31/19 Range/Units 07:04 Sodium 139 (137-145) mmol/L Potassium 3.8 (3.5-5.1) mmol/L Chloride 99 (98-107) mmol/L Carbon Dioxide 36 H (22-30) mmol/L BUN 21 H (9-20) mg/dL Creatinine 0.50 L (0.66-1.25) mg/dL Glucose 160 H (74-99) mg/dL Calcium 8.1 L (8.4-10.2) mg/dL Assessment and Plan Assessment: Patient currently denies any nausea vomiting. He mostly has an ileus. If he be comes symptomatically he may require NG tube placement. We will follow with you.
[2019-07-31] MEDS: methylPREDNISolone SOD SUCCI 40 MG/ML 1 ML VIAL IV SCH ×2 (16:28→23:53)
[2019-07-31 16:40] LABS: Glucose,Whole Blood 165 mg/dL (75-99)
--- NOTE | 2019-07-31 17:28 | PN ---
PROGRESS NOTE DATE OF SERVICE: 07/31/2019 This 59-year-old gentleman who was admitted with COPD acute exacerbation also had right adenocarcinoma of the lung. The patient complaining of weakness at this time. The patient is also complaining of abdominal distention, which is causing more difficulty breathing according to him. Requested plain x-ray of the abdomen which showed some ileus. Diastasis recti and rectal was also noted possibly with abdominal hernia. The patient being closely monitored. PAST MEDICAL HISTORY: Reviewed. REVIEW OF SYSTEMS: Cardiovascular system: As mentioned earlier. Respiratory: As mentioned earlier. GI: As mentioned earlier. no dysuria. Nervous system: Mild weakness. CURRENT MEDICATIONS: Reviewed and include: 1. [place] 10 mg q.4 p.r.n. 2. DuoNeb q.i.d. and p.r.n. 3. Xanax 0.5 t.i.d. 4. Pulmicort 1 mg. 5. Rocephin 1 g daily. 6. Folic acid. 7. Perforomist b.i.d. 8. Lasix. 9. Heparin. 10.Dilaudid. 11.NovoLog. 12.Solu-Medrol. 13.MS Contin. 14.Habitrol. 15.Zofran. 16.Protonix. PHYSICAL EXAM: Patient is alert, oriented x3. Pulse is 72. Blood pressure 120/73, respirations 16, temperature 98.6, pulse ox 94% on 4 L. HEENT: Conjunctivae normal. NECK: No JVD. CARDIOVASCULAR: S1, S2 muffled. RESPIRATION: Breath sounds diminished in the bases. A few scattered rhonchi and crackles. ABDOMEN: Soft. Mild diffuse distention. Bowel sounds diminished. No ascites. LEGS: No edema. No swelling. NERVOUS SYSTEM: No focal deficits. LAB STUDIES: WBC 12.2, hemoglobin 11.8, sodium 139, potassium 3.8, glucose 144, calcium is 8.1. ASSESSMENT: 1. Chronic obstructive pulmonary disease acute exacerbation with acute purulent tracheobronchitis. 2. History of right adenocarcinoma of the lung. 3. Abdominal distention possibly ileus with abdominal wall hernia. 4. Bilateral leg edema, possibly acute cor pulmonale. 5. Acute hypoxia possible acute on chronic cor pulmonale. 6. Acute hypoxic hypercarbic respiratory failure secondary to #1 present on admission. 7. Hyponatremia. 8. Anemia, macrocytic. 9. History of pneumonia. 10.History of right lung cancer. 11.History of chronic hypoxic respiratory failure on 3 L nasal cannula. 12.History incisional hernia. 13.History of bronchoscopy. 14.Gait dysfunction. 15.Remote history of nicotine dependence. RECOMMENDATIONS AND DISCUSSION: I recommend to continue current medications, symptomatic treatment. Otherwise, plain x- ray abdomen findings are noted. Symptomatic treatment. I recommend surgical evaluation by Dr. Smith. Otherwise PT/OT evaluation. Increase ambulation. Continue with tapering steroids and further recommendations to follow. Continue the pain medications. Prognosis guarded. Further recommendations to follow. MMODL / IJN: [id number] / NANCY
[2019-07-31 20:06] LABS: Glucose,Whole Blood 147 mg/dL (75-99)
[2019-08-01] MEDS: HYDROcodone/APAP 10-325MG 1 EACH TAB PO PRN ×3 (01:17→11:15)
[2019-08-01 06:40] LABS: Glucose,Whole Blood 179 mg/dL (75-99)
[2019-08-01] MEDS: PANTOPRAZOLE 40 MG TABLET PO SCH (07:21)
[2019-08-01] MEDS: FOLIC ACID 1 MG TAB PO SCH (07:21)
[2019-08-01] MEDS: NICOTINE 21MG/24HR PATCH TRANSDERM SCH (07:22)
[2019-08-01] MEDS: INSULIN ASPART (NovoLOG) 100 UNIT/ML VIAL SQ SCH ×4 (07:22→21:07)
[2019-08-01] MEDS: HEPARIN SODIUM,PORCINE 5,000 UNIT/ML 1 ML VIAL SQ SCH ×2 (07:22→21:06)
[2019-08-01] MEDS: FUROSEMIDE 10 MG/ML 4 ML VIAL IV SCH ×2 (07:22→21:06)
[2019-08-01] MEDS: methylPREDNISolone SOD SUCCI 40 MG/ML 1 ML VIAL IV SCH ×2 (07:22→16:07)
[2019-08-01] MEDS: FORMOTEROL FUMARATE 20 MCG/2 ML NEBU INHALATION SCH ×2 (07:53→21:01)
[2019-08-01] MEDS: BUDESONIDE 1 MG/2 ML NEBU INHALATION SCH ×2 (07:54→21:08)
[2019-08-01] MEDS: IPRATROPIUM-ALBUTEROL 3 ML NEB INHALATION SCH ×4 (07:54→21:01)
[2019-08-01 08:34] LABS: Basophils % (A) 0 %; Eosinophils % (A) 0 %; HCT 42.6 % (39.0-53.0); HGB 12.7 gm/dL (13.0-17.5); Hypochromasia Slight; Lymphocytes # (A) 0.7 k/uL (1.0-4.8); Lymphocytes % (A) 8 %; MCH 30.3 pg (25.0-35.0); MCHC 29.8 g/dL (31.0-37.0); MCV 101.7 fL (80.0-100.0); Macrocytosis Slight; Mean Platelet Volume 7.9; Monocytes # (A) 0.6 k/uL (0-1.0); Monocytes % (A) 7 %; Neutrophils # (A) 7.1 k/uL (1.3-7.7); Neutrophils % (A) 84 %; Platelet Count 311 k/uL (150-450); RBC 4.19 m/uL (4.30-5.90); RDW 13.4 % (11.5-15.5); WBC 8.5 k/uL (3.8-10.6)
[2019-08-01 09:00] LABS: African American GFR (CKD) >90 (>60 ml/min/1.73 sqM); Anion Gap 5 mmol/L; Blood Urea Nitrogen 24 mg/dL (9-20); Calcium 8.5 mg/dL (8.4-10.2); Carbon Dioxide 34 mmol/L (22-30); Chloride 99 mmol/L (98-107); Glucose 151 mg/dL (74-99); Non-African American GFR(CKD) >90 (>60 ml/min/1.73 sqM); Potassium 3.9 mmol/L (3.5-5.1); Sodium 138 mmol/L (137-145)
[2019-08-01] MEDS: MORPHINE ORAL SOLN 10 MG/5 ML CUP PO PRN ×3 (09:05→22:51)
[2019-08-01 11:49] LABS: Glucose,Whole Blood 187 mg/dL (75-99)
[2019-08-01] MEDS ORDERED: NA PHOS,M-B/NA PHOS,DI-BA 133 ML ENEMA RECTAL STA (12:04)
--- NOTE | 2019-08-01 12:11 | P.PN ---
Subjective Progress Note Date: 08/01/19 Principal diagnosis: acute exacerbation of COPD A 59-year-old male patient was hospitalized yesterday because of some increased shortness of breath and lower extremity edema. The patient is known to me. The patient is known to have COPD stage IV with an FEV1 of 35% of predicted. The patient also has history of non-small cell lung cancer, adenocarcinoma and the patient currently has metastatic disease with STATISTICAL CLERK metastases. Noted recently, the patient underwent an MRI of the brain and the patient was found to have brain metastases and the patient was given radiation therapy by Dr. Jakob Salgado. Prior to that, the patient was treated for further differentiated metastatic adenocarcinoma of the lung and he received a combination of carboplatinum and Alimta and he was placed on immunotherapy following that. The patient has no history of any congestion heart failure. Previous echocardiogram is shown preserved LV function. He has some secondary pulmonary hypertension. His oxygen dependent at 2-1/2 L. He denies having any chest pain. Previous Dopplers of the lower extremities have shown no evidence of any DVTs. No altered mentation. He is not a smoker for now. His that was at 8.1. His blood work and electrolytes are all within normal limits. Troponins are negative, proBNP level is not elevated, UA is negative and the covid 19 analysis was also negative. The patient is given bronchodilators, IV Solu-Medrol and IV Lasix. Feeling better. The patient is seen today 07/30/2019 in follow-up on the regular medical floor. He is currently sitting up at the bedside. Awake and alert in no acute distress. Breathing a bit easier today compared to yesterday. Not quite back to his baseline. Currently on oxygen at 4 L/m per nasal cannula and maintaining O2 saturations in the 90s. His been afebrile. Slightly tachycardic. Dyspneic with exertion. Blood culture reveals no growth to date. White count 11.7. Hemoglobin 12.1. Sodium 138. Potassium 3.4. Creatinine 0.43. He remains on DuoNeb and DuoNeb inhalations, Pulmicort and Perforomist inhalations, IV Solu- Medrol, IV diuretics, antibiotics in the form of ceftriaxone. Habitrol patch in place. Heparin for DVT prophylaxis. On 07/31/2019 patient seen in follow-up on the general medical floor. he is currently on 3 L of oxygen and the pulse ox of 95%, afebrile, hemodynamically patient is stable, no fever or chills, still has some cough, and he states he is very short of breath with any exertion. complaints of chest pain, he remains on Rocephin, nebulized bronchodilators, IV steroids, and IV Lasix. he is in -1.3 L over last 24 hours, weight is trending down. His COVID 19 testing was negative, urinalysis was negative. no significant cough or wheezing On 08/01/2019 patient seen in follow-up on general medical floor. Feeling better today, less bronchospastic, still has some residual scattered wheezing, but overall breathing easier. Remains on 4 L of oxygen and the pulse ox of 95%, his been afebrile, lung sounds are positive for some scattered wheezes, no complaints of abdominal pain, patient developed ileus and x-ray of the abdomen yesterday showed diffuse small bowel and large bowel air-fluid levels suggesting ileus without evidence of obstruction. Surgical services are following, patient has had no nausea or vomiting, he is tolerating oral diet. Objective - Vital Signs Vital signs: Vital Signs Temp 98.0 F 08/01/19 07:00 Pulse 80 08/01/19 12:06 Resp 17 08/01/19 07:22 BP 126/75 08/01/19 07:00 Pulse Ox 95 08/01/19 07:00 Intake & Output 07/31/19 08/01/19 08/01/19 18:59 06:59 18:59 Output Total 220 825 Balance -220 -825 Weight 77.5 kg Output: Urine 220 825 Other: Voiding Method Toilet Toilet Urinal Urinal # Voids 4 - Exam GENERAL EXAM: Alert, very pleasant, 59-year-old white male on 4 L of oxygen pulse ox of 95%, comfortable in no apparent distress. HEAD: Normocephalic/atraumatic. EYES: Normal reaction of pupils, equal size. Conjunctiva pink, sclera white. NOSE: Clear with pink turbinates. THROAT: No erythema or exudates. NECK: No masses, no JVD, no thyroid enlargement, no adenopathy. CHEST: No chest wall deformity. Symmetrical expansion. LUNGS: diminished air entry with diffuse scattered wheezes CVS: Regular rate and rhythm, normal S1 and S2, no gallops, no murmurs, no rubs ABDOMEN: Soft, nontender. No hepatosplenomegaly, normal bowel sounds, no guarding or rigidity. EXTREMITIES: No clubbing, no edema, no cyanosis, 2+ pulses and upper and lower extremities. MUSCULOSKELETAL: Muscle strength and tone normal. SPINE: No scoliosis or deformity SKIN: No rashes CENTRAL NERVOUS SYSTEM: Alert and oriented -3. No focal deficits, tone is normal in all 4 extremities. PSYCHIATRIC: Alert and oriented -3. Appropriate affect. Intact judgment and insight. - Labs CBC & Chem 7: 08/01/19 07:50 08/01/19 07:50 Labs: Abnormal Lab Results - Last 24 Hours (Table) 07/31/19 07/31/19 08/01/19 Range/Units 16:39 20:05 06:39 RBC (4.30-5.90) m/uL Hgb (13.0-17.5) gm/dL MCV (80.0-100.0) fL MCHC (31.0-37.0) g/dL Lymphocytes # (1.0-4.8) k/uL Carbon Dioxide (22-30) mmol/L BUN (9-20) mg/dL Creatinine (0.66-1.25) mg/dL Glucose (74-99) mg/dL POC Glucose (mg/dL) 165 H 147 H 179 H (75-99) mg/dL 08/01/19 08/01/19 08/01/19 Range/Units 07:50 07:50 11:48 RBC 4.19 L (4.30-5.90) m/uL Hgb 12.7 L (13.0-17.5) gm/dL MCV 101.7 H (80.0-100.0) fL MCHC 29.8 L (31.0-37.0) g/dL Lymphocytes # 0.7 L (1.0-4.8) k/uL Carbon Dioxide 34 H (22-30) mmol/L BUN 24 H (9-20) mg/dL Creatinine 0.61 L (0.66-1.25) mg/dL Glucose 151 H (74-99) mg/dL POC Glucose (mg/dL) 187 H (75-99) mg/dL Microbiology - Last 24 Hours (Table) 07/28/19 17:39 Blood Culture - Preliminary Blood No Growth after 72 hours Assessment and Plan Plan: Assessment: 1 acute on chronic hypoxic respiratory failure secondary to COPD exacerbation. The patient is currently being treated with a combination of bronchodilators and steroids and diuretics. 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 The patient has received a combination of carboplatin and Alimta and immunotherapy and his last treatment was approximately 6 months ago. Most recent CAT scan of the chest that was done in June 2019 shows no evidence of any disease progression in the lung and the CAT scan showed diffuse emphysema with a right upper lobe/suprahilar post treatment changes with pleural thickening and masslike consolidation in the right apex which has not changed compared to the earlier CAT scan of the chest and PET scan from November 2017. The liver showed no evidence of any metastases and the rest of the CAT scan of the abdomen and pelvis was also within normal limits. Nevertheless, the patient developed brain metastases and the has received brain radiation therapy. 3 advanced COPD with an FEV1 of 35% of predicted 4 chronic hypoxic respiratory failure 5 history of pneumothorax at age of 16 related to an atypical pulmonary bleb requiring surgical intervention 6 chronic lower extremity edema, consider right-sided failure and cor pulmonale 7 history of perforated gastric ulcer requiring surgical intervention. 8 large incisional abdominal hernia without evidence of any incarceration or strength in aeration. No organomegaly. No ascites. 9 history of renal stones 10 history of smoking 11 abdominal distention, related to ileus Plan: Continue current medical treatment, continue diuretics, steroids, breathing treatments. Still quite dyspneic, although improved from yesterday's exam, he is feeling better, patient did develop ileus but asymptomatic for now, no lata dence of obstruction on the abdominal x-ray, surgical services are following. No nausea or vomiting, vital signs are stable. If remains stable patient may be considered for discharge home in the next 24 hours I performed a history & physical examination of the patient and discussed their management with my nurse practitioner, Candy Sethi. I reviewed the nurse practitioner's note and agree with the documented findings and plan of care. Lung sounds are positive for clear breath sounds. The findings and the impression was discussed with the patient. I attest to the documentation by the nurse practitioner. Time with Patient: Less than 30
[2019-08-01] MEDS ORDERED: KETOROLAC 30 MG/ML 1 ML VIAL IVP PRN (13:29)
[2019-08-01] MEDS: LACTULOSE 20 GM/30 ML CUP PO SCH ×3 (14:33→21:07)
[2019-08-01] MEDS: MORPHINE SULFATE ER 30 MG TABLET PO PRN (16:08)
[2019-08-01 16:45] LABS: Glucose,Whole Blood 158 mg/dL (75-99)
--- NOTE | 2019-08-01 18:23 | P.PN ---
Progress Note - Text Progress Note Date: 08/01/19 The patient resting comfortably in his bed. He still has significant abdominal distention. On exam his vital signs are stable. Abdomen soft. There is a large incisional hernia. Patient will be given lactulose and a Fleet enema to aid with bowel movements. We will follow with you.
[2019-08-01 21:12] LABS: Glucose,Whole Blood 129 mg/dL (75-99)
[2019-08-02] MEDS: MORPHINE ORAL SOLN 10 MG/5 ML CUP PO PRN ×3 (05:52→19:06)
[2019-08-02 06:52] LABS: Glucose,Whole Blood 185 mg/dL (75-99)
[2019-08-02] MEDS: INSULIN ASPART (NovoLOG) 100 UNIT/ML VIAL SQ SCH ×4 (07:19→21:11)
[2019-08-02] MEDS: PANTOPRAZOLE 40 MG TABLET PO SCH (07:19)
[2019-08-02] MEDS: NICOTINE 21MG/24HR PATCH TRANSDERM SCH (07:19)
[2019-08-02] MEDS: methylPREDNISolone SOD SUCCI 40 MG/ML 1 ML VIAL IV SCH ×4 (07:19→22:49)
[2019-08-02] MEDS: HEPARIN SODIUM,PORCINE 5,000 UNIT/ML 1 ML VIAL SQ SCH ×2 (07:20→21:11)
[2019-08-02] MEDS: FUROSEMIDE 10 MG/ML 4 ML VIAL IV SCH (07:20)
[2019-08-02] MEDS: FOLIC ACID 1 MG TAB PO SCH (07:20)
[2019-08-02] MEDS: MORPHINE SULFATE ER 30 MG TABLET PO PRN ×4 (07:21→22:48)
[2019-08-02] MEDS: LACTULOSE 20 GM/30 ML CUP PO SCH ×3 (07:21→21:12)
--- NOTE | 2019-08-02 08:19 | P.PN ---
Subjective Progress Note Date: 08/01/19 Principal diagnosis: This is a 59 year old male who was recently admitted for COPD acute exacerbation, shortness of breath, and abdominal discomfort with distention. XRay of the abdomen shows possible ileus. Surgery following along with pulmonary and patient has not had a bowel movement. Patient will be given lactulose along with an enema. Patient continues to be dyspneic with exertion and is currently on 4 liters of 02. Patient normally wears 3 liters. Pulmonary following. Patient maintained on bronchodilators along with IV steroids and will continue at this time. Currently no reports of chest pain or palpitations. Patient is afebrile. Patient is having some intermittent nausea with no vomiting noted and has been tolerating somewhat of a diet. Patient remains on IV antibiotics in the form of ceftriaxone and will continue at this time. Blood cultures have remained negative. Objective - Vital Signs Vital signs: Vital Signs Temp 98.0 F 08/01/19 07:00 Pulse 80 08/01/19 12:06 Resp 17 08/01/19 12:00 BP 126/75 08/01/19 07:00 Pulse Ox 95 08/01/19 07:00 Intake & Output 07/31/19 08/01/19 08/01/19 18:59 06:59 18:59 Output Total 220 825 400 Balance -220 -825 -400 Weight 77.5 kg Output: Urine 220 825 400 Other: Voiding Method Toilet Toilet Urinal Urinal # Voids 4 4 - Exam Gen: This is a 59-year-old male sitting up in bed, awake, alert and oriented 3 HEENT: Head is atraumatic, normocephalic. Pupils equal, round. Sclerae is anicteric. NECK: Supple. No JVD. No lymphadenopathy. No thyromegaly. LUNGS: Diminished breath sounds at the bases with a few scattered rhonchi and expiratory wheezing noted. No intercostal retractions. HEART: Regular rate and rhythm. No murmur. ABDOMEN: Soft. Distended. Bowel sounds are present. No masses. Mild tenderness upon palpation. EXTREMITIES: Lower extremity edema noted 1+ , No calf tenderness. NEUROLOGICAL: Patient is awake, alert and oriented x3. Cranial nerves 2 through 12 are grossly intact. - Labs CBC & Chem 7: 08/01/19 07:50 06/09/20 07:50 Labs: Abnormal Lab Results - Last 24 Hours (Table) 07/31/19 07/31/19 08/01/19 Range/Units 16:39 20:05 06:39 RBC (4.30-5.90) m/uL Hgb (13.0-17.5) gm/dL MCV (80.0-100.0) fL MCHC (31.0-37.0) g/dL Lymphocytes # (1.0-4.8) k/uL Carbon Dioxide (22-30) mmol/L BUN (9-20) mg/dL Creatinine (0.66-1.25) mg/dL Glucose (74-99) mg/dL POC Glucose (mg/dL) 165 H 147 H 179 H (75-99) mg/dL 08/01/19 08/01/19 08/01/19 Range/Units 07:50 07:50 11:48 RBC 4.19 L (4.30-5.90) m/uL Hgb 12.7 L (13.0-17.5) gm/dL MCV 101.7 H (80.0-100.0) fL MCHC 29.8 L (31.0-37.0) g/dL Lymphocytes # 0.7 L (1.0-4.8) k/uL Carbon Dioxide 34 H (22-30) mmol/L BUN 24 H (9-20) mg/dL Creatinine 0.61 L (0.66-1.25) mg/dL Glucose 151 H (74-99) mg/dL POC Glucose (mg/dL) 187 H (75-99) mg/dL Microbiology - Last 24 Hours (Table) 07/28/19 17:39 Blood Culture - Preliminary Blood No Growth after 72 hours Assessment and Plan Assessment: Chronic obstructive pulmonary disease acute exacerbation with acute purulent tracheobronchitis History of right adenocarcinoma of the lung Abdominal distention, possibly an ileus with abdominal wall hernia Bilateral leg edema, possibly acute cor pulmonale Acute hypoxia possible acute on chronic cor pulmonale Acute hypoxic hypercarbic respiratory failure secondary to COPD, present on admission Hyponatremia Anemia, macrocytic History of chronic hypoxic respiratory failure on 3 L via nasal cannula in the outpatient setting Gait dysfunction Remote history of nicotine dependence Plan: Continue with current medications, management, and symptomatic treatment. Patient will be given lactulose along with an enema and will monitor intake and output closely. Continue with bronchodilators and IV steroids at this time. Pulmonary and surgery following. Instructed the patient to increase activity as tolerated and get up out of the bed more often. PT/OT to evaluate the patient as he continues to be weak. Adjustments to pain medications have been made. Further recommendations to follow.
[2019-08-02] MEDS: IPRATROPIUM-ALBUTEROL 3 ML NEB INHALATION SCH ×4 (08:30→20:48)
[2019-08-02] MEDS: BUDESONIDE 1 MG/2 ML NEBU INHALATION SCH ×2 (08:30→20:48)
[2019-08-02] MEDS: FORMOTEROL FUMARATE 20 MCG/2 ML NEBU INHALATION SCH ×2 (08:30→20:48)
[2019-08-02 09:53] LABS: Basophils % (A) 0 %; Eosinophils # (A) 0.1 k/uL (0-0.7); Eosinophils % (A) 1 %; HCT 44.6 % (39.0-53.0); HGB 14.1 gm/dL (13.0-17.5); Hypochromasia Slight; Lymphocytes # (A) 0.7 k/uL (1.0-4.8); Lymphocytes % (A) 7 %; MCHC 31.6 g/dL (31.0-37.0); MCV 101.3 fL (80.0-100.0); Macrocytosis Slight; Mean Platelet Volume 8.2; Monocytes # (A) 0.6 k/uL (0-1.0); Monocytes % (A) 6 %; Neutrophils # (A) 8.6 k/uL (1.3-7.7); Neutrophils % (A) 85 %; Platelet Count 354 k/uL (150-450); RDW 13.3 % (11.5-15.5)
[2019-08-02 10:15] LABS: African American GFR (CKD) >90 (>60 ml/min/1.73 sqM); Anion Gap 9 mmol/L; Blood Urea Nitrogen 25 mg/dL (9-20); Calcium 8.8 mg/dL (8.4-10.2); Carbon Dioxide 32 mmol/L (22-30); Chloride 97 mmol/L (98-107); Glucose 137 mg/dL (74-99); Non-African American GFR(CKD) >90 (>60 ml/min/1.73 sqM); Potassium 4.1 mmol/L (3.5-5.1); Sodium 138 mmol/L (137-145)
[2019-08-02 11:39] LABS: Glucose,Whole Blood 145 mg/dL (75-99)
--- NOTE | 2019-08-02 12:05 | P.PN ---
Subjective Progress Note Date: 08/02/19 Principal diagnosis: acute exacerbation of COPD A 59-year-old male patient was hospitalized yesterday because of some increased shortness of breath and lower extremity edema. The patient is known to me. The patient is known to have COPD stage IV with an FEV1 of 35% of predicted. 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 Noted recently, the patient underwent an MRI of the brain and the patient was found to have brain metastases and the patient was given radiation therapy by Dr. Jakob Salgado. Prior to that, the patient was treated for further differentiated metastatic adenocarcinoma of the lung and he received a combination of carboplatinum and Alimta and he was placed on immunotherapy following that. The patient has no history of any congestion heart failure. Previous echocardiogram is shown preserved LV function. He has some secondary pulmonary hypertension. His oxygen dependent at 2-1/2 L. He denies having any chest pain. Previous Dopplers of the lower extremities have shown no evidence of any DVTs. No altered mentation. He is not a smoker for now. His that was at 8.1. His blood work and electrolytes are all within normal limits. Troponins are negative, proBNP level is not elevated, UA is negative and the covid 19 analysis was also negative. The patient is given bronchodilators, IV Solu-Medrol and IV Lasix. Feeling better. The patient is seen today 07/30/2019 in follow-up on the regular medical floor. He is currently sitting up at the bedside. Awake and alert in no acute distress. Breathing a bit easier today compared to yesterday. Not quite back to his baseline. Currently on oxygen at 4 L/m per nasal cannula and maintaining O2 saturations in the 90s. His been afebrile. Slightly tachycardic. Dyspneic with exertion. Blood culture reveals no growth to date. White count 11.7. Hemoglobin 12.1. Sodium 138. Potassium 3.4. Creatinine 0.43. He remains on DuoNeb and DuoNeb inhalations, Pulmicort and Perforomist inhalations, IV Solu- Medrol, IV diuretics, antibiotics in the form of ceftriaxone. Habitrol patch in place. Heparin for DVT prophylaxis. On 07/31/2019 patient seen in follow-up on the general medical floor. he is currently on 3 L of oxygen and the pulse ox of 95%, afebrile, hemodynamically patient is stable, no fever or chills, still has some cough, and he states he is very short of breath with any exertion. complaints of chest pain, he remains on Rocephin, nebulized bronchodilators, IV steroids, and IV Lasix. he is in -1.3 L over last 24 hours, weight is trending down. His COVID 19 testing was negative, urinalysis was negative. no significant cough or wheezing On 08/01/2019 patient seen in follow-up on general medical floor. Feeling better today, less bronchospastic, still has some residual scattered wheezing, but overall breathing easier. Remains on 4 L of oxygen and the pulse ox of 95%, his been afebrile, lung sounds are positive for some scattered wheezes, no complaints of abdominal pain, patient developed ileus and x-ray of the abdomen yesterday showed diffuse small bowel and large bowel air-fluid levels suggesting ileus without evidence of obstruction. Surgical services are following, patient has had no nausea or vomiting, he is tolerating oral diet. On 08/02/2019 patient seen in follow-up on general medical floor. No worsening dyspnea, the patient is complaining of abdominal pain, had one episode of vomiting last night, no vomiting today, he is tolerating regular diet. Did have a bowel movement yesterday. Abdomen is soft, nontender. Remains on IV Solu- Medrol, diuretics, breathing treatments. Lower extremity edema is improving, patient is in -800 mL fluid balance Objective - Vital Signs Vital signs: Vital Signs Temp 98.1 F 08/02/19 07:00 Pulse 80 08/02/19 08:57 Resp 17 08/02/19 07:20 BP 135/84 08/02/19 07:00 Pulse Ox 98 08/02/19 07:00 Intake & Output 08/01/19 08/02/19 08/02/19 18:59 06:59 18:59 Intake Total 300 300 Output Total 800 600 Balance -500 -300 Intake: Intake, IV Titration 100 Amount cefTRIAXone 1 gm In 100 Sodium Chloride 0.9% 50 ml @ 100 mls/hr IVPB Q24HR [facility] Rx#:[id number] Oral 200 300 Output: Urine 800 600 Other: Voiding Method Toilet Toilet Toilet Urinal Urinal Urinal # Voids 4 600 - Exam GENERAL EXAM: Alert, very pleasant, 59-year-old white male on 4 L of oxygen pulse ox of 98%, comfortable in no apparent distress. HEAD: Normocephalic/atraumatic. EYES: Normal reaction of pupils, equal size. Conjunctiva pink, sclera white. NOSE: Clear with pink turbinates. THROAT: No erythema or exudates. NECK: No masses, no JVD, no thyroid enlargement, no adenopathy. CHEST: No chest wall deformity. Symmetrical expansion. LUNGS: diminished air entry with diffuse scattered wheezes CVS: Regular rate and rhythm, normal S1 and S2, no gallops, no murmurs, no rubs ABDOMEN: Soft, nontender. No hepatosplenomegaly, normal bowel sounds, no guarding or rigidity. EXTREMITIES: No clubbing, lower extremity edema, improving, patient started to develop some wrinkles on his lower extremities, no cyanosis, 2+ pulses and upper and lower extremities. MUSCULOSKELETAL: Muscle strength and tone normal. SPINE: No scoliosis or deformity SKIN: No rashes CENTRAL NERVOUS SYSTEM: Alert and oriented -3. No focal deficits, tone is normal in all 4 extremities. PSYCHIATRIC: Alert and oriented -3. Appropriate affect. Intact judgment and insight. - Labs CBC & Chem 7: 08/02/19 08:56 08/02/19 08:56 Labs: Abnormal Lab Results - Last 24 Hours (Table) 08/01/19 08/01/19 08/02/19 Range/Units 16:44 20:47 06:48 MCV (80.0-100.0) fL Neutrophils # (1.3-7.7) k/uL Lymphocytes # (1.0-4.8) k/uL Chloride (98-107) mmol/L Carbon Dioxide (22-30) mmol/L BUN (9-20) mg/dL Creatinine (0.66-1.25) mg/dL Glucose (74-99) mg/dL POC Glucose (mg/dL) 158 H 129 H 185 H (75-99) mg/dL 08/02/19 08/02/19 08/02/19 Range/Units 08:56 08:56 11:38 MCV 101.3 H (80.0-100.0) fL Neutrophils # 8.6 H (1.3-7.7) k/uL Lymphocytes # 0.7 L (1.0-4.8) k/uL Chloride 97 L (98-107) mmol/L Carbon Dioxide 32 H (22-30) mmol/L BUN 25 H (9-20) mg/dL Creatinine 0.54 L (0.66-1.25) mg/dL Glucose 137 H (74-99) mg/dL POC Glucose (mg/dL) 145 H (75-99) mg/dL Microbiology - Last 24 Hours (Table) 07/28/19 17:39 Blood Culture - Preliminary Blood No Growth after 96 hours Assessment and Plan Plan: Assessment: 1 acute on chronic hypoxic respiratory failure secondary to COPD exacerbation. The patient is currently being treated with a combination of bronchodilators and steroids and diuretics. 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 The patient has received a combination of carboplatin and Alimta and immunotherapy and his last treatment was approximately 6 months ago. Most recent CAT scan of the chest that was done in June 2019 shows no evidence of any disease progression in the lung and the CAT scan showed diffuse emphysema with a right upper lobe/suprahilar post treatment changes with pleural thickening and masslike consolidation in the right apex which has not changed compared to the earlier CAT scan of the chest and PET scan from November 2017. The liver showed no evidence of any metastases and the rest of the CAT scan of the abdomen and pelvis was also within normal limits. Nevertheless, the patient developed brain metastases and the has received brain radiation therapy. 3 advanced COPD with an FEV1 of 35% of predicted 4 chronic hypoxic respiratory failure 5 history of pneumothorax at age of 16 related to an atypical pulmonary bleb requiring surgical intervention 6 chronic lower extremity edema, consider right-sided failure and cor pulmonale 7 history of perforated gastric ulcer requiring surgical intervention. 8 large incisional abdominal hernia without evidence of any incarceration or strength in aeration. No organomegaly. No ascites. 9 history of renal stones 10 history of smoking 11 abdominal distention, related to ileus Plan: Continue current medical treatment, we'll switch the IV Lasix to oral Lasix 40 mg twice a day, no worsening dyspnea, continue current dose of IV steroids, breathing treatments, still having some abdominal discomfort but no nausea vomiting, surgical services are following, patient is passing stool, tolerating oral diet. From pulmonary perspective patient can be considered for discharge home once cleared by surgery I performed a history & physical examination of the patient and discussed their management with my nurse practitioner, Candy Sethi. I reviewed the nurse practitioner's note and agree with the documented findings and plan of care. Lung sounds are positive for clear breath sounds. The findings and the impression was discussed with the patient. I attest to the documentation by the nurse practitioner. Time with Patient: Less than 30
--- NOTE | 2019-08-02 14:00 | P.PN ---
Subjective Progress Note Date: 08/02/19 Principal diagnosis: This is a 59 year old male who was recently admitted for COPD acute exacerbation, shortness of breath, and abdominal discomfort with distention. XRay of the abdomen shows possible ileus. Surgery following along with pulmonary and patient has not had a bowel movement. Patient will be given lactulose along with an enema. Patient continues to be dyspneic with exertion and is currently on 4 liters of 02. Patient normally wears 3 liters. Pulmonary following. Patient maintained on bronchodilators along with IV steroids and will continue at this time. Currently no reports of chest pain or palpitations. Patient is afebrile. Patient is having some intermittent nausea with no vomiting noted and has been tolerating somewhat of a diet. Patient remains on IV antibiotics in the form of ceftriaxone and will continue at this time. Blood cultures have remained negative. 08/02/2019 Patient is seen and evaluated in follow-up today states he had a bowel movement yesterday and was given lactulose although that irritated his stomach and made him vomit and is refusing any further doses. Patient states he also did not have an enema and had a bowel movement on his own. Patient continues to be dyspneic with exertion and currently on 4 L and will discuss with nursing staff about weaning to his baseline of 3 L. Pulmonary is following. Patient to continue on bronchodilators and will likely transition steroids to oral upon discharge. Lasix has been transitioned to oral. Patient states his abdominal pain has improved although is dull in nature. Patient states that his breathing has not improved from yesterday. Patient denies having any chest pain or palpitations. Patient is afebrile. No reports of nausea or vomiting and patient is tolerating diet today. Objective - Vital Signs Vital signs: Vital Signs Temp 98.1 F 08/02/19 07:00 Pulse 80 08/02/19 12:33 Resp 17 08/02/19 07:20 BP 135/84 08/02/19 07:00 Pulse Ox 98 08/02/19 07:00 Intake & Output 08/01/19 08/02/19 08/02/19 18:59 06:59 18:59 Intake Total 300 300 Output Total 800 600 Balance -500 -300 Intake: Intake, IV Titration 100 Amount cefTRIAXone 1 gm In 100 Sodium Chloride 0.9% 50 ml @ 100 mls/hr IVPB Q24HR [facility] Rx#:[id number] Oral 200 300 Output: Urine 800 600 Other: Voiding Method Toilet Toilet Toilet Urinal Urinal Urinal # Voids 4 600 - Exam Gen: This is a 59-year-old male sitting up in bed, awake, alert and oriented 3 HEENT: Head is atraumatic, normocephalic. Pupils equal, round. Sclerae is anicteric. NECK: Supple. No JVD. No lymphadenopathy. No thyromegaly. LUNGS: Diminished breath sounds at the bases with a few scattered rhonchi and expiratory wheezing noted. No intercostal retractions. HEART: Regular rate and rhythm. No murmur. ABDOMEN: Soft. Distended. Bowel sounds are present. No masses. Mild tenderness upon palpation. Slightly improved from yesterday. EXTREMITIES: Lower extremity edema noted 1+ , No calf tenderness. NEUROLOGICAL: Patient is awake, alert and oriented x3. Cranial nerves 2 through 12 are grossly intact. - Labs CBC & Chem 7: 08/02/19 08:56 08/02/19 08:56 Labs: Abnormal Lab Results - Last 24 Hours (Table) 08/01/19 08/01/19 08/02/19 Range/Units 16:44 20:47 06:48 MCV (80.0-100.0) fL Neutrophils # (1.3-7.7) k/uL Lymphocytes # (1.0-4.8) k/uL Chloride (98-107) mmol/L Carbon Dioxide (22-30) mmol/L BUN (9-20) mg/dL Creatinine (0.66-1.25) mg/dL Glucose (74-99) mg/dL POC Glucose (mg/dL) 158 H 129 H 185 H (75-99) mg/dL 08/02/19 08/02/19 08/02/19 Range/Units 08:56 08:56 11:38 MCV 101.3 H (80.0-100.0) fL Neutrophils # 8.6 H (1.3-7.7) k/uL Lymphocytes # 0.7 L (1.0-4.8) k/uL Chloride 97 L (98-107) mmol/L Carbon Dioxide 32 H (22-30) mmol/L BUN 25 H (9-20) mg/dL Creatinine 0.54 L (0.66-1.25) mg/dL Glucose 137 H (74-99) mg/dL POC Glucose (mg/dL) 145 H (75-99) mg/dL Microbiology - Last 24 Hours (Table) 07/28/19 17:39 Blood Culture - Preliminary Blood No Growth after 96 hours Assessment and Plan Assessment: Chronic obstructive pulmonary disease acute exacerbation with acute purulent tracheobronchitis History of right adenocarcinoma of the lung Abdominal distention, possibly an ileus with abdominal wall hernia Bilateral leg edema, possibly acute cor pulmonale Acute hypoxia possible acute on chronic cor pulmonale Acute hypoxic hypercarbic respiratory failure secondary to COPD, present on admission Hyponatremia Anemia, macrocytic History of chronic hypoxic respiratory failure on 3 L via nasal cannula in the outpatient setting Gait dysfunction Remote history of nicotine dependence Plan: Continue with current medications, management, and symptomatic treatment. Patient did have a bowel movement yesterday and is currently tolerating diet with no reports of nausea or vomiting. Continue with bronchodilators and IV steroids at this time. Pulmonary and surgery following. Lasix has been transitioned oral. Instructed the patient to increase activity as tolerated and get up out of the bed more often. PT/OT evaluated the patient and patient will be returning home upon discharge with spouse. Further recommendations to follow. Possible discharge in 24 hours.
--- NOTE | 2019-08-02 15:39 | P.PN ---
Progress Note - Text Progress Note Date: 08/02/19 The patient and better today. He's had several bowel movements. On exam his vitals are stable. His abdomen soft. The incisional hernia is reducible. Resolving ileus. Patient continue lactulose. He will have his diet advanced.
[2019-08-02] MEDS: FUROSEMIDE 40 MG TAB PO SCH (16:04)
[2019-08-02 16:54] LABS: Glucose,Whole Blood 153 mg/dL (75-99)
[2019-08-02 20:36] LABS: Glucose,Whole Blood 184 mg/dL (75-99)
[2019-08-03] MEDS ORDERED: MORPHINE ORAL SOLN 10 MG/5 ML CUP ONE (04:22)
[2019-08-03] MEDS: IPRATROPIUM-ALBUTEROL 3 ML NEB INHALATION SCH ×4 (07:24→20:59)
[2019-08-03] MEDS: FORMOTEROL FUMARATE 20 MCG/2 ML NEBU INHALATION SCH ×2 (07:24→20:59)
[2019-08-03] MEDS: BUDESONIDE 1 MG/2 ML NEBU INHALATION SCH ×2 (07:24→20:59)
[2019-08-03 07:32] LABS: Glucose,Whole Blood 201 mg/dL (75-99)
[2019-08-03] MEDS: LACTULOSE 20 GM/30 ML CUP PO SCH ×4 (07:35→21:04)
[2019-08-03] MEDS: NICOTINE 21MG/24HR PATCH TRANSDERM SCH (07:35)
[2019-08-03] MEDS: HEPARIN SODIUM,PORCINE 5,000 UNIT/ML 1 ML VIAL SQ SCH ×2 (07:35→21:04)
[2019-08-03] MEDS: FUROSEMIDE 40 MG TAB PO SCH ×2 (07:36→16:07)
[2019-08-03] MEDS: methylPREDNISolone SOD SUCCI 40 MG/ML 1 ML VIAL IV SCH ×2 (07:36→16:07)
[2019-08-03] MEDS: FOLIC ACID 1 MG TAB PO SCH (07:36)
[2019-08-03] MEDS: PANTOPRAZOLE 40 MG TABLET PO SCH (07:36)
[2019-08-03] MEDS: INSULIN ASPART (NovoLOG) 100 UNIT/ML VIAL SQ SCH ×4 (07:36→21:04)
[2019-08-03] MEDS: MORPHINE SULFATE ER 30 MG TABLET PO PRN ×2 (07:37→16:07)
[2019-08-03] MEDS ORDERED: HYDROcodone/APAP 10-325MG 1 EACH TAB PO ONE (10:34)
[2019-08-03 11:35] LABS: Glucose,Whole Blood 168 mg/dL (75-99)
--- NOTE | 2019-08-03 11:46 | P.PN ---
Progress Note - Text Progress Note Date: 08/03/19 Patient's resting comfortably in his bed. He has had flatus and bowel movement. He states his bowel movements are small. On exam his abdomen is soft. The incisional hernia stable. It is reducible. Resolving ileus/constipation. Patient should be discharged home on lactulose. He'll follow-up next week.
--- NOTE | 2019-08-03 12:37 | P.PN ---
Subjective Progress Note Date: 08/03/19 Principal diagnosis: acute exacerbation of COPD A 59-year-old male patient was hospitalized yesterday because of some increased shortness of breath and lower extremity edema. The patient is known to me. The patient is known to have COPD stage IV with an FEV1 of 35% of predicted. The patient also has history of non-small cell lung cancer, adenocarcinoma and the patient currently has metastatic disease with CHART CLERK metastases. Noted recently, the patient underwent an MRI of the brain and the patient was found to have brain metastases and the patient was given radiation therapy by Dr. Jakob Salgado. Prior to that, the patient was treated for further differentiated metastatic adenocarcinoma of the lung and he received a combination of carboplatinum and Alimta and he was placed on immunotherapy following that. The patient has no history of any congestion heart failure. Previous echocardiogram is shown preserved LV function. He has some secondary pulmonary hypertension. His oxygen dependent at 2-1/2 L. He denies having any chest pain. Previous Dopplers of the lower extremities have shown no evidence of any DVTs. No altered mentation. He is not a smoker for now. His that was at 8.1. His blood work and electrolytes are all within normal limits. Troponins are negative, proBNP level is not elevated, UA is negative and the covid 19 analysis was also negative. The patient is given bronchodilators, IV Solu-Medrol and IV Lasix. Feeling better. The patient is seen today 07/30/2019 in follow-up on the regular medical floor. He is currently sitting up at the bedside. Awake and alert in no acute distress. Breathing a bit easier today compared to yesterday. Not quite back to his baseline. Currently on oxygen at 4 L/m per nasal cannula and maintaining O2 saturations in the 90s. His been afebrile. Slightly tachycardic. Dyspneic with exertion. Blood culture reveals no growth to date. White count 11.7. Hemoglobin 12.1. Sodium 138. Potassium 3.4. Creatinine 0.43. He remains on DuoNeb and DuoNeb inhalations, Pulmicort and Perforomist inhalations, IV Solu- Medrol, IV diuretics, antibiotics in the form of ceftriaxone. Habitrol patch in place. Heparin for DVT prophylaxis. On 07/31/2019 patient seen in follow-up on the general medical floor. he is currently on 3 L of oxygen and the pulse ox of 95%, afebrile, hemodynamically patient is stable, no fever or chills, still has some cough, and he states he is very short of breath with any exertion. complaints of chest pain, he remains on Rocephin, nebulized bronchodilators, IV steroids, and IV Lasix. he is in -1.3 L over last 24 hours, weight is trending down. His COVID 19 testing was negative, urinalysis was negative. no significant cough or wheezing On 08/01/2019 patient seen in follow-up on general medical floor. Feeling better today, less bronchospastic, still has some residual scattered wheezing, but overall breathing easier. Remains on 4 L of oxygen and the pulse ox of 95%, his been afebrile, lung sounds are positive for some scattered wheezes, no complaints of abdominal pain, patient developed ileus and x-ray of the abdomen yesterday showed diffuse small bowel and large bowel air-fluid levels suggesting ileus without evidence of obstruction. Surgical services are following, patient has had no nausea or vomiting, he is tolerating oral diet. On 08/02/2019 patient seen in follow-up on general medical floor. No worsening dyspnea, the patient is complaining of abdominal pain, had one episode of vomiting last night, no vomiting today, he is tolerating regular diet. Did have a bowel movement yesterday. Abdomen is soft, nontender. Remains on IV Solu- Medrol, diuretics, breathing treatments. Lower extremity edema is improving, patient is in -800 mL fluid balance On 08/03/2019 patient seen in follow-up on general medical floor, breathing easier, his main complaint today is abdominal pain, patient is able to pass some bowel movements that are solid, and small. No vomiting, tolerating oral diet. From pulmonary perspective patient is at his baseline, no worsening dyspnea, his been diabetes, lower extremity edema has significantly improved. Patient continues on breathing treatments, oral diuretics, IV steroids. Objective - Vital Signs Vital signs: Vital Signs Temp 97.8 F 08/03/19 07:10 Pulse 84 08/03/19 10:56 Resp 16 08/03/19 07:10 BP 125/81 08/03/19 07:10 Pulse Ox 97 08/03/19 07:10 Intake & Output 08/02/19 08/03/19 08/03/19 18:59 06:59 18:59 Output Total 450 300 Balance -450 -300 Output: Urine 450 300 Other: Voiding Method Toilet Toilet Urinal Urinal # Bowel Movements 1 - Exam GENERAL EXAM: Alert, very pleasant, 59-year-old white male on 4 L of oxygen pulse ox of 98%, comfortable in no apparent distress. HEAD: Normocephalic/atraumatic. EYES: Normal reaction of pupils, equal size. Conjunctiva pink, sclera white. NOSE: Clear with pink turbinates. THROAT: No erythema or exudates. NECK: No masses, no JVD, no thyroid enlargement, no adenopathy. CHEST: No chest wall deformity. Symmetrical expansion. LUNGS: diminished air entry with diffuse scattered wheezes CVS: Regular rate and rhythm, normal S1 and S2, no gallops, no murmurs, no rubs ABDOMEN: Soft, nontender. No hepatosplenomegaly, normal bowel sounds, no guarding or rigidity. EXTREMITIES: No clubbing, lower extremity edema, improving, patient started to develop some wrinkles on his lower extremities, no cyanosis, 2+ pulses and upper and lower extremities. MUSCULOSKELETAL: Muscle strength and tone normal. SPINE: No scoliosis or deformity SKIN: No rashes CENTRAL NERVOUS SYSTEM: Alert and oriented -3. No focal deficits, tone is normal in all 4 extremities. PSYCHIATRIC: Alert and oriented -3. Appropriate affect. Intact judgment and insight. - Labs CBC & Chem 7: 08/02/19 08:56 08/02/19 08:56 Labs: Abnormal Lab Results - Last 24 Hours (Table) 08/02/19 08/02/19 08/03/19 Range/Units 16:51 20:35 07:11 POC Glucose (mg/dL) 153 H 184 H 201 H (75-99) mg/dL 08/03/19 Range/Units 11:24 POC Glucose (mg/dL) 168 H (75-99) mg/dL Microbiology - Last 24 Hours (Table) 07/28/19 17:39 Blood Culture - Preliminary Blood No Growth after 120 hours Assessment and Plan Plan: Assessment: 1 acute on chronic hypoxic respiratory failure secondary to COPD exacerbation. The patient is currently being treated with a combination of bronchodilators and steroids and diuretics. 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 The patient has received a combination of carboplatin and Alimta and immunotherapy and his last treatment was approximately 6 months ago. Most recent CAT scan of the chest that was done in June 2019 shows no evidence of any disease progression in the lung and the CAT scan showed diffuse emphysema with a right upper lobe/suprahilar post treatment changes with pleural thickening and masslike consolidation in the right apex which has not changed compared to the earlier CAT scan of the chest and PET scan from November 2017. The liver showed no evidence of any metastases and the rest of the CAT scan of the abdomen and pelvis was also within normal limits. Nevertheless, the patient developed brain metastases and the has received brain radiation therapy. 3 advanced COPD with an FEV1 of 35% of predicted 4 chronic hypoxic respiratory failure 5 history of pneumothorax at age of 16 related to an atypical pulmonary bleb requiring surgical intervention 6 chronic lower extremity edema, consider right-sided failure and cor pulmonale 7 history of perforated gastric ulcer requiring surgical intervention. 8 large incisional abdominal hernia without evidence of any incarceration or strength in aeration. No organomegaly. No ascites. 9 history of renal stones 10 history of smoking 11 abdominal distention, related to ileus Plan: Continue with all diuretics, breathing treatments, IV steroids, wean FiO2, patient normally wears 3 L/m of oxygen at home, currently on 4 L. patient receiving lactulose, he is passing some stool, is tolerating oral diet. From pulmonary perspective he is at his baseline. He can be considered for discharge home when he is cleared by surgery I performed a history & physical examination of the patient and discussed their management with my nurse practitioner, Candy Sethi. I reviewed the nurse pra ctitioner's note and agree with the documented findings and plan of care. Lung sounds are positive for clear breath sounds. The findings and the impression was discussed with the patient. I attest to the documentation by the nurse practitioner. Time with Patient: Less than 30
--- NOTE | 2019-08-03 15:26 | MR ---
EXAMINATION TYPE: MR brain wo/w con DATE OF EXAM: 08/03/2019 COMPARISON: 05/05/2019 HISTORY: 59-year-old male Lung ca, evaluate for brain mets TECHNIQUE: Multiplanar, multisequence images of the brain and brainstem were acquired before and aft er administration of 7.5 mL IV Gadavist. Diffusion weighted imaging is performed. Fast brain protoc ol was utilized as the patient has trouble breathing while laying flat. FINDINGS: DWI sequence shows no evidence for acute infarct. There is only mild residual enhancement noted within the left post central gyrus measuring 1 cm and 6 mm at the site of previous large enhancing lesions measuring 2.5 and 1.9 cm, previously. Residual ed karely remains within the anterior left parietal lobe extending into the deep white matter and to the at rium of the left lateral ventricle though this is also significantly improved in the interval. At the site of third lesion at the right occipital parietal junction, there is only residual 8 mm of increased signal as opposed to the 1.4 cm enhancing lesion, previously. No residual enhancement remai ns. No new enhancing lesions are identified. Scattered burden of T2 bright white matter change likely relating to chronic small vessel ischemic di sease. Dural venous sinuses are patent. No midline shift, mass effect, or hydrocephalus. Resolution of previously seen left to right subfalci ne herniation. No extra-axial fluid collection. Midline structures demonstrate normal morphology. The craniocervical junction is normal. Visualized globes are intact. Paranasal sinuses appear clear. IMPRESSION: 1. Interval improvement. At the site of the previous 2 enhancing anterior left parietal masses, ther e is only residual 1.0 and 0.6 cm enhancement. Associated vasogenic edema has also improved considera rossana. 2. Small 8 mm area of bright signal remains at the site of the previous right parieto-occipital lesio n. No residual enhancement is seen here. 3. Resolution of previous mass effect and subfalcine herniation. 4. No new enhancing lesions are seen.
--- NOTE | 2019-08-03 15:28 | P.PN ---
Subjective Progress Note Date: 08/03/19 Principal diagnosis: This is a 59 year old male who was recently admitted for COPD acute exacerbation, shortness of breath, and abdominal discomfort with distention. XRay of the abdomen shows possible ileus. Surgery following along with pulmonary and patient has not had a bowel movement. Patient will be given lactulose along with an enema. Patient continues to be dyspneic with exertion and is currently on 4 liters of 02. Patient normally wears 3 liters. Pulmonary following. Patient maintained on bronchodilators along with IV steroids and will continue at this time. Currently no reports of chest pain or palpitations. Patient is afebrile. Patient is having some intermittent nausea with no vomiting noted and has been tolerating somewhat of a diet. Patient remains on IV antibiotics in the form of ceftriaxone and will continue at this time. Blood cultures have remained negative. 08/02/2019 Patient is seen and evaluated in follow-up today states he had a bowel movement yesterday and was given lactulose although that irritated his stomach and made him vomit and is refusing any further doses. Patient states he also did not have an enema and had a bowel movement on his own. Patient continues to be dyspneic with exertion and currently on 4 L and will discuss with nursing staff about weaning to his baseline of 3 L. Pulmonary is following. Patient to continue on bronchodilators and will likely transition steroids to oral upon discharge. Lasix has been transitioned to oral. Patient states his abdominal pain has improved although is dull in nature. Patient states that his breathing has not improved from yesterday. Patient denies having any chest pain or palpitations. Patient is afebrile. No reports of nausea or vomiting and patient is tolerating diet today. 08/03/2019 Patient is seen in follow-up and continues to have abdominal discomfort although has been having continued bowel movements. Patient has been refusing lactulose as he states it makes him vomit. Patient is tolerating diet with no reports of nausea or vomiting noted. Patient continues to require and request pain medications. Patient currently continues to be dyspneic with exertion and is maintained on 4 L of O2. Patient normally wears 3 L at home and discussed with nursing staff about resuming his 3 L and also instructed the patient to increase activity as tolerated. Patient remains on oral Lasix and is diuresing. Lower extremity edema has improved significantly. No reports of chest pain, worsening shortness of breath, or palpitations. Patient is afebrile. Objective - Vital Signs Vital signs: Vital Signs Temp 97.8 F 08/03/19 07:10 Pulse 84 08/03/19 10:56 Resp 16 08/03/19 07:10 BP 125/81 08/03/19 07:10 Pulse Ox 97 08/03/19 07:10 Intake & Output 08/02/19 08/03/19 08/03/19 18:59 06:59 18:59 Output Total 450 300 Balance -450 -300 Output: Urine 450 300 Other: Voiding Method Toilet Toilet Urinal Urinal # Bowel Movements 1 - Exam Gen: This is a 59-year-old male sitting up in bed, awake, alert and oriented 3 HEENT: Head is atraumatic, normocephalic. Pupils equal, round. Sclerae is anicteric. NECK: Supple. No JVD. No lymphadenopathy. No thyromegaly. LUNGS: Diminished breath sounds at the bases with a few scattered rhonchi and expiratory wheezing noted. No intercostal retractions. HEART: Regular rate and rhythm. No murmur. ABDOMEN: Soft. Distended. Bowel sounds are present. No masses. Mild tenderness upon palpation. Slightly improved from yesterday. EXTREMITIES: Lower extremity edema noted 1+ , No calf tenderness. NEUROLOGICAL: Patient is awake, alert and oriented x3. Cranial nerves 2 through 12 are grossly intact. - Labs CBC & Chem 7: 08/02/19 08:56 08/02/19 08:56 Labs: Abnormal Lab Results - Last 24 Hours (Table) 08/02/19 08/02/19 08/03/19 Range/Units 16:51 20:35 07:11 POC Glucose (mg/dL) 153 H 184 H 201 H (75-99) mg/dL 08/03/19 Range/Units 11:24 POC Glucose (mg/dL) 168 H (75-99) mg/dL Microbiology - Last 24 Hours (Table) 07/28/19 17:39 Blood Culture - Preliminary Blood No Growth after 120 hours Assessment and Plan Assessment: Chronic obstructive pulmonary disease acute exacerbation with acute purulent tracheobronchitis History of right adenocarcinoma of the lung Abdominal distention, possibly an ileus with abdominal wall hernia Bilateral leg edema, possibly acute cor pulmonale Acute hypoxia possible acute on chronic cor pulmonale Acute hypoxic hypercarbic respiratory failure secondary to COPD, present on admission Hyponatremia Anemia, macrocytic History of chronic hypoxic respiratory failure on 3 L via nasal cannula in the outpatient setting Gait dysfunction Remote history of nicotine dependence Plan: Continue with current medications, management, and symptomatic treatment. Patient has been having bowel movements and is currently tolerating diet with no reports of nausea or vomiting. Continue with bronchodilators and IV steroids at this time. Pulmonary and surgery following. Instructed the patient to increase activity as tolerated and get up out of the bed more often. PT/OT evaluated the patient and patient will be returning home upon discharge with spouse. Further recommendations to follow. Possible discharge in 24 hours.
[2019-08-03 17:05] LABS: Glucose,Whole Blood 135 mg/dL (75-99)
[2019-08-03] MEDS: MORPHINE ORAL SOLN 10 MG/5 ML CUP PO PRN (19:48)
[2019-08-03 20:47] LABS: Glucose,Whole Blood 138 mg/dL (75-99)
[2019-08-04] MEDS: MORPHINE SULFATE ER 30 MG TABLET PO PRN ×2 (00:17→08:22)
[2019-08-04] MEDS: methylPREDNISolone SOD SUCCI 40 MG/ML 1 ML VIAL IV SCH ×2 (00:17→08:21)
[2019-08-04] MEDS: MORPHINE ORAL SOLN 10 MG/5 ML CUP PO PRN ×2 (04:59→11:50)
[2019-08-04 07:25] LABS: Glucose,Whole Blood 217 mg/dL (75-99)
[2019-08-04] MEDS: FUROSEMIDE 40 MG TAB PO SCH (08:21)
[2019-08-04] MEDS: HEPARIN SODIUM,PORCINE 5,000 UNIT/ML 1 ML VIAL SQ SCH (08:21)
[2019-08-04] MEDS: FOLIC ACID 1 MG TAB PO SCH (08:21)
[2019-08-04] MEDS: PANTOPRAZOLE 40 MG TABLET PO SCH (08:21)
[2019-08-04] MEDS: NICOTINE 21MG/24HR PATCH TRANSDERM SCH (08:21)
[2019-08-04] MEDS: INSULIN ASPART (NovoLOG) 100 UNIT/ML VIAL SQ SCH ×2 (08:22→12:05)
[2019-08-04] MEDS: IPRATROPIUM-ALBUTEROL 3 ML NEB INHALATION SCH ×3 (08:38→14:31)
[2019-08-04] MEDS: FORMOTEROL FUMARATE 20 MCG/2 ML NEBU INHALATION SCH (08:38)
[2019-08-04] MEDS: BUDESONIDE 1 MG/2 ML NEBU INHALATION SCH (08:38)
--- NOTE | 2019-08-04 10:05 | P.DS ---
Providers Date of admission: 07/29/19 13:44 Expected date of discharge: 08/04/19 Attending physician: Saturnino Falcon Consults: 07/28/19 19:22 Consult Physician Routine Consulting Provider: Bibi Lyn Consult Reason/Comments: COPD exacerbation Do you want consulting provider notified?: Yes 07/31/19 12:42 Consult Physician Routine Consulting Provider: Michael Smith Consult Reason/Comments: abdominal distention Do you want consulting provider notified?: Yes Primary care physician: Bryce Basilio MD Hospital Course: Final diagnosis Chronic obstructive pulmonary disease acute exacerbation with acute purulent tracheobronchitis History of right adenocarcinoma of the lung Abdominal distention, possibly an ileus with abdominal wall hernia Bilateral leg edema, possibly acute cor pulmonale Acute hypoxia possible acute on chronic cor pulmonale Acute hypoxic hypercarbic respiratory failure secondary to COPD, present on admission Hyponatremia Anemia, macrocytic History of chronic hypoxic respiratory failure on 3 L via nasal cannula in the outpatient setting Gait dysfunction Remote history of nicotine dependence Discharge disposition Patient is being discharged in a stable condition with guarded prognosis to home and will follow up with Dr. Bryce Basilio upon discharge. Patient will also be following up with radiation oncology and surgery in the outpatient setting. Patient will continue on prednisone taper and a prescription was provided for lactulose. Total time taken is 35 minutes. History of present illness This is a 59-year-old male who was recently admitted with COPD, acute exacerbation, shortness of breath, and abdominal discomfort with distention and was being closely monitored. Patient was seen and evaluated by pulmonary along with surgery for possible ileus. Patient was instructed to have an enema and continue with lactulose although refused the enema and is refusing lactulose stating it makes him vomit and patient has had multiple bowel movements. Patient has a history of COPD and normally wears 3 L of oxygen and was continuing to be dyspneic on exertion requiring 4 L of oxygen. Pulmonary evaluated the patient and patient was on IV steroids and was transitioned oral steroids. Patient will continue with his Lasix dose as well and instructed to elevate the lower extremities while at rest. Also instructed the patient to increase activity as tolerated as he tends to sit in bed most of the day. Currently no reports of chest pain, or worsening shortness of breath, or palpitations. Patient is afebrile. No reports of nausea or vomiting and patient is tolerating diet. On exam vital signs are stable. Temp is 97.8F, pulse is 67, respirations are 16, blood pressure is 122/76, oxygen saturation is 97% on 3 liters via nasal cannula. Cardio S1, S2 are muffled. Respiratory system shows diminished breath sounds at the bases with rhonchi and mild expiratory wheezing noted. Abdomen is soft, mildly distended, and nontender. Nervous system shows no focal deficits. Please refer to medication reconciliation sheet for a list of medications. Patient Condition at Discharge: Stable Plan - Discharge Summary Discharge Rx Participant: Yes New Discharge Prescriptions: New Lactulose [Cephulac] 30 gm PO TID #240 ml predniSONE 10 mg PO DIRECTED #30 tab Continue Folic Acid 1 mg PO DAILY HYDROcodone/APAP 10-325MG [[place] 10-325] 1 tab PO Q4HR PRN PRN Reason: Pain Morphine Sulfate [Morphine Sulfate Oral Soln Conc (20 MG/ML)] 10 - 20 mg PO Q6H PRN PRN Reason: Severe Breakthrough Pain Nicotine 21Mg/24Hr Patch [Habitrol] 1 patch TRANSDERM DAILY #14 patch Ipratropium-Albuterol Nebulize [Duoneb 0.5 mg-3 mg/3 ml Soln] 3 ml INHALATION RT-QID Albuterol Sulfate [Proair Hfa] 2 puff INHALATION RT-QID PRN PRN Reason: Shortness Of Breath Morphine Sulfate ER [Ms Contin] 60 mg PO Q8H PRN PRN Reason: Moderate Pain Ipratropium [place] [Atrovent Hfa] 2 puff INHALATION RT-QID Changed Furosemide [Lasix] 40 mg PO BID 30 Days #60 tab Discharge Medication List Folic Acid 1 mg PO DAILY 01/05/18 [History] HYDROcodone/APAP 10-325MG [[place] 10-325] 1 tab PO Q4HR PRN 07/28/18 [History] Morphine Sulfate [Morphine Sulfate Oral Soln Conc (20 MG/ML)] 10 - 20 mg PO Q6H PRN 07/28/18 [History] Nicotine 21Mg/24Hr Patch [Habitrol] 1 patch TRANSDERM DAILY #14 patch 04/13/19 [Rx] Ipratropium-Albuterol Nebulize [Duoneb 0.5 mg-3 mg/3 ml Soln] 3 ml INHALATION RT-QID 05/05/19 [History] Albuterol Sulfate [Proair Hfa] 2 puff INHALATION RT-QID PRN 07/28/19 [History] Ipratropium [place] [Atrovent Hfa] 2 puff INHALATION RT-QID 07/28/19 [History] Morphine Sulfate ER [Ms Contin] 60 mg PO Q8H PRN 07/28/19 [History] Furosemide [Lasix] 40 mg PO BID 30 Days #60 tab 08/03/19 [Rx] Lactulose [Cephulac] 30 gm PO TID #240 ml 08/03/19 [Rx] predniSONE 10 mg PO DIRECTED #30 tab 08/03/19 [Rx] Follow up Appointment(s)/Referral(s): Bryce Basilio MD [Primary Care Provider] - 1-2 days (Office will call you with your appointment date and time.) Jakob Salgado MD [STAFF PHYSICIAN] - 08/24/19 11:00 am [facility] Visiting Nurse, [NON-STAFF] - Michael Smith MD [STAFF PHYSICIAN] - 08/10/19 2:00 pm Patient Instructions/Handouts: COPD (Chronic Obstructive Pulmonary Disease) (DC) Activity/Diet/Wound Care/Special Instructions: [address]: phone# [phone], address [address] [place] [address]. Please contact for home equipment needs like a toilet raiser. Activity Limited until follow-up Continue current diet Continue with lactulose and hold for loose stools Follow-up with primary care provider in the outpatient setting Continue with prednisone taper Discharge Disposition: HOME WITH HOME HEALTH SERVICES
[2019-08-04] MEDS: LACTULOSE 20 GM/30 ML CUP PO SCH (10:30)
--- NOTE | 2019-08-04 10:57 | P.PN ---
Progress Note - Text Progress Note Date: 08/04/19 The patient is resting comfortably in bed. He is tolerating diet. He's had multiple bowel movements. On exam his vital signs are stable. His abdomen soft. His incisional hernia is soft and reducible. It patient was discharged home today. He'll follow-up next week.
[2019-08-04 11:38] LABS: Glucose,Whole Blood 113 mg/dL (75-99)
--- NOTE | 2019-08-04 12:02 | P.PN ---
Subjective Progress Note Date: 08/04/19 Principal diagnosis: acute exacerbation of COPD A 59-year-old male patient was hospitalized yesterday because of some increased shortness of breath and lower extremity edema. The patient is known to me. The patient is known to have COPD stage IV with an FEV1 of 35% of predicted. The patient also has history of non-small cell lung cancer, adenocarcinoma and the patient currently has metastatic disease with PHYSICS INSTRUCTOR metastases. Noted recently, the patient underwent an MRI of the brain and the patient was found to have brain metastases and the patient was given radiation therapy by Dr. Jakob Salgado. Prior to that, the patient was treated for further differentiated metastatic adenocarcinoma of the lung and he received a combination of carboplatinum and Alimta and he was placed on immunotherapy following that. The patient has no history of any congestion heart failure. Previous echocardiogram is shown preserved LV function. He has some secondary pulmonary hypertension. His oxygen dependent at 2-1/2 L. He denies having any chest pain. Previous Dopplers of the lower extremities have shown no evidence of any DVTs. No altered mentation. He is not a smoker for now. His that was at 8.1. His blood work and electrolytes are all within normal limits. Troponins are negative, proBNP level is not elevated, UA is negative and the covid 19 analysis was also negative. The patient is given bronchodilators, IV Solu-Medrol and IV Lasix. Feeling better. The patient is seen today 07/30/2019 in follow-up on the regular medical floor. He is currently sitting up at the bedside. Awake and alert in no acute distress. Breathing a bit easier today compared to yesterday. Not quite back to his baseline. Currently on oxygen at 4 L/m per nasal cannula and maintaining O2 saturations in the 90s. His been afebrile. Slightly tachycardic. Dyspneic with exertion. Blood culture reveals no growth to date. White count 11.7. Hemoglobin 12.1. Sodium 138. Potassium 3.4. Creatinine 0.43. He remains on DuoNeb and DuoNeb inhalations, Pulmicort and Perforomist inhalations, IV Solu- Medrol, IV diuretics, antibiotics in the form of ceftriaxone. Habitrol patch in place. Heparin for DVT prophylaxis. On 07/31/2019 patient seen in follow-up on the general medical floor. he is currently on 3 L of oxygen and the pulse ox of 95%, afebrile, hemodynamically patient is stable, no fever or chills, still has some cough, and he states he is very short of breath with any exertion. complaints of chest pain, he remains on Rocephin, nebulized bronchodilators, IV steroids, and IV Lasix. he is in -1.3 L over last 24 hours, weight is trending down. His COVID 19 testing was negative, urinalysis was negative. no significant cough or wheezing On 08/01/2019 patient seen in follow-up on general medical floor. Feeling better today, less bronchospastic, still has some residual scattered wheezing, but overall breathing easier. Remains on 4 L of oxygen and the pulse ox of 95%, his been afebrile, lung sounds are positive for some scattered wheezes, no complaints of abdominal pain, patient developed ileus and x-ray of the abdomen yesterday showed diffuse small bowel and large bowel air-fluid levels suggesting ileus without evidence of obstruction. Surgical services are following, patient has had no nausea or vomiting, he is tolerating oral diet. On 08/02/2019 patient seen in follow-up on general medical floor. No worsening dyspnea, the patient is complaining of abdominal pain, had one episode of vomiting last night, no vomiting today, he is tolerating regular diet. Did have a bowel movement yesterday. Abdomen is soft, nontender. Remains on IV Solu- Medrol, diuretics, breathing treatments. Lower extremity edema is improving, patient is in -800 mL fluid balance On 08/03/2019 patient seen in follow-up on general medical floor, breathing easier, his main complaint today is abdominal pain, patient is able to pass some bowel movements that are solid, and small. No vomiting, tolerating oral diet. From pulmonary perspective patient is at his baseline, no worsening dyspnea, his been diabetes, lower extremity edema has significantly improved. Patient continues on breathing treatments, oral diuretics, IV steroids. On 08/04/2019 patient seen in follow-up on a general medical floor. Continues to improve from pulmonary perspective, patient remains on 4 L of oxygen the pulse ox of 97%, no fever, no chills, no worsening dyspnea cough or congestion. He is tolerating diet, his had multiple bowel movements, he was cleared for discharge home from surgery. From pulmonary perspective he stable for discharge as well. No new labs today. Patient has been diuresed, his been transitioned to oral lasix. Continues on breathing treatments, and IV steroids, patient is anticipated to go home today. Objective - Vital Signs Vital signs: Vital Signs Temp 97.8 F 08/04/19 06:50 Pulse 77 08/04/19 11:50 Resp 16 08/04/19 06:50 BP 122/76 08/04/19 06:50 Pulse Ox 97 08/04/19 06:50 Intake & Output 08/03/19 08/04/19 08/04/19 18:59 06:59 18:59 Intake Total 540 500 Balance 540 500 Intake: Oral 540 500 Other: Voiding Method Toilet Toilet Urinal # Voids 6 400 # Bowel Movements 1 - Exam GENERAL EXAM: Alert, very pleasant, 59-year-old white male on 4 L of oxygen pulse ox of 98%, comfortable in no apparent distress. HEAD: Normocephalic/atraumatic. EYES: Normal reaction of pupils, equal size. Conjunctiva pink, sclera white. NOSE: Clear with pink turbinates. THROAT: No erythema or exudates. NECK: No masses, no JVD, no thyroid enlargement, no adenopathy. CHEST: No chest wall deformity. Symmetrical expansion. LUNGS: diminished air entry with diffuse scattered wheezes CVS: Regular rate and rhythm, normal S1 and S2, no gallops, no murmurs, no rubs ABDOMEN: Soft, nontender. No hepatosplenomegaly, normal bowel sounds, no guarding or rigidity. EXTREMITIES: No clubbing, lower extremity edema, improving, patient started to develop some wrinkles on his lower extremities, no cyanosis, 2+ pulses and upper and lower extremities. MUSCULOSKELETAL: Muscle strength and tone normal. SPINE: No scoliosis or deformity SKIN: No rashes CENTRAL NERVOUS SYSTEM: Alert and oriented -3. No focal deficits, tone is normal in all 4 extremities. PSYCHIATRIC: Alert and oriented -3. Appropriate affect. Intact judgment and insight. - Labs CBC & Chem 7: 08/02/19 08:56 08/02/19 08:56 Labs: Abnormal Lab Results - Last 24 Hours (Table) 08/03/19 08/03/19 08/04/19 Range/Units 17:01 20:31 06:50 POC Glucose (mg/dL) 135 H 138 H 217 H (75-99) mg/dL 08/04/19 Range/Units 11:35 POC Glucose (mg/dL) 113 H (75-99) mg/dL Microbiology - Last 24 Hours (Table) 07/28/19 17:39 Blood Culture - Final Blood No Growth after 144 hours Assessment and Plan Plan: Assessment: 1 acute on chronic hypoxic respiratory failure secondary to COPD exacerbation. The patient is currently being treated with a combination of bronchodilators and steroids and diuretics. 2 stage IV metastatic adenocarcinoma of the lung with PHYSICS INSTRUCTOR involvement post radiation therapy. The patient has received a combination of carboplatin and Alimta and immunotherapy and his last treatment was approximately 6 months ago. Most recent CAT scan of the chest that was done in June 2019 shows no evidence of any disease progression in the lung and the CAT scan showed diffuse emphysema with a right upper lobe/suprahilar post treatment changes with pleural thickening and masslike consolidation in the right apex which has not changed compared to the earlier CAT scan of the chest and PET scan from November 2017. The liver showed no evidence of any metastases and the rest of the CAT scan of the abdomen and pelvis was also within normal limits. Nevertheless, the patient developed brain metastases and the has received brain radiation therapy. 3 advanced COPD with an FEV1 of 35% of predicted 4 chronic hypoxic respiratory failure 5 history of pneumothorax at age of 16 related to an atypical pulmonary bleb requiring surgical intervention 6 chronic lower extremity edema, consider right-sided failure and cor pulmonale 7 history of perforated gastric ulcer requiring surgical intervention. 8 large incisional abdominal hernia without evidence of any incarceration or strength in aeration. No organomegaly. No ascites. 9 history of renal stones 10 history of smoking 11 abdominal distention, related to ileus, improved Plan: No acute issues overnight, patient is close to his baseline in terms of his breathing, he stable for discharge home from pulmonary perspective, his been diuresed, lower extremity edema has significantly improved. He is tolerating oral diet, he was cleared by surgery for discharge, from pulmonary perspective he can be cleared for discharge. He will need outpatient follow up with Dr. Lyn in the office in 7-10 days, and patient is inquiring for possibility of bronchoscopy with BAL, this can be discussed in the office to be done on outpatient basis. I performed a history & physical examination of the patient and discussed their management with my nurse practitioner, Candy Sethi. I reviewed the nurse practitioner's note and agree with the documented findings and plan of care. Lung sounds are positive for clear breath sounds. The findings and the impression was discussed with the patient. I attest to the documentation by the nurse practitioner. Time with Patient: Less than 30
[2019-08-04 13:33] VITALS: BMI 22.5
[2019-08-04 14:41] VITALS: BP 142/86; RESP 18; TEMP 98.8
[2019-08-04 14:47] VITALS: PULSE 72
== END 2019-08-04 14:52 | disposition home health service (06) | DRG 190 ==
LOC: EC 17:11 → 1SOBS 19:19 → OBSVTOIN 07-29 13:44 → 4SSUR 07-29 15:40
PROVIDERS: ADMIT Hospitalist; ATTEND Hospitalist
DX: J44.1 Chronic obstructive pulmonary disease with (acute) exacerbation (principal); J96.22 Acute and chronic respiratory failure with hypercapnia; J96.21 Acute and chronic respiratory failure with hypoxia; C79.31 Secondary malignant neoplasm of brain; E87.1 Hypo-osmolality and hyponatremia; K56.7 Ileus, unspecified; I27.29 Other secondary pulmonary hypertension; J20.9 Acute bronchitis, unspecified; Z20.828 Contact with and (suspected) exposure to other viral communicable diseases; K43.2 Incisional hernia without obstruction or gangrene; D53.9 Nutritional anemia, unspecified; I45.10 Unspecified right bundle-branch block; G89.29 Other chronic pain; M54.5 Low back pain; R26.9 Unspecified abnormalities of gait and mobility; Z99.81 Dependence on supplemental oxygen; Z79.899 Other long term (current) drug therapy; Z85.118 Personal history of other malignant neoplasm of bronchus and lung; Z87.891 Personal history of nicotine dependence; Z87.01 Personal history of pneumonia (recurrent); Z92.21 Personal history of antineoplastic chemotherapy; Z92.25 Personal history of immunosuppression therapy; Z92.3 Personal history of irradiation; Z98.890 Other specified postprocedural states; Z88.6 Allergy status to analgesic agent; Z88.0 Allergy status to penicillin; Z88.8 Allergy status to other drugs, medicaments and biological substances; Z87.11 Personal history of peptic ulcer disease; Z87.442 Personal history of urinary calculi; Z82.5 Family history of asthma and other chronic lower respiratory diseases; Z82.1 Family history of blindness and visual loss
CPT/HCPCS: 36415; 70553; 71046; 74021; 80048; 80053; 81003; 83605; 83735; 83880; 84484; 85025; 85610; 85730; 87040; 87324; 93005; 93306; 94640; 94760; 96374; 96375; 99285

== ENCOUNTER 2019-09-28 03:32 | Observation (INO) | payer OTHER ==
[2019-09-28] MEDS ORDERED: HYDROmorphone 1 MG/ML 1 ML SYRINGE IVP STA ×4 (04:01→06:28)
[2019-09-28 04:26] LABS: Basophils % (A) 1 %; Eosinophils # (A) 0.2 k/uL (0-0.7); Eosinophils % (A) 3 %; HCT 41.4 % (39.0-53.0); HGB 12.8 gm/dL (13.0-17.5); Hypochromasia Slight; Lymphocytes # (A) 1.9 k/uL (1.0-4.8); Lymphocytes % (A) 21 %; MCH 29.8 pg (25.0-35.0); MCHC 30.9 g/dL (31.0-37.0); MCV 96.6 fL (80.0-100.0); Mean Platelet Volume 7.5; Monocytes # (A) 0.7 k/uL (0-1.0); Monocytes % (A) 8 %; Neutrophils # (A) 5.8 k/uL (1.3-7.7); Neutrophils % (A) 66 %; Platelet Count 341 k/uL (150-450); RBC 4.28 m/uL (4.30-5.90); RDW 13.5 % (11.5-15.5); WBC 8.7 k/uL (3.8-10.6)
[2019-09-28 04:35] LABS: ALT 8 U/L (4-49); AST 27 U/L (17-59); African American GFR (CKD) >90 (>60 ml/min/1.73 sqM); Albumin 3.6 g/dL (3.5-5.0); Alkaline Phosphatase 80 U/L (38-126); Amylase 41 U/L (30-110); Anion Gap 6 mmol/L; Blood Urea Nitrogen 8 mg/dL (9-20); Calcium 8.9 mg/dL (8.4-10.2); Carbon Dioxide 24 mmol/L (22-30); Chloride 105 mmol/L (98-107); Glucose 97 mg/dL (74-99); Non-African American GFR(CKD) >90 (>60 ml/min/1.73 sqM); Sodium 135 mmol/L (137-145); Total Bilirubin 0.9 mg/dL (0.2-1.3); Total Protein 7.1 g/dL (6.3-8.2)
--- NOTE | 2019-09-28 04:37 | ED ---
General Adult HPI - General Chief complaint: Shortness of Breath Stated complaint: DAVID Time Seen by Provider: 09/28/19 03:53 Source: EMS Mode of arrival: EMS Limitations: no limitations - History of Present Illness Initial comments: This patient is a 59-year-old man who presents with complaint that he is having right-sided abdominal pain and shortness of breath. The patient states that this is been getting worse over the past 3 days. Patient has not had a bowel movement in probably for or more days. He believes that he is having constipation and that the abdominal fullness is limiting his breathing. Onset/Timin -: days(s) Location: abdomen Radiation: non-radiation Severity scale (1-10): 8 Quality: aching Consistency: constant Improves with: none Worsens with: none Associated Symptoms: shortness of breath Treatments Prior to Arrival: none - Related Data Home Medications Medication Instructions Recorded Confirmed Folic Acid 1 mg PO DAILY 01/05/18 09/28/19 HYDROcodone/APAP 10-325MG [[place] 1 tab PO Q4HR PRN 07/28/18 09/28/19 10-325] Morphine Sulfate [Morphine Sulfate 10 mg PO Q6H PRN 07/28/18 09/28/19 Oral Soln Conc (20 MG/ML)] Albuterol Sulfate [Proair Hfa] 2 puff INHALATION RT-QID PRN 07/28/19 09/28/19 Morphine Sulfate ER [Ms Contin] 60 mg PO Q8H 07/28/19 09/28/19 predniSONE 10 mg PO DAILY 09/28/19 09/28/19 Previous Rx's Medication Instructions Recorded Nicotine 21Mg/24Hr Patch [Habitrol] 1 patch TRANSDERM DAILY #14 patch 04/13/19 Lactulose [Cephulac] 30 gm PO TID #240 ml 08/03/19 Ipratropium-Albuterol Nebulize 3 ml INHALATION RT-QID 30 Days 08/04/19 [Duoneb 0.5 mg-3 mg/3 ml Soln] #120 neb Allergies Allergy/AdvReac Type Severity Reaction Status Date / Time amoxicillin [From Augmentin] AdvReac Diarrhea Verified 09/28/19 03:43 clavulanic acid AdvReac Diarrhea Verified 09/28/19 03:43 [From Augmentin] ibuprofen [From Motrin] AdvReac Unknown Verified 09/28/19 03:43 Review of Systems ROS Statement: Those systems with pertinent positive or pertinent negative responses have been documented in the HPI. ROS Other: All systems not noted in ROS Statement are negative. Constitutional: Denies: fever, chills Respiratory: Reports: dyspnea. Denies: cough, wheezes, hemoptysis Cardiovascular: Denies: chest pain, palpitations, orthopnea, edema Gastrointestinal: Reports: abdominal pain, constipation. Denies: nausea, vomiting, diarrhea, melena, hematochezia Genitourinary: Denies: dysuria, hematuria Musculoskeletal: Denies: back pain Skin: Denies: rash Neurological: Denies: headache, weakness, numbness Past Medical History Past Medical History: Cancer, COPD, Pneumonia Additional Past Medical History / Comment(s): Metastatic adenocarcinoma of the lung diagnosed in 2018 R sided lung cancer tx with chemo/keytruda with last treatment about 6 months ago, home oxygen at 3L/[place] ATC, COPD, chronic hypoxic respiratory failure, bilateral lower extremity/pedal edema, chronic chest pain, low back pain, incisional hernia, bronchitis, 5 R sided pneumothorax when 16 yrs old d/t bleb-had surgery, past ruptured gastric ulcer with surgery. History of Any Multi-Drug Resistant Organisms: None Reported Additional Past Surgical History / Comment(s): Bronchoscopy, R apical bleb/resection, EGD, perforated gastric ulcer with surgical repair/patch. Past Anesthesia/Blood Transfusion Reactions: No Reported Reaction Past Psychological History: No Psychological Hx Reported Smoking Status: Current every day smoker Past Alcohol Use History: None Reported Past Drug Use History: None Reported - Past Family History Mother Family Medical History: COPD Additional Family Medical History / Comment(s): Mother is Father Family Medical History: Eye Disorder Additional Family Medical History / Comment(s): Father was blind. He is . General Exam Limitations: no limitations General appearance: alert, in distress Head exam: Present: atraumatic, normocephalic Eye exam: Present: normal appearance. Absent: scleral icterus, conjunctival injection ENT exam: Present: normal oropharynx Neck exam: Present: normal inspection Respiratory exam: Present: respiratory distress. Absent: wheezes, rales, rhonchi, stridor, chest wall tenderness, accessory muscle use, decreased breath sounds, prolonged expiratory Cardiovascular Exam: Present: normal rhythm, tachycardia, normal heart sounds. Absent: systolic murmur, diastolic murmur, rubs, gallop GI/Abdominal exam: Present: distended, tenderness, guarding, hernia (Patient has incisional hernia which is not tender and not incarcerated.). Absent: rebound, rigid, mass, pulsatile mass Extremities exam: Present: normal inspection, normal capillary refill. Absent: pedal edema, calf tenderness Back exam: Present: normal inspection. Absent: CVA tenderness (R), CVA tenderness (L) Neurological exam: Present: alert Skin exam: Present: warm, dry, intact, normal color. Absent: rash Course Vital Signs 09/28/19 09/28/19 09/28/19 03:41 05:36 05:42 Temperature 98.2 F Pulse Rate 109 H 90 Respiratory 26 H 25 H 25 H Rate Blood Pressure 165/95 145/89 O2 Sat by Pulse 97 96 Oximetry 09/28/19 07:35 Temperature 98.0 F Pulse Rate 84 Respiratory 20 Rate Blood Pressure 142/84 O2 Sat by Pulse 96 Oximetry EKG Findings - EKG Results: EKG: interpreted by ERMD, sinus rhythm, normal ST/T EKG shows: tachycardia (Rate 101 bpm) - Blocks, [place], Hypertrophy, ST Abn: AV and intraventricular conduction: right bundle branch block (fixed/intermittent, complete/incomplete) (Incomplete) QRS axis and voltage: left axis deviation (-30 to -90) Medical Decision Making - Lab Data Result diagrams: 09/28/19 04:15 09/28/19 04:15 Lab Results 09/28/19 09/28/19 09/28/19 Range/Units 04:15 04:15 04:15 WBC 8.7 (3.8-10.6) k/uL RBC 4.28 L (4.30-5.90) m/uL Hgb 12.8 L (13.0-17.5) gm/dL Hct 41.4 (39.0-53.0) % MCV 96.6 (80.0-100.0) fL MCH 29.8 (25.0-35.0) pg MCHC 30.9 L (31.0-37.0) g/dL RDW 13.5 (11.5-15.5) % Plt Count 341 (150-450) k/uL Neutrophils % 66 % Lymphocytes % 21 % Monocytes % 8 % Eosinophils % 3 % Basophils % 1 % Neutrophils # 5.8 (1.3-7.7) k/uL Lymphocytes # 1.9 (1.0-4.8) k/uL Monocytes # 0.7 (0-1.0) k/uL Eosinophils # 0.2 (0-0.7) k/uL Basophils # 0.0 (0-0.2) k/uL Hypochromasia Slight Sodium 135 L (137-145) mmol/L Potassium 4.7 (3.5-5.1) mmol/L Chloride 105 (98-107) mmol/L Carbon Dioxide 24 (22-30) mmol/L Anion Gap 6 mmol/L BUN 8 L (9-20) mg/dL Creatinine 0.37 L (0.66-1.25) mg/dL Est GFR (CKD-EPI)AfAm >90 (>60 ml/min/1.73 sqM) Est GFR (CKD-EPI)NonAf >90 (>60 ml/min/1.73 sqM) Glucose 97 (74-99) mg/dL Plasma Lactic Acid [place] 1.5 (0.7-2.0) mmol/L Calcium 8.9 (8.4-10.2) mg/dL Total Bilirubin 0.9 (0.2-1.3) mg/dL AST 27 (17-59) U/L ALT 8 (4-49) U/L Alkaline Phosphatase 80 (38-126) U/L Troponin I (0.000-0.034) ng/mL Total Protein 7.1 (6.3-8.2) g/dL Albumin 3.6 (3.5-5.0) g/dL Amylase 41 (30-110) U/L Lipase 13 L (23-300) U/L Urine Color Urine Appearance (Clear) Urine pH (5.0-8.0) Ur Specific [place] (1.001-1.035) Urine Protein (Negative) Urine Glucose (UA) (Negative) Urine Ketones (Negative) Urine Blood (Negative) Urine Nitrite (Negative) Urine Bilirubin (Negative) Urine Urobilinogen (<2.0) mg/dL Ur Leukocyte Esterase (Negative) 09/28/19 09/28/19 Range/Units 04:15 04:25 WBC (3.8-10.6) k/uL RBC (4.30-5.90) m/uL Hgb (13.0-17.5) gm/dL Hct (39.0-53.0) % MCV (80.0-100.0) fL MCH (25.0-35.0) pg MCHC (31.0-37.0) g/dL RDW (11.5-15.5) % Plt Count (150-450) k/uL Neutrophils % % Lymphocytes % % Monocytes % % Eosinophils % % Basophils % % Neutrophils # (1.3-7.7) k/uL Lymphocytes # (1.0-4.8) k/uL Monocytes # (0-1.0) k/uL Eosinophils # (0-0.7) k/uL Basophils # (0-0.2) k/uL Hypochromasia Sodium (137-145) mmol/L Potassium (3.5-5.1) mmol/L Chloride (98-107) mmol/L Carbon Dioxide (22-30) mmol/L Anion Gap mmol/L BUN (9-20) mg/dL Creatinine (0.66-1.25) mg/dL Est GFR (CKD-EPI)AfAm (>60 ml/min/1.73 sqM) Est GFR (CKD-EPI)NonAf (>60 ml/min/1.73 sqM) Glucose (74-99) mg/dL Plasma Lactic Acid [place] (0.7-2.0) mmol/L Calcium (8.4-10.2) mg/dL Total Bilirubin (0.2-1.3) mg/dL AST (17-59) U/L ALT (4-49) U/L Alkaline Phosphatase (38-126) U/L Troponin I <0.012 (0.000-0.034) ng/mL Total Protein (6.3-8.2) g/dL Albumin (3.5-5.0) g/dL Amylase (30-110) U/L Lipase (23-300) U/L Urine Color Yellow Urine Appearance Clear (Clear) Urine pH 7.0 (5.0-8.0) Ur Specific [place] 1.023 (1.001-1.035) Urine Protein Negative (Negative) Urine Glucose (UA) Negative (Negative) Urine Ketones Trace H (Negative) Urine Blood Negative (Negative) Urine Nitrite Negative (Negative) Urine Bilirubin Negative (Negative) Urine Urobilinogen 4.0 (<2.0) mg/dL Ur Leukocyte Esterase Negative (Negative) Disposition Clinical Impression: Abdominal pain, Acute exacerbation of chronic obstructive pulmonary disease Disposition: ADMITTED IP TO THIS HOSP Condition: Stable
[2019-09-28 04:39] LABS: Potassium 4.7 mmol/L (3.5-5.1)
--- NOTE | 2019-09-28 05:16 | CT ---
EXAMINATION TYPE: CT abdomen pelvis wo con DATE OF EXAM: 09/28/2019 COMPARISON: 07/18/2019 HISTORY: Abdominal pain CT DLP: 732.5 mGycm Automated exposure control for dose reduction was used. Images were obtained from the diaphragm to the floor the pelvis with no contrast. There is some patchy scarring and atelectasis at the lung bases. This appears more on the right side. Heart size is normal. Heart is deviated to the right side. There is mild pleural thickening at the r ight lung base. Liver shows no focal defect. Gallbladder is intact. Spleen is intact. Stomach is intact. There is no evidence of pancreatic mass. There is no adrenal mass. Kidneys have normal size. There is no hydronephrosis. There is 8 mm calculu s lower pole right kidney. There is 3 mm calculus lower pole left kidney. The ureters are not dilated . There is no retroperitoneal adenopathy. Bladder shows a 8 mm calculus or calculi in the posterior r ight side urinary bladder. There is minimal bladder wall thickening. Prostate is enlarged and measure s 4.8 cm. There is no inguinal hernia. There is ventral hernia that contains some incarcerated large bowel. There is retained fecal material in the large bowel. There is no evidence of free air. There is no ascites. There is compression fractures of L4 L2 L1 T12 and T9 vertebra up to 40%. There is anterior wedging. There is osteopenia. There is a mild degenerative first-degree L4-5 spondylolisthesis. The bony pelvi s appears intact. Appendix is posterior and appears normal. IMPRESSION: There is linear infiltrate and atelectasis right lung base with volume loss of the right hemithorax u nchanged. Constipation. Ventral hernia in the anterior abdomen in the midline unchanged. Constipation appears n ew compared to old exam. Multiple compression fractures unchanged. Nonobstructing renal calculi. Right side bladder calculi. Unchanged. Urinary bladder wall appears sli ghtly thickened on the right lateral aspect that is increased compared to old exam. Cystoscopy would be helpful for further evaluation if clinically indicated. This could relate to some asymmetric cysti tis.
[2019-09-28] MEDS ORDERED: MORPHINE SULFATE 4 MG/ML SYRINGE IV STA (06:34)
[2019-09-28] MEDS ORDERED: MORPHINE SULFATE ER 60 MG TABLET PO STA (06:35)
[2019-09-28 06:44] LABS: Appearance,Urine Clear (Clear); Bilirubin,Urine Negative (Negative); Blood,Urine Negative (Negative); Color,Urine Yellow; Glucose,Urine (UA) Negative (Negative); Ketones,Urine Trace (Negative); Leukocyte Esterase,Urine Negative (Negative); Nitrite,Urine Negative (Negative); Protein,Urine Negative (Negative); Specific Gravity,Urine 1.023 (1.001-1.035)
[2019-09-28] MEDS ORDERED: NALOXONE 0.4 MG/ML 1 ML VIAL IV PRN (07:06)
[2019-09-28] MEDS ORDERED: HYDROmorphone 0.5 MG/0.5 ML SYRINGE IVP PRN (07:06)
[2019-09-28] MEDS ORDERED: ONDANSETRON 4 MG/2 ML VIAL IVP PRN (07:06)
[2019-09-28] MEDS ORDERED: MORPHINE SULFATE 4 MG/ML SYRINGE IV PRN (07:06)
[2019-09-28] MEDS ORDERED: ACETAMINOPHEN TAB 325 MG TAB PO PRN (07:06)
[2019-09-28] MEDS ORDERED: MORPHINE CONC SOLN 10mg/0.5mL ORAL SYRG PO PRN (08:04)
[2019-09-28] MEDS ORDERED: ALBUTEROL NEBULIZED 2.5 MG/3 ML INHALATION PRN (08:04)
[2019-09-28] MEDS: MORPHINE SULFATE ER 60 MG TABLET PO SCH ×3 (08:14→23:59)
[2019-09-28] MEDS: NICOTINE 21MG/24HR PATCH TRANSDERM SCH (08:17)
[2019-09-28] MEDS: FOLIC ACID 1 MG TAB PO SCH (08:18)
[2019-09-28] MEDS: LACTULOSE 20 GM/30 ML CUP PO SCH ×4 (08:18→23:13)
[2019-09-28] MEDS: FAMOTIDINE 20 MG TAB PO SCH ×2 (08:18→20:00)
[2019-09-28] MEDS: HYDROcodone/APAP 10-325MG 1 EACH TAB PO PRN ×4 (08:19→23:41)
[2019-09-28] MEDS: HYDROmorphone 1 MG/ML 1 ML SYRINGE IVP PRN ×2 (08:19→11:30)
[2019-09-28] MEDS: ENOXAPARIN 40 MG/0.4 ML SYRINGE SQ SCH (08:20)
[2019-09-28] MEDS ORDERED: predniSONE 10 MG TAB PO SCH (09:00)
[2019-09-28] MEDS: SODIUM CHLORIDE 0.9% 1,000 ML IV SCH (10:43)
[2019-09-28] MEDS ORDERED: NON FORMULARY DRUG (Ipratropium Bromide [Atrovent Hfa] 2 PUFF) INHALATION SCH (12:00)
[2019-09-28] MEDS ORDERED: IPRATROPIUM-ALBUTEROL 3 ML NEB INHALATION SCH (12:00)
[2019-09-28] MEDS: IPRATROPIUM-ALBUTEROL 3 ML NEB INHALATION SCH ×3 (12:50→20:01)
[2019-09-28] MEDS: BUDESONIDE 1 MG/2 ML NEBU INHALATION SCH ×2 (12:54→20:01)
[2019-09-28] MEDS ORDERED: NA PHOS,M-B/NA PHOS,DI-BA 133 ML ENEMA RECTAL ONE (13:35)
[2019-09-28] MEDS: predniSONE 20 MG TAB PO SCH (13:37)
--- NOTE | 2019-09-28 14:15 | P.GSCN ---
History of Present Illness Consult date: 09/28/19 History of present illness: CHIEF COMPLAINT: Right-sided abdominal pain HISTORY OF PRESENT ILLNESS: This is a 59-year-old male with a known history of metastatic adenocarcinoma of the lungs with previous chemotherapy about a year ago, COPD, chronic respiratory failure on home O2, nicotine dependence, ruptured gastric ulcer status post surgical repair and a large ventral hernia. Patient presents to the emergency room with complaints of right-sided abdominal pain wi th shortness of breath. Patient reports having 2 weeks of abdominal pain. However symptoms have worsened over the last 2 days. He also reports no bowel movement for about 3 days. Patient is on chronic opioids in the form of morphine and [place] for pain control. He does also report taking MiraLAX daily. He has had issues with constipation in the past. Patient reports that he feels that his constipation is contributing to his shortness of breath. He did receive one soapsuds enema this morning. And is scheduled for another soapsuds enema this afternoon. He has had decrease in appetite. He does reports a small hard pebble-like BM this morning. He denies any nausea or vomiting. Denies any fevers chills or sweats. Patient reports no change in size or discoloration to his ventral hernia. PAST MEDICAL HISTORY: See list. PAST SURGICAL HISTORY: See list. MEDICATIONS: See list. ALLERGIES: See list. SOCIAL HISTORY: No illicit drug use. REVIEW OF SYSTEMS: CONSTITUTIONAL: Denies fever or chills. HEENT: Denies blurred vision, vision changes, or eye pain. Denies hemoptysis CARDIOVASCULAR: Denies chest pain or pressure. RESPIRATORY: No shortness of breath. GASTROINTESTINAL: Denies abdominal pain. Denies nausea or vomiting. HEMATOLOGIC: Denies bleeding disorders. GENITOURINARY: Denies any blood in urine or increased urinary frequency. SKIN: Denies pruitis. Denies rash. PHYSICAL EXAM: VITAL SIGNS: Reviewed GENERAL: Well-developed in no acute distress. HEENT: No sclera icterus. Extraocular movements grossly intact. Moist buccal mucosa. Head is atraumatic, normocephalic. Hears conversational speech. No nasal drainage. NECK: Supple without lymphadenopathy. ABDOMEN: Soft. Diffuse tenderness. Large ventral hernia. Nonreducible. NEUROLOGIC: No focal or lateralizing signs. Cranial nerves II through XII grossly intact. LABORATORY DATA: WBC 8.7, hemoglobin 12.8. LFTs normal, lipase 13 and amylase 41 IMAGING: CT abdomen and pelvis without contrast: There is linear infiltrate and atelectasis right lung base with volume loss of the right hemothorax unchanged. Constipation. Ventral hernia in the anterior abdomen in the midline unchanged. Constipation appears new compared to old exam. Multiple compression fractures unchanged. Nonobstructing renal calculi. Right-sided bladder calculi. Unchanged. Urinary bladder wall appears slightly thickened on the right lateral aspect that is increased compared to old exam ASSESSMENT: 1. Right-sided abdominal pain with constipation 2. Likely opioid induced constipation 3. Old large ventral hernia 4. History of metastatic adenocarcinoma of the lung 5. Nicotine dependence PLAN: 1. Ordered soapsuds enema 2. Resume patient's lactulose 30ml 3 times a day 3. GI prophylaxis Pepcid and DVT prophylaxis lovenox Physician Actuarial Clerk note has been reviewed by physician. Signing provider agrees with the documented findings, assessment, and plan of care. Past Medical History Past Medical History: Cancer, COPD, Pneumonia Additional Past Medical History / Comment(s): Metastatic adenocarcinoma of the lung diagnosed in 2018 R sided lung cancer tx with chemo/keytruda with last treatment about 6 months ago, home oxygen at 3L/[place] ATC, COPD, chronic hypoxic respiratory failure, bilateral lower extremity/pedal edema, chronic chest pain, low back pain, incisional hernia, bronchitis, 5 R sided pneumothorax when 16 yrs old d/t bleb-had surgery, past ruptured gastric ulcer with surgery. History of Any Multi-Drug Resistant Organisms: None Reported Additional Past Surgical History / Comment(s): Bronchoscopy, R apical bleb/resection, EGD, perforated gastric ulcer with surgical repair/patch. Past Anesthesia/Blood Transfusion Reactions: No Reported Reaction Past Psychological History: No Psychological Hx Reported Additional Psychological History / Comment(s): Pt and his spouse reside with their son. Pt uses no assistive device. He no longer drives, family takes him to [employer]. Pt has oxygen and nebulizer at home. Smoking Status: Current some day smoker Past Alcohol Use History: None Reported Additional Past Alcohol Use History / Comment(s): Pt started smoking in 1976 and went to occasionally smoking in 2018 and then quit 2 months ago. Past Drug Use History: None Reported - Past Family History Mother Family Medical History: COPD Additional Family Medical History / Comment(s): Mother is Father Family Medical History: Eye Disorder Additional Family Medical History / Comment(s): Father was blind. He is . Medications and Allergies Home Medications Medication Instructions Recorded Confirmed Type Folic Acid 1 mg PO DAILY 01/05/18 09/28/19 History HYDROcodone/APAP 10-325MG [[place] 1 tab PO Q4HR PRN 07/28/18 09/28/19 History 10-325] Morphine Sulfate [Morphine Sulfate 10 mg PO Q6H PRN 07/28/18 09/28/19 History Oral Soln Conc (20 MG/ML)] Nicotine 21Mg/24Hr Patch [Habitrol] 1 patch TRANSDERM DAILY #14 patch 04/13/19 09/28/19 Rx Albuterol Sulfate [Proair Hfa] 2 puff INHALATION RT-QID PRN 07/28/19 09/28/19 History Ipratropium [place] [Atrovent Hfa] 2 puff INHALATION RT-QID 07/28/19 09/28/19 History Morphine Sulfate ER [Ms Contin] 60 mg PO Q8H 07/28/19 09/28/19 History Lactulose [Cephulac] 30 gm PO TID #240 ml 08/03/19 09/28/19 Rx Ipratropium-Albuterol Nebulize 3 ml INHALATION RT-QID 30 Days 08/04/19 09/28/19 Rx [Duoneb 0.5 mg-3 mg/3 ml Soln] #120 neb predniSONE 10 mg PO DAILY 09/28/19 09/28/19 History Allergies Allergy/AdvReac Type Severity Reaction Status Date / Time amoxicillin [From Augmentin] AdvReac Diarrhea Verified 09/28/19 03:43 clavulanic acid AdvReac Diarrhea Verified 09/28/19 03:43 [From Augmentin] ibuprofen [From Motrin] AdvReac Unknown Verified 09/28/19 03:43 Surgical - Exam Vital Signs Temp Pulse Resp BP Pulse Ox 98.2 F 109 H 26 H 165/95 97 09/28/19 03:41 09/28/19 03:41 09/28/19 03:41 09/28/19 03:41 09/28/19 03:41 Results - Labs 09/28/19 04:15 09/28/19 04:15 Abnormal Lab Results - Last 24 Hours (Table) 09/28/19 09/28/19 09/28/19 Range/Units 04:15 04:15 04:25 RBC 4.28 L (4.30-5.90) m/uL Hgb 12.8 L (13.0-17.5) gm/dL MCHC 30.9 L (31.0-37.0) g/dL Sodium 135 L (137-145) mmol/L BUN 8 L (9-20) mg/dL Creatinine 0.37 L (0.66-1.25) mg/dL Lipase 13 L (23-300) U/L Urine Ketones Trace H (Negative) Diabetes panel 09/28/19 Range/Units 04:15 Sodium 135 L (137-145) mmol/L Potassium 4.7 (3.5-5.1) mmol/L Chloride 105 (98-107) mmol/L Carbon Dioxide 24 (22-30) mmol/L BUN 8 L (9-20) mg/dL Creatinine 0.37 L (0.66-1.25) mg/dL Glucose 97 (74-99) mg/dL Calcium 8.9 (8.4-10.2) mg/dL AST 27 (17-59) U/L ALT 8 (4-49) U/L Alkaline Phosphatase 80 (38-126) U/L Total Protein 7.1 (6.3-8.2) g/dL Albumin 3.6 (3.5-5.0) g/dL Calcium panel 09/28/19 Range/Units 04:15 Calcium 8.9 (8.4-10.2) mg/dL Albumin 3.6 (3.5-5.0) g/dL Pituitary panel 09/28/19 Range/Units 04:15 Sodium 135 L (137-145) mmol/L Potassium 4.7 (3.5-5.1) mmol/L Chloride 105 (98-107) mmol/L Carbon Dioxide 24 (22-30) mmol/L BUN 8 L (9-20) mg/dL Creatinine 0.37 L (0.66-1.25) mg/dL Glucose 97 (74-99) mg/dL Calcium 8.9 (8.4-10.2) mg/dL Adrenal panel 09/28/19 Range/Units 04:15 Sodium 135 L (137-145) mmol/L Potassium 4.7 (3.5-5.1) mmol/L Chloride 105 (98-107) mmol/L Carbon Dioxide 24 (22-30) mmol/L BUN 8 L (9-20) mg/dL Creatinine 0.37 L (0.66-1.25) mg/dL Glucose 97 (74-99) mg/dL Calcium 8.9 (8.4-10.2) mg/dL Total Bilirubin 0.9 (0.2-1.3) mg/dL AST 27 (17-59) U/L ALT 8 (4-49) U/L Alkaline Phosphatase 80 (38-126) U/L Total Protein 7.1 (6.3-8.2) g/dL Albumin 3.6 (3.5-5.0) g/dL
[2019-09-28] MEDS: HYDROmorphone 0.5 MG/0.5 ML SYRINGE IVP PRN ×3 (16:11→23:01)
--- NOTE | 2019-09-28 19:13 | P.HPIM ---
History of Present Illness H&P Date: 09/28/19 Chief Complaint: Right-sided pain History of presenting complaint: This is a pleasant 59-year-old patient of Dr. Bryce Basilio. 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 Patient presented 1 day of right-sided stabbing pain in the right chest wall. Decreased appetite some nausea. No fever no chills. Patient been constipated for 3-4 days. Which is quite normal for him. Tired and rundown. Patient has continued to smoke. Some wheezing and coughing. 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 Does use a walker. Physical examination: VITAL SIGNS: 98.2, 109, 26, 65/95, 96% on 4 L GENERAL: BMI 22.4, laying in bed, tired appearing but uncomfortable. EYES: Pupils equal. Conjunctiva normal. HEENT: External appearance of nose and ears normal, oral cavity grossly normal. NECK: JVD not raised; masses not palpable. HEART: First and second heart sounds are normal; mild edema. LUNGS: Respiratory rate increased, decreased breath sound wheezing. ABDOMEN: Soft, some right-sided tenderness, no guarding [place] liver spleen not palpable, no masses palpable. PSYCH: [Tired but able to answer questions l. NEUROLOGICAL: Cranial nerves grossly intact; no facial asymmetry, power and sensation grossly intact. LYMPHATICS: No lymph nodes palpable in the axilla and neck INVESTIGATIONS, reviewed in the clinical context: White count 8.7 hemoglobin 12.8 platelets 241 potassium 4.7 bun 8 creatinine 0.37 troponin I negative UA trace ketones EKG tracing personally reviewed by me-normal sinus rhythm Computed tomography scan abdomen and pelvis without contrast-atelectasis, gallbladder intact, 3 mm calculus left kidney lower poor and large prostate ventral hernia with some incarcerated large bowel, compression fracture of L4 and L2 L1 and T12 T9 osteopenia Assessment: -Right-sided abdominal pain, question from constipation -Chronic compression fracture of L4 L2 L1 T12 and T9 -Chronic osteopenia -Left kidney stone asymptomatic -Abdominal wall ventral hernia with some incarcerated large bowel-not causing pain or tenderness -History of non-small cell lung cancer adenocarcinoma with metastasis 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 surgery was consulted. Home medications resumed. Patient chronically on MS Contin. Repeatedly is asked me for IV Dilaudid. And it finally given 0.5 every 6 mg when necessary. Patient started inhaled bronchodilators and steroids. Heating pad was ordered. Past Medical History Past Medical History: Cancer, COPD, Pneumonia Additional Past Medical History / Comment(s): Metastatic adenocarcinoma of the lung diagnosed in 2018 R sided lung cancer tx with chemo/keytruda with last treatment about 6 months ago, home oxygen at 3L/[place] ATC, COPD, chronic hypoxic respiratory failure, bilateral lower extremity/pedal edema, chronic chest pain, low back pain, incisional hernia, bronchitis, 5 R sided pneumothorax when 16 yrs old d/t bleb-had surgery, past ruptured gastric ulcer with surgery. History of Any Multi-Drug Resistant Organisms: None Reported Additional Past Surgical History / Comment(s): Bronchoscopy, R apical bleb/resection, EGD, perforated gastric ulcer with surgical repair/patch. Past Anesthesia/Blood Transfusion Reactions: No Reported Reaction Past Psychological History: No Psychological Hx Reported Additional Psychological History / Comment(s): Pt and his spouse reside with their son. Pt uses no assistive device. He no longer drives, family takes him to [facility]. Pt has oxygen and nebulizer at home. Smoking Status: Current some day smoker Past Alcohol Use History: None Reported Additional Past Alcohol Use History / Comment(s): Pt started smoking in 1976 and went to occasionally smoking in 2017 and then quit 2 months ago. Past Drug Use History: None Reported - Past Family History Mother Family Medical History: COPD Additional Family Medical History / Comment(s): Mother is Father Family Medical History: Eye Disorder Additional Family Medical History / Comment(s): Father was blind. He is . Medications and Allergies Home Medications Medication Instructions Recorded Confirmed Type Folic Acid 1 mg PO DAILY 01/05/18 09/28/19 History HYDROcodone/APAP 10-325MG [[place] 1 tab PO Q4HR PRN 07/28/18 09/28/19 History 10-325] Morphine Sulfate [Morphine Sulfate 10 mg PO Q6H PRN 07/28/18 09/28/19 History Oral Soln Conc (20 MG/ML)] Nicotine 21Mg/24Hr Patch [Habitrol] 1 patch TRANSDERM DAILY #14 patch 04/13/19 09/28/19 Rx Albuterol Sulfate [Proair Hfa] 2 puff INHALATION RT-QID PRN 07/28/19 09/28/19 History Ipratropium [place] [Atrovent Hfa] 2 puff INHALATION RT-QID 07/28/19 09/28/19 History Morphine Sulfate ER [Ms Contin] 60 mg PO Q8H 07/28/19 09/28/19 History Lactulose [Cephulac] 30 gm PO TID #240 ml 08/03/19 09/28/19 Rx Ipratropium-Albuterol Nebulize 3 ml INHALATION RT-QID 30 Days 08/04/19 09/28/19 Rx [Duoneb 0.5 mg-3 mg/3 ml Soln] #120 neb predniSONE 10 mg PO DAILY 09/28/19 09/28/19 History Allergies Allergy/AdvReac Type Severity Reaction Status Date / Time amoxicillin [From Augmentin] AdvReac Diarrhea Verified 09/28/19 03:43 clavulanic acid AdvReac Diarrhea Verified 09/28/19 03:43 [From Augmentin] ibuprofen [From Motrin] AdvReac Unknown Verified 09/28/19 03:43 Physical Exam Vitals: Vital Signs Temp Pulse Pulse Resp BP BP Pulse Ox 09/28/19 09:52 102 H 09/28/19 09:36 100 09/28/19 07:54 98.3 F 103 H 21 161/93 98 09/28/19 07:35 98.0 F 84 20 142/84 96 09/28/19 05:42 90 25 H 145/89 96 09/28/19 05:36 25 H 09/28/19 03:41 98.2 F 109 H 26 H 165/95 97 Intake and Output 09/27/19 09/28/19 09/28/19 22:59 06:59 14:59 Other: Weight 77.111 kg 77.111 kg Results CBC & Chem 7: 09/28/19 04:15 09/28/19 04:15 Labs: Abnormal Lab Results - Last 24 Hours (Table) 09/28/19 09/28/19 09/28/19 Range/Units 04:15 04:15 04:25 RBC 4.28 L (4.30-5.90) m/uL Hgb 12.8 L (13.0-17.5) gm/dL MCHC 30.9 L (31.0-37.0) g/dL Sodium 135 L (137-145) mmol/L BUN 8 L (9-20) mg/dL Creatinine 0.37 L (0.66-1.25) mg/dL Lipase 13 L (23-300) U/L Urine Ketones Trace H (Negative) Thrombosis Risk Factor Assmnt - Choose All That Apply Any of the Below Risk Factors Present?: Yes Other Risk Factors: Yes Each Risk Factor Represents 2 Points: Age 61-74 years Other congenital or acquired thrombophilia - If yes, enter type in comment: Yes Thrombosis Risk Factor Assessment Total Risk Factor Score: 2 Thrombosis Risk Factor Assessment Level: Low Risk
[2019-09-28 19:56] VITALS: RESP 20
[2019-09-29] MEDS: IPRATROPIUM-ALBUTEROL 3 ML NEB INHALATION SCH ×4 (00:20→12:06)
[2019-09-29] MEDS: HYDROmorphone 0.5 MG/0.5 ML SYRINGE IVP PRN ×2 (02:24→05:21)
[2019-09-29] MEDS: HYDROcodone/APAP 10-325MG 1 EACH TAB PO PRN ×3 (03:39→12:22)
[2019-09-29 06:56] VITALS: BP 126/77; TEMP 98.3
[2019-09-29] MEDS: predniSONE 20 MG TAB PO SCH (07:47)
[2019-09-29] MEDS: NICOTINE 21MG/24HR PATCH TRANSDERM SCH (07:48)
[2019-09-29] MEDS: FOLIC ACID 1 MG TAB PO SCH (07:48)
[2019-09-29] MEDS: MORPHINE SULFATE ER 60 MG TABLET PO SCH (07:48)
[2019-09-29] MEDS: ENOXAPARIN 40 MG/0.4 ML SYRINGE SQ SCH (07:48)
[2019-09-29] MEDS: FAMOTIDINE 20 MG TAB PO SCH (07:48)
[2019-09-29] MEDS: SODIUM CHLORIDE 0.9% 1,000 ML IV SCH (07:55)
[2019-09-29] MEDS: LACTULOSE 20 GM/30 ML CUP PO SCH (07:55)
[2019-09-29] MEDS: BUDESONIDE 1 MG/2 ML NEBU INHALATION SCH (08:40)
--- NOTE | 2019-09-29 10:55 | P.PN ---
Subjective Progress Note Date: 09/29/19 CHIEF COMPLAINT: Right-sided abdominal pain with constipation HISTORY OF PRESENT ILLNESS: Patient's right-sided abdominal pain and constipation have shown improvement. He had 2 bowel movements after the s oapsuds enema yesterday. Patient reports good results with the bowel movements. His abdominal pain is better. He denies any nausea or vomiting. He is currently on a clear liquid diet and asking to be advanced. He is refusing the lactulose because he reports that it makes him feel sick. He usually takes MiraLAX daily at home. Patient is afebrile. PHYSICAL EXAM: VITAL SIGNS: Reviewed. GENERAL: Well-developed in no acute distress. HEENT: No sclera icterus. Extraocular movements grossly intact. Moist buccal mucosa. Head is atraumatic, normocephalic. ABDOMEN: Soft. Nontender. Large ventral hernia. NEUROLOGIC: Alert and oriented. Cranial nerves II through XII grossly intact. ASSESSMENT: 1. Right-sided abdominal pain with constipation 2. Likely opioid induced constipation 3. Old large ventral hernia 4. History of metastatic adenocarcinoma of the lung 5. Nicotine dependence PLAN: 1. Resume home medication MiraLAX 17 g daily 2. Advance diet to a full liquid diet 3. GI prophylaxis Pepcid and DVT prophylaxis lovenox Physician Cancer Registry Manager note has been reviewed by physician. Signing provider agrees with the documented findings, assessment, and plan of care. Objective - Vital Signs Vital signs: Vital Signs Temp 98.3 F 09/29/19 06:56 Pulse 88 09/29/19 08:58 Resp 20 09/29/19 06:56 BP 126/77 09/29/19 06:56 Pulse Ox 96 09/29/19 06:56 Intake & Output 09/28/19 09/29/19 09/29/19 18:59 06:59 18:59 Intake Total 680 100 Output Total 2 Balance -2 680 100 Weight 77.111 kg Intake: Intake, IV Titration 80 Amount Sodium Chloride 0.9% 1, 80 000 ml @ 20 mls/hr IV . Q24H CAROLYN Rx#:[id number] Oral 600 100 Output: Urine 2 Other: # Voids 1 # Bowel Movements 1 - Labs CBC & Chem 7: 09/28/19 04:15 09/28/19 04:15
[2019-09-29] MEDS ORDERED: polyethylene glycoL 3350 17 GM POWD.PACK PO SCH (11:00)
[2019-09-29 12:15] VITALS: PULSE 88
--- NOTE | 2019-09-29 23:31 | P.DS ---
Providers Date of admission: 09/28/19 07:26 Expected date of discharge: 09/29/19 Attending physician: Zev Kelley Consults: 09/28/19 07:07 Consult Physician Routine Consulting Provider: Michael Smith Consult Reason/Comments: intractable abdominal pain Do you want consulting provider notified?: Yes Primary care physician: Bryce Basilio MD Hospital Course: Chief Complaint: Right-sided pain History of presenting complaint: This is a pleasant 59-year-old patient of Dr. Bryce Basilio. 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 Patient presented 1 day of right-sided stabbing pain in the right chest wall. Decreased appetite some nausea. No fever no chills. Patient been constipated for 3-4 days. Which is quite normal for him. Tired and rundown. Patient has continued to smoke. Some wheezing and coughing. pain is worse with deep breathing. pleuritic in nature. No local tenderness.felt to be viral pleurisy. Seen by general surgery.computed tomography scan abdomen unremarkable today-discussed with patient. Questions answered. Doesn't like hospital food. consultation: Dr. Smith from general surgery Physical examination: VITAL SIGNS: 98.3, 95, 20, 126/77, 96% on 4 L GENERAL: laying in bed, comfortable at rest. EYES: Pupils equal. Conjunctiva normal. HEENT: External appearance of nose and ears normal, oral cavity grossly normal. NECK: JVD not raised; masses not palpable. HEART: First and second heart sounds are normal; mild edema. LUNGS: Respiratory rate increased, decreased breath sound wheezing. ABDOMEN: Soft, some right-sided tenderness, no guarding Reg[place] liver spleen not palpable, no masses palpable. PSYCH: answering questions INVESTIGATIONS, reviewed in the clinical context: White count 8.7 hemoglobin 12.8 platelets 241 potassium 4.7 bun 8 creatinine 0.37 troponin I negative UA trace ketones EKG tracing personally reviewed by me-normal sinus rhythm Computed tomography scan abdomen and pelvis without contrast-atelectasis, gallbladder intact, 3 mm calculus left kidney lower poor and large prostate ventral hernia with some incarcerated large bowel, compression fracture of L4 and L2 L1 and T12 T9 osteopenia Assessment: -Right-sided chest pain-no date likely viral pleurisy -Constipation improved -Chronic compression fracture of L4 L2 L1 T12 and T9 -Chronic osteopenia -Left kidney stone asymptomatic -Abdominal wall ventral hernia with some incarcerated large bowel-not causing pain or tenderness -History of non-small cell lung cancer adenocarcinoma with metastasis to 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 -Chronic cor pulmonale -Chronic hypoxic respiratory failure and 3 L of oxygen -Secondary pulmonary hypertension -Acute COPD exacerbation in a current smoker -Chronic Coumadin dependency smoker disposition: Home Patient Condition at Discharge: Stable Plan - Discharge Summary New Discharge Prescriptions: Continue Folic Acid 1 mg PO DAILY HYDROcodone/APAP 10-325MG [[place] 10-325] 1 tab PO Q4HR PRN PRN Reason: Pain Morphine Sulfate [Morphine Sulfate Oral Soln Conc (20 MG/ML)] 10 mg PO Q6H PRN PRN Reason: Severe Breakthrough Pain Nicotine 21Mg/24Hr Patch [Habitrol] 1 patch TRANSDERM DAILY #14 patch Albuterol Sulfate [Proair Hfa] 2 puff INHALATION RT-QID PRN PRN Reason: Shortness Of Breath Morphine Sulfate ER [Ms Contin] 60 mg PO Q8H Lactulose [Cephulac] 30 gm PO TID #240 ml Ipratropium-Albuterol Nebulize [Duoneb 0.5 mg-3 mg/3 ml Soln] 3 ml INHALATION RT-QID 30 Days #120 neb predniSONE 10 mg PO DAILY Discontinued Ipratropium [place] [Atrovent Hfa] 2 puff INHALATION RT-QID Discharge Medication List Folic Acid 1 mg PO DAILY 01/05/18 [History] HYDROcodone/APAP 10-325MG [[place] 10-325] 1 tab PO Q4HR PRN 07/28/18 [History] Morphine Sulfate [Morphine Sulfate Oral Soln Conc (20 MG/ML)] 10 mg PO Q6H PRN 07/28/18 [History] Nicotine 21Mg/24Hr Patch [Habitrol] 1 patch TRANSDERM DAILY #14 patch 04/13/19 [Rx] Albuterol Sulfate [Proair Hfa] 2 puff INHALATION RT-QID PRN 07/28/19 [History] Morphine Sulfate ER [Ms Contin] 60 mg PO Q8H 07/28/19 [History] Lactulose [Cephulac] 30 gm PO TID #240 ml 08/03/19 [Rx] Ipratropium-Albuterol Nebulize [Duoneb 0.5 mg-3 mg/3 ml Soln] 3 ml INHALATION RT-QID 30 Days #120 neb 08/04/19 [Rx] predniSONE 10 mg PO DAILY 09/28/19 [History] Follow up Appointment(s)/Referral(s): Bryce Basilio MD [Primary Care Provider] - 1-2 days (office not answering at time of discharge. Please call to amke appointment) Discharge Disposition: HOME WITH HOME HEALTH SERVICES
== END 2019-09-29 14:30 | disposition home or self-care (01) ==
LOC: EC 03:32 → 4SSUR 07:26 → INTOOBSV 07:26 → UNDODISIN 09-29 14:30
PROVIDERS: ADMIT Hospitalist; ATTEND Hospitalist
DX: J44.1 Chronic obstructive pulmonary disease with (acute) exacerbation (principal); J96.11 Chronic respiratory failure with hypoxia; Z99.81 Dependence on supplemental oxygen; K59.00 Constipation, unspecified; K43.6 Other and unspecified ventral hernia with obstruction, without gangrene; I27.81 Cor pulmonale (chronic); I27.20 Pulmonary hypertension, unspecified; G89.29 Other chronic pain; R07.9 Chest pain, unspecified; M54.5 Low back pain; J98.11 Atelectasis; N20.0 Calculus of kidney; N21.0 Calculus in bladder; M48.55XS Collapsed vertebra, not elsewhere classified, thoracolumbar region, sequela of fracture; C79.31 Secondary malignant neoplasm of brain; Z87.11 Personal history of peptic ulcer disease; F17.200 Nicotine dependence, unspecified, uncomplicated; Z82.1 Family history of blindness and visual loss; I45.10 Unspecified right bundle-branch block; Z79.891 Long term (current) use of opiate analgesic; Z87.01 Personal history of pneumonia (recurrent); Z85.118 Personal history of other malignant neoplasm of bronchus and lung; Z92.21 Personal history of antineoplastic chemotherapy; Z98.890 Other specified postprocedural states; Z79.52 Long term (current) use of systemic steroids; Z79.899 Other long term (current) drug therapy; Z88.6 Allergy status to analgesic agent; Z88.0 Allergy status to penicillin; Z88.8 Allergy status to other drugs, medicaments and biological substances; Z79.01 Long term (current) use of anticoagulants
CPT/HCPCS: 96376 ×3; 96372 ×2; 96374; 96375; 99285; 36415; 94640 ×4; 93005; 80053; 82150; 83605; 83690; 84484; 85025; 81003; 74176; G0378 ×2; U0003; S4990 ×2; J2270; J1650 ×2; J1170 ×3; J7512 ×3

== ENCOUNTER 2019-10-05 10:44 | Emergency (ER) | payer OTHER ==
[2019-10-05] MEDS ORDERED: HYDROmorphone 0.5 MG/0.5 ML SYRINGE IVP STA (11:03)
[2019-10-05] MEDS ORDERED: RX INFO: IV CONTRAST WAS GIVEN 1 EACH MISC MISCELLANE PRN (11:04)
--- NOTE | 2019-10-05 11:07 | ED ---
General Adult HPI - General Chief complaint: Chest Pain Stated complaint: Chest pain Time Seen by Provider: 10/05/19 10:53 Source: patient, family Mode of arrival: wheelchair Limitations: physical limitation - History of Present Illness Initial comments: Dictation was produced using [employer] dictation software. please excuse any grammatical, word or spelling errors. This patient was cared for during a federal and state declared state of emergency secondary to Covid 19 Chief Complaint: 59-year-old male past medical history of lung cancer presents with chest pain History of Present Illness: Is a 1-year-old male who presents today with right- sided chest pain. Patient states his symptoms have been ongoing for 1 month. Patient was recently admitted to the hospital where he was evaluated for right sided abdominal pain. He was advised by general surgery and discharge. At that time he did have some chest pain which was attribute it to viral pleurisy. Today he was follow-up with his oncology doctor. He saw the nurse practitioner Dilia who requested the patient come to the emergency department for evaluation. She still patient that she wanted him to get a computed tomography scan of the chest. 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 Patient has multiple pain complaints. Takes [place] and morphine at home orally. His history of chronic pain. The ROS documented in this emergency department record has been reviewed and confirmed by me. Those systems with pertinent positive or negative responses have been documented in the HPI. All other systems are other negative and/or noncontributory. PHYSICAL EXAM: General Impression: Alert and oriented x3, not in acute distress HEENT: Normocephalic atraumatic, extra-ocular movements intact, pupils equal and reactive to light bilaterally, mucous membranes moist. Cardiovascular: Heart regular rate and rhythm Chest: Able to complete full sentences, no retractions, no tachypnea Abdomen: abdomen soft, non-tender, non-distended, no organomegaly Musculoskeletal: Pulses present and equal in all extremities, no peripheral edema Motor: no focal deficits noted Neurological: CN II-XII grossly intact, no focal motor or sensory deficits noted Skin: Intact with no visualized rashes Psych: Normal affect and mood ED course: 59-year-old male presents with right-sided flank chest pain. GENERAL: [] LUNGS: [] HEART: [] ABDOMEN: [] NEUROLOGICAL: [] PSYCH: [] Patient has been having ongoing symptoms for a month. Patient was admitted earlier this month and was diagnosed with viral pleurisy. Vital signs upon arrival shows heart rate of 11, rest of vital signs within acceptable limits. Laboratory evaluation obtained. CBC, metabolic panel is unremarkable. Chest CT shows recurrence of lung cancer. Patient reports that he hasn't had any cancer treatment and approximately urine a half. He does however have a cancer doctor. CT shows 2.4 cm enlarging soft tissue nodule at the right apex. Which is almost 1 cm greater than previously imaged. There also other nodules that are new in appearance. Findings are highly suspicious for recurrence of disease. Discussed these findings with patient. He had a suspicion that his symptoms are secondary to recurrence of lung cancer. Disposition options were discussed with patient. He is agreeable for discharge. He is strongly urged to follow-up with his oncologist Dr. Monae. He states he will. Patient given some by mouth analgesics for pain control. EKG interpretation: Ventricular rate 100, normal sinus rhythm,. Interval 122, QRS 90, QTc 454. No [place] prolongation, no QTC prolongation, no ST or T-wave changes noted. EKG compared to 09/28/2019 showing no changes. Overall, this EKG is unremarkable - Related Data Home Medications Medication Instructions Recorded Confirmed Folic Acid 1 mg PO DAILY 01/05/18 09/28/19 HYDROcodone/APAP 10-325MG [[place] 1 tab PO Q4HR PRN 07/28/18 09/28/19 10-325] Morphine Sulfate [Morphine Sulfate 10 mg PO Q6H PRN 07/28/18 09/28/19 Oral Soln Conc (20 MG/ML)] Albuterol Sulfate [Proair Hfa] 2 puff INHALATION RT-QID PRN 07/28/19 09/28/19 Morphine Sulfate ER [Ms Contin] 60 mg PO Q8H 07/28/19 09/28/19 predniSONE 10 mg PO DAILY 09/28/19 09/28/19 Previous Rx's Medication Instructions Recorded Nicotine 21Mg/24Hr Patch [Habitrol] 1 patch TRANSDERM DAILY #14 patch 04/13/19 Lactulose [Cephulac] 30 gm PO TID #240 ml 08/03/19 Ipratropium-Albuterol Nebulize 3 ml INHALATION RT-QID 30 Days 08/04/19 [Duoneb 0.5 mg-3 mg/3 ml Soln] #120 neb Morphine Sulfate Ir [MSIR] 15 mg PO Q6HR PRN 3 Days #12 tab 10/05/19 Allergies Allergy/AdvReac Type Severity Reaction Status Date / Time amoxicillin [From Augmentin] AdvReac Diarrhea Verified 10/05/19 10:50 clavulanic acid AdvReac Diarrhea Verified 10/05/19 10:50 [From Augmentin] ibuprofen [From Motrin] AdvReac Unknown Verified 10/05/19 10:50 Review of Systems ROS Statement: Those systems with pertinent positive or pertinent negative responses have been documented in the HPI. ROS Other: All systems not noted in ROS Statement are negative. Past Medical History Past Medical History: Cancer, COPD, Pneumonia Additional Past Medical History / Comment(s): Metastatic adenocarcinoma of the lung diagnosed in 2018 R sided lung cancer tx with chemo/keytruda with last treatment about 6 months ago, home oxygen at 3L/[place] ATC, COPD, chronic hypoxic respiratory failure, bilateral lower extremity/pedal edema, chronic chest pain, low back pain, incisional hernia, bronchitis, 5 R sided pneumothorax when 16 yrs old d/t bleb-had surgery, past ruptured gastric ulcer with surgery. History of Any Multi-Drug Resistant Organisms: None Reported Additional Past Surgical History / Comment(s): Bronchoscopy, R apical bleb/resection, EGD, perforated gastric ulcer with surgical repair/patch. Past Anesthesia/Blood Transfusion Reactions: No Reported Reaction Past Psychological History: Depression Smoking Status: Current every day smoker Past Alcohol Use History: None Reported Past Drug Use History: None Reported - Past Family History Mother Family Medical History: COPD Additional Family Medical History / Comment(s): Mother is Father Family Medical History: Eye Disorder Additional Family Medical History / Comment(s): Father was blind. He is . General Exam Limitations: physical limitation Course Vital Signs 10/05/19 10:47 Temperature 98.7 F Pulse Rate 101 H Respiratory 22 Rate Blood Pressure 115/72 O2 Sat by Pulse 95 Oximetry Medical Decision Making - Lab Data Result diagrams: 10/05/19 11:11 10/05/19 11:11 Lab Results 10/05/19 10/05/19 Range/Units 11:11 11:11 WBC 9.4 (3.8-10.6) k/uL RBC 4.49 (4.30-5.90) m/uL Hgb 13.4 (13.0-17.5) gm/dL Hct 43.0 (39.0-53.0) % MCV 95.7 (80.0-100.0) fL MCH 29.7 (25.0-35.0) pg MCHC 31.1 (31.0-37.0) g/dL RDW 13.6 (11.5-15.5) % Plt Count 340 (150-450) k/uL Neutrophils % 69 % Lymphocytes % 17 % Monocytes % 7 % Eosinophils % 6 % Basophils % 1 % Neutrophils # 6.5 (1.3-7.7) k/uL Lymphocytes # 1.6 (1.0-4.8) k/uL Monocytes # 0.6 (0-1.0) k/uL Eosinophils # 0.5 (0-0.7) k/uL Basophils # 0.1 (0-0.2) k/uL Hypochromasia Slight Sodium 137 (137-145) mmol/L Potassium 4.2 (3.5-5.1) mmol/L Chloride 106 (98-107) mmol/L Carbon Dioxide 25 (22-30) mmol/L Anion Gap 6 mmol/L BUN 8 L (9-20) mg/dL Creatinine 0.40 L (0.66-1.25) mg/dL Est GFR (CKD-EPI)AfAm >90 (>60 ml/min/1.73 sqM) Est GFR (CKD-EPI)NonAf >90 (>60 ml/min/1.73 sqM) Glucose 125 H (74-99) mg/dL Calcium 9.0 (8.4-10.2) mg/dL Disposition Clinical Impression: Chest pain, Lung cancer Disposition: HOME SELF-CARE Condition: Fair Instructions (If sedation given, give patient instructions): Lung Cancer (DC) Additional Instructions: 1. Please follow-up with your oncologist. your CT was concerning for recurrence of lung cancer 2. Prescriptions for pain medications were sent to preferred pharmacy. They should be ready for pickup by the time your arrive Prescriptions: Morphine Sulfate Ir [MSIR] 15 mg PO Q6HR PRN 3 Days #12 tab PRN Reason: Pain Is patient prescribed a controlled substance at d/c from ED?: Yes Referrals: Mayco Monae MD [STAFF PHYSICIAN] - 1-2 days Time of Disposition: 12:31
[2019-10-05] MEDS ORDERED: NICOTINE 21MG/24HR PATCH TRANSDERM STA (11:27)
[2019-10-05 11:28] LABS: Basophils # (A) 0.1 k/uL (0-0.2); Basophils % (A) 1 %; Eosinophils # (A) 0.5 k/uL (0-0.7); Eosinophils % (A) 6 %; HGB 13.4 gm/dL (13.0-17.5); Hypochromasia Slight; Lymphocytes # (A) 1.6 k/uL (1.0-4.8); Lymphocytes % (A) 17 %; MCH 29.7 pg (25.0-35.0); MCHC 31.1 g/dL (31.0-37.0); MCV 95.7 fL (80.0-100.0); Mean Platelet Volume 7.6; Monocytes # (A) 0.6 k/uL (0-1.0); Monocytes % (A) 7 %; Neutrophils # (A) 6.5 k/uL (1.3-7.7); Neutrophils % (A) 69 %; Platelet Count 340 k/uL (150-450); RBC 4.49 m/uL (4.30-5.90); RDW 13.6 % (11.5-15.5); WBC 9.4 k/uL (3.8-10.6)
[2019-10-05 11:37] LABS: African American GFR (CKD) >90 (>60 ml/min/1.73 sqM); Anion Gap 6 mmol/L; Blood Urea Nitrogen 8 mg/dL (9-20); Carbon Dioxide 25 mmol/L (22-30); Chloride 106 mmol/L (98-107); Glucose 125 mg/dL (74-99); Non-African American GFR(CKD) >90 (>60 ml/min/1.73 sqM); Potassium 4.2 mmol/L (3.5-5.1); Sodium 137 mmol/L (137-145)
--- NOTE | 2019-10-05 12:08 | CT ---
EXAMINATION TYPE: CT chest w con DATE OF EXAM: 10/05/2019 COMPARISON: 07/18/2019 HISTORY: 59-year-old male Right sided pleuritic chest pain x 1 month. History of lung cancer. TECHNIQUE: Contiguous axial scanning of the chest after the administration of 100 mL of Isovue 300. Coronal/sagittal reconstructions performed. CT DLP: 292.1mGycm. Automatic exposure control utilized for a dose reduction. FINDINGS: Heart normal size without pericardial effusion. Aorta normal caliber with conventional arch was a branching anatomy. No thoracic lymphadenopathy seen. Redemonstrated is a chronic consolidation and distortion within the right upper lobe with a opacity e xtending from the subpleural region to the hilum. Mild soft tissue encasement of the right hilum is u nchanged. However, nodularity at the apex adjacent to some surgical material has increased at 2.4 cm versus 1.5 cm, previously. Refer to axial image 13. Possible new 6 mm right midlung pulmonary nodule adjacent to the hilum, axial image 25. Enlarging subpleural pulmonary nodule peripheral right midlung, axial image 28 measuring 1.4 cm versu s 7 mm, previously. Additional enlarging subpleural pulmonary nodule anterior left upper lobe measuring 1.3 cm versus 8 m m, previously. Moderate to advanced centrilobular emphysema in the background. Pleural parenchymal scarring at the right greater than left lung bases. Trace bilateral gynecomastia. Chronic small right pleural effusion. Visualized upper abdomen shows some rectus diastases with anterior bulging laxity. Bones: Superior endplate deformity of T9 and T12 as well as L1 and L2 to a lesser extent remain uncha nged back to at least 07/18/2019. Some severe endplate sclerosis of T4 is unchanged. IMPRESSION: 1. 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 2. However, there is enlarging soft tissue nodule at the right apex adjacent to some surgical materia l measuring 2.4 cm. This measured 1.5 cm, previously. 3. A 6 mm right midlung pulmonary nodule appears new and there is also enlarging subpleural pulmonary nodule on the right and left measuring 1.4 and 1.3 cm, respectively (versus 7 and 8 mm each, previou sly). Findings highly suspicious for recurrent disease. Appropriate oncologic follow-up recommended.
[2019-10-05] MEDS ORDERED: HYDROmorphone 1 MG/ML 1 ML SYRINGE IVP STA (12:44)
[2019-10-05] MEDS ORDERED: IPRATROPIUM-ALBUTEROL 3 ML NEB INHALATION STA (12:54)
[2019-10-05 13:47] VITALS: BP 130/86; PULSE 69; RESP 18; TEMP 97.9
== END 2019-10-05 13:47 | disposition home or self-care (01) ==
LOC: EC 10:44
DX: C34.90 Malignant neoplasm of unspecified part of unspecified bronchus or lung (principal); R07.9 Chest pain, unspecified; J44.9 Chronic obstructive pulmonary disease, unspecified; F17.200 Nicotine dependence, unspecified, uncomplicated; Z79.51 Long term (current) use of inhaled steroids; Z88.0 Allergy status to penicillin; Z88.1 Allergy status to other antibiotic agents; Z88.6 Allergy status to analgesic agent; Z85.118 Personal history of other malignant neoplasm of bronchus and lung
CPT/HCPCS: 99285 ×2; 96374 ×2; 96376 ×2; 36415; 94640; 80048; 85025; 71260; S4990; J1170 ×2; Q9967